=== PATIENT | female | born 1960 | race Caucasian/White ===

== ENCOUNTER 2022-05-28 22:12 | Emergency (ER) | payer MEDICARE, SELFPAY ==
--- NOTE | ~2022-05-28 | XR_ITS ---
EXAMINATION: XR CHEST CLINICAL INFORMATION: Shortness of breath COMPARISON: 01/15/2019 TECHNIQUE: Frontal view of the chest was obtained. FINDINGS: Normal symmetric lung volumes. No parenchymal consolidation. No pleural effusion. No pneumothorax. Cardiomediastinal silhouette and pulmonary vascularity are within normal limits. Aorta is atherosclerotic. No acute osseous abnormalities. XR/XR chest 1V IMPRESSION: No acute findings.
[2022-05-28 22:15] VITALS: BP 125/65; BP 145/71; PULSE 81; PULSE 85; RESP 20; TEMP 36.6; O2SAT 97; O2SAT 98; BMI 34.3
--- NOTE | 2022-05-28 22:16 | ECG_ITS ---
Test Reason : SOB Blood Pressure : / mmHG Vent. Rate : 073 BPM Atrial Rate : 073 BPM P-R Int : 152 ms QRS Dur : 082 ms QT Int : 436 ms P-R-T Axes : 032 029 076 degrees QTc Int : 480 ms Normal sinus rhythm Cannot rule out Inferior infarct , age undetermined Abnormal ECG When compared with ECG of 24-JAN-2019 18:10, Nonspecific T wave abnormality now evident in Lateral leads Referred By: Carissa Jiménez Electronically Signed By:ELLA CUEVAS MD
[2022-05-28 22:23] VITALS: BP 145/71; PULSE 79; RESP 12; O2SAT 95
[2022-05-28 22:29] LABS: Glucose, Whole Blood 297 mg/dL (60-115)
[2022-05-28] MEDS: 0.9 % Sodium Chloride 2,000 ML 999 ML IV (22:42)
[2022-05-28 22:50] LABS: Venous Blood Gas Refer to POC result
[2022-05-28 22:51] LABS: VBG Base Excess -1.1 mmol/L; VBG HCO3 23 mmol/L (22-26); VBG pCO2 38 mmHg; VBG pH 7.39 (7.32-7.43); VBG pO2 68 mmHg
[2022-05-28 22:55] LABS: Prothrombin Time 11.6 SEC (10.0-13.1)
--- NOTE | 2022-05-28 23:05 | ED.GENADULT ---
HPI - General Adult General Chief complaint: Weakness Stated complaint: hyperglycemia Time Seen by Provider: 05/28/22 22:15 Source: patient Mode of arrival: EMS History of Present Illness HPI narrative: 61-year-old female who presents via EMS for complaints of having generalized lethargy for 4 days, sore throat, cough for 2 weeks, states she was not feeling well and had a low-grade fever and then today was having chest pain associated with cough and worsened by deep inspiration. Related Data Allergies Allergy/AdvReac Type Severity Reaction Status Date / Time carisoprodol [From SOMA] Allergy Intermediate HIVES Unverified 07/09/20 15:17 sulfamethoxazole Allergy Intermediate HIVES Unverified 07/09/20 15:17 [From BACTRIM] trimethoprim [From BACTRIM] Allergy Intermediate HIVES Unverified 07/09/20 15:17 Penicillins Allergy Mild HIVES,RASH Unverified 07/09/20 15:17 (PENICILLINASE) atorvastatin [Lipitor] Allergy Unknown Verified 06/26/19 00:00 carbamazepine [Tegretol] Allergy Unknown Verified 04/03/19 00:00 gabapentin Allergy Unknown Unverified 06/26/19 00:00 penicillin V Allergy Unknown hives, rash Unverified 06/26/19 00:00 Sulfa (Sulfonamide Allergy Unknown Unverified 06/26/19 00:00 Antibiotics) topiramate [Topamax] Allergy Unknown Verified 06/26/19 00:00 Doxycycline Hyclate Allergy Unknown vomiting Uncoded 04/03/19 00:00 Review of Systems Review of Systems: Pertinent positives and negatives as stated in HPI 10 point review of systems is otherwise negative. [facility] Past Medical History Source: nursing notes reviewed Social History Social History Alcohol intake: never Patient Tobacco Use Status: Never used Tobacco Use of substances other than those prescribed or required for medical reasons: No Advance Directives: No Advance Directives Information Provided: No Patient : No Physical Exam ED Vital Signs: Vital Signs - 24 hr 05/28/22 22:15 05/28/22 22:23 Temperature 97.9 F Pulse Rate 81 79 Respiratory Rate 20 12 Blood Pressure 145/71 H 145/71 H Pulse Oximetry 97 95 Oxygen Delivery Method Room Air Room Air BMI result Body Mass Index 34.3 VITAL SIGNS: Reviewed. GENERAL: Well developed, well nourished, in no acute distress. HEAD: Normocephalic/atraumatic EYES: PERRLA, EOMI EARS: Ext canals without abnormality OROPHARYNX: no oral lesions noted, posterior pharynx clear LUNGS: Normal breath sounds. No adventitious sounds or accessory muscle use. SpO2<97> CARDIOVASCULAR: Regular rate and rhythm without noted murmurs, no JVD or lower extremity edema. ABDOMEN: Soft, non-tender, non-distended with bowel sounds. MUSCULOSKELETAL: No tenderness, deformities, or effusions noted on gross inspection. EXTREMITIES: No cyanosis, clubbing or edema. SKIN: Inspection of the skin reveals no rashes NEUROLOGIC: Alert and oriented x 4. Strength and sensation to light touch were grossly intact x 4. Course Course Course Narrative: 61-year-old female with history and clinical presentation suggestive of possible viral syndrome, patient is noted to have hyperglycemia. On review of all investigations patient is noted be COVID-19 positive but otherwise lab work is benign. Patient is noted be hyperglycemic and did receive 2 L of IV fluids. She is otherwise stable for discharge to home. Medical Decision Making Lab Data Result diagrams: 05/28/22 23:49 05/28/22 22:38 Labs: Lab Results 05/28/22 05/28/22 05/28/22 Range/Units 22:24 22:38 22:38 WBC (4.8-10.8) X10*3/uL RBC (4.20-5.50) X10*6/uL Hgb (12.0-16.0) g/dl Hct (37.0-47.0) % MCV (80.0-98.0) fL MCH (27.0-33.0) pg MCHC (31.0-35.0) g/dl RDW (11.0-16.0) % Plt Count (160-400) X10*3/uL MPV (9.4-12.3) fL Immature Gran % (Auto) (0.0-0.4) % Neut % (Auto) (45-73) % Lymph % (Auto) (20-40) % [place] % (Auto) (2-11) % Eos % (Auto) (0-4) % Baso % (Auto) (0-2) % Lymph # (Auto) (1.2-4.9) X10*3/uL [place] # (Auto) (0.1-1.2) X10*3/uL Eos # (Auto) (0.0-0.4) X10*3/uL Baso # (Auto) (0.0-0.2) X10*3/uL Abs Immat Gran (auto) (0.00-0.03) X10*3/uL Absolute Neuts (auto) (2.0-8.3) x10*3/uL Absolute Nucleated RBC (0.0-0.012) X10*3/uL Nucleated RBC % (auto) (0.0-0.2) /100WBC Smear Tech's Comments PT (10.0-13.1) SEC INR (0.9-1.1) VBG pH (7.32-7.43) VBG pCO2 mmHg VBG pO2 mmHg VBG HCO3 (22-26) mmol/L VBG O2 Saturation % VBG Base Excess mmol/L Sodium 138 (135-145) mmol/L Potassium 4.3 (3.3-5.1) mmol/L Chloride 102 (96-108) mmol/L Carbon Dioxide 24 (22-29) mmol/L Anion Gap 16 (12-20) BUN 20 H (9-16) mg/dL Creatinine 1.14 (0.5-1.4) mg/dL Estim Creat Clear Calc 56.5 Estimated GFR 48 POC Glucose 297 H (60-115) mg/dL Random Glucose 331 H (60-115) mg/dL Lactic Acid (0.5-2.0) mmol/L Calcium 8.7 (8.4-10.2) mg/dL Total Bilirubin 0.7 (0.0-1.0) mg/dL AST 47 H (5-31) U/L ALT 62 H (0-31) U/L Alkaline Phosphatase 133 H (39-117) U/L Troponin I High Sens (<3.5-17.0) ng/L B-Natriuretic Peptide 18 (<100) pg/mL Total Protein 7.6 (6.5-8.0) g/dL Albumin 4.0 (3.5-5.0) g/dL Acetone, Qual Negative (Negative) COVID-19 (MICHAELA) (Negative) COVID-19 Clin Com 05/28/22 05/28/22 05/28/22 Range/Units 22:38 22:39 22:39 WBC (4.8-10.8) X10*3/uL RBC (4.20-5.50) X10*6/uL Hgb (12.0-16.0) g/dl Hct (37.0-47.0) % MCV (80.0-98.0) fL MCH (27.0-33.0) pg MCHC (31.0-35.0) g/dl RDW (11.0-16.0) % Plt Count (160-400) X10*3/uL MPV (9.4-12.3) fL Immature Gran % (Auto) (0.0-0.4) % Neut % (Auto) (45-73) % Lymph % (Auto) (20-40) % [place] % (Auto) (2-11) % Eos % (Auto) (0-4) % Baso % (Auto) (0-2) % Lymph # (Auto) (1.2-4.9) X10*3/uL [place] # (Auto) (0.1-1.2) X10*3/uL Eos # (Auto) (0.0-0.4) X10*3/uL Baso # (Auto) (0.0-0.2) X10*3/uL Abs Immat Gran (auto) (0.00-0.03) X10*3/uL Absolute Neuts (auto) (2.0-8.3) x10*3/uL Absolute Nucleated RBC (0.0-0.012) X10*3/uL Nucleated RBC % (auto) (0.0-0.2) /100WBC Smear Tech's Comments PT 11.6 (10.0-13.1) SEC INR 1.0 (0.9-1.1) VBG pH (7.32-7.43) VBG pCO2 mmHg VBG pO2 mmHg VBG HCO3 (22-26) mmol/L VBG O2 Saturation % VBG Base Excess mmol/L Sodium (135-145) mmol/L Potassium (3.3-5.1) mmol/L Chloride (96-108) mmol/L Carbon Dioxide (22-29) mmol/L Anion Gap (12-20) BUN (9-16) mg/dL Creatinine (0.5-1.4) mg/dL Estim Creat Clear Calc Estimated GFR POC Glucose (60-115) mg/dL Random Glucose (60-115) mg/dL Lactic Acid 1.6 (0.5-2.0) mmol/L Calcium (8.4-10.2) mg/dL Total Bilirubin (0.0-1.0) mg/dL AST (5-31) U/L ALT (0-31) U/L Alkaline Phosphatase (39-117) U/L Troponin I High Sens < 3.5 (<3.5-17.0) ng/L B-Natriuretic Peptide (<100) pg/mL Total Protein (6.5-8.0) g/dL Albumin (3.5-5.0) g/dL Acetone, Qual (Negative) COVID-19 (MICHAELA) (Negative) COVID-19 Clin Com 05/28/22 05/28/22 05/28/22 Range/Units 22:39 22:45 23:49 WBC 6.4 (4.8-10.8) X10*3/uL RBC 4.45 (4.20-5.50) X10*6/uL Hgb 12.4 (12.0-16.0) g/dl Hct 38.0 (37.0-47.0) % MCV 85.4 (80.0-98.0) fL MCH 27.9 (27.0-33.0) pg MCHC 32.6 (31.0-35.0) g/dl RDW 13.4 (11.0-16.0) % Plt Count 127 L (160-400) X10*3/uL MPV 12.8 H (9.4-12.3) fL Immature Gran % (Auto) 0.6 H (0.0-0.4) % Neut % (Auto) 62.2 (45-73) % Lymph % (Auto) 26.1 (20-40) % [place] % (Auto) 8.4 (2-11) % Eos % (Auto) 2.2 (0-4) % Baso % (Auto) 0.5 (0-2) % Lymph # (Auto) 1.7 (1.2-4.9) X10*3/uL [place] # (Auto) 0.5 (0.1-1.2) X10*3/uL Eos # (Auto) 0.1 (0.0-0.4) X10*3/uL Baso # (Auto) 0.0 (0.0-0.2) X10*3/uL Abs Immat Gran (auto) 0.04 H (0.00-0.03) X10*3/uL Absolute Neuts (auto) 4.0 (2.0-8.3) x10*3/uL Absolute Nucleated RBC 0.000 (0.0-0.012) X10*3/uL Nucleated RBC % (auto) 0.0 (0.0-0.2) /100WBC Smear Tech's Comments VERIFIED PT (10.0-13.1) SEC INR (0.9-1.1) VBG pH 7.39 (7.32-7.43) VBG pCO2 38 mmHg VBG pO2 68 mmHg VBG HCO3 23 (22-26) mmol/L VBG O2 Saturation 90.0 % VBG Base Excess -1.1 mmol/L Sodium (135-145) mmol/L Potassium (3.3-5.1) mmol/L Chloride (96-108) mmol/L Carbon Dioxide (22-29) mmol/L Anion Gap (12-20) BUN (9-16) mg/dL Creatinine (0.5-1.4) mg/dL Estim Creat Clear Calc Estimated GFR POC Glucose (60-115) mg/dL Random Glucose (60-115) mg/dL Lactic Acid (0.5-2.0) mmol/L Calcium (8.4-10.2) mg/dL Total Bilirubin (0.0-1.0) mg/dL AST (5-31) U/L ALT (0-31) U/L Alkaline Phosphatase (39-117) U/L Troponin I High Sens (<3.5-17.0) ng/L B-Natriuretic Peptide (<100) pg/mL Total Protein (6.5-8.0) g/dL Albumin (3.5-5.0) g/dL Acetone, Qual (Negative) COVID-19 (MICHAELA) Positive A (Negative) COVID-19 Clin Com See Note ECG Data Attestation: I personally reviewed and interpreted this ECG as follows: Prior ECG tracings: available for review Interpretation: Normal sinus rhythm, HR-73, no STEMI, [place]/QRS/QTC are within normal limits. Discharge Plan Discharge Clinical Impression: Viral syndrome, Lab test positive for detection of COVID-19 virus, Hyperglycemia Patient Disposition: Home, Self-Care Instructions: Diabetic Hyperglycemia (ED), COVID-19 (Coronavirus Disease 2019) (ED), Viral Syndrome (ED) Additional Instructions: 1. You have been diagnosed with COVID 19 infection and must isolate for the next 5 days and then follow all [place] and Federal does guidelines regarding COVID-19 infection. 2. Recommend [id number] Tylenol/ibuprofen as needed for headaches, body aches, temperatures greater than 100.4. Increase water intake and rest. 3. Resume all home medications as prescribed. 4. Follow-up with your primary care doctor via telemedicine. Return to the ER for worsening symptoms.
[2022-05-28 23:06] LABS: COVID-19 Test Positive (Negative)
[2022-05-28 23:09] LABS: Lactic Acid 1.6 mmol/L (0.5-2.0)
[2022-05-28 23:15] LABS: Alanine Aminotransferase 62 U/L (0-31); Alkaline Phosphatase 133 U/L (39-117); Anion Gap 16 (12-20); Aspartate Amino Transferase 47 U/L (5-31); Bilirubin Total 0.7 mg/dL (0.0-1.0); Blood Urea Nitrogen 20 mg/dL (9-16); Calcium 8.7 mg/dL (8.4-10.2); Carbon Dioxide 24 mmol/L (22-29); Chloride 102 mmol/L (96-108); Creatinine Clr Calc Pharmacy 56.5; Estimated Glomerular Filt Rate 48; Glucose Random 331 mg/dL (60-115); Potassium 4.3 mmol/L (3.3-5.1); Sodium 138 mmol/L (135-145); Total Protein 7.6 g/dL (6.5-8.0)
[2022-05-28 23:18] LABS: B Type Natriuretic Peptide 18 pg/mL (<100)
[2022-05-28 23:19] LABS: Troponin-I High Sensitivity < 3.5 ng/L (<3.5-17.0)
[2022-05-28 23:33] LABS: Acetone, serum QL Negative (Negative)
[2022-05-28 23:54] LABS: PLT CLUMP 1; Red Cell Distribution Width 13.4 % (11.0-16.0); SCAN SMEAR FLAG 1
[2022-05-28 23:56] LABS: Basophils Percent Auto 0.5 % (0-2); Eosinophils Absolute Auto 0.1 X10*3/uL (0.0-0.4); Eosinophils Percent Auto 2.2 % (0-4); Hemoglobin 12.4 g/dl (12.0-16.0); Imm Gran Abs Auto 0.04 X10*3/uL (0.00-0.03); Imm Gran Pct Auto 0.6 % (0.0-0.4); Lymphocytes Absolute Auto 1.7 X10*3/uL (1.2-4.9); Lymphocytes Percent Auto 26.1 % (20-40); MANUAL DIFF FLAG SCAN; Mean Corpuscular HGB Conc 32.6 g/dl (31.0-35.0); Mean Corpuscular Hemoglobin 27.9 pg (27.0-33.0); Mean Corpuscular Volume 85.4 fL (80.0-98.0); Mean Platelet Volume 12.8 fL (9.4-12.3); Monocytes Absolute Auto 0.5 X10*3/uL (0.1-1.2); Monocytes Percent Auto 8.4 % (2-11); Neutrophils Percent Auto 62.2 % (45-73); Red Blood Count 4.45 X10*6/uL (4.20-5.50); White Blood Count 6.4 X10*3/uL (4.8-10.8)
[2022-05-29 00:18] LABS: Platelet Count 127 X10*3/uL (160-400)
[2022-05-29 00:19] LABS: SLIDE REVIEW VERIFIED
[2022-05-29 01:52] VITALS: BP 105/63; BP 136/49; PULSE 65; PULSE 66; RESP 12; RESP 18; O2SAT 92; O2SAT 98
[2022-05-29 01:59] LABS: Glucose, Whole Blood 237 mg/dL (60-115)
== END 2022-05-29 02:07 | disposition home or self-care (01) ==
PROVIDERS: Emergency Provider Student in an Organized Health Care Education/Training Program
DX: U07.1 COVID-19 (principal); R73.9 Hyperglycemia, unspecified
CPT/HCPCS: 36415; 71045; 80053; 82009; 82803; 82947; 83605; 83880; 84484; 85025; 85610; 87040; 87635; 93005; 96360; 96361; 99284; 99285

== ENCOUNTER 2022-09-20 19:04 | Observation (INO) | payer MEDICARE, SELFPAY ==
--- NOTE | ~2022-09-20 | CT_ITS ---
EXAMINATION: CT HEAD WITHOUT CONTRAST (STROKE PROTOCOL) CLINICAL INFORMATION: Stroke protocol. Fluid speech COMPARISON: Head CT 05/20/2013 TECHNIQUE: Contiguous axial imaging was performed from the skull base to vertex without intravenous administration of contrast. This CT examination was performed using dose optimization techniques as appropriate, variously including the following: *Automated exposure control *Adjustment of mA and/or kV according to patient size (this includes techniques or standardized protocols for targeted exams where dose is matched to indication/reason for exam; i.e. extremities or head) *Use of iterative reconstruction technique DLP: 652 mGy-cm FINDINGS: There is no evidence of acute intracranial hemorrhage or territorial infarction. No abnormal mass effect or midline shift is appreciated. Segura-white differentiation is well preserved. No extra-axial fluid collections. The ventricular system and cortical sulci are normal in size. The osseous structures and soft tissues are normal. . The visualized paranasal sinuses and mastoid air cells are well aerated. CT/CT head for stroke IMPRESSION: No CT evidence of acute intracranial abnormality. This critical result was discussed with Dr. Solorzano at 7:40 PM hours on 09/20/2022. It was ascertained that the content and urgency of the report was understood at the time of direct communication.
--- NOTE | ~2022-09-20 | CT_ITS ---
EXAMINATION: CT ANGIOGRAM NECK CLINICAL INFORMATION: Slurred speech. COMPARISON: None TECHNIQUE: Axial images were obtained through the neck following the intravenous administration of 70 mL Omnipaque 350 per CTA protocol. Coronal and sagittal reconstructed images were generated. Multiplanar MIP reformatted images also generated. This CT examination was performed using dose optimization techniques as appropriate, variously including the following: *Automated exposure control *Adjustment of mA and/or kV according to patient size (this includes techniques or standardized protocols for targeted exams where dose is matched to indication/reason for exam; i.e. extremities or head) *Use of iterative reconstruction technique DLP: 574 mGy-cm FINDINGS: There is a large volume contrast extravasation in the right neck extending from the posterior margin of the right parotid gland inferiorly into the right aspect of the paratracheal mediastinum. No intravascular contrast as a result making examination nondiagnostic from a vascular perspective. The trachea remains midline. No significant mass effect from the contrast extravasation on the airway identified. Major salivary glands and thyroid gland are unremarkable. No cervical lymphadenopathy or mass identified. No mucosal space mass. Laryngeal structures are unremarkable. Normal caliber aortic arch. Visualized upper lungs appear clear. Globes and retro-orbital structures are unremarkable. Normal appearance the talent consultant space and parapharyngeal fat. No retropharyngeal collection. Visualized intracranial contents grossly unremarkable limited assessment. Visualized paranasal sinuses and mastoid air cells normally aerated. No acute fracture. No suspicious osseous lesion. Status post prior ACDF at C4-C5 and C5-C6. CT/CT angio neck IMPRESSION: 1. Large volume iodinated contrast extravasation in the right neck extending inferiorly into the right paratracheal mediastinum. No significant mass effect on the airway identified. Recommend compresses and gentle massage of the extravasated area as tolerated. Would suggest close clinical follow-up for a few hours. 2. No intravascular contrast as a result of the extravasation making examination nondiagnostic for vascular imaging.
--- NOTE | ~2022-09-20 | MR_ITS ---
MRI OF THE BRAIN WITHOUT IV CONTRAST INDICATION: TIA. COMPARISON: Head CT and CTA head and neck 09/20/2022. TECHNIQUE: Multiplanar multisequence MR imaging of the brain was obtained without IV contrast. FINDINGS: There is no hydrocephalus, extra-axial surface collection, or herniation. There is mild chronic microangiopathy. The major flow voids at the skull base are preserved. There is no acute infarct on diffusion-weighted imaging. There is no intracranial hemorrhage on the gradient recalled echo acquisition. The midline structures are normal. The cerebellar tonsils are normally positioned. The cerebellum and brainstem are normal. The craniocervical junction is normal. Osseous marrow signal intensity is homogenous. The visualized soft tissues are unremarkable. MR/MR head/brain wo con IMPRESSION: - No acute intracranial findings. No acute infarcts. - There is mild chronic microangiopathy.
--- NOTE | 2022-09-20 19:13 | ECG_ITS ---
Test Reason : STROKE Blood Pressure : / mmHG Vent. Rate : 070 BPM Atrial Rate : 070 BPM P-R Int : 128 ms QRS Dur : 082 ms QT Int : 426 ms P-R-T Axes : 026 041 038 degrees QTc Int : 460 ms Normal sinus rhythm Normal ECG When compared with ECG of 28-MAY-2022 22:48, T wave amplitude has increased in Lateral leads Referred By: Portia Solorzano Electronically Signed By:SHELBY PRIEST MD
[2022-09-20 19:20] VITALS: BP 130/70; PULSE 80; O2SAT 100
--- NOTE | 2022-09-20 19:21 | PC.NURSE ---
Pt. in CT scan at this time
--- NOTE | 2022-09-20 19:36 | ED_ITS ---
HPI - Neuro Symptoms/Deficit General Chief Complaint: Stroke Stated Complaint: stroke alert Time Seen by Provider: 09/20/22 19:10 Source: patient and EMS Mode of arrival: EMS Limitations: no limitations History of Present Illness HPI Narrative: Patient comes to the emergency room complaining of mild right-sided facial numbness. Patient denies any motor dysfunction. EMS called in as a stroke alert. NIH 0. Patient's glucose 500+ patient denies any chest pain or shortness of breath. Patient states her symptoms started around 18:30 Related Data Allergies Allergy/AdvReac Type Severity Reaction Status Date / Time carisoprodol [From SOMA] Allergy Intermediate HIVES Verified 09/20/22 21:11 sulfamethoxazole Allergy Intermediate HIVES Verified 09/20/22 21:11 [From BACTRIM] trimethoprim [From BACTRIM] Allergy Intermediate HIVES Verified 09/20/22 21:11 Penicillins Allergy Mild HIVES,RASH Verified 09/20/22 21:11 (PENICILLINASE) atorvastatin [Lipitor] Allergy Unknown Swelling Verified 09/20/22 21:11 carbamazepine [Tegretol] Allergy Unknown Swelling Verified 09/20/22 21:11 gabapentin Allergy Unknown Swelling Verified 09/20/22 21:11 penicillin V Allergy Unknown hives, rash Verified 09/20/22 21:11 Sulfa (Sulfonamide Allergy Unknown Swelling Verified 09/20/22 21:11 Antibiotics) topiramate [Topamax] Allergy Unknown Swelling Verified 09/20/22 21:11 Doxycycline Hyclate Allergy Unknown vomiting Uncoded 09/20/22 21:10 Review of Systems Review of Systems: Constitutional : No Weight loss, No Fever, No Chills, No Night Sweats, No Fatigue, No Malaise ENT/Mouth : No Hearing loss, No Ear Pain, No Nasal Congestion, No Sinus Pain, No Hoarseness, No sore throat, No Rhinorrhea, No Swallowing Difficulty Eyes: No Eye Pain, No Swelling, No Redness, No Foreign Body, No Discharge, No Vision Changes Cardiovascular : No Chest Pain, No SOB, No Dyspnea on Exertion, No Orthopnea, No Edema, No Palpitations Respiratory : No Cough, No Sputum, No Wheezing, No Smoke Exposure, No Dyspnea Gastrointestinal : No Nausea, No Vomiting, No Diarrhea, No Constipation, No abdominal Pain, No Hematochezia, No Melena Genitourinary : no irregular bleeding, No Dysuria, No Urinary Frequency, No Hematuria, No Urinary Incontinence, No Urgency, No Flank Pain, No Urinary Flow Changes, No Hesitancy Musculoskeletal : No joint pain, No Myalgias, No Joint Swelling Skin : No Skin Lesions, No rash Neuro : Complaining of some possible weakness, numbness in the right side of the body, started approximately around 18:30 Psych : No Anxiety/Panic, No Depression, No SI/HI/AH/VH, No Social Issues, Heme/Lymph: No Bruising, No Bleeding,No Lymphadenopathy Endocrine : No Polyuria, No Polydipsia, No Temperature Intolerance [facility] Past Medical History Medical History (Updated 09/20/22 @ 22:14 by Portia Solorzano MD) Type 2 diabetes Social History Social History Alcohol intake: never Patient Tobacco Use Status: Never used Tobacco Advance Directives: No Physical Exam Const: Other: Appearance: Alert. Oriented X3. No acute distress. Eyes: Pupils equal, round and reactive to light. ENT: Pharynx normal. Neck: Normal inspection. Neck supple. No lymph nodes noted. No crepitus CVS: Normal heart rate and rhythm. Pulses normal. Normal S1 and S2 Respiratory: No respiratory distress. Breath sounds normal. No Wheezing. No rales Abdomen: Soft and nontender. No rigidity. No distention. Skin: Skin warm and dry. Normal skin color. Normal skin turgor. Extremities: No lower extremity edema. No Lacerations. No Rash Neuro: Oriented X 3. No motor deficit. No sensory deficit. Moving all extremities. No slurred speech. CN 2 through 12 grossly intact Psych: calm, cooperative, normal affect Course Course Course Narrative: Patient's NIH score is 0. CT scan without contrast is negative for any acute pathology. Patient receiving IV fluids and insulin. At this time, patient is not a candidate for tPA since her NIH score is 0 CT scan is negative. Patient is asymptomatic at this time. Patient received 10 units of insulin and fluids. Patient received additionally 5 units of subcu insulin since patient accidentally pulled out her IV line and she has a very hard stick I discussed the patient with Dr. Calix, patient being admitted for possible TIA Medications Administered Discontinued Medications Generic Name Dose Route Start Last Admin Trade Name Freq PRN Reason Stop Dose Admin Sodium Chloride 1,000 mls @ 999 mls/hr 09/20/22 19:13 09/20/22 21:11 Ns IVCONT 09/20/22 20:13 999 mls/hr .Q1H1M ONE Administration Insulin Human Regular 10 unit 09/20/22 19:13 09/20/22 21:16 Insulin Regular, Human 100 Unit/Ml 3 Ml Vial IVPUSH 09/20/22 19:14 10 unit ONCE ONE Administration Iohexol 100 ml 09/20/22 22:09 09/20/22 22:09 Iohexol 350 Mg/Ml 100 Ml Infus..Btl IV 09/20/22 22:10 70 ml ONCE ONE Administration MDM - Neuro Symptoms/Deficit Lab Data Result diagrams: 09/20/22 20:25 09/20/22 20:25 Labs: Lab Results 09/20/22 09/20/22 09/20/22 Range/Units 19:43 20:25 20:25 WBC 6.7 (4.8-10.8) X10*3/uL RBC 4.70 (4.20-5.50) X10*6/uL Hgb 13.1 (12.0-16.0) g/dl Hct 40.6 (37.0-47.0) % MCV 86.4 (80.0-98.0) fL MCH 27.9 (27.0-33.0) pg MCHC 32.3 (31.0-35.0) g/dl RDW 13.4 (11.0-16.0) % Plt Count 244 D (160-400) X10*3/uL MPV 12.8 H (9.4-12.3) fL Immature Gran % (Auto) 0.3 (0.0-0.4) % Neut % (Auto) 61.4 (45-73) % Lymph % (Auto) 28.8 (20-40) % [place] % (Auto) 5.8 (2-11) % Eos % (Auto) 2.8 (0-4) % Baso % (Auto) 0.9 (0-2) % Lymph # (Auto) 1.9 (1.2-4.9) X10*3/uL [place] # (Auto) 0.4 (0.1-1.2) X10*3/uL Eos # (Auto) 0.2 (0.0-0.4) X10*3/uL Baso # (Auto) 0.1 (0.0-0.2) X10*3/uL Abs Immat Gran (auto) 0.02 (0.00-0.03) X10*3/uL Absolute Neuts (auto) 4.1 (2.0-8.3) x10*3/uL Absolute Nucleated RBC 0.000 (0.0-0.012) X10*3/uL Nucleated RBC % (auto) 0.0 (0.0-0.2) /100WBC PT (10.0-13.1) SEC Whole Blood PT 12.8 (11.1-13.5) sec INR (0.9-1.1) Whole Blood INR 1.1 (0.9-1.1) Sodium 139 (135-145) mmol/L Potassium 4.2 (3.3-5.1) mmol/L Chloride 100 (96-108) mmol/L Carbon Dioxide 28 (22-29) mmol/L Anion Gap 15 (12-20) BUN 14 (9-16) mg/dL Creatinine 0.91 (0.5-1.4) mg/dL Estim Creat Clear Calc TNP Estimated GFR > 60 POC Glucose (60-115) mg/dL Random Glucose 485 H* (60-115) mg/dL Calcium 9.0 (8.4-10.2) mg/dL Total Bilirubin 0.3 (0.0-1.0) mg/dL Direct Bilirubin 0.2 (0.0-0.5) mg/dL AST 15 D (5-31) U/L ALT 28 (0-31) U/L Alkaline Phosphatase 132 H (39-117) U/L Troponin I High Sens (<3.5-17.0) ng/L Total Protein 6.9 (6.5-8.0) g/dL Albumin 3.7 (3.5-5.0) g/dL Ethyl Alcohol mg/dL COVID-19 (MICHAELA) (Negative) COVID-19 Clin Com 09/20/22 09/20/22 09/20/22 Range/Units 20:25 20:25 20:25 WBC (4.8-10.8) X10*3/uL RBC (4.20-5.50) X10*6/uL Hgb (12.0-16.0) g/dl Hct (37.0-47.0) % MCV (80.0-98.0) fL MCH (27.0-33.0) pg MCHC (31.0-35.0) g/dl RDW (11.0-16.0) % Plt Count (160-400) X10*3/uL MPV (9.4-12.3) fL Immature Gran % (Auto) (0.0-0.4) % Neut % (Auto) (45-73) % Lymph % (Auto) (20-40) % [place] % (Auto) (2-11) % Eos % (Auto) (0-4) % Baso % (Auto) (0-2) % Lymph # (Auto) (1.2-4.9) X10*3/uL [place] # (Auto) (0.1-1.2) X10*3/uL Eos # (Auto) (0.0-0.4) X10*3/uL Baso # (Auto) (0.0-0.2) X10*3/uL Abs Immat Gran (auto) (0.00-0.03) X10*3/uL Absolute Neuts (auto) (2.0-8.3) x10*3/uL Absolute Nucleated RBC (0.0-0.012) X10*3/uL Nucleated RBC % (auto) (0.0-0.2) /100WBC PT 12.0 (10.0-13.1) SEC Whole Blood PT (11.1-13.5) sec INR 1.0 (0.9-1.1) Whole Blood INR (0.9-1.1) Sodium (135-145) mmol/L Potassium (3.3-5.1) mmol/L Chloride (96-108) mmol/L Carbon Dioxide (22-29) mmol/L Anion Gap (12-20) BUN (9-16) mg/dL Creatinine (0.5-1.4) mg/dL Estim Creat Clear Calc Estimated GFR POC Glucose (60-115) mg/dL Random Glucose (60-115) mg/dL Calcium (8.4-10.2) mg/dL Total Bilirubin (0.0-1.0) mg/dL Direct Bilirubin (0.0-0.5) mg/dL AST (5-31) U/L ALT (0-31) U/L Alkaline Phosphatase (39-117) U/L Troponin I High Sens < 3.5 (<3.5-17.0) ng/L Total Protein (6.5-8.0) g/dL Albumin (3.5-5.0) g/dL Ethyl Alcohol mg/dL COVID-19 (MICHAELA) Negative (Negative) COVID-19 Clin Com See Note 09/20/22 09/20/22 Range/Units 20:25 21:58 WBC (4.8-10.8) X10*3/uL RBC (4.20-5.50) X10*6/uL Hgb (12.0-16.0) g/dl Hct (37.0-47.0) % MCV (80.0-98.0) fL MCH (27.0-33.0) pg MCHC (31.0-35.0) g/dl RDW (11.0-16.0) % Plt Count (160-400) X10*3/uL MPV (9.4-12.3) fL Immature Gran % (Auto) (0.0-0.4) % Neut % (Auto) (45-73) % Lymph % (Auto) (20-40) % [place] % (Auto) (2-11) % Eos % (Auto) (0-4) % Baso % (Auto) (0-2) % Lymph # (Auto) (1.2-4.9) X10*3/uL [place] # (Auto) (0.1-1.2) X10*3/uL Eos # (Auto) (0.0-0.4) X10*3/uL Baso # (Auto) (0.0-0.2) X10*3/uL Abs Immat Gran (auto) (0.00-0.03) X10*3/uL Absolute Neuts (auto) (2.0-8.3) x10*3/uL Absolute Nucleated RBC (0.0-0.012) X10*3/uL Nucleated RBC % (auto) (0.0-0.2) /100WBC PT (10.0-13.1) SEC Whole Blood PT (11.1-13.5) sec INR (0.9-1.1) Whole Blood INR (0.9-1.1) Sodium (135-145) mmol/L Potassium (3.3-5.1) mmol/L Chloride (96-108) mmol/L Carbon Dioxide (22-29) mmol/L Anion Gap (12-20) BUN (9-16) mg/dL Creatinine (0.5-1.4) mg/dL Estim Creat Clear Calc Estimated GFR POC Glucose 310 H (60-115) mg/dL Random Glucose (60-115) mg/dL Calcium (8.4-10.2) mg/dL Total Bilirubin (0.0-1.0) mg/dL Direct Bilirubin (0.0-0.5) mg/dL AST (5-31) U/L ALT (0-31) U/L Alkaline Phosphatase (39-117) U/L Troponin I High Sens (<3.5-17.0) ng/L Total Protein (6.5-8.0) g/dL Albumin (3.5-5.0) g/dL Ethyl Alcohol < 10 mg/dL COVID-19 (MICHAELA) (Negative) COVID-19 Clin Com NIH Stroke Scale Internal: Initial- Upon Arrival Level of Consciousness: Alert Level of Consciousness Questions: Answers both questions correctly Level of Consciousness Commands: Performs both tasks correctly Best Gaze: Normal Visual: No visual loss Facial Palsy: Normal Motor Arm (Right): No drift Motor Arm (Left): No drift Motor Leg (Right): No drift Motor Leg (Left): No drift Limb Ataxia: Absent Sensory: Normal Best Language: No aphasia Dysarthia: Normal Extinction and Inattention: No abnormality Score: 0 Discharge Plan Discharge Clinical Impression: Transient cerebral ischemia, Acute hyperglycemia Patient Disposition: Admitted As Inpatient
[2022-09-20 19:47] LABS: Prothrombin Time Whole Bld POC 12.8 sec (11.1-13.5); ~PT, ~INR - Anti Coag Clinic 1.1 (0.9-1.1)
--- NOTE | 2022-09-20 19:51 | PC.NURSE ---
Unable to obtain IV access. Notified Annie Solorzano MD. advised RN to have fire extinguisher charger try. Zulema Scott aware
--- NOTE | 2022-09-20 19:55 | PC.NURSE ---
Attempts by other RNs - still unable to obtain access. aware
--- NOTE | 2022-09-20 20:28 | PC.NURSE ---
MD Jeanine in to CT to attempt line on pt.
[2022-09-20 20:29] LABS: MANUAL DIFF FLAG NO
[2022-09-20 20:38] LABS: Basophils Absolute Auto 0.1 X10*3/uL (0.0-0.2); Basophils Percent Auto 0.9 % (0-2); Eosinophils Absolute Auto 0.2 X10*3/uL (0.0-0.4); Eosinophils Percent Auto 2.8 % (0-4); Hematocrit 40.6 % (37.0-47.0); Hemoglobin 13.1 g/dl (12.0-16.0); Imm Gran Abs Auto 0.02 X10*3/uL (0.00-0.03); Imm Gran Pct Auto 0.3 % (0.0-0.4); Lymphocytes Absolute Auto 1.9 X10*3/uL (1.2-4.9); Lymphocytes Percent Auto 28.8 % (20-40); Mean Corpuscular HGB Conc 32.3 g/dl (31.0-35.0); Mean Corpuscular Hemoglobin 27.9 pg (27.0-33.0); Mean Corpuscular Volume 86.4 fL (80.0-98.0); Mean Platelet Volume 12.8 fL (9.4-12.3); Monocytes Absolute Auto 0.4 X10*3/uL (0.1-1.2); Monocytes Percent Auto 5.8 % (2-11); Neutrophils Absolute Auto 4.1 x10*3/uL (2.0-8.3); Neutrophils Percent Auto 61.4 % (45-73); Platelet Count 244 X10*3/uL (160-400); Red Cell Distribution Width 13.4 % (11.0-16.0); White Blood Count 6.7 X10*3/uL (4.8-10.8)
[2022-09-20 20:43] LABS: COVID-19 Test Negative (Negative); IDNOW Serial# 16C4AD1C
[2022-09-20 20:46] LABS: Ethanol < 10 mg/dL
[2022-09-20 20:51] LABS: Troponin-I High Sensitivity < 3.5 ng/L (<3.5-17.0)
[2022-09-20 20:52] LABS: Alanine Aminotransferase 28 U/L (0-31); Albumin Level 3.7 g/dL (3.5-5.0); Alkaline Phosphatase 132 U/L (39-117); Anion Gap 15 (12-20); Aspartate Amino Transferase 15 U/L (5-31); Bilirubin Direct 0.2 mg/dL (0.0-0.5); Bilirubin Total 0.3 mg/dL (0.0-1.0); Blood Urea Nitrogen 14 mg/dL (9-16); Carbon Dioxide 28 mmol/L (22-29); Chloride 100 mmol/L (96-108); Estimated Glomerular Filt Rate > 60; Potassium 4.2 mmol/L (3.3-5.1); Sodium 139 mmol/L (135-145); Total Protein 6.9 g/dL (6.5-8.0)
[2022-09-20] MEDS: 0.9 % Sodium Chloride 1,000 ML 999 ML IVCONT (21:11)
[2022-09-20] MEDS: Insulin Regular, Human 100 UNIT/ML 3 ML VIAL 10 UNIT IVPUSH (21:16)
--- NOTE | 2022-09-20 21:20 | PC.NURSE ---
Med administration delayed due to difficulty obtaining IV access. Provider obtained access via EJ.
--- OUTSIDE RECORDS SUMMARY | 2022-09-20 21:26 | XMS_ITS | Continuity of Care Document ---
:1960 Author Organization [facility] Address [address] [facility], 3rd Floor, [address] [place] [phone]- Care Team Providers Name Role Phone Feliz Ellis DO Primary Care Physician En[place] [facility] [place] Date(s): 08/15/20 - 12/13/[address] [facility] [address] [place], [address] Floor, [address] [place] [id number] Attending Physician: Jillian Thornton MD Admitting Physician: Jillian Thornton MD Allergies, Adverse Reactions, Alerts Substance Reaction Severity Status gabapentin nausea Active topiramate dizziness Active Bactrim rash Active TEGretol n/v Active penicillins rash Active Soma rash Active Lipitor myalgia Active Immunizations Given and Recorded Vaccine Date Status Refusal Reason pneumococcal 23-valent vaccine 04/06/10 Given Medications acetaminophen 325 mg oral tablet 975 mg, By Mouth, Every 6 hours, Not to exceed 4 GM of Tylenol per 24 hour period, Refills 0, Maintenance, 09/11/20 14:16:00 EST, Partial fill upon patient request Start Date: 09/11/20 Status: Orderedamitriptyline 25 mg oral tablet 25 mg, 1, tablet, By Mouth, Daily at bedtime, Refills 0, Maintenance, 11/12/19 13:02:00 EST Start Date: 11/12/19 Status: OrderedColace Capsule 100 mg, 1, capsule, By Mouth, 2 times a day, Refills 0, Maintenance, 09/11/20 14:16:00 EST, Partial fill upon patient request Start Date: 09/11/20 Status: Ordereddivalproex sodium 125 mg oral delayed release capsule 1 capsule = 125 mg, By Mouth, 3 times a day, 0 Refills, Maintenance, 09/09/19 8:56:18 EST Start Date: 09/09/19 Status: Orderedezetimibe 10 mg oral tablet 1 tablet = 10 mg, By Mouth, Daily, 0 Refills, Maintenance, 09/09/19 8:56:38 EST Start Date: 09/09/19 Status: OrderedFreestyle Kwadwo Monitor See Instructions, # 1 each, Maintenance, Use kwadwo monitor to check blood glucose 4x a day, E11.9, 06/24/20 16:08:00 EDT, Supply, 160.02, cm, 06/10/20 12:37:00 EDT, Height, 82, kg, 12/11/18 13:27:00 EST, Dry Weight Start Date: 06/24/20 Stop Date: 07/24/20 Status: OrderedFreestyle Kwadwo Sensor See Instructions, # 2 each, Refills 11, Tot. Refills 11, Maintenance, use sensor to monitor blood glucose 4x a day, change sensor every 14 days, E11.9, 06/24/20 16:08:00 EDT, Supply, 160.02, cm, 06/10/20 12:37:00 EDT, Height, 82, kg, 12/11/18 13:27:00... Start Date: 06/24/20 Stop Date: 06/19/21 Status: Orderedglimepiride 4 mg oral tablet 1 tablet = 4 mg, By Mouth, 2 times a day before breakfast and dinne, # 180 tablet, 4 Refills, Maintenance, 05/15/20 11:20:00 EDT, Tablet, [facility], 160.02, cm, 05/15/20 10:59:00 EDT, Height, 82, kg, 12/11/18 13:27:00 EST, Dry Weight Start Date: 05/15/20 Stop Date: 08/08/21 Status: OrderedHumalog Kwik Pen 100 units/mL subcutaneous injection See Instructions, Give by Subcutaneous Injection once daily before dinner per sliding scale. Max daily dose 30 units., # 15 mL, 11 Refills, Maintenance, 06/25/20 14:14:00 EDT, Solution, [facility], 160.02, cm, 06/10/20 12:37:00 EDT, Height,... Start Date: 06/25/20 Status: OrderedJardiance 25 mg oral tablet 1 tablet = 25 mg, By Mouth, Daily in AM, # 90 tablet, 4 Refills, Maintenance, 05/15/20 11:33:00 EDT,Tablet, [facility], 160.02, cm, 05/15/20 10:59:00 EDT, Height, 82, kg, 12/11/18 13:27:00 EST, Dry Weight Start Date: 05/15/20 Stop Date: 08/08/21 Status: OrderedLantus Solostar Pen 100 units/mL subcutaneous solution 60 units, Subcutaneous Infusion, Daily at bedtime, 0 Refills, Maintenance, 01/28/14 10:23:56 Start Date: 01/28/14 Status: Orderedlisinopril 5 mg oral tablet 5 mg, 1, tablet, By Mouth, Daily, # 30 tablet, Refills 0, Maintenance, 12/11/18 13:16:24 EST Start Date: 12/11/18 Status: OrderedLyrica 25 mg oral capsule 2 capsule = 50 mg, By Mouth, 3 times a day, 0 Refills, Maintenance, 09/09/19 8:57:01 EST Start Date: 09/09/19 Status: OrderedmetFORMIN 500 mg oral tablet, extended release 2 tablet = 1,000 mg, By Mouth, Daily, # 180 tablet, 0 Refills, Maintenance, 04/15/20 11:58:00 EDT, ER Tablet, [facility], 160.02, cm, 03/18/20 9:39:00 EDT, Height, 82, kg, 12/11/18 13:27:00 EST, Dry Weight Start Date: 04/15/20 Stop Date: 07/14/20 Status: OrderedNuLYTELY with Flavor Packs oral powder for reconstitution See Instructions, please follow instruction sheet, # 4,000 mL, 0 Refills, Maintenance, 06/24/20 17:23:00 EDT, [facility]/pharmacy #[id number], please follow instruction sheet, 160.02, cm, 06/10/20 12:37:00 EDT, Height, 82, kg, 12/11/18 13:27:00 EST, Dry Weight Start Date: 06/24/20 Status: Orderedoxybutynin 5 mg/24 hours oral tablet, extended release 1 tablet, By Mouth, Daily, # 30 tablet, 1 Refills, Maintenance, 07/09/20 17:12:00 EDT, [id number], 162.6, cm, 07/02/20 8:57:00 EDT, Height, 83.9, kg, 07/02/20 8:57:00 EDT, Dry Weight Start Date: 07/09/20 Status: OrderedPriLOSEC OTC 20 mg oral delayed release tablet 1 tablet = 20 mg, By Mouth, Daily, 0 Refills, Maintenance, 01/28/14 10:24:26 Start Date: 01/28/14 Status: Orderedpropranolol 20 mg oral tablet 20 mg, 1, tablet, By Mouth, 2 times a day, Refills 0, Maintenance, 11/12/19 13:02:00 EST Start Date: 11/12/19 Status: OrderedQUEtiapine 50 mg oral tablet, extended release 1 tablet = 50 mg, By Mouth, Daily, # 30 tablet, 0 Refills, Maintenance, 09/04/20 15:59:00 EST, ER Tablet, Partial fill upon patient request Start Date: 09/04/20 Status: OrderedtiZANidine 4 mg oral tablet 4 mg, 1, tablet, By Mouth, Every 8 hours, For muscle spasms not to exceed 3 doses/day, # 63 tablet, Refills 0, Tot. Refills 0, Maintenance, 09/11/20 14:34:00 EST, Route to Pharmacy Electronically, [facility], Partial fill upon patient r... Start Date: 09/11/20 Stop Date: 10/02/20 Status: OrderedViibryd 40 mg oral tablet 1 tablet = 40 mg, By Mouth, Daily, 0 Refills, Maintenance, 09/04/20 15:59:00 EST, Partial fill upon patient request Start Date: 09/04/20 Status: OrderedVitamin D3 2000 intl units oral capsule By Mouth, Daily, 0 Refills, Maintenance, 11/12/19 13:02:00 EST Start Date: 11/12/19 Status: Ordered Problem List Condition Effective Dates Status Health Status Informant Anxiety(Confirmed) Active Asthma(Confirmed) Active Chronic pain(Confirmed) Active Diabetes mellitus with Active retinopathy(Confirmed) Diabetic neuropathy(Confirmed) Active Diabetic nephropathy(Confirmed) Active Dyslipidemia(Confirmed) Active Eczema(Confirmed) Active Fibromyalgia(Confirmed) Active Gastroesophageal reflux Active disease(Confirmed) Diabetic gastroparesis(Confirmed) Active History of transient ischemic Active attack(Confirmed) History of [place] (myocardial Active infarction)(Confirmed) Hypertension(Confirmed) Active Major depression(Confirmed) Active Nonalcoholic Active steatohepatitis(Confirmed) Obesity(Confirmed) Active RAYMOND (obstructive sleep Active apnea)(Confirmed) Seizure vs pseudoseizures(Confirmed) Active
--- OUTSIDE RECORDS SUMMARY | 2022-09-20 21:26 | XMS_ITS | Continuity of Care Document ---
:1960 Author Organization [facility] Address [address] [place] [address]- Care Team Providers Name Role Phone Feliz Ellis DO Primary Care Physician [place] [facility] [place] [id number] Date(s): 12/04/19 - 12/14/[address] [address]- [facility] Attending Physician: Suad Hernandez Admitting Physician: Suad Hernandez Referring Physician: AdmtrSuad Allergies, Adverse Reactions, Alerts Substance Reaction Severity Status gabapentin nausea Active topiramate dizziness Active penicillins Active Soma rash Active Lipitor myalgia Active Bactrim Active TEGretol n/v Active Immunizations Given and Recorded Vaccine Date Status Refusal Reason pneumococcal 23-valent vaccine 04/06/10 Given Medications Acarbose By Mouth, 3 times a day, 0 Refills, Maintenance, 09/09/19 8:55:17 EST Start Date: 09/09/19 Status: Orderedacarbose 25 mg oral tablet 1 tablet = 25 mg, By Mouth, 3 times a day, 0 Refills, Maintenance, 11/12/19 13:01:00 EST Start Date: 11/12/19 Status: Orderedamitriptyline 25 mg oral tablet 25 mg, 1, tablet, By Mouth, Daily at bedtime, Refills 0, Maintenance, 11/12/19 13:02:00 EST Start Date: 11/12/19 Status: Orderedaspirin 81 mg oral delayed release tablet 81 mg, 1, tablet, By Mouth, Daily, Refills 0, Maintenance, 09/09/19 8:55:43 EST Start Date: 09/09/19 Status: OrderedAtenolol By Mouth, Daily, 0 Refills, Maintenance, 01/28/14 10:23:44 Start Date: 01/28/14 Status: OrderedclonazePAM 1 mg oral tablet 1 tablet = 1 mg, By Mouth, Daily at bedtime, 0 Refills, Maintenance, 12/11/18 13:15:43 EST Start Date: 12/11/18 Status: Ordereddivalproex sodium 125 mg oral delayed release capsule 1 capsule = 125 mg, By Mouth, 3 times a day, 0 Refills, Maintenance, 09/09/19 8:56:18 EST Start Date: 09/09/19 Status: OrderedElavil Tablet 100 mg, By Mouth, Daily at bedtime, Maintenance, 01/28/14 10:24:48 Start Date: 01/28/14 Status: Orderedezetimibe 10 mg oral tablet 1 tablet = 10 mg, By Mouth, Daily, 0 Refills, Maintenance, 09/09/19 8:56:38 EST Start Date: 09/09/19 Status: OrderedHumalog 100 u/ml subcutaneous injection 18 units, Subcutaneous Infusion, 0 Refills, Maintenance, 01/28/14 10:24:11 Start Date: 01/28/14 Status: OrderedLantus Solostar Pen 100 units/mL subcutaneous [...] 09/09/19 8:57:01 EST Start Date: 09/09/19 Status: Orderedmelatonin 5 mg oral capsule 1 capsule = 5 mg, By Mouth, Daily at bedtime, 0 Refills, Maintenance, 09/09/19 8:57:27 EST Start Date: 09/09/19 Status: OrderedMiraLax oral powder for reconstitution = 17 Gm, By Mouth, Daily, dissolve in water before taking, # 255 Gm, 0 Refills, Maintenance, 12/11/18 13:18:41 EST, REC Powder Start Date: 12/11/18 Status: OrderedNuLYTELY with Flavor Packs oral powder for reconstitution See Instructions, please follow instruction sheet, # 4,000 mL, 0 Refills, Maintenance, 10/21/19 11:36:00 EST, [facility]/pharmacy #[id number], please follow instruction sheet, 160.02, cm, 10/09/19 9:09:00 EST, Height, 82, kg, 12/11/18 13:27:00 EST, Dry Weight Start Date: 10/21/19 Status: Orderedoxybutynin 5 mg/24 hours oral tablet, extended release 1 tablet = 5 mg, By Mouth, Daily, # 30 tablet, 1 Refills, Maintenance, 09/11/19 9:42:18 EST, ER Tablet Start Date: 09/11/19 Stop Date: 11/10/19 Status: OrderedPercocet-5 Tablet 1, tablet, By Mouth, Every 6 hours, PRN, Refills 0, Tot. Refills 0, Maintenance, as needed for pain,01/28/14 10:22:41 Start Date: 01/28/14 Status: Orderedphenytoin 100 mg oral capsule, extended release 3 capsule = 300 mg, By Mouth, Daily at bedtime, 0 Refills, Maintenance, 01/28/14 10:23:35 Start Date: 01/28/14 Status: OrderedPhenytoin Tablet See Instructions, 100 mg By Mouth, Refills 0, Maintenance, 12/11/18 13:19:17 EST, Instructions Replace Required Details Start Date: 12/11/18 Status: Orderedpravastatin 20 mg oral tablet 20 mg, 1, tablet, By Mouth, Daily, # 30 tablet, Refills 0, Maintenance, 12/11/18 13:17:55 EST Start Date: 12/11/18 Status: Orderedpregabalin 100 mg oral capsule 1 capsule = 100 mg, By Mouth, Daily, 0 Refills, Maintenance, 01/28/14 10:22:52 Start Date: 01/28/14 Status: OrderedPriLOSEC OTC 20 mg oral delayed release tablet 1 tablet = 20 mg, By Mouth, Daily, 0 Refills, Maintenance, 01/28/14 10:24:26 Start Date: 01/28/14 Status: OrderedPropranolol Refills 0, Maintenance, 09/09/19 8:58:01 EST Start Date: 09/09/19 Status: Orderedpropranolol 20 mg oral tablet 20 mg, 1, tablet, By Mouth, 2 times a day, Refills 0, Maintenance, 11/12/19 13:02:00 EST Start Date: 11/12/19 Status: OrderedSenna 8.6 mg oral tablet 17.2 mg, 2, tablet, By Mouth, Daily at bedtime, PRN, # 100 tablet, Refills 0, Maintenance, for constipation, 12/11/18 13:18:10 EST, Tablet Start Date: 12/11/18 Status: OrderedSimvastatin By Mouth, Daily at bedtime, 0 Refills, Maintenance, 01/28/14 10:24:37 Start Date: 01/28/14 Status: Orderedsucralfate 1 gm oral tablet 1 Gm, 1, tablet, By Mouth, 4 times a day, # 120 tablet, Refills 0, Maintenance, 12/11/18 13:16:16 EST Start Date: 12/11/18 Status: OrderedTresiba FlexTouch 200 units/mL subcutaneous solution = 10 units, Subcutaneous Injection, Daily, rotate injection sites, # 9 mL, 0 Refills, Maintenance, 12/11/18 13:14:20 EST, Solution Start Date: 12/11/18 Status: OrderedTrulicity Pen Subcutaneous Infusion, 0 Refills, Maintenance, 12/11/18 13:13:50 EST Start Date: 12/11/18 Status: OrderedVitamin D3 2000 intl units oral [...] of transient ischemic Active attack(Confirmed) History of [place] (myocardial Active infarction)(Confirmed) Hypertension(Confirmed) Active Major depression(Confirmed) Active Nonalcoholic Active steatohepatitis(Confirmed) Obesity(Confirmed) Active RAYMOND (obstructive sleep Active apnea)(Confirmed) Seizure vs pseudoseizures(Confirmed) Active
--- OUTSIDE RECORDS SUMMARY | 2022-09-20 21:26 | XMS_ITS | Continuity of Care Document ---
:1960 Author Organization [facility] Address [address] [place] [id number]- Care Team Providers Name Role Phone Feliz Ellis DO Primary Care Physician En[place] [facility] [place] [id number] Date(s): 10/09/19 - 01/09/20 [facility] [address] [place] [address]- [facility] Attending Physician: Antelmo Weir MD Admitting Physician: Destin HSIEH, Antelmo Referring Physician: Feliz Ellis DO Allergies, Adverse Reactions, Alerts Substance Reaction Severity [...] 09/09/19 8:56:38 EST Start Date: 09/09/19 Status: Orderedglimepiride 2 mg oral tablet 1 tablet = 2 mg, By Mouth, Daily, with dinner, # 90 tablet, 0 Refills, Maintenance, 12/16/19 12:08:00 EST, Tablet, [facility]/pharmacy #[id number], 160.02, cm, 12/13/19 10:48:00 EST, Height, 82, kg, 12/11/18 13:27:00 EST, Dry Weight Start Date: 12/16/19 Status: OrderedHumalog 100 u/ml subcutaneous injection 18 [...] mL, 0 Refills, Maintenance, 10/21/19 11:36:00 EST, [facility]/pharmacy #[id number], please follow instruction sheet, 160.02, [...]
--- OUTSIDE RECORDS SUMMARY | 2022-09-20 21:26 | XMS_ITS | Continuity of Care Document ---
:1960 Author Organization [facility] Address [address] [place] [id number]- Care Team Providers Name Role Phone Feliz Ellis DO Primary Care Physician Encounter [facility] [place] Date(s): 01/24/22 - 02/23/22 [facility] [address] [place] [id number]- Attending Physician: Suad Hernandez Admitting Physician: Suad Hernandez Referring Physician: Suad Hernandez Allergies, Adverse Reactions, Alerts Substance Reaction Severity Status gabapentin nausea Active topiramate dizziness Active penicillins rash Active Soma rash Active Lipitor myalgia Active Bactrim rash Active TEGretol n/v Active Immunizations Given and Recorded Vaccine Date Status Refusal Reason pneumococcal 23-valent vaccine 04/06/10 Given Medications acetaminophen 325 mg oral tablet 975 mg, By Mouth, Every 6 hours, Not to exceed 4 GM of Tylenol per 24 hour period, Refills 0, Maintenance, 09/11/20 14:16:00 EST, Partial fill upon patient request Start Date: 09/11/20 Status: Orderedaspirin 81 mg oral delayed release tablet 81 mg, 1, tablet, By Mouth, Daily, # 30 tablet, Refills 0, Maintenance, 02/05/22 13:08:00 EDT, Partial fill upon patient request if the prescription is for a schedule II opioid drug. Start Date: 02/05/22 Status: Orderedcitalopram 20 mg oral tablet 20 mg, 1, tablet, By Mouth, Daily, # 30 tablet, Refills 0, Maintenance, 02/05/22 13:07:00 EDT, Partial fill upon patient request if the prescription is for a schedule II opioid drug. Start Date: 02/05/22 Status: OrderedColace Capsule 100 mg, 1, capsule, By Mouth, 2 times a day, Refills 0, Maintenance, 09/11/20 14:16:00 EST, Partial fill upon patient request Start Date: 09/11/20 Status: Ordereddivalproex sodium 125 mg oral delayed release capsule 1 capsule = 125 mg, By Mouth, 2 times a day, 0 Refills, Maintenance, 09/09/19 [...] Start Date: 06/24/20 Stop Date: 06/19/21 Status: OrderedInsulin Glargine Inj 0.16 mL = 16 units, Subcutaneous Injection, Daily in AM, 0 Refills, Maintenance, 02/07/22 9:02:00 EDT, Injection, Partial fill upon patient request if the prescription is for a schedule II opioid drug. Start Date: 02/07/22 Status: Orderedinsulin lispro 100 units/mL injectable solution 3-13 units, Subcutaneous Injection, 3 times a day before meals, 0 Refills, Maintenance, 02/07/22 9:03:00 EDT, Injection, Partial fill upon patient request if the prescription is for a schedule II opioid drug. Start Date: 02/07/22 Status: OrderedJardiance 25 mg oral tablet 1 tablet = 25 mg, By Mouth, Daily in AM, # 90 tablet, 4 Refills, Maintenance, 05/15/20 11:33:00 EDT,Tablet, [facility], 160.02, cm, 05/15/20 10:59:00 EDT, Height, 82, kg, 12/11/18 13:27:00 EST, Dry Weight Start Date: 05/15/20 Stop Date: 08/08/21 Status: OrderedLantus Solostar Pen 100 units/mL subcutaneous solution See Instructions, Take 24 units in the morning, and 24 units Subcutaneous Injection Daily at bedtime. E11.9, # 30 mL, 5 Refills, Maintenance, 02/15/22 17:07:00 EDT, Solution, [facility]/pharmacy #[id number], Partial fill upon patient request if the prescription is... Start Date: 02/15/22 Status: Orderedlisinopril 5 mg oral tablet 5 mg, 1, tablet, By Mouth, Daily, # 30 tablet, Refills 0, Maintenance, 12/11/18 13:16:24 EST Start Date: 12/11/18 Status: OrderedLyrica 25 mg oral capsule 3 capsule = 75 mg, By Mouth, 2 times a day, 0 Refills, Maintenance, 09/09/19 8:57:01 EST Start Date: 09/09/19 Status: Orderedmagnesium oxide 400 mg oral tablet See Instructions, TAKE 1 TABLET BY MOUTH EVERY DAY WITH A MEAL, # 28 tablet, 11 Refills, [facility], 162.56, cm, 01/05/21 10:54:00 EDT, Height, 86, kg, 09/10/20 18:19:00 EST, Dry Weight Start Date: 09/20/21 Status: Orderedmelatonin 5 mg oral tablet 1 tablet = 5 mg, By Mouth, Daily at bedtime, PRN for insomnia, # 60 tablet, 0 Refills, Maintenance, 02/05/22 13:07:00 EDT, Tablet, Partial fill upon patient request if the prescription is for a schedule II opioid drug. Start Date: 02/05/22 Status: OrderedmetFORMIN 500 mg oral tablet, extended release 2 tablet = 1,000 mg, By Mouth, Daily, # 180 tablet, 0 Refills, Maintenance, 04/15/20 11:58:00 EDT, ER Tablet, [facility], 160.02, cm, 03/18/20 9:39:00 EDT, Height, 82, kg, 12/11/18 13:27:00 EST, Dry Weight Start Date: 04/15/20 Stop Date: 07/14/20 Status: Orderedomeprazole 20 mg oral delayed release tablet 2 tablet = 40 mg, By Mouth, Daily, # 180 tablet, 0 Refills, Maintenance, 01/07/22 11:21:00 EDT, EC Tablet, [facility]/pharmacy #[id number], Partial fill upon patient request if the prescription is for a schedule IIopioid drug., 162.56, cm, 10/18/21 9:54:00 EST, H... Start Date: 01/07/22 Status: OrderedPEG-3350 with Electrolytes (Eqv-NuLYTELY) oral powder for reconstitution See Instructions, as directed, # 1 each, 0 Refills, Maintenance, 10/18/21 10:26:00 EST, [facility]/pharmacy#[id number], ok to sub for any gallon prep, as directed, 162.56, cm, 10/18/21 9:54:00 EST, Height, 86, kg,09/10/20 18:19:00 EST, Dry Weight Start Date: 10/18/21 Status: Orderedpropranolol 20 mg oral tablet 20 mg, 1, tablet, By Mouth, 3 times a day, Refills 0, Maintenance, 11/12/19 13:02:00 EST Start Date: 11/12/19 Status: OrderedVitamin D3 2000 intl units oral [...] of transient ischemic Active attack(Confirmed) History of [place] (myocardial Active infarction)(Confirmed) Hypertension(Confirmed) Active Hypoglycemia(Confirmed) Active Major depression(Confirmed) Active Nonalcoholic Active steatohepatitis(Confirmed) Obese class I(Confirmed) Active Obesity(Confirmed) Active RAYMOND (obstructive sleep Active apnea)(Confirmed) Seizure vs pseudoseizures(Confirmed) Active Social History Social History Type Response Smoking Status Former smoker, quit more armen n 30 days ago entered on: 01/05/21 Sex
--- OUTSIDE RECORDS SUMMARY | 2022-09-20 21:26 | XMS_ITS | Continuity of Care Document ---
:1960 Author Organization [facility] Address [address] [place] [address], [address] [place] [address]- Care Team Providers Name Role Phone Feliz Ellis DO Primary Care Physician Encounter [facility] [place] Date(s): 05/19/20 - 08/07/[address], [address] [place] [address]- [facility] Attending Physician: Pedro Luis Rios MD Referring Physician: Feliz Ellis DO Allergies, Adverse Reactions, Alerts Substance Reaction Severity Status gabapentin nausea Active topiramate dizziness Active penicillins Active Soma rash Active Lipitor myalgia Active Bactrim Active TEGretol n/v Active Immunizations Given and Recorded Vaccine Date Status Refusal Reason pneumococcal 23-valent vaccine 04/06/10 Given Medications amitriptyline 25 mg oral tablet 25 mg, 1, tablet, By Mouth, Daily at bedtime, Refills 0, Maintenance, 11/12/19 13:02:00 EST Start Date: 11/12/19 Status: Orderedaspirin 81 mg oral delayed release tablet 81 mg, 1, tablet, By Mouth, Daily, Refills 0, Maintenance, 09/09/19 8:55:43 EST Start Date: 09/09/19 Status: Ordereddivalproex sodium 125 mg oral delayed [...] 4 Refills, Maintenance, 05/15/20 11:20:00 EDT, Tablet, [facility], 160.02, cm, 05/15/20 10:59:00 EDT, Height, 82, kg, 12/11/18 13:27:00 EST, Dry Weight Start Date: 05/15/20 Stop Date: 08/08/21 Status: OrderedHumalog Kwik Pen 100 units/mL subcutaneous injection See Instructions, Give by Subcutaneous Injection once daily before dinner per sliding scale. Max daily dose 30 units., # 15 mL, 11 Refills, Maintenance, 06/25/20 14:14:00 EDT, Solution, [facility], 160.02, cm, 06/10/20 12:37:00 EDT, Height,... Start Date: 06/25/20 Status: OrderedJardiance 25 mg oral tablet 1 tablet = 25 mg, By Mouth, Daily in AM, # 90 tablet, 4 Refills, Maintenance, 05/15/20 11:33:00 EDT,Tablet, [facility], 160.02, cm, 05/15/20 10:59:00 EDT, Height, [...] Status: Orderedmagnesium oxide 400 mg oral tablet 1 tablet = 400 mg, By Mouth, Daily, for 30 days, Take with meal., # 30 tablet, 5 Refills, Acute 11/08/20 11:05:00 EST, 05/12/20 11:05:00 EDT, [facility], 160.02, cm, 05/12/20 10:48:00 EDT, Height, 82, kg, 12/11/18 13:27:00 EST, Dry Weight Start Date: 05/12/20 Stop Date: 11/08/20 Status: OrderedmetFORMIN 500 mg oral tablet, extended release 2 tablet = 1,000 mg, By Mouth, Daily, # 180 tablet, 0 Refills, Maintenance, 04/15/20 11:58:00 EDT, ER Tablet, [facility], 160.02, cm, 03/18/20 9:39:00 EDT, Height, 82, kg, 12/11/18 13:27:00 EST, Dry Weight Start Date: 04/15/20 Stop Date: 07/14/20 Status: OrderedNuLYTELY with Flavor Packs oral powder for reconstitution See Instructions, please follow instruction sheet, # 4,000 mL, 0 Refills, Maintenance, 06/24/20 17:23:00 EDT, [facility]/pharmacy #[id number], please follow instruction sheet, 160.02, cm, 06/10/20 12:37:00 EDT, Height, 82, kg, 12/11/18 13:27:00 EST, Dry Weight Start Date: 06/24/20 Status: Orderedoxybutynin 5 mg/24 hours oral tablet, extended release 1 tablet, By Mouth, Daily, # 30 tablet, 1 Refills, Maintenance, 07/09/20 17:12:00 EDT, [id number], 162.6, cm, 07/02/20 8:57:00 EDT, Height, 83.9, kg, 07/02/20 8:57:00 EDT, Dry Weight Start Date: 07/09/20 Status: OrderedoxyCODONE 5 mg oral capsule 1 capsule = 5 mg, By Mouth, 2 times a day, 0 Refills, Maintenance, 02/14/20 14:49:00 EDT, Partial fill upon patient request Start Date: 02/14/20 Status: OrderedPriLOSEC OTC 20 mg oral delayed [...] of transient ischemic Active attack(Confirmed) History of [place] (myocardial Active infarction)(Confirmed) Hypertension(Confirmed) Active Major depression(Confirmed) Active Nonalcoholic Active steatohepatitis(Confirmed) Obesity(Confirmed) Active RAYMOND (obstructive sleep Active apnea)(Confirmed) Seizure vs pseudoseizures(Confirmed) Active
--- OUTSIDE RECORDS SUMMARY | 2022-09-20 21:26 | XMS_ITS | Continuity of Care Document ---
:1960 Author Organization [facility] Address [address] [place] [id number]- Care Team Providers Name Role Phone Feliz Ellis DO Primary Care Physician Encounter [facility] [place] Date(s): 12/13/19 - 02/09/[address] [address]- [facility] Attending Physician: Antelmo Weir MD Admitting Physician: Antelmo Weir MD Referring Physician: Feliz Ellis DO Allergies, [...] Maintenance, 01/28/14 10:23:44 Start Date: 01/28/14 Status: Ordereddivalproex sodium 125 mg oral delayed [...] 0 Refills, Maintenance, 12/16/19 12:08:00 EST, Tablet, [facility]/pharmacy #[id number], 160.02, cm, 12/13/19 10:48:00 EST, [...] 09/09/19 8:57:27 EST Start Date: 09/09/19 Status: OrderedNuLYTELY with Flavor Packs oral powder for reconstitution See Instructions, please follow instruction sheet, # 4,000 mL, 0 Refills, Maintenance, 01/14/20 11:33:00 EDT, [facility]/pharmacy #[id number], please follow instruction sheet, 160.02, cm, 12/13/19 10:48:00 EST, Height, 82, kg, 12/11/18 13:27:00 EST, Dry Weight Start Date: 01/14/20 Status: Orderedoxybutynin 5 mg/24 hours oral tablet, extended release 1 tablet, By Mouth, Daily, # 30 tablet, 1 Refills, Maintenance, 01/20/20 9:26:00 EDT, [facility] STORE [id number], 160.02, cm, 12/13/19 10:48:00 EST, Height, 82, kg, 12/11/18 13:27:00 EST, Dry Weight Start Date: 01/20/20 Status: OrderedPercocet-5 Tablet 1, tablet, By Mouth, [...] 13:14:20 EST, Solution Start Date: 12/11/18 Status: OrderedVitamin D3 2000 [...] of transient ischemic Active attack(Confirmed) History of [place] (myocardial Active infarction)(Confirmed) Hypertension(Confirmed) Active Major depression(Confirmed) Active Nonalcoholic Active steatohepatitis(Confirmed) Obesity(Confirmed) Active RAYMOND (obstructive sleep Active apnea)(Confirmed) Seizure vs pseudoseizures(Confirmed) Active
--- OUTSIDE RECORDS SUMMARY | 2022-09-20 21:26 | XMS_ITS | Continuity of Care Document ---
:1960 Author Organization [facility] Address [address] [place] [address]- Care Team Providers Name Role Phone Feliz Ellis DO Primary Care Physician Encounter [facility] [place] ACCT R [id number] Date(s): 05/18/20 - 07/05/[address] [address]- [facility] Attending Physician: Pedro Luis Rios MD Admitting Physician: Pedro Luis Rios MD Allergies, Adverse Reactions, Alerts Substance Reaction [...] 4 Refills, Maintenance, 05/15/20 11:20:00 EDT, Tablet, [facility], 160.02, cm, 05/15/20 10:59:00 EDT, Height, 82, kg, 12/11/18 13:27:00 EST, Dry Weight Start Date: 05/15/20 Stop Date: 08/08/21 Status: OrderedHumalog Kwik Pen 100 units/mL subcutaneous injection See Instructions, Give by Subcutaneous Injection once daily before dinner per sliding scale. Max daily dose 30 units., # 15 mL, 11 Refills, Maintenance, 06/25/20 14:14:00 EDT, Solution, [facility], 160.02, cm, 06/10/20 12:37:00 EDT, Height,... Start Date: 06/25/20 Status: OrderedJardiance 25 mg oral tablet 1 tablet = 25 mg, By Mouth, Daily in AM, # 90 tablet, 4 Refills, Maintenance, 05/15/20 11:33:00 EDT,Tablet, [facility], 160.02, cm, 05/15/20 10:59:00 EDT, Height, [...] Acute 11/08/20 11:05:00 EST, 05/12/20 11:05:00 EDT, [facility], 160.02, cm, 05/12/20 10:48:00 EDT, Height, 82, kg, 12/11/18 13:27:00 EST, Dry Weight Start Date: 05/12/20 Stop Date: 11/08/20 Status: OrderedmetFORMIN 500 mg oral tablet, extended release 2 tablet = 1,000 mg, By Mouth, Daily, # 180 tablet, 0 Refills, Maintenance, 04/15/20 11:58:00 EDT, ER Tablet, [facility], 160.02, cm, 03/18/20 9:39:00 EDT, Height, 82, kg, 12/11/18 13:27:00 EST, Dry Weight Start Date: 04/15/20 Stop Date: 07/14/20 Status: OrderedNuLYTELY with Flavor Packs oral powder for reconstitution See Instructions, please follow instruction sheet, # 4,000 mL, 0 Refills, Maintenance, 06/24/20 17:23:00 EDT, [facility]/pharmacy #[id number], please follow instruction sheet, 160.02, cm, 06/10/20 12:37:00 EDT, Height, 82, kg, 12/11/18 13:27:00 EST, Dry Weight Start Date: 06/24/20 Status: Orderedoxybutynin 5 mg/24 hours oral tablet, extended release 1 tablet, By Mouth, Daily, # 30 tablet, 1 Refills, Maintenance, 03/23/20 8:31:00 EDT, [id number], 160.02, cm, 03/18/20 9:39:00 EDT, Height, 82, kg, 12/11/18 13:27:00 EST, Dry Weight Start Date: 03/23/20 Status: OrderedoxyCODONE 5 mg oral capsule 1 [...] of transient ischemic Active attack(Confirmed) History of [place] (myocardial Active infarction)(Confirmed) Hypertension(Confirmed) Active Major depression(Confirmed) Active Nonalcoholic Active steatohepatitis(Confirmed) Obesity(Confirmed) Active RAYMOND (obstructive sleep Active apnea)(Confirmed) Seizure vs pseudoseizures(Confirmed) Active
--- OUTSIDE RECORDS SUMMARY | 2022-09-20 21:27 | XMS_ITS | Continuity of Care Document ---
:1960 Author Organization [facility] Address [address] [place] [address]- Care Team Providers Name Role Phone Feliz Ellis DO Primary Care Physician [place] [facility] [place] [id number] Date(s): 07/02/20 - 07/02/[address] [address]- [facility] Discharge Disposition: A-D/C Home Attending Physician: Carlos Garcia MD Admitting Physician: Carlos Garcia MD Referring Physician: Carlos Garcia MD Allergies, Adverse Reactions, Alerts Substance Reaction [...] 4 Refills, Maintenance, 05/15/20 11:20:00 EDT, Tablet, [facility], 160.02, cm, 05/15/20 10:59:00 EDT, Height, 82, kg, 12/11/18 13:27:00 EST, Dry Weight Start Date: 05/15/20 Stop Date: 08/08/21 Status: OrderedHumalog Kwik Pen 100 units/mL subcutaneous injection See Instructions, Give by Subcutaneous Injection once daily before dinner per sliding scale. Max daily dose 30 units., # 15 mL, 11 Refills, Maintenance, 06/25/20 14:14:00 EDT, Solution, [facility], 160.02, cm, 06/10/20 12:37:00 EDT, Height,... Start Date: 06/25/20 Status: OrderedJardiance 25 mg oral tablet 1 tablet = 25 mg, By Mouth, Daily in AM, # 90 tablet, 4 Refills, Maintenance, 05/15/20 11:33:00 EDT,Tablet, [facility], 160.02, cm, 05/15/20 10:59:00 EDT, Height, [...] Acute 11/08/20 11:05:00 EST, 05/12/20 11:05:00 EDT, [facility], 160.02, cm, 05/12/20 10:48:00 EDT, Height, 82, kg, 12/11/18 13:27:00 EST, Dry Weight Start Date: 05/12/20 Stop Date: 11/08/20 Status: OrderedmetFORMIN 500 mg oral tablet, extended release 2 tablet = 1,000 mg, By Mouth, Daily, # 180 tablet, 0 Refills, Maintenance, 04/15/20 11:58:00 EDT, ER Tablet, [facility], 160.02, cm, 03/18/20 9:39:00 EDT, Height, 82, kg, 12/11/18 13:27:00 EST, Dry Weight Start Date: 04/15/20 Stop Date: 07/14/20 Status: OrderedNuLYTELY with Flavor Packs oral powder for reconstitution See Instructions, please follow instruction sheet, # 4,000 mL, 0 Refills, Maintenance, 06/24/20 17:23:00 EDT, [facility]/pharmacy #[id number], please follow instruction sheet, 160.02, cm, 06/10/20 12:37:00 EDT, Height, 82, kg, 12/11/18 13:27:00 EST, Dry Weight Start Date: 06/24/20 Status: Orderedoxybutynin 5 mg/24 hours oral tablet, extended release 1 tablet, By Mouth, Daily, # 30 tablet, 1 Refills, Maintenance, 03/23/20 8:31:00 EDT, [id number], 160.02, cm, 03/18/20 9:39:00 EDT, Height, 82, [...] of transient ischemic Active attack(Confirmed) History of [place] (myocardial Active infarction)(Confirmed) Hypertension(Confirmed) Active Major depression(Confirmed) Active Nonalcoholic Active steatohepatitis(Confirmed) Obesity(Confirmed) Active RAYMOND (obstructive sleep Active apnea)(Confirmed) Seizure vs pseudoseizures(Confirmed) Active Procedures Procedure Date Related Diagnosis Body Site Status Colonoscopy 07/02/20 Completed Esophagogastroduodenoscopy 07/02/20 C ompleted Vital Signs Most recent to oldest 1 2 3 [Reference Range]: Height 162.6 cm (07/02/20 8:57 AM) Oxygen Saturation [94-100 92 % 100 % 100 % %] *L* (07/02/20 10:13 AM) (07/02/20 10:0 7 AM) (07/02/20 10:20 AM) Pulse Rate [55-90 bpm] 65 bpm (07/02/20 8:57 AM) Blood Pressure 150/68 mm Hg 156/74 mm Hg 168/85 mm Hg [90-138/55-84 mm Hg] *H* *H* *H* (07/02/20 10:20 AM) (07/02/20 10:13 AM) (07/02/20 1 0:07 AM) Respiratory Rate [16-30 15 br/min 16 br/min 22 br/mi n br/min] *L* (07/02/20 10:13 AM) (07/02/20 10:0 7 AM) (07/02/20 10:20 AM) Temperature [96.8-100.4 96.5 DegF DegF] *L* (07/02/20 8:57 AM) Liters per Minute 4 L/min (07/02/20 10:07 AM) Mode of Delivery (Oxygen) Room air Room air Simple face mask (07/02/20 10:20 AM) (07/02/20 10:13 AM) (07/02/20 1 0:07 AM) Blood pressure sites Arm, left Arm, left (07/02/20 10:07 AM) (07/02/20 8:57 AM) Temperature Route Temporal (07/02/20 8:57 AM) Dry Weight 83.9 kg (07/02/20 8:57 AM) Dry Weight Obtained Via Patient/family stated (07/02/20 8:57 AM)
--- OUTSIDE RECORDS SUMMARY | 2022-09-20 21:27 | XMS_ITS | Continuity of Care Document ---
:1960 Author Organization [facility] Address [address] [facility], 3rd Floor, [address] [place] [id number]- Care Team Providers Name Role Phone Feliz Ellis DO Primary Care Physician [place] [facility] [place]/07[place]21 - 02/06/21 [facility] [address] [facility], [address]rd Floor, [address] [place] [address] Attending Physician: Suad Hernandez Admitting Physician: Admtr, Suad Referring Physician: Admtr, Ar8 Allergies, Adverse Reactions, Alerts Substance Reaction Severity [...] 4 Refills, Maintenance, 05/15/20 11:20:00 EDT, Tablet, [facility], 160.02, cm, 05/15/20 10:59:00 EDT, Height, 82, kg, 12/11/18 13:27:00 EST, Dry Weight Start Date: 05/15/20 Stop Date: 08/08/21 Status: OrderedHumalog Kwik Pen 100 units/mL subcutaneous injection See Instructions, Give by Subcutaneous Injection once daily before dinner per sliding scale. Max daily dose 30 units., # 15 mL, 11 Refills, Maintenance, 06/25/20 14:14:00 EDT, Solution, [facility], 160.02, cm, 06/10/20 12:37:00 EDT, Height,... Start Date: 06/25/20 Status: OrderedJardiance 25 mg oral tablet 1 tablet = 25 mg, By Mouth, Daily in AM, # 90 tablet, 4 Refills, Maintenance, 05/15/20 11:33:00 EDT,Tablet, [facility], 160.02, cm, 05/15/20 10:59:00 EDT, Height, [...] DAY WITH A MEAL, # 28 tablet, 0 Refills, Acute, [facility], 162.56, cm, 01/05/21 10:54:00 EDT, Height, 86, kg, 09/10/20 18:19:00 EST, Dry Weight Start Date: 01/12/21 Status: OrderedmetFORMIN 500 mg oral tablet, extended release 2 tablet = 1,000 mg, By Mouth, Daily, # 180 tablet, 0 Refills, Maintenance, 04/15/20 11:58:00 EDT, ER Tablet, [facility], 160.02, cm, 03/18/20 9:39:00 EDT, Height, 82, kg, 12/11/18 13:27:00 EST, Dry Weight Start Date: 04/15/20 Stop Date: 07/14/20 Status: OrderedpredniSONE 5 mg oral tablet 3 tablet = 15 mg, By Mouth, Daily, # 90 tablet, 0 Refills, Maintenance, 01/13/21 7:58:00 EDT, [facility]/pharmacy #[id number], Partial fill upon patient request if the prescription is for a schedule II opioid drug., 162.56, cm, 01/05/21 10:54:00 EDT, Height, 86, k... Start Date: 01/13/21 Status: OrderedPriLOSEC OTC 20 mg oral delayed [...] of transient ischemic Active attack(Confirmed) History of [place] (myocardial Active infarction)(Confirmed) Hypertension(Confirmed) Active Major depression(Confirmed) Active Nonalcoholic Active steatohepatitis(Confirmed) Obesity(Confirmed) Active RAYMOND (obstructive sleep Active apnea)(Confirmed) Seizure vs pseudoseizures(Confirmed) Active Social History Social History Type Response Smoking Status Former smoker, quit more aremn n 30 days ago entered on: 01/05/21 Sex
--- OUTSIDE RECORDS SUMMARY | 2022-09-20 21:27 | XMS_ITS | Continuity of Care Document ---
:1960 Author Organization [facility] Address [address] [place] [address]- Care Team Providers Name Role Phone Feliz Ellis DO Primary Care Physician En[place] [facility] [place] Date(s): 12/07/21 - 04/06/22 [facility] [address] [place] [id number] Attending Physician: Sea Alonzo MD Admitting Physician: Sea Alonzo MD Referring Physician: Feliz Ellis DO Allergies, Adverse Reactions, Alerts Substance Reaction Severity Status gabapentin nausea Active topiramate dizziness Active Lipitor myalgia Active TEGretol n/v Active penicillins rash Active Soma rash Active Bactrim rash Active Immunizations Given and Recorded Vaccine Date [...] tablet, 4 Refills, Maintenance, 05/15/20 11:33:00 EDT,Tablet, [facility], 160.02, cm, 05/15/20 10:59:00 EDT, Height, 82, kg, 12/11/18 13:27:00 EST, Dry Weight Start Date: 05/15/20 Stop Date: 08/08/21 Status: OrderedLantus Solostar Pen 100 units/mL subcutaneous solution See Instructions, Take 24 units in the morning, and 24 units Subcutaneous Injection Daily at bedtime. E11.9, # 30 mL, 5 Refills, Maintenance, 02/15/22 17:07:00 EDT, Solution, [facility]/pharmacy #[id number], Partial fill upon patient request if [...] A MEAL, # 28 tablet, 11 Refills, [facility], 162.56, cm, 01/05/21 10:54:00 EDT, Height, [...] Refills, Maintenance, 04/15/20 11:58:00 EDT, ER Tablet, [facility], 160.02, cm, 03/18/20 9:39:00 EDT, Height, 82, kg, 12/11/18 13:27:00 EST, Dry Weight Start Date: 04/15/20 Stop Date: 07/14/20 Status: Orderedomeprazole 20 mg oral delayed release tablet 2 tablet = 40 mg, By Mouth, Daily, # 180 tablet, 0 Refills, Maintenance, 01/07/22 11:21:00 EDT, EC Tablet, [facility]/pharmacy #[id number], Partial fill upon patient request if the prescription is for a schedule IIopioid drug., 162.56, cm, 10/18/21 9:54:00 EST, H... Start Date: 01/07/22 Status: OrderedPEG-3350 with Electrolytes (Eqv-NuLYTELY) oral powder for reconstitution See Instructions, as directed, # 1 each, 0 Refills, Maintenance, 10/18/21 10:26:00 EST, [facility]/pharmacy#[id number], ok to sub for any gallon prep, [...] of transient ischemic Active attack(Confirmed) History of [place] (myocardial Active infarction)(Confirmed) Hypertension(Confirmed) Active Hypoglycemia(Confirmed) Active Major depression(Confirmed) Active Nonalcoholic Active steatohepatitis(Confirmed) Obese class I(Confirmed) Active Obesity(Confirmed) Active RAYMOND (obstructive sleep Active apnea)(Confirmed) Seizure vs pseudoseizures(Confirmed) Active Social History Social History Type Response Smoking Status Former smoker, quit more armen n 30 days ago entered on: 01/05/21 Sex
--- OUTSIDE RECORDS SUMMARY | 2022-09-20 21:27 | XMS_ITS | Continuity of Care Document ---
:1960 Author Organization [facility] Address [address] [facility], 3rd Floor, [address] [place] [address]- Care Team Providers Name Role Phone Feliz Ellis DO Primary Care Physician [place] [facility] [place](s): 04/16/20 - 04/23/20 [facility] [address], [address] Floor, [address] [place] [address] [facility] Attending Physician: Not on Staff, Attending MD Allergies, Adverse Reactions, Alerts Substance Reaction [...] tablet = 2 mg, By Mouth, Daily, Take 1 tablet daily with dinner, E11.9, 90 Day Supply, # 90 tablet, 3 Refills, Maintenance, 03/19/20 11:47:00 EDT, [id number], cm, 03/18/20 9:39:00 EDT, Height, 82, kg, 12/11/18 13:27:00 ESTBrittani Start Date: 03/19/20 Status: Orderedglimepiride 4 mg oral tablet 1 tablet = 4 mg, By Mouth, 2 times a day with meals, # 180 tablet, 0 Refills, Maintenance, 04/15/20 11:57:00 EDT, Tablet, [facility], 160.02, cm, 03/18/20 9:39:00 EDT, Height, 82, kg, 12/11/18 13:27:00 EST, Dry Weight Start Date: 04/15/20 Stop Date: 07/14/20 Status: OrderedLantus Solostar Pen 100 units/mL subcutaneous [...] Refills, Maintenance, 04/15/20 11:58:00 EDT, ER Tablet, [facility], 160.02, cm, 03/18/20 9:39:00 EDT, Height, 82, kg, 12/11/18 13:27:00 EST, Dry Weight Start Date: 04/15/20 Stop Date: 07/14/20 Status: OrderedNuLYTELY with Flavor Packs oral powder for reconstitution See Instructions, please follow instruction sheet, # 4,000 mL, 0 Refills, Maintenance, 01/14/20 11:33:00 EDT, [facility]/pharmacy #[id number], please follow instruction sheet, 160.02, cm, 12/13/19 10:48:00 EST, Height, 82, kg, 12/11/18 13:27:00 EST, Dry Weight Start Date: 01/14/20 Status: Orderedoxybutynin 5 mg/24 hours oral tablet, extended release 1 tablet, By Mouth, Daily, # 30 tablet, 1 Refills, Maintenance, 03/23/20 8:31:00 EDT, [facility] STORE 25983, 160.02, cm, 03/18/20 9:39:00 EDT, Height, 82, kg, 12/11/18 13:27:00 EST, Dry Weight Start Date: 03/23/20 Status: OrderedoxyCODONE 5 mg oral capsule 1 capsule = 5 mg, By Mouth, 2 times a day, 0 Refills, Maintenance, 02/14/20 14:49:00 EDT, Partial fill upon patient request Start Date: 02/14/20 Status: OrderedPhenytoin Tablet See Instructions, 100 mg By Mouth, Refills 0, Maintenance, 12/11/18 13:19:17 EST, Instructions Replace Required Details Start Date: 12/11/18 Status: OrderedPriLOSEC OTC 20 mg oral delayed [...] of transient ischemic Active attack(Confirmed) History of [place] (myocardial Active infarction)(Confirmed) Hypertension(Confirmed) Active Major depression(Confirmed) Active Nonalcoholic Active steatohepatitis(Confirmed) Obesity(Confirmed) Active RAYMOND (obstructive sleep Active apnea)(Confirmed) Seizure vs pseudoseizures(Confirmed) Active
--- OUTSIDE RECORDS SUMMARY | 2022-09-20 21:27 | XMS_ITS | Continuity of Care Document ---
:1960 Author Organization [facility] Address [address] [place] [address]- Care Team Providers Name Role Phone Feliz Ellis DO Primary Care Physician Encounter [facility] [place] Date(s): 01/03/20 - 02/07/[address] [address]- [facility] Attending Physician: Antelmo Weir MD Admitting [...] 0 Refills, Maintenance, 12/16/19 12:08:00 EST, Tablet, [facility]/pharmacy #[id number], 160.02, cm, 12/13/19 10:48:00 EST, [...] mL, 0 Refills, Maintenance, 01/14/20 11:33:00 EDT, [facility]/pharmacy #[id number], please follow instruction sheet, 160.02, cm, 12/13/19 10:48:00 EST, Height, 82, kg, 12/11/18 13:27:00 EST, Dry Weight Start Date: 01/14/20 Status: Orderedoxybutynin 5 mg/24 hours oral tablet, extended release 1 tablet, By Mouth, Daily, # 30 tablet, 1 Refills, Maintenance, 01/20/20 9:26:00 EDT, [facility] STORE 19194, 160.02, cm, 12/13/19 10:48:00 EST, Height, 82, [...] of transient ischemic Active attack(Confirmed) History of [place] (myocardial Active infarction)(Confirmed) Hypertension(Confirmed) Active Major depression(Confirmed) Active Nonalcoholic Active steatohepatitis(Confirmed) Obesity(Confirmed) Active RAYMOND (obstructive sleep Active apnea)(Confirmed) Seizure vs pseudoseizures(Confirmed) Active
--- OUTSIDE RECORDS SUMMARY | 2022-09-20 21:27 | XMS_ITS | Continuity of Care Document ---
:1960 Author Organization [facility] Address [address] [place] [id number]- Care Team Providers Name Role Phone Feliz Ellis DO Primary Care Physician En[place] [facility] [place] Date(s): 08/17/21 - 10/08/[address] [address] Attending Physician: Feliz Ellis DO Admitting Physician: Feliz Ellis DO Referring Physician: Feliz Ellis DO Allergies, Adverse [...] 4 Refills, Maintenance, 05/15/20 11:20:00 EDT, Tablet, [facility], 160.02, cm, 05/15/20 10:59:00 EDT, Height, 82, kg, 12/11/18 13:27:00 EST, Dry Weight Start Date: 05/15/20 Stop Date: 08/08/21 Status: OrderedHumalog Kwik Pen 100 units/mL subcutaneous injection See Instructions, Give by Subcutaneous Injection once daily before dinner per sliding scale. Max daily dose 30 units., # 15 mL, 11 Refills, Maintenance, 06/25/20 14:14:00 EDT, Solution, [facility], 160.02, cm, 06/10/20 12:37:00 EDT, Height,... Start Date: 06/25/20 Status: OrderedJardiance 25 mg oral tablet 1 tablet = 25 mg, By Mouth, Daily in AM, # 90 tablet, 4 Refills, Maintenance, 05/15/20 11:33:00 EDT,Tablet, [facility], 160.02, cm, 05/15/20 10:59:00 EDT, Height, [...] EST, Dry Weight Start Date: 09/20/21 Status: OrderedmetFORMIN 500 mg oral tablet, extended release 2 tablet = 1,000 mg, By Mouth, Daily, # 180 tablet, 0 Refills, Maintenance, 04/15/20 11:58:00 EDT, ER Tablet, [facility], 160.02, cm, 03/18/20 9:39:00 EDT, Height, 82, kg, 12/11/18 13:27:00 EST, Dry Weight Start Date: 04/15/20 Stop Date: 07/14/20 Status: OrderedpredniSONE 5 mg oral tablet 3 tablet = 15 mg, By Mouth, Daily, # 90 tablet, 0 Refills, Maintenance, 01/13/21 7:58:00 EDT, [facility]/pharmacy #[id number], Partial fill upon patient request if the [...] of [place] (myocardial Active infarction)(Confirmed) Hypertension(Confirmed) Active Major depression(Confirmed) Active Nonalcoholic Active steatohepatitis(Confirmed) Obesity(Confirmed) Active RAYMOND (obstructive sleep Active apnea)(Confirmed) Seizure vs pseudoseizures(Confirmed) Active Social History Social History Type Response Smoking Status Former smoker, quit more armen n 30 days ago entered on: 01/05/21 Sex
--- OUTSIDE RECORDS SUMMARY | 2022-09-20 21:27 | XMS_ITS | Continuity of Care Document ---
:1960 Author Organization [facility] Address [address] [place] [address]- Care Team Providers Name Role Phone Feliz Ellis DO Primary Care Physician Encounter [facility] [place] Date(s): 01/26/21 - 05/13/21 [facility] [address] [place] [id number] Attending Physician: Rae Ramos MD Admitting Physician: Rae Ramos MD Referring Physician: Feliz Ellis DO Allergies, [...] 4 Refills, Maintenance, 05/15/20 11:20:00 EDT, Tablet, [facility], 160.02, cm, 05/15/20 10:59:00 EDT, Height, 82, kg, 12/11/18 13:27:00 EST, Dry Weight Start Date: 05/15/20 Stop Date: 08/08/21 Status: OrderedHumalog Kwik Pen 100 units/mL subcutaneous injection See Instructions, Give by Subcutaneous Injection once daily before dinner per sliding scale. Max daily dose 30 units., # 15 mL, 11 Refills, Maintenance, 06/25/20 14:14:00 EDT, Solution, [facility], 160.02, cm, 06/10/20 12:37:00 EDT, Height,... Start Date: 06/25/20 Status: OrderedJardiance 25 mg oral tablet 1 tablet = 25 mg, By Mouth, Daily in AM, # 90 tablet, 4 Refills, Maintenance, 05/15/20 11:33:00 EDT,Tablet, [facility], 160.02, cm, 05/15/20 10:59:00 EDT, Height, [...] DAY WITH A MEAL, # 28 tablet, 5 Refills, Acute, [facility], 162.56, cm, 01/05/21 10:54:00 EDT, Height, 86, kg, 09/10/20 18:19:00 EST, Dry Weight Start Date: 02/23/21 Status: OrderedmetFORMIN 500 mg oral tablet, extended release 2 tablet = 1,000 mg, By Mouth, Daily, # 180 tablet, 0 Refills, Maintenance, 04/15/20 11:58:00 EDT, ER Tablet, [facility], 160.02, cm, 03/18/20 9:39:00 EDT, Height, 82, kg, 12/11/18 13:27:00 EST, Dry Weight Start Date: 04/15/20 Stop Date: 07/14/20 Status: OrderedpredniSONE 5 mg oral tablet 3 tablet = 15 mg, By Mouth, Daily, # 90 tablet, 0 Refills, Maintenance, 01/13/21 7:58:00 EDT, [facility]/pharmacy #[id number], Partial fill upon patient request [...] of transient ischemic Active attack(Confirmed) History of [place] (myocardial Active infarction)(Confirmed) Hypertension(Confirmed) Active Major depression(Confirmed) Active Nonalcoholic Active steatohepatitis(Confirmed) Obesity(Confirmed) Active RAYMOND (obstructive sleep Active apnea)(Confirmed) Seizure vs pseudoseizures(Confirmed) Active Social History Social History Type Response Smoking Status Former smoker, quit more armen n 30 days ago entered on: 01/05/21 Sex
--- OUTSIDE RECORDS SUMMARY | 2022-09-20 21:27 | XMS_ITS | Continuity of Care Document ---
:1960 Author Organization [facility] Address [address] [place] [address], [address] [place] [address]- Care Team Providers Name Role Phone Feliz Ellis DO Primary Care Physician Encounter [facility] [place] Date(s): 10/07/20 - 10/14/[address], [address] [place], [place] [address] Attending Physician: Pedro Luis Rios MD Referring [...] 4 Refills, Maintenance, 05/15/20 11:20:00 EDT, Tablet, [facility], 160.02, cm, 05/15/20 10:59:00 EDT, Height, 82, kg, 12/11/18 13:27:00 EST, Dry Weight Start Date: 05/15/20 Stop Date: 08/08/21 Status: OrderedHumalog Kwik Pen 100 units/mL subcutaneous injection See Instructions, Give by Subcutaneous Injection once daily before dinner per sliding scale. Max daily dose 30 units., # 15 mL, 11 Refills, Maintenance, 06/25/20 14:14:00 EDT, Solution, [facility], 160.02, cm, 06/10/20 12:37:00 EDT, Height,... Start Date: 06/25/20 Status: OrderedJardiance 25 mg oral tablet 1 tablet = 25 mg, By Mouth, Daily in AM, # 90 tablet, 4 Refills, Maintenance, 05/15/20 11:33:00 EDT,Tablet, [facility], 160.02, cm, 05/15/20 10:59:00 EDT, Height, [...] Acute 11/08/20 11:05:00 EST, 05/12/20 11:05:00 EDT, [facility], 160.02, cm, 05/12/20 10:48:00 EDT, Height, 82, kg, 12/11/18 13:27:00 EST, Dry Weight Start Date: 05/12/20 Stop Date: 11/08/20 Status: OrderedmetFORMIN 500 mg oral tablet, extended release 2 tablet = 1,000 mg, By Mouth, Daily, # 180 tablet, 0 Refills, Maintenance, 04/15/20 11:58:00 EDT, ER Tablet, [facility], 160.02, cm, 03/18/20 9:39:00 EDT, Height, 82, kg, 12/11/18 13:27:00 EST, Dry Weight Start Date: 04/15/20 Stop Date: 07/14/20 Status: OrderedNuLYTELY with Flavor Packs oral powder for reconstitution See Instructions, please follow instruction sheet, # 4,000 mL, 0 Refills, Maintenance, 06/24/20 17:23:00 EDT, [facility]/pharmacy #[id number], please follow instruction sheet, 160.02, cm, 06/10/20 12:37:00 EDT, Height, 82, kg, 12/11/18 13:27:00 EST, Dry Weight Start Date: 06/24/20 Status: Orderedoxybutynin 5 mg/24 hours oral tablet, extended release 1 tablet, By Mouth, Daily, # 30 tablet, 1 Refills, Maintenance, 07/09/20 17:12:00 EDT, [facility] STORE [id number], 162.6, cm, 07/02/20 8:57:00 EDT, Height, 83.9, [...] 09/11/20 14:34:00 EST, Route to Pharmacy Electronically, [facility], Partial fill upon patient r... Start [...] of transient ischemic Active attack(Confirmed) History of [place] (myocardial Active infarction)(Confirmed) Hypertension(Confirmed) Active Major depression(Confirmed) Active Nonalcoholic Active steatohepatitis(Confirmed) Obesity(Confirmed) Active RAYMOND (obstructive sleep Active apnea)(Confirmed) Seizure vs pseudoseizures(Confirmed) Active Vital Signs Most recent to oldest [Reference Range]: 1 Height 162.56 cm (10/06/20 4:29 PM) Weight 86.2 kg (10/06/20 4:29 PM) Body Mass Index [18.5-24.99] 32.62 *>HHI* (10/06/20 4:29 PM)
--- OUTSIDE RECORDS SUMMARY | 2022-09-20 21:27 | XMS_ITS | Continuity of Care Document ---
:1960 Author Organization [facility] Address [address] [place] [address]- Care Team Providers Name Role Phone Feliz Ellis DO Primary Care Physician [id number] Date(s): 02/05/22 - 02/07/[address] [address]- Encounter Diagnosis Abdominal pain (Final) - 02/05/22 Hypoglycemia (Final) - 02/05/22 Discharge Disposition: A-D/C Home Attending Physician: Teodoro Montano MD Admitting Physician: Dionne Miner MD Referring Physician: Not on Staff, Referring MD Allergies, Adverse Reactions, Alerts Substance Reaction [...] tablet, 4 Refills, Maintenance, 05/15/20 11:33:00 EDT,Tablet, [facility], 160.02, cm, 05/15/20 10:59:00 EDT, Height, 82, kg, 12/11/18 13:27:00 EST, Dry Weight Start Date: 05/15/20 Stop Date: 08/08/21 Status: Orderedlactulose 10 gm/15 ml oral syrup 15 mL = 10 Gm, By Mouth, Daily, PRN as needed for constipation, # 480 mL, 1 Refills, Acute 02/19/22 8:00:00 EDT, 01/24/22 13:56:00 EDT, Syrup, [facility]/pharmacy #[id number], Partial fill upon patient request if the prescription is for a schedule II opioid drug.,... Start Date: 01/24/22 Stop Date: 02/19/22 Status: Orderedlisinopril 5 mg oral tablet 5 mg, 1, tablet, By Mouth, Daily, # 30 tablet, Refills 0, Maintenance, 12/11/18 13:16:24 EST Start Date: 12/11/18 Status: Orderedlisinopril 5 mg oral tablet 5 mg, Tablet, By Mouth, 02/07/22 9:00:00 EDT Start Date: 02/07/22 Stop Date: 02/07/22 Status: CompletedLyrica 25 mg oral capsule 3 capsule = 75 mg, By Mouth, 2 times a day, 0 Refills, Maintenance, 09/09/19 8:57:01 EST Start Date: 09/09/19 Status: Orderedmagnesium oxide 400 mg oral tablet See Instructions, TAKE 1 TABLET BY MOUTH EVERY DAY WITH A MEAL, # 28 tablet, 11 Refills, [facility], 162.56, cm, 01/05/21 10:54:00 EDT, Height, [...] Refills, Maintenance, 04/15/20 11:58:00 EDT, ER Tablet, [facility], 160.02, cm, 03/18/20 9:39:00 EDT, Height, 82, kg, 12/11/18 13:27:00 EST, Dry Weight Start Date: 04/15/20 Stop Date: 07/14/20 Status: Orderedomeprazole 20 mg oral delayed release tablet 2 tablet = 40 mg, By Mouth, Daily, # 180 tablet, 0 Refills, Maintenance, 01/07/22 11:21:00 EDT, EC Tablet, [facility]/pharmacy #[id number], Partial fill upon patient request if the prescription is for a schedule IIopioid drug., 162.56, cm, 10/18/21 9:54:00 EST, H... Start Date: 01/07/22 Status: OrderedPEG-3350 with Electrolytes (Eqv-NuLYTELY) oral powder for reconstitution See Instructions, as directed, # 1 each, 0 Refills, Maintenance, 10/18/21 10:26:00 EST, [facility]/pharmacy#[id number], ok to sub for any gallon prep, as directed, 162.56, cm, 10/18/21 9:54:00 EST, Height, 86, kg,09/10/20 18:19:00 EST, Dry Weight Start Date: 10/18/21 Status: Orderedpropranolol 20 mg oral tablet 20 mg, 1, tablet, By Mouth, 3 times a day, Refills 0, Maintenance, 11/12/19 13:02:00 EST Start Date: 11/12/19 Status: Orderedpropranolol 20 mg oral tablet 20 mg, Tablet, By Mouth, 02/07/22 9:00:00 EDT Start Date: 02/07/22 Stop Date: 02/07/22 Status: CompletedVitamin D3 2000 intl units oral capsule By [...] of transient ischemic Active attack(Confirmed) History of [place] (myocardial Active infarction)(Confirmed) Hypertension(Confirmed) Active Hypoglycemia(Confirmed) Active Major depression(Confirmed) Active Nonalcoholic Active steatohepatitis(Confirmed) Obese class I(Confirmed) Active Obesity(Confirmed) Active RAYMOND (obstructive sleep Active apnea)(Confirmed) Seizure vs pseudoseizures(Confirmed) Active Results Radiology Reports Exam Date Time Procedure Performing Provider Status 02/05/22 3:14 AM Chest 2 Views Frontal and Lat Stephanie Clark; Au th (Verified) Notes:(Chest 2 Views Frontal and Lat) Reason For Exam: Shortness of Breath, Fever;Other:RESULT: Chest 2 Views Frontal and Lat PA and lateral chest dated February 05, 2022. Comparison films are from January 12, 2021. HISTORY: Shortness of breath and fever. FINDINGS: The cardiac silhouette is within normal in its for size. Mural calcifications are present in the aorta. No airspace infiltrate or pleural effusion is identified. There is a convex right thoracic scoliosis with associated degenerative changes. Postoperative changes are noted in the lower cervical spine. IMPRESSION: No evidence of acute pulmonary disease. No significant interval change. Examination [id number]. Thank you for allowing me to participate in the care of this patient. WSN: [id number] Ordering Physician: Francisca Copeland Dictated By: Karsten Hughes MD Dictated Date/Time: 02/05/22 8:32 am Reviewed By: Karsten Hughes MD Signed By: Karsten Hughes MD Signed Date/Time: 02/05/22 8:32 am Transcribed By: JIMMY Transcribed Date/Time: 02/05/22 8:32 am Vital Signs Most recent to oldest 1 2 3 [Reference Range]: Height 163 cm 163 cm 163 cm (02/07/22 7:36 AM) (02/06/22 10:38 PM) (02/06/22 6: 42 PM) Weight 87 kg (02/05/22 1:10 PM) Oxygen Saturation [94-100 %] 93 % 100 % 100 % *L* (02/06/22 10:38 PM) (02/06/22 6:42 PM) (02/07/22 7:36 AM) Pulse Rate [55-90 bpm] 54 bpm 54 bpm 57 bpm *L* *L* (02/06/22 10:38 P M) (02/07/22 8:07 AM) (02/07/22 7:36 AM) Body Mass Index [18.5-24.99] 32.74 *>HHI* (02/05/22 1:10 PM) Blood Pressure [90-138/55-84 140/60 mm Hg 140/60 mm Hg 140 /60 mm Hg mm Hg] *H* *H* *H* (02/07/22 8:07 AM) (02/07/22 8:06 AM) (02/07/22 7:3 6 AM) Respiratory Rate [16-30 17 br/min 18 br/min 18 br/mi n br/min] (02/07/22 7:36 AM) (02/07/22 7:14 AM) (02/06/22 10: 38 PM) Temperature [96.8-100.4 97.9 DegF 98.0 DegF 98.0 Deg F DegF] (02/07/22 7:36 AM) (02/06/22 10:38 PM) (02/06/22 6: 42 PM) Mode of Delivery (Oxygen) Room air Room air Room a ir (02/06/22 10:38 PM) (02/06/22 6:42 PM) (02/06/22 3: 59 PM) Blood pressure sites Arm, left Arm, left Arm, right (02/07/22 7:36 AM) (02/06/22 10:38 PM) (02/06/22 6: 42 PM) Temperature Route Oral Oral Oral (02/07/22 7:36 AM) (02/06/22 10:38 PM) (02/06/22 6: 42 PM) Dry Weight 87 kg (02/05/22 1:10 PM) Social History Social History Type Response Smoking Status Former smoker, quit more armen n 30 days ago entered on: 3/16/21 Sex
--- OUTSIDE RECORDS SUMMARY | 2022-09-20 21:27 | XMS_ITS | Continuity of Care Document ---
:1960 Author Organization [facility] Address [address] [place] [id number]- Care Team Providers Name Role Phone Feliz Ellis DO Primary Care Physician Encounter [facility] [place] Date(s): 07/09/20 - 08/28/[address] [address] Attending Physician: Antelmo Weir MD Admitting Physician: [...] 4 Refills, Maintenance, 05/15/20 11:20:00 EDT, Tablet, [facility], 160.02, cm, 05/15/20 10:59:00 EDT, Height, 82, kg, 12/11/18 13:27:00 EST, Dry Weight Start Date: 05/15/20 Stop Date: 08/08/21 Status: OrderedHumalog Kwik Pen 100 units/mL subcutaneous injection See Instructions, Give by Subcutaneous Injection once daily before dinner per sliding scale. Max daily dose 30 units., # 15 mL, 11 Refills, Maintenance, 06/25/20 14:14:00 EDT, Solution, [facility], 160.02, cm, 06/10/20 12:37:00 EDT, Height,... Start Date: 06/25/20 Status: OrderedJardiance 25 mg oral tablet 1 tablet = 25 mg, By Mouth, Daily in AM, # 90 tablet, 4 Refills, Maintenance, 05/15/20 11:33:00 EDT,Tablet, [facility], 160.02, cm, 05/15/20 10:59:00 EDT, Height, [...] Acute 11/08/20 11:05:00 EST, 05/12/20 11:05:00 EDT, [facility], 160.02, cm, 05/12/20 10:48:00 EDT, Height, 82, kg, 12/11/18 13:27:00 EST, Dry Weight Start Date: 05/12/20 Stop Date: 11/08/20 Status: OrderedmetFORMIN 500 mg oral tablet, extended release 2 tablet = 1,000 mg, By Mouth, Daily, # 180 tablet, 0 Refills, Maintenance, 04/15/20 11:58:00 EDT, ER Tablet, [facility], 160.02, cm, 03/18/20 9:39:00 EDT, Height, 82, kg, 12/11/18 13:27:00 EST, Dry Weight Start Date: 04/15/20 Stop Date: 07/14/20 Status: OrderedNuLYTELY with Flavor Packs oral powder for reconstitution See Instructions, please follow instruction sheet, # 4,000 mL, 0 Refills, Maintenance, 06/24/20 17:23:00 EDT, [facility]/pharmacy #[id number], please follow instruction sheet, 160.02, cm, 06/10/20 12:37:00 EDT, Height, 82, kg, 12/11/18 13:27:00 EST, Dry Weight Start Date: 06/24/20 Status: Orderedoxybutynin 5 mg/24 hours oral tablet, extended release 1 tablet, By Mouth, Daily, # 30 tablet, 1 Refills, Maintenance, 07/09/20 17:12:00 EDT, [id number], 162.6, cm, 07/02/20 8:57:00 EDT, Height, 83.9, [...] of transient ischemic Active attack(Confirmed) History of [place] (myocardial Active infarction)(Confirmed) Hypertension(Confirmed) Active Major depression(Confirmed) Active Nonalcoholic Active steatohepatitis(Confirmed) Obesity(Confirmed) Active RAYMOND (obstructive sleep Active apnea)(Confirmed) Seizure vs pseudoseizures(Confirmed) Active
--- OUTSIDE RECORDS SUMMARY | 2022-09-20 21:27 | XMS_ITS | Continuity of Care Document ---
:1960 Author Organization [facility] Address [address] [place] [address]- Care Team Providers Name Role Phone Feliz Ellis DO Primary Care Physician [place] [facility] [place] 02/13/[place] - 04/07/[address] [address]- [facility] Discharge Disposition: A-D/C Home Attending Physician: Feliz Ellis DO Admitting Physician: [...] 3 Refills, Maintenance, 03/19/20 11:47:00 EDT, Tablet, [facility]/pharmacy #[id number], 160.02, cm, 03/18/20 9:39:00 EDT, Height, 82, kg, 12/11/18 13:27:00 EST, D... Start Date: 03/19/20 Status: OrderedLantus Solostar Pen 100 units/mL subcutaneous [...] 09/09/19 8:57:01 EST Start Date: 09/09/19 Status: OrderedNuLYTELY with Flavor Packs oral powder for reconstitution See Instructions, please follow instruction sheet, # 4,000 mL, 0 Refills, Maintenance, 01/14/20 11:33:00 EDT, [facility]/pharmacy #[id number], please follow instruction sheet, 160.02, cm, 12/13/19 10:48:00 EST, Height, 82, kg, 12/11/18 13:27:00 EST, Dry Weight Start Date: 01/14/20 Status: Orderedoxybutynin 5 mg/24 hours oral tablet, extended release 1 tablet, By Mouth, Daily, # 30 tablet, 1 Refills, Maintenance, 03/23/20 8:31:00 EDT, [facility], 160.02, cm, 03/18/20 9:39:00 EDT, Height, 82, [...] of transient ischemic Active attack(Confirmed) History of [place] (myocardial Active infarction)(Confirmed) Hypertension(Confirmed) Active Major depression(Confirmed) Active Nonalcoholic Active steatohepatitis(Confirmed) Obesity(Confirmed) Active RAYMOND (obstructive sleep Active apnea)(Confirmed) Seizure vs pseudoseizures(Confirmed) Active
--- OUTSIDE RECORDS SUMMARY | 2022-09-20 21:27 | XMS_ITS | Continuity of Care Document ---
:1960 Author Organization [facility] Address [address] [place] [address], [address] [place] [address]- Care Team Providers Name Role Phone Feliz Ellis DO Primary Care Physician Encounter [facility] [place] Date(s): 07/08/20 - 08/07/[address], [address] [place] [address]- [facility] Attending Physician: Suad Hernandez Admitting Physician: AdmSuad lara Referring Physician: Admtr, Ar8 Allergies, Adverse Reactions, [...] check blood glucose 4x a day, E11.9, 09/02/20 16:08:00 EDT, Supply, 160.02, cm, 06/10/20 12:37:00 [...] 4 Refills, Maintenance, 05/15/20 11:20:00 EDT, Tablet, [facility], 160.02, cm, 05/15/20 10:59:00 EDT, Height, 82, kg, 12/11/18 13:27:00 EST, Dry Weight Start Date: 05/15/20 Stop Date: 08/08/21 Status: OrderedHumalog Kwik Pen 100 units/mL subcutaneous injection See Instructions, Give by Subcutaneous Injection once daily before dinner per sliding scale. Max daily dose 30 units., # 15 mL, 11 Refills, Maintenance, 06/25/20 14:14:00 EDT, Solution, [facility], 160.02, cm, 06/10/20 12:37:00 EDT, Height,... Start Date: 06/25/20 Status: OrderedJardiance 25 mg oral tablet 1 tablet = 25 mg, By Mouth, Daily in AM, # 90 tablet, 4 Refills, Maintenance, 05/15/20 11:33:00 EDT,Tablet, [facility], 160.02, cm, 05/15/20 10:59:00 EDT, Height, [...] Acute 11/08/20 11:05:00 EST, 05/12/20 11:05:00 EDT, [facility], 160.02, cm, 05/12/20 10:48:00 EDT, Height, 82, kg, 12/11/18 13:27:00 EST, Dry Weight Start Date: 05/12/20 Stop Date: 11/08/20 Status: OrderedmetFORMIN 500 mg oral tablet, extended release 2 tablet = 1,000 mg, By Mouth, Daily, # 180 tablet, 0 Refills, Maintenance, 04/15/20 11:58:00 EDT, ER Tablet, [facility], 160.02, cm, 03/18/20 9:39:00 EDT, Height, 82, kg, 12/11/18 13:27:00 EST, Dry Weight Start Date: 04/15/20 Stop Date: 07/14/20 Status: OrderedNuLYTELY with Flavor Packs oral powder for reconstitution See Instructions, please follow instruction sheet, # 4,000 mL, 0 Refills, Maintenance, 06/24/20 17:23:00 EDT, [facility]/pharmacy #[id number], please follow instruction sheet, 160.02, cm, 06/10/20 12:37:00 EDT, Height, 82, kg, 12/11/18 13:27:00 EST, Dry Weight Start Date: 06/24/20 Status: Orderedoxybutynin 5 mg/24 hours oral tablet, extended release 1 tablet, By Mouth, Daily, # 30 tablet, 1 Refills, Maintenance, 07/09/20 17:12:00 EDT, [facility], 162.6, cm, 07/02/20 8:57:00 EDT, Height, 83.9, [...] of transient ischemic Active attack(Confirmed) History of [place] (myocardial Active infarction)(Confirmed) Hypertension(Confirmed) Active Major depression(Confirmed) Active Nonalcoholic Active steatohepatitis(Confirmed) Obesity(Confirmed) Active RAYMOND (obstructive sleep Active apnea)(Confirmed) Seizure vs pseudoseizures(Confirmed) Active
--- OUTSIDE RECORDS SUMMARY | 2022-09-20 21:27 | XMS_ITS | Continuity of Care Document ---
:1960 Author Organization [facility] Address [address] [place] [address], [address] [place] [address]- Care Team Providers Name Role Phone Feliz Ellis DO Primary Care Physician [place] [facility] [place] - 06/24/[address], [address] [place] [address]- [facility] Allergies, Adverse Reactions, Alerts Substance Reaction Severity [...] 4 Refills, Maintenance, 05/15/20 11:20:00 EDT, Tablet, [facility], 160.02, cm, 05/15/20 10:59:00 EDT, Height, 82, kg, 12/11/18 13:27:00 EST, Dry Weight Start Date: 05/15/20 Stop Date: 08/08/21 Status: OrderedJardiance 25 mg oral tablet 1 tablet = 25 mg, By Mouth, Daily in AM, # 90 tablet, 4 Refills, Maintenance, 05/15/20 11:33:00 EDT,Tablet, [facility], 160.02, cm, 05/15/20 10:59:00 EDT, Height, [...] Acute 11/08/20 11:05:00 EST, 05/12/20 11:05:00 EDT, [facility], 160.02, cm, 05/12/20 10:48:00 EDT, Height, 82, kg, 12/11/18 13:27:00 EST, Dry Weight Start Date: 05/12/20 Stop Date: 11/08/20 Status: OrderedmetFORMIN 500 mg oral tablet, extended release 2 tablet = 1,000 mg, By Mouth, Daily, # 180 tablet, 0 Refills, Maintenance, 04/15/20 11:58:00 EDT, ER Tablet, [facility], 160.02, cm, 03/18/20 9:39:00 EDT, Height, 82, kg, 12/11/18 13:27:00 EST, Dry Weight Start Date: 04/15/20 Stop Date: 07/14/20 Status: OrderedNuLYTELY with Flavor Packs oral powder for reconstitution See Instructions, please follow instruction sheet, # 4,000 mL, 0 Refills, Maintenance, 06/24/20 17:23:00 EDT, [facility]/pharmacy #[id number], please follow instruction sheet, 160.02, cm, 06/10/20 12:37:00 EDT, Height, 82, kg, 12/11/18 13:27:00 EST, Dry Weight Start Date: 06/24/20 Status: Orderedoxybutynin 5 mg/24 hours oral tablet, extended release 1 tablet, By Mouth, Daily, # 30 tablet, 1 Refills, Maintenance, 03/23/20 8:31:00 EDT, [facility]323, 160.02, cm, 03/18/20 9:39:00 EDT, Height, 82, [...]
--- OUTSIDE RECORDS SUMMARY | 2022-09-20 21:27 | XMS_ITS | Continuity of Care Document ---
:1960 Author Organization [facility] Address [address] [place] [address]- Care Team Providers Name Role Phone Feliz Ellis DO Primary Care Physician Encounter [facility] [place] [facility] R [id number] Date(s): 11/20/19 - 01/03/[address] [address]- [facility] Attending Physician: Orquidea Farooq MD Admitting Physician: Orquidea Farooq MD Referring Physician: Vale Lee NP Allergies, Adverse Reactions, Alerts Substance Reaction Severity [...] 0 Refills, Maintenance, 12/16/19 12:08:00 EST, Tablet, [facility]/pharmacy #[id number], 160.02, cm, 12/13/19 10:48:00 EST, Height, [...] mL, 0 Refills, Maintenance, 10/21/19 11:36:00 EST, [facility]/pharmacy #[id number], please follow instruction sheet, 160.02, cm, [...] of transient ischemic Active attack(Confirmed) History of [place] (myocardial Active infarction)(Confirmed) Hypertension(Confirmed) Active Major depression(Confirmed) Active Nonalcoholic Active steatohepatitis(Confirmed) Obesity(Confirmed) Active RAYMOND (obstructive sleep Active apnea)(Confirmed) Seizure vs pseudoseizures(Confirmed) Active
--- OUTSIDE RECORDS SUMMARY | 2022-09-20 21:27 | XMS_ITS | Continuity of Care Document ---
:1960 Author Organization [facility] Address [address] [place], [address], [address] [place] [address]- Care Team Providers Name Role Phone Feliz Ellis DO Primary Care Physician [facility] [place] Date(s): 11/30/20 - 02/06/21 [facility] [address], [address], [address] [place] [id number] Attending Physician: Vale Lee NP Admitting Physician: Vale Lee NP Allergies, Adverse Reactions, [...] 4 Refills, Maintenance, 05/15/20 11:20:00 EDT, Tablet, [facility], 160.02, cm, 05/15/20 10:59:00 EDT, Height, 82, kg, 12/11/18 13:27:00 EST, Dry Weight Start Date: 05/15/20 Stop Date: 08/08/21 Status: OrderedHumalog Kwik Pen 100 units/mL subcutaneous injection See Instructions, Give by Subcutaneous Injection once daily before dinner per sliding scale. Max daily dose 30 units., # 15 mL, 11 Refills, Maintenance, 06/25/20 14:14:00 EDT, Solution, [facility], 160.02, cm, 06/10/20 12:37:00 EDT, Height,... Start Date: 06/25/20 Status: OrderedJardiance 25 mg oral tablet 1 tablet = 25 mg, By Mouth, Daily in AM, # 90 tablet, 4 Refills, Maintenance, 05/15/20 11:33:00 EDT,Tablet, [facility], 160.02, cm, 05/15/20 10:59:00 EDT, Height, [...] MEAL, # 28 tablet, 0 Refills, Acute, [facility], 162.56, cm, 01/05/21 10:54:00 EDT, Height, 86, kg, 09/10/20 18:19:00 EST, Dry Weight Start Date: 01/12/21 Status: OrderedmetFORMIN 500 mg oral tablet, extended release 2 tablet = 1,000 mg, By Mouth, Daily, # 180 tablet, 0 Refills, Maintenance, 04/15/20 11:58:00 EDT, ER Tablet, [facility], 160.02, cm, 03/18/20 9:39:00 EDT, Height, 82, kg, 12/11/18 13:27:00 EST, Dry Weight Start Date: 04/15/20 Stop Date: 07/14/20 Status: OrderedpredniSONE 5 mg oral tablet 3 tablet = 15 mg, By Mouth, Daily, # 90 tablet, 0 Refills, Maintenance, 01/13/21 7:58:00 EDT, [facility]/pharmacy #[id number], Partial fill upon patient request if [...] of transient ischemic Active attack(Confirmed) History of [place] (myocardial Active infarction)(Confirmed) Hypertension(Confirmed) Active Major depression(Confirmed) Active Nonalcoholic Active steatohepatitis(Confirmed) Obesity(Confirmed) Active RAYMOND (obstructive sleep Active apnea)(Confirmed) Seizure vs pseudoseizures(Confirmed) Active Social History Social History Type Response Smoking Status Former smoker, quit more armen n 30 days ago entered on: 01/05/21 Sex
--- OUTSIDE RECORDS SUMMARY | 2022-09-20 21:27 | XMS_ITS | Continuity of Care Document ---
:1960 Author Organization [facility] Address [address], [address] Floor, [address] [place] [address]- Care Team Providers Name Role Phone Feliz Ellis DO Primary Care Physician [place] [facility] [place]20 [facility] [address], [address], [address] [place] [id number] Attending Physician: Jillian Thornton MD Admitting Physician: [...] 4 Refills, Maintenance, 05/15/20 11:20:00 EDT, Tablet, [facility], 160.02, cm, 05/15/20 10:59:00 EDT, Height, 82, kg, 12/11/18 13:27:00 EST, Dry Weight Start Date: 05/15/20 Stop Date: 08/08/21 Status: OrderedHumalog Kwik Pen 100 units/mL subcutaneous injection See Instructions, Give by Subcutaneous Injection once daily before dinner per sliding scale. Max daily dose 30 units., # 15 mL, 11 Refills, Maintenance, 06/25/20 14:14:00 EDT, Solution, [facility], 160.02, cm, 06/10/20 12:37:00 EDT, Height,... Start Date: 06/25/20 Status: OrderedJardiance 25 mg oral tablet 1 tablet = 25 mg, By Mouth, Daily in AM, # 90 tablet, 4 Refills, Maintenance, 05/15/20 11:33:00 EDT,Tablet, [facility], 160.02, cm, 05/15/20 10:59:00 EDT, Height, [...] Refills, Maintenance, 04/15/20 11:58:00 EDT, ER Tablet, [facility], 160.02, cm, 03/18/20 9:39:00 EDT, Height, 82, kg, 12/11/18 13:27:00 EST, Dry Weight Start Date: 04/15/20 Stop Date: 07/14/20 Status: OrderedNuLYTELY with Flavor Packs oral powder for reconstitution See Instructions, please follow instruction sheet, # 4,000 mL, 0 Refills, Maintenance, 06/24/20 17:23:00 EDT, [facility]/pharmacy #[id number], please follow instruction sheet, 160.02, cm, 06/10/20 12:37:00 EDT, Height, 82, kg, 12/11/18 13:27:00 EST, Dry Weight Start Date: 06/24/20 Status: Orderedoxybutynin 5 mg/24 hours oral tablet, extended release 1 tablet, By Mouth, Daily, # 30 tablet, 1 Refills, Maintenance, 07/09/20 17:12:00 EDT, [id number], 162.6, cm, 07/02/20 8:57:00 EDT, Height, 83.9, [...] 09/11/20 14:34:00 EST, Route to Pharmacy Electronically, [facility], Partial fill upon patient r... Start [...] of transient ischemic Active attack(Confirmed) History of [place] (myocardial Active infarction)(Confirmed) Hypertension(Confirmed) Active Major depression(Confirmed) Active Nonalcoholic Active steatohepatitis(Confirmed) Obesity(Confirmed) Active RAYMOND (obstructive sleep Active apnea)(Confirmed) Seizure vs pseudoseizures(Confirmed) Active
--- OUTSIDE RECORDS SUMMARY | 2022-09-20 21:27 | XMS_ITS | Continuity of Care Document ---
:1960 Author Organization [facility] Address [address] [place] [address], [address] [place] [address]- Care Team Providers Name Role Phone Feliz Ellis DO Primary Care Physician [place] [facility] [place] - 07/08/[address], [address] [place] [address]- [facility] Allergies, Adverse Reactions, Alerts Substance [...] 4 Refills, Maintenance, 05/15/20 11:20:00 EDT, Tablet, [facility], 160.02, cm, 05/15/20 10:59:00 EDT, Height, 82, kg, 12/11/18 13:27:00 EST, Dry Weight Start Date: 05/15/20 Stop Date: 08/08/21 Status: OrderedDrew Campbellik Pen 100 units/mL subcutaneous injection See Instructions, Give by Subcutaneous Injection once daily before dinner per sliding scale. Max daily dose 30 units., # 15 mL, 11 Refills, Maintenance, 06/25/20 14:14:00 EDT, Solution, [facility], 160.02, cm, 06/10/20 12:37:00 EDT, Height,... Start Date: 06/25/20 Status: OrderedJardiance 25 mg oral tablet 1 tablet = 25 mg, By Mouth, Daily in AM, # 90 tablet, 4 Refills, Maintenance, 05/15/20 11:33:00 EDT,Tablet, [facility], 160.02, cm, 05/15/20 10:59:00 EDT, Height, 82, kg, 12/11/18 13:27:00 EST, Dry Weight Start Date: 05/15/20 Stop Date: 08/08/21 Status: OrderedLannicole Solostar Pen 100 units/mL subcutaneous solution 60 [...] Acute 11/08/20 11:05:00 EST, 05/12/20 11:05:00 EDT, [facility], 160.02, cm, 05/12/20 10:48:00 EDT, Height, 82, kg, 12/11/18 13:27:00 EST, Dry Weight Start Date: 05/12/20 Stop Date: 11/08/20 Status: OrderedmetFORMIN 500 mg oral tablet, extended release 2 tablet = 1,000 mg, By Mouth, Daily, # 180 tablet, 0 Refills, Maintenance, 04/15/20 11:58:00 EDT, ER Tablet, [facility], 160.02, cm, 03/18/20 9:39:00 EDT, Height, 82, kg, 12/11/18 13:27:00 EST, Dry Weight Start Date: 04/15/20 Stop Date: 07/14/20 Status: OrderedNuLYTELY with Flavor Packs oral powder for reconstitution See Instructions, please follow instruction sheet, # 4,000 mL, 0 Refills, Maintenance, 06/24/20 17:23:00 EDT, [facility]/pharmacy #[id number], please follow instruction sheet, 160.02, cm, 06/10/20 12:37:00 EDT, Height, 82, kg, 12/11/18 13:27:00 EST, Dry Weight Start Date: 06/24/20 Status: Orderedoxybutynin 5 mg/24 hours oral tablet, extended release 1 tablet, By Mouth, Daily, # 30 tablet, 1 Refills, Maintenance, 03/23/20 8:31:00 EDT, [facility], 160.02, cm, 03/18/20 9:39:00 EDT, Height, 82, [...] of transient ischemic Active attack(Confirmed) History of [place] (myocardial Active infarction)(Confirmed) Hypertension(Confirmed) Active Major depression(Confirmed) Active Nonalcoholic Active steatohepatitis(Confirmed) Obesity(Confirmed) Active RAYMOND (obstructive sleep Active apnea)(Confirmed) Seizure vs pseudoseizures(Confirmed) Active
--- OUTSIDE RECORDS SUMMARY | 2022-09-20 21:27 | XMS_ITS | Continuity of Care Document ---
:1960 Author Organization [facility] Address [address] [facility], 3rd Floor, [address] [place] [phone]- Care Team Providers Name Role Phone Feliz Ellis DO Primary Care Physician En[place] [facility] [place]s): 11/30/20 - 12/30/20 [facility] [address] [facility], 3rd Floor, [address] [place] [id number] Attending Physician: Suad Hernandez Admitting Physician: Admtr, [...] 4 Refills, Maintenance, 05/15/20 11:20:00 EDT, Tablet, [facility], 160.02, cm, 05/15/20 10:59:00 EDT, Height, 82, kg, 12/11/18 13:27:00 EST, Dry Weight Start Date: 05/15/20 Stop Date: 08/08/21 Status: OrderedHumalog Kwik Pen 100 units/mL subcutaneous injection See Instructions, Give by Subcutaneous Injection once daily before dinner per sliding scale. Max daily dose 30 units., # 15 mL, 11 Refills, Maintenance, 06/25/20 14:14:00 EDT, Solution, [facility], 160.02, cm, 06/10/20 12:37:00 EDT, Height,... Start Date: 06/25/20 Status: OrderedJardiance 25 mg oral tablet 1 tablet = 25 mg, By Mouth, Daily in AM, # 90 tablet, 4 Refills, Maintenance, 05/15/20 11:33:00 EDT,Tablet, [facility], 160.02, cm, 05/15/20 10:59:00 EDT, Height, [...] Refills, Maintenance, 04/15/20 11:58:00 EDT, ER Tablet, [facility], 160.02, cm, 03/18/20 9:39:00 EDT, Height, 82, kg, 12/11/18 13:27:00 EST, Dry Weight Start Date: 04/15/20 Stop Date: 07/14/20 Status: OrderedNuLYTELY with Flavor Packs oral powder for reconstitution See Instructions, please follow instruction sheet, # 4,000 mL, 0 Refills, Maintenance, 06/24/20 17:23:00 EDT, [facility]/pharmacy #[id number], please follow instruction sheet, 160.02, cm, 06/10/20 12:37:00 EDT, Height, 82, kg, 12/11/18 13:27:00 EST, Dry Weight Start Date: 06/24/20 Status: Orderedoxybutynin 5 mg/24 hours oral tablet, extended release 1 tablet, By Mouth, Daily, # 30 tablet, 1 Refills, Maintenance, 07/09/20 17:12:00 EDT, [id number], 162.6, cm, 07/02/20 8:57:00 EDT, Height, 83.9, [...] 09/11/20 14:34:00 EST, Route to Pharmacy Electronically, [facility], Partial fill upon patient r... Start [...]
--- OUTSIDE RECORDS SUMMARY | 2022-09-20 21:27 | XMS_ITS | Continuity of Care Document ---
:1960 Author Organization [facility] Address [address] [place] [id number]- Care Team Providers Name Role Phone Feliz Ellis DO Primary Care Physician En[place] [facility] [place] Date(s): 03/18/20 - 04/17/20 [facility] [address] [place], [place] [id number]- [facility] Attending Physician: Suad Hernandez Admitting Physician: Suad Hernandez Referring Physician: Suad Hernandez Referring Physician: Luci Alexis Allergies, Adverse Reactions, Alerts Substance Reaction Severity Status gabapentin nausea Active topiramate dizziness Active TEGretol n/v Active penicillins Active Soma rash Active Lipitor myalgia Active Bactrim Active Immunizations Given and Recorded Vaccine Date [...] 3 Refills, Maintenance, 03/19/20 11:47:00 EDT, [id number], cm, 03/18/20 9:39:00 EDT, Height, 82, kg, 12/11/18 13:27:00 EST, [facility].. Start Date: 03/19/20 Status: Orderedglimepiride 4 mg oral tablet 1 tablet = 4 mg, By Mouth, 2 times a day with meals, # 180 tablet, 0 Refills, Maintenance, 04/15/20 11:57:00 EDT, Tablet, [facility], 160.02, cm, 03/18/20 9:39:00 EDT, Height, 82, [...] Refills, Maintenance, 04/15/20 11:58:00 EDT, ER Tablet, [facility], 160.02, cm, 03/18/20 9:39:00 EDT, Height, 82, kg, 12/11/18 13:27:00 EST, Dry Weight Start Date: 04/15/20 Stop Date: 07/14/20 Status: OrderedNuLYTELY with Flavor Packs oral powder for reconstitution See Instructions, please follow instruction sheet, # 4,000 mL, 0 Refills, Maintenance, 01/14/20 11:33:00 EDT, [facility]/pharmacy #[id number], please follow instruction sheet, 160.02, cm, 12/13/19 10:48:00 EST, Height, 82, kg, 12/11/18 13:27:00 EST, Dry Weight Start Date: 01/14/20 Status: Orderedoxybutynin 5 mg/24 hours oral tablet, extended release 1 tablet, By Mouth, Daily, # 30 tablet, 1 Refills, Maintenance, 03/23/20 8:31:00 EDT, [id number], 160.02, cm, 03/18/20 9:39:00 EDT, Height, 82, [...]
--- OUTSIDE RECORDS SUMMARY | 2022-09-20 21:27 | XMS_ITS | Continuity of Care Document ---
:1960 Author Organization [facility] Address [address] [place] [address]- Care Team Providers Name Role Phone Feliz Ellis DO Primary Care Physician [place] [facility] [place]/17/20 - 03/18/[address] [address]- [facility] Attending Physician: Suad Hernandez Admitting Physician: Suad [...] 0 Refills, Maintenance, 12/16/19 12:08:00 EST, Tablet, [facility]/pharmacy #[id number], 160.02, cm, 12/13/19 10:48:00 EST, Height, 82, kg, 12/11/18 13:27:00 EST, Dry Weight Start Date: 12/16/19 Status: OrderedLantus Solostar Pen 100 units/mL subcutaneous [...] mL, 0 Refills, Maintenance, 01/14/20 11:33:00 EDT, [facility]/pharmacy #[id number], please follow instruction sheet, 160.02, cm, 12/13/19 10:48:00 EST, Height, 82, kg, 12/11/18 13:27:00 EST, Dry Weight Start Date: 01/14/20 Status: Orderedoxybutynin 5 mg/24 hours oral tablet, extended release 1 tablet, By Mouth, Daily, # 30 tablet, 1 Refills, Maintenance, 02/21/20 8:34:00 EDT, [facility], 160.02, cm, 02/14/20 14:29:00 EDT, Height, 82, kg, 12/11/18 13:27:00 EST, Dry Weight Start Date: 02/21/20 Status: OrderedoxyCODONE 5 mg oral capsule 1 [...]
--- OUTSIDE RECORDS SUMMARY | 2022-09-20 21:27 | XMS_ITS | Continuity of Care Document ---
:1960 Author Organization [facility] Address [address] [place] [address]- Care Team Providers Name Role Phone Feliz Ellis DO Primary Care Physician [place] [facility] [place] 05/15/20 - 06/14/20 [facility] [address] [place] [address]- [facility] Attending Physician: Suad Hernandez Admitting Physician: Suad Hernandez Referring Physician: Suad Hernandez Referring Physician: Eli Nice Allergies, Adverse Reactions, Alerts Substance Reaction Severity [...] 8:56:38 EST Start Date: 09/09/19 Status: Orderedglimepiride 4 mg oral tablet 1 tablet = 4 mg, By Mouth, 2 times a day before breakfast and dinne, # 180 tablet, 4 Refills, Maintenance, 05/15/20 11:20:00 EDT, Tablet, [facility], 160.02, cm, 05/15/20 10:59:00 EDT, Height, 82, kg, 12/11/18 13:27:00 EST, Dry Weight Start Date: 05/15/20 Stop Date: 08/08/21 Status: OrderedJardiance 25 mg oral tablet 1 tablet = 25 mg, By Mouth, Daily in AM, # 90 tablet, 4 Refills, Maintenance, 05/15/20 11:33:00 EDT,Tablet, [facility], 160.02, cm, 05/15/20 10:59:00 EDT, Height, [...] Acute 11/08/20 11:05:00 EST, 05/12/20 11:05:00 EDT, [facility], 160.02, cm, 05/12/20 10:48:00 EDT, Height, 82, kg, 12/11/18 13:27:00 EST, Dry Weight Start Date: 05/12/20 Stop Date: 11/08/20 Status: OrderedmetFORMIN 500 mg oral tablet, extended release 2 tablet = 1,000 mg, By Mouth, Daily, # 180 tablet, 0 Refills, Maintenance, 04/15/20 11:58:00 EDT, ER Tablet, [facility], 160.02, cm, 03/18/20 9:39:00 EDT, Height, [...] Refills, Maintenance, 03/23/20 8:31:00 EDT, [facility], 160.02, cm, 03/18/20 9:39:00 EDT, Height, 82, [...]
--- OUTSIDE RECORDS SUMMARY | 2022-09-20 21:28 | XMS_ITS | Continuity of Care Document ---
:1960 Author Organization [facility] Address [address] [place] [address]- Care Team Providers Name Role Phone Feliz Ellis DO Primary Care Physician En[place] [facility] [place] Date(s): 05/27/22 - 06/26/22 [facility] [address] [place] [id number] Attending Physician: Suad Hernandez Admitting Physician: Suad Hernandez Referring Physician: Suad Hernandez Referring Physician: Maida Russell NP Referring Physician: Luci Alexis Referring Physician: Luci Alexis Allergies, Adverse Reactions, [...] tablet, 4 Refills, Maintenance, 05/15/20 11:33:00 EDT,Tablet, [facility], 160.02, cm, 05/15/20 10:59:00 EDT, Height, 82, kg, 12/11/18 13:27:00 EST, Dry Weight Start Date: 05/15/20 Stop Date: 08/08/21 Status: OrderedLantus Solostar Pen 100 units/mL subcutaneous solution See Instructions, Take 24 units in the morning, and 24 units Subcutaneous Injection Daily at bedtime. E11.9, # 30 mL, 5 Refills, Maintenance, 02/15/22 17:07:00 EDT, Solution, [facility]/pharmacy #[id number], Partial fill upon patient request [...] A MEAL, # 28 tablet, 11 Refills, [facility], 162.56, cm, 01/05/21 10:54:00 EDT, Height, [...] Refills, Maintenance, 04/15/20 11:58:00 EDT, ER Tablet, [facility], 160.02, cm, 03/18/20 9:39:00 EDT, Height, 82, kg, 12/11/18 13:27:00 EST, Dry Weight Start Date: 04/15/20 Stop Date: 07/14/20 Status: Orderedomeprazole 20 mg oral delayed release tablet 2 tablet = 40 mg, By Mouth, Daily, # 180 tablet, 1 Refills, Maintenance, 04/11/22 8:04:00 EDT, EC Tablet, [facility]/pharmacy #[id number], Partial fill upon patient request if the prescription is for a schedule II opioid drug., 163, cm, 02/15/22 15:14:00 EDT, [facility]... Start Date: 04/11/22 Status: OrderedPEG-3350 with Electrolytes (Eqv-NuLYTELY) oral powder for reconstitution See Instructions, as directed, # 1 each, 0 Refills, Maintenance, 10/18/21 10:26:00 EST, [facility]/pharmacy#[id number], ok to sub for any gallon [...] of [place] (myocardial Active infarction)(Confirmed) Hypertension(Confirmed) Active Hypoglycemia(Confirmed) Active Major depression(Confirmed) Active Nonalcoholic Active steatohepatitis(Confirmed) Obese class I(Confirmed) Active Obesity(Confirmed) Active RAYMOND (obstructive sleep Active apnea)(Confirmed) Seizure vs pseudoseizures(Confirmed) Active Social History Social History Type Response Smoking Status Former smoker, quit more armen n 30 days ago entered on: 01/05/21 Sex Care Team PersonnelName: Feliz Ellis DO Address: [address] [place] [address]
--- OUTSIDE RECORDS SUMMARY | 2022-09-20 21:28 | XMS_ITS | Continuity of Care Document ---
:1960 Author Organization [facility] Address [address] [place] [address]- Care Team Providers Name Role Phone Feliz Ellis DO Primary Care Physician [place] [facility] [place]s): 07/16/20 - 08/15/20 [facility] [address] [place] [address]- [facility] Allergies, Adverse Reactions, Alerts Substance [...] 4 Refills, Maintenance, 05/15/20 11:20:00 EDT, Tablet, [facility], 160.02, cm, 05/15/20 10:59:00 EDT, Height, 82, kg, 12/11/18 13:27:00 EST, Dry Weight Start Date: 05/15/20 Stop Date: 08/08/21 Status: OrderedDrew Campbellik Pen 100 units/mL subcutaneous injection See Instructions, Give by Subcutaneous Injection once daily before dinner per sliding scale. Max daily dose 30 units., # 15 mL, 11 Refills, Maintenance, 06/25/20 14:14:00 EDT, Solution, [facility], 160.02, cm, 06/10/20 12:37:00 EDT, Height,... Start Date: 06/25/20 Status: OrderedJardiance 25 mg oral tablet 1 tablet = 25 mg, By Mouth, Daily in AM, # 90 tablet, 4 Refills, Maintenance, 05/15/20 11:33:00 EDT,Tablet, [facility], 160.02, cm, 05/15/20 10:59:00 EDT, Height, [...] Acute 11/08/20 11:05:00 EST, 05/12/20 11:05:00 EDT, [facility], 160.02, cm, 05/12/20 10:48:00 EDT, Height, 82, kg, 12/11/18 13:27:00 EST, Dry Weight Start Date: 05/12/20 Stop Date: 11/08/20 Status: OrderedmetFORMIN 500 mg oral tablet, extended release 2 tablet = 1,000 mg, By Mouth, Daily, # 180 tablet, 0 Refills, Maintenance, 04/15/20 11:58:00 EDT, ER Tablet, [facility], 160.02, cm, 03/18/20 9:39:00 EDT, Height, 82, kg, 12/11/18 13:27:00 EST, Dry Weight Start Date: 04/15/20 Stop Date: 07/14/20 Status: OrderedNuLYTELY with Flavor Packs oral powder for reconstitution See Instructions, please follow instruction sheet, # 4,000 mL, 0 Refills, Maintenance, 06/24/20 17:23:00 EDT, [facility]/pharmacy #[id number], please follow instruction sheet, 160.02, cm, 06/10/20 12:37:00 EDT, Height, 82, kg, 12/11/18 13:27:00 EST, Dry Weight Start Date: 06/24/20 Status: Orderedoxybutynin 5 mg/24 hours oral tablet, extended release 1 tablet, By Mouth, Daily, # 30 tablet, 1 Refills, Maintenance, 07/09/20 17:12:00 EDT, [facility], 162.6, cm, 07/02/20 8:57:00 EDT, Height, 83.9, [...]
--- OUTSIDE RECORDS SUMMARY | 2022-09-20 21:28 | XMS_ITS | Continuity of Care Document ---
:1960 Author Organization [facility] Address [address] [place] [address]- Care Team Providers Name Role Phone Feliz Ellis DO Primary Care Physician [place] [facility] [place] [facility] [address] [place] [address]- [facility] Allergies, Adverse Reactions, Alerts Substance Reaction Severity [...] 4 Refills, Maintenance, 05/15/20 11:20:00 EDT, Tablet, [facility], 160.02, cm, 05/15/20 10:59:00 EDT, Height, 82, kg, 12/11/18 13:27:00 EST, Dry Weight Start Date: 05/15/20 Stop Date: 08/08/21 Status: OrderedHujudie Kwik Pen 100 units/mL subcutaneous injection See Instructions, Give by Subcutaneous Injection once daily before dinner per sliding scale. Max daily dose 30 units., # 15 mL, 11 Refills, Maintenance, 06/25/20 14:14:00 EDT, Solution, [facility], 160.02, cm, 06/10/20 12:37:00 EDT, Height,... Start Date: 06/25/20 Status: OrderedJardiance 25 mg oral tablet 1 tablet = 25 mg, By Mouth, Daily in AM, # 90 tablet, 4 Refills, Maintenance, 05/15/20 11:33:00 EDT,Tablet, [facility], 160.02, cm, 05/15/20 10:59:00 EDT, Height, [...] Acute 11/08/20 11:05:00 EST, 05/12/20 11:05:00 EDT, [facility], 160.02, cm, 05/12/20 10:48:00 EDT, Height, 82, kg, 12/11/18 13:27:00 EST, Dry Weight Start Date: 05/12/20 Stop Date: 11/08/20 Status: OrderedmetFORMIN 500 mg oral tablet, extended release 2 tablet = 1,000 mg, By Mouth, Daily, # 180 tablet, 0 Refills, Maintenance, 04/15/20 11:58:00 EDT, ER Tablet, [facility], 160.02, cm, 03/18/20 9:39:00 EDT, Height, 82, kg, 12/11/18 13:27:00 EST, Dry Weight Start Date: 04/15/20 Stop Date: 07/14/20 Status: OrderedNuLYTELY with Flavor Packs oral powder for reconstitution See Instructions, please follow instruction sheet, # 4,000 mL, 0 Refills, Maintenance, 06/24/20 17:23:00 EDT, [facility]/pharmacy #[id number], please follow instruction sheet, 160.02, cm, 06/10/20 12:37:00 EDT, Height, 82, kg, 12/11/18 13:27:00 EST, Dry Weight Start Date: 06/24/20 Status: Orderedoxybutynin 5 mg/24 hours oral tablet, extended release 1 tablet, By Mouth, Daily, # 30 tablet, 1 Refills, Maintenance, 07/09/20 17:12:00 EDT, [facility], 162.6, cm, 07/02/20 8:57:00 EDT, Height, 83.9, [...] of transient ischemic Active attack(Confirmed) History of [place] (myocardial Active infarction)(Confirmed) Hypertension(Confirmed) Active Major depression(Confirmed) Active Nonalcoholic Active steatohepatitis(Confirmed) Obesity(Confirmed) Active RAYMOND (obstructive sleep Active apnea)(Confirmed) Seizure vs pseudoseizures(Confirmed) Active
--- OUTSIDE RECORDS SUMMARY | 2022-09-20 21:28 | XMS_ITS | Continuity of Care Document ---
:1960 Author Organization [facility] Address [address] [place] [address]- Care Team Providers Name Role Phone Feliz Ellis DO Primary Care Physician En[facility] [place] [id number] Date(s): 06/26/20 - 08/09/[address] [address]- [facility] Attending Physician: Feliz Ellis DO Admitting Physician: Feliz Ellis DO Referring Physician: Vanessa PATEL, Jonathon Cr Allergies, Adverse Reactions, Alerts Substance Reaction Severity [...] 4 Refills, Maintenance, 05/15/20 11:20:00 EDT, Tablet, [facility], 160.02, cm, 05/15/20 10:59:00 EDT, Height, 82, kg, 12/11/18 13:27:00 EST, Dry Weight Start Date: 05/15/20 Stop Date: 08/08/21 Status: OrderedHumalog Kwik Pen 100 units/mL subcutaneous injection See Instructions, Give by Subcutaneous Injection once daily before dinner per sliding scale. Max daily dose 30 units., # 15 mL, 11 Refills, Maintenance, 06/25/20 14:14:00 EDT, Solution, [facility], 160.02, cm, 06/10/20 12:37:00 EDT, Height,... Start Date: 06/25/20 Status: OrderedJardiance 25 mg oral tablet 1 tablet = 25 mg, By Mouth, Daily in AM, # 90 tablet, 4 Refills, Maintenance, 05/15/20 11:33:00 EDT,Tablet, [facility], 160.02, cm, 05/15/20 10:59:00 EDT, Height, [...] Acute 11/08/20 11:05:00 EST, 05/12/20 11:05:00 EDT, [facility], 160.02, cm, 05/12/20 10:48:00 EDT, Height, 82, kg, 12/11/18 13:27:00 EST, Dry Weight Start Date: 05/12/20 Stop Date: 11/08/20 Status: OrderedmetFORMIN 500 mg oral tablet, extended release 2 tablet = 1,000 mg, By Mouth, Daily, # 180 tablet, 0 Refills, Maintenance, 04/15/20 11:58:00 EDT, ER Tablet, [facility], 160.02, cm, 03/18/20 9:39:00 EDT, Height, 82, kg, 12/11/18 13:27:00 EST, Dry Weight Start Date: 04/15/20 Stop Date: 07/14/20 Status: OrderedNuLYTELY with Flavor Packs oral powder for reconstitution See Instructions, please follow instruction sheet, # 4,000 mL, 0 Refills, Maintenance, 06/24/20 17:23:00 EDT, [facility]/pharmacy #[id number], please follow instruction sheet, 160.02, cm, 06/10/20 12:37:00 EDT, Height, 82, kg, 12/11/18 13:27:00 EST, Dry Weight Start Date: 06/24/20 Status: Orderedoxybutynin 5 mg/24 hours oral tablet, extended release 1 tablet, By Mouth, Daily, # 30 tablet, 1 Refills, Maintenance, 07/09/20 17:12:00 EDT, [id number], 162.6, cm, 07/02/20 8:57:00 EDT, Height, 83.9, [...]
--- OUTSIDE RECORDS SUMMARY | 2022-09-20 21:28 | XMS_ITS | Continuity of Care Document ---
:1960 Author Organization [facility] Address [address] [place] [address]- Care Team Providers Name Role Phone Feliz Ellis DO Primary Care Physician [place] [facility] [place]): [place] 06/26/22 [facility] [address] [place] [id number] Attending Physician: Porter PATEL, Elba Garzon Admitting Physician: Porter PATEL, Elba Garzon Referring Physician: Feliz Ellis DO Allergies, Adverse [...] tablet, 4 Refills, Maintenance, 05/15/20 11:33:00 EDT,Tablet, [facility], 160.02, cm, 05/15/20 10:59:00 EDT, Height, 82, kg, 12/11/18 13:27:00 EST, Dry Weight Start Date: 05/15/20 Stop Date: 08/08/21 Status: OrderedLantus Solostar Pen 100 units/mL subcutaneous solution See Instructions, Take 24 units in the morning, and 24 units Subcutaneous Injection Daily at bedtime. E11.9, # 30 mL, 5 Refills, Maintenance, 02/15/22 17:07:00 EDT, Solution, [facility]/pharmacy #[id number], Partial fill upon patient request [...] Refills, Maintenance, 04/15/20 11:58:00 EDT, ER Tablet, [facility], 160.02, cm, 03/18/20 9:39:00 EDT, Height, 82, kg, 12/11/18 13:27:00 EST, Dry Weight Start Date: 04/15/20 Stop Date: 07/14/20 Status: Orderedomeprazole 20 mg oral delayed release tablet 2 tablet = 40 mg, By Mouth, Daily, # 180 tablet, 1 Refills, Maintenance, 04/11/22 8:04:00 EDT, EC Tablet, [facility]/pharmacy #[id number], Partial fill upon patient request if the prescription is for a schedule II opioid drug., 163, cm, 02/15/22 15:14:00 EDT, [facility]... Start Date: 04/11/22 Status: OrderedPEG-3350 with Electrolytes (Eqv-NuLYTELY) oral powder for reconstitution See Instructions, as directed, # 1 each, 0 Refills, Maintenance, 10/18/21 10:26:00 EST, [facility]/pharmacy#[id number], ok to sub for any gallon prep, [...] of [place] (myocardial Active infarction)(Confirmed) Hypertension(Confirmed) Active Hypoglycemia(Confirmed) Active Major depression(Confirmed) Active Nonalcoholic Active steatohepatitis(Confirmed) Obese class I(Confirmed) Active Obesity(Confirmed) Active RAYMOND (obstructive sleep Active apnea)(Confirmed) Seizure vs pseudoseizures(Confirmed) Active Social History Social History Type Response Smoking Status Former smoker, quit more armen n 30 days ago entered on: 01/05/21 Sex Care Team PersonnelName: Feliz Ellis DO Address: [address] [place] [address]
--- OUTSIDE RECORDS SUMMARY | 2022-09-20 21:28 | XMS_ITS | Continuity of Care Document ---
:1960 Author Organization [facility] Address [address] [place] [address], [address] [place] [address]- Care Team Providers Name Role Phone Feliz Ellis DO Primary Care Physician [place] [facility] [place] - 05/18/[address], [address] [place] [address]- [facility] Attending Physician: Pedro Luis Rios MD [...] 4 Refills, Maintenance, 05/15/20 11:20:00 EDT, Tablet, [facility], 160.02, cm, 05/15/20 10:59:00 EDT, Height, 82, kg, 12/11/18 13:27:00 EST, Dry Weight Start Date: 05/15/20 Stop Date: 08/08/21 Status: OrderedJardiance 25 mg oral tablet 1 tablet = 25 mg, By Mouth, Daily in AM, # 90 tablet, 4 Refills, Maintenance, 05/15/20 11:33:00 EDT,Tablet, [facility], 160.02, cm, 05/15/20 10:59:00 EDT, Height, [...] Acute 11/08/20 11:05:00 EST, 05/12/20 11:05:00 EDT, [facility], 160.02, cm, 05/12/20 10:48:00 EDT, Height, 82, kg, 12/11/18 13:27:00 EST, Dry Weight Start Date: 05/12/20 Stop Date: 11/08/20 Status: OrderedmetFORMIN 500 mg oral tablet, extended release 2 tablet = 1,000 mg, By Mouth, Daily, # 180 tablet, 0 Refills, Maintenance, 04/15/20 11:58:00 EDT, ER Tablet, [facility], 160.02, cm, 03/18/20 9:39:00 EDT, Height, 82, kg, 12/11/18 13:27:00 EST, Dry Weight Start Date: 04/15/20 Stop Date: 07/14/20 Status: OrderedNuLYTELY with Flavor Packs oral powder for reconstitution See Instructions, please follow instruction sheet, # 4,000 mL, 0 Refills, Maintenance, 01/14/20 11:33:00 EDT, [facility]/pharmacy #[id number], please follow instruction sheet, 160.02, cm, 12/13/19 10:48:00 EST, Height, 82, kg, 12/11/18 13:27:00 EST, Dry Weight Start Date: 01/14/20 Status: Orderedoxybutynin 5 mg/24 hours oral tablet, extended release 1 tablet, By Mouth, Daily, # 30 tablet, 1 Refills, Maintenance, 03/23/20 8:31:00 EDT, [id number], 160.02, cm, 03/18/20 9:39:00 EDT, Height, 82, [...] of transient ischemic Active attack(Confirmed) History of [place] (myocardial Active infarction)(Confirmed) Hypertension(Confirmed) Active Major depression(Confirmed) Active Nonalcoholic Active steatohepatitis(Confirmed) Obesity(Confirmed) Active RAYMOND (obstructive sleep Active apnea)(Confirmed) Seizure vs pseudoseizures(Confirmed) Active Vital Signs Most recent to oldest [Reference Range]: 1 Height 160.02 cm (05/11/20 2:00 PM) Weight 89.3 kg (05/11/20 2:00 PM) Body Mass Index [18.5-24.99] 34.87 *>HHI* (05/11/20 2:00 PM)
--- OUTSIDE RECORDS SUMMARY | 2022-09-20 21:28 | XMS_ITS | Continuity of Care Document ---
:1960 Author Organization [facility] Address [address] [place] [address]- Care Team Providers Name Role Phone Feliz Ellis DO Primary Care Physician Encounter [facility] Date(s): 12/29/20 - 01/28/21 [facility] [address] [place] [address]- Allergies, Adverse Reactions, Alerts Substance Reaction Severity [...] 4 Refills, Maintenance, 05/15/20 11:20:00 EDT, Tablet, [facility], 160.02, cm, 05/15/20 10:59:00 EDT, Height, 82, kg, 12/11/18 13:27:00 EST, Dry Weight Start Date: 05/15/20 Stop Date: 08/08/21 Status: OrderedHumalog Kwik Pen 100 units/mL subcutaneous injection See Instructions, Give by Subcutaneous Injection once daily before dinner per sliding scale. Max daily dose 30 units., # 15 mL, 11 Refills, Maintenance, 06/25/20 14:14:00 EDT, Solution, [facility], 160.02, cm, 06/10/20 12:37:00 EDT, Height,... Start Date: 06/25/20 Status: OrderedJardiance 25 mg oral tablet 1 tablet = 25 mg, By Mouth, Daily in AM, # 90 tablet, 4 Refills, Maintenance, 05/15/20 11:33:00 EDT,Tablet, [facility], 160.02, cm, 05/15/20 10:59:00 EDT, Height, [...] MEAL, # 28 tablet, 0 Refills, Acute, [facility], 162.56, cm, 01/05/21 10:54:00 EDT, Height, 86, kg, 09/10/20 18:19:00 EST, Dry Weight Start Date: 01/12/21 Status: OrderedmetFORMIN 500 mg oral tablet, extended release 2 tablet = 1,000 mg, By Mouth, Daily, # 180 tablet, 0 Refills, Maintenance, 04/15/20 11:58:00 EDT, ER Tablet, [facility], 160.02, cm, 03/18/20 9:39:00 EDT, Height, 82, kg, 12/11/18 13:27:00 EST, Dry Weight Start Date: 04/15/20 Stop Date: 07/14/20 Status: OrderedpredniSONE 5 mg oral tablet 3 tablet = 15 mg, By Mouth, Daily, # 90 tablet, 0 Refills, Maintenance, 01/13/21 7:58:00 EDT, [facility]/pharmacy #[id number], Partial fill upon patient request if the [...] of transient ischemic Active attack(Confirmed) History of [place] (myocardial Active infarction)(Confirmed) Hypertension(Confirmed) Active Major depression(Confirmed) Active Nonalcoholic Active steatohepatitis(Confirmed) Obesity(Confirmed) Active RAYMOND (obstructive sleep Active apnea)(Confirmed) Seizure vs pseudoseizures(Confirmed) Active Social History Social History Type Response Smoking Status Former smoker, quit more armen n 30 days ago entered on: 01/05/21 Sex
--- OUTSIDE RECORDS SUMMARY | 2022-09-20 21:28 | XMS_ITS | Continuity of Care Document ---
:1960 Author Organization [facility] Address [address] [place] [address]- Care Team Providers Name Role Phone Feliz Ellis DO Primary Care Physician Encounter [facility] [place] Date(s): 11/15/19 - 02/27/20 [facility] [address] [place] [address]- [facility] Attending Physician: Corby Massey MD Admitting Physician: Corby Massey MD Referring Physician: Feliz Ellis DO Allergies, [...] 0 Refills, Maintenance, 12/16/19 12:08:00 EST, Tablet, [facility]/pharmacy #[id number], 160.02, cm, 12/13/19 10:48:00 EST, [...] mL, 0 Refills, Maintenance, 01/14/20 11:33:00 EDT, [facility]/pharmacy #[id number], please follow instruction sheet, 160.02, cm, 12/13/19 10:48:00 EST, Height, 82, kg, 12/11/18 13:27:00 EST, Dry Weight Start Date: 01/14/20 Status: Orderedoxybutynin 5 mg/24 hours oral tablet, extended release 1 tablet, By Mouth, Daily, # 30 tablet, 1 Refills, Maintenance, 02/21/20 8:34:00 EDT, [id number], 160.02, cm, 02/14/20 14:29:00 EDT, Height, 82, [...]
--- OUTSIDE RECORDS SUMMARY | 2022-09-20 21:28 | XMS_ITS | Continuity of Care Document ---
:1960 Author Organization [facility] Address [address] [place] [address]- Care Team Providers Name Role Phone eFliz Ellis DO Primary Care Physician [id number] Date(s): 11/11/21 - 02/23/[address] [address] Attending Physician: Carlos Garcia MD Admitting Physician: Carlos Garcia MD Allergies, Adverse Reactions, [...] tablet, 4 Refills, Maintenance, 05/15/20 11:33:00 EDT,Tablet, [facility], 160.02, cm, 05/15/20 10:59:00 EDT, Height, 82, kg, 12/11/18 13:27:00 EST, Dry Weight Start Date: 05/15/20 Stop Date: 08/08/21 Status: OrderedLantus Solostar Pen 100 units/mL subcutaneous solution See Instructions, Take 24 units in the morning, and 24 units Subcutaneous Injection Daily at bedtime. E11.9, # 30 mL, 5 Refills, Maintenance, 02/15/22 17:07:00 EDT, Solution, [facility]/pharmacy #[id number], Partial fill upon patient [...] A MEAL, # 28 tablet, 11 Refills, [facility], 162.56, cm, 01/05/21 10:54:00 EDT, Height, [...] Refills, Maintenance, 04/15/20 11:58:00 EDT, ER Tablet, [facility], 160.02, cm, 03/18/20 9:39:00 EDT, Height, 82, kg, 12/11/18 13:27:00 EST, Dry Weight Start Date: 04/15/20 Stop Date: 07/14/20 Status: Orderedomeprazole 20 mg oral delayed release tablet 2 tablet = 40 mg, By Mouth, Daily, # 180 tablet, 0 Refills, Maintenance, 01/07/22 11:21:00 EDT, EC Tablet, [facility]/pharmacy #[id number], Partial fill upon patient request if the prescription is for a schedule IIopioid drug., 162.56, cm, 10/18/21 9:54:00 EST, H... Start Date: 01/07/22 Status: OrderedPEG-3350 with Electrolytes (Eqv-NuLYTELY) oral powder for reconstitution See Instructions, as directed, # 1 each, 0 Refills, Maintenance, 10/18/21 10:26:00 EST, [facility]/pharmacy#[id number], ok to sub for any [...] of [place] (myocardial Active infarction)(Confirmed) Hypertension(Confirmed) Active Hypoglycemia(Confirmed) Active Major depression(Confirmed) Active Nonalcoholic Active steatohepatitis(Confirmed) Obese class I(Confirmed) Active Obesity(Confirmed) Active RAYMOND (obstructive sleep Active apnea)(Confirmed) Seizure vs pseudoseizures(Confirmed) Active Social History Social History Type Response Smoking Status Former smoker, quit more armen n 30 days ago entered on: 01/05/21 Sex
--- OUTSIDE RECORDS SUMMARY | 2022-09-20 21:28 | XMS_ITS | Continuity of Care Document ---
:1960 Author Organization [facility] Address [address] [place] [address]- Care Team Providers Name Role Phone Feliz Ellis DO Primary Care Physician [place] [facility] [place]/08/20 - 01/18/[address] [address]- [facility] Attending Physician: Suad Hernandez Admitting Physician: AdmSuad lara Referring Physician: AdmtrSuad Allergies, Adverse Reactions, Alerts [...] 0 Refills, Maintenance, 12/16/19 12:08:00 EST, Tablet, [facility]/pharmacy #[id number], 160.02, cm, 12/13/19 10:48:00 EST, Height, [...] mL, 0 Refills, Maintenance, 01/14/20 11:33:00 EDT, [facility]/pharmacy #[id number], please follow instruction sheet, 160.02, cm, [...] of transient ischemic Active attack(Confirmed) History of [place] (myocardial Active infarction)(Confirmed) Hypertension(Confirmed) Active Major depression(Confirmed) Active Nonalcoholic Active steatohepatitis(Confirmed) Obesity(Confirmed) Active RAYMOND (obstructive sleep Active apnea)(Confirmed) Seizure vs pseudoseizures(Confirmed) Active
--- OUTSIDE RECORDS SUMMARY | 2022-09-20 21:28 | XMS_ITS | Continuity of Care Document ---
:1960 Author Organization [facility] Address [address] [place] [address]- Care Team Providers Name Role Phone Feliz Ellis DO Primary Care Physician En[place] [facility] [place] Date(s): 07/29/20 - 08/28/[address] [address] Attending Physician: AdmSuad lara Admitting Physician: Admtr, Suad Referring Physician: Admtr, [...] 4 Refills, Maintenance, 05/15/20 11:20:00 EDT, Tablet, [facility], 160.02, cm, 05/15/20 10:59:00 EDT, Height, 82, kg, 12/11/18 13:27:00 EST, Dry Weight Start Date: 05/15/20 Stop Date: 08/08/21 Status: OrderedHumalog Kwik Pen 100 units/mL subcutaneous injection See Instructions, Give by Subcutaneous Injection once daily before dinner per sliding scale. Max daily dose 30 units., # 15 mL, 11 Refills, Maintenance, 06/25/20 14:14:00 EDT, Solution, [facility], 160.02, cm, 06/10/20 12:37:00 EDT, Height,... Start Date: 06/25/20 Status: OrderedJardiance 25 mg oral tablet 1 tablet = 25 mg, By Mouth, Daily in AM, # 90 tablet, 4 Refills, Maintenance, 05/15/20 11:33:00 EDT,Tablet, [facility], 160.02, cm, 05/15/20 10:59:00 EDT, Height, [...] Acute 11/08/20 11:05:00 EST, 05/12/20 11:05:00 EDT, [facility], 160.02, cm, 05/12/20 10:48:00 EDT, Height, 82, kg, 12/11/18 13:27:00 EST, Dry Weight Start Date: 05/12/20 Stop Date: 11/08/20 Status: OrderedmetFORMIN 500 mg oral tablet, extended release 2 tablet = 1,000 mg, By Mouth, Daily, # 180 tablet, 0 Refills, Maintenance, 04/15/20 11:58:00 EDT, ER Tablet, [facility], 160.02, cm, 03/18/20 9:39:00 EDT, Height, 82, kg, 12/11/18 13:27:00 EST, Dry Weight Start Date: 04/15/20 Stop Date: 07/14/20 Status: OrderedNuLYTELY with Flavor Packs oral powder for reconstitution See Instructions, please follow instruction sheet, # 4,000 mL, 0 Refills, Maintenance, 06/24/20 17:23:00 EDT, [facility]/pharmacy #[id number], please follow instruction sheet, 160.02, cm, 06/10/20 12:37:00 EDT, Height, 82, kg, 12/11/18 13:27:00 EST, Dry Weight Start Date: 06/24/20 Status: Orderedoxybutynin 5 mg/24 hours oral tablet, extended release 1 tablet, By Mouth, Daily, # 30 tablet, 1 Refills, Maintenance, 07/09/20 17:12:00 EDT, [facility], 162.6, cm, 07/02/20 8:57:00 EDT, Height, 83.9, [...]
--- OUTSIDE RECORDS SUMMARY | 2022-09-20 21:28 | XMS_ITS | Continuity of Care Document ---
:1960 Author Organization [facility] Address [address] [place] [address]- Care Team Providers Name Role Phone Feliz Ellis DO Primary Care Physician [place] [facility] [place] 03[place]22 [facility] [address] [place] [address]- Allergies, Adverse Reactions, Alerts Substance Reaction Severity [...] tablet, 4 Refills, Maintenance, 05/15/20 11:33:00 EDT,Tablet, [facility], 160.02, cm, 05/15/20 10:59:00 EDT, Height, 82, kg, 12/11/18 13:27:00 EST, Dry Weight Start Date: 05/15/20 Stop Date: 08/08/21 Status: OrderedLantus Solostar Pen 100 units/mL subcutaneous solution See Instructions, Take 24 units in the morning, and 24 units Subcutaneous Injection Daily at bedtime. E11.9, # 30 mL, 5 Refills, Maintenance, 02/15/22 17:07:00 EDT, Solution, [facility]/pharmacy #[id number], Partial fill upon patient [...] A MEAL, # 28 tablet, 11 Refills, [facility], 162.56, cm, 01/05/21 10:54:00 EDT, Height, [...] Refills, Maintenance, 04/15/20 11:58:00 EDT, ER Tablet, [facility], 160.02, cm, 03/18/20 9:39:00 EDT, Height, 82, kg, 02/19/19 13:27:00 EST, Dry Weight Start Date: 04/15/20 [...]
--- OUTSIDE RECORDS SUMMARY | 2022-09-20 21:28 | XMS_ITS | Continuity of Care Document ---
:1960 Author Organization [facility] Address [address] [place] [address]- Care Team Providers Name Role Phone Feliz Ellis DO Primary Care Physician [place] [facility] [place] 04/02/[address] [address]- [facility] Attending Physician: Suad Hernandez Admitting Physician: Suad [...] 3 Refills, Maintenance, 03/19/20 11:47:00 EDT, Tablet, [facility]/pharmacy #[id number], 160.02, cm, 03/18/20 9:39:00 EDT, Height, [...] Refills, Maintenance, 03/23/20 8:31:00 EDT, [id number], 160.02, cm, 03/18/20 9:39:00 EDT, Height, 82, [...]
--- OUTSIDE RECORDS SUMMARY | 2022-09-20 21:28 | XMS_ITS | Continuity of Care Document ---
:1960 Author Organization [facility] Address [address], [address], [address] [place] [address]- Care Team Providers Name Role Phone Feliz Ellis DO Primary Care Physician [place] [facility] [place] - 02[place]10/21 [facility] [address], [address], [address] [place] [address] Allergies, Adverse Reactions, Alerts Substance Reaction Severity [...] mg, By Mouth, Daily, 0 Refills, Maintenance, 11/18/19 8:56:38 EST Start Date: 09/09/19 Status: OrderedFreestyle [...] Refills, Maintenance, 05/15/20 11:20:00 EDT, Tablet, [facility], 160.02, cm, 05/15/20 10:59:00 EDT, Height, 82, kg, 12/11/18 13:27:00 EST, Dry Weight Start Date: 05/15/20 Stop Date: 08/08/21 Status: OrderedHumalog Kwik Pen 100 units/mL subcutaneous injection See Instructions, Give by Subcutaneous Injection once daily before dinner per sliding scale. Max daily dose 30 units., # 15 mL, 11 Refills, Maintenance, 06/25/20 14:14:00 EDT, Solution, [facility], 160.02, cm, 06/10/20 12:37:00 EDT, Height,... Start Date: 06/25/20 Status: OrderedJardiance 25 mg oral tablet 1 tablet = 25 mg, By Mouth, Daily in AM, # 90 tablet, 4 Refills, Maintenance, 05/15/20 11:33:00 EDT,Tablet, [facility], 160.02, cm, 05/15/20 10:59:00 EDT, Height, [...] MEAL, # 28 tablet, 0 Refills, Acute, [facility], 162.56, cm, 01/05/21 10:54:00 EDT, Height, 86, kg, 09/10/20 18:19:00 EST, Dry Weight Start Date: 01/12/21 Status: OrderedmetFORMIN 500 mg oral tablet, extended release 2 tablet = 1,000 mg, By Mouth, Daily, # 180 tablet, 0 Refills, Maintenance, 04/15/20 11:58:00 EDT, ER Tablet, [facility], 160.02, cm, 03/18/20 9:39:00 EDT, Height, 82, kg, 12/11/18 13:27:00 EST, Dry Weight Start Date: 04/15/20 Stop Date: 07/14/20 Status: OrderedpredniSONE 5 mg oral tablet 3 tablet = 15 mg, By Mouth, Daily, # 90 tablet, 0 Refills, Maintenance, 01/13/21 7:58:00 EDT, [facility]/pharmacy #[id number], Partial fill upon patient request if the [...]
--- OUTSIDE RECORDS SUMMARY | 2022-09-20 21:28 | XMS_ITS | Continuity of Care Document ---
:1960 Author Organization [facility] Address [address] [place] [address]- Care Team Providers Name Role Phone Feliz Ellis DO Primary Care Physician [place] [facility] [place] - 06/24/[address] [address]- [facility] Attending Physician: Feliz Ellis DO Admitting Physician: [...] 4 Refills, Maintenance, 05/15/20 11:20:00 EDT, Tablet, [facility], 160.02, cm, 05/15/20 10:59:00 EDT, Height, 82, kg, 12/11/18 13:27:00 EST, Dry Weight Start Date: 05/15/20 Stop Date: 08/08/21 Status: OrderedJardiance 25 mg oral tablet 1 tablet = 25 mg, By Mouth, Daily in AM, # 90 tablet, 4 Refills, Maintenance, 05/15/20 11:33:00 EDT,Tablet, [facility], 160.02, cm, 05/15/20 10:59:00 EDT, Height, [...] Acute 11/08/20 11:05:00 EST, 05/12/20 11:05:00 EDT, [facility], 160.02, cm, 05/12/20 10:48:00 EDT, Height, 82, kg, 12/11/18 13:27:00 EST, Dry Weight Start Date: 05/12/20 Stop Date: 11/08/20 Status: OrderedmetFORMIN 500 mg oral tablet, extended release 2 tablet = 1,000 mg, By Mouth, Daily, # 180 tablet, 0 Refills, Maintenance, 04/15/20 11:58:00 EDT, ER Tablet, [facility], 160.02, cm, 03/18/20 9:39:00 EDT, Height, 82, kg, 12/11/18 13:27:00 EST, Dry Weight Start Date: 04/15/20 Stop Date: 07/14/20 Status: OrderedNuLYTELY with Flavor Packs oral powder for reconstitution See Instructions, please follow instruction sheet, # 4,000 mL, 0 Refills, Maintenance, 06/24/20 17:23:00 EDT, [facility]/pharmacy #[id number], please follow instruction sheet, 160.02, cm, 06/10/20 12:37:00 EDT, Height, 82, kg, 12/11/18 13:27:00 EST, Dry Weight Start Date: 06/24/20 Status: Orderedoxybutynin 5 mg/24 hours oral tablet, extended release 1 tablet, By Mouth, Daily, # 30 tablet, 1 Refills, Maintenance, 03/23/20 8:31:00 EDT, [id number], 160.02, cm, 03/18/20 9:39:00 EDT, Height, 82, [...] of [place] (myocardial Active infarction)(Confirmed) Hypertension(Confirmed) Active Major depression(Confirmed) Active Nonalcoholic Active steatohepatitis(Confirmed) Obesity(Confirmed) Active RAYMOND (obstructive sleep Active apnea)(Confirmed) Seizure vs pseudoseizures(Confirmed) Active
--- OUTSIDE RECORDS SUMMARY | 2022-09-20 21:28 | XMS_ITS | Continuity of Care Document ---
:1960 Author Organization [facility] Address [address] [place] [address]- Care Team Providers Name Role Phone Feliz Ellis DO Primary Care Physician Encounter [facility] [place] Date(s): 10/12/21 - 11/11/[address] [address] [place] Attending Physician: Suad Hernandez Admitting Physician: Suad Hernandez Referring Physician: AdmtrSuad Allergies, Adverse Reactions, Alerts Substance Reaction Severity Status gabapentin nausea Active topiramate dizziness Active Lipitor myalgia Active Bactrim rash Active TEGretol n/v Active penicillins rash Active Soma rash Active Immunizations Given and Recorded Vaccine [...] 4 Refills, Maintenance, 05/15/20 11:20:00 EDT, Tablet, [facility], 160.02, cm, 05/15/20 10:59:00 EDT, Height, 82, kg, 12/11/18 13:27:00 EST, Dry Weight Start Date: 05/15/20 Stop Date: 08/08/21 Status: OrderedHumalog Kwik Pen 100 units/mL subcutaneous injection See Instructions, Give by Subcutaneous Injection once daily before dinner per sliding scale. Max daily dose 30 units., # 15 mL, 11 Refills, Maintenance, 06/25/20 14:14:00 EDT, Solution, [facility], 160.02, cm, 06/10/20 12:37:00 EDT, Height,... Start Date: 06/25/20 Status: OrderedJardiance 25 mg oral tablet 1 tablet = 25 mg, By Mouth, Daily in AM, # 90 tablet, 4 Refills, Maintenance, 05/15/20 11:33:00 EDT,Tablet, [facility], 160.02, cm, 05/15/20 10:59:00 EDT, Height, [...] Refills, Maintenance, 04/15/20 11:58:00 EDT, ER Tablet, [facility], 160.02, cm, 03/18/20 9:39:00 EDT, Height, 82, kg, 12/11/18 13:27:00 EST, Dry Weight Start Date: 04/15/20 Stop Date: 07/14/20 Status: Orderedomeprazole 20 mg oral delayed release tablet 1 tablet = 20 mg, By Mouth, 2 times a day, # 180 tablet, 0 Refills, Maintenance, 10/18/21 10:26:00 EST, EC Tablet, [facility]/pharmacy #[id number], Partial fill upon patient request if the prescription is for a schedule II opioid drug., 162.56, cm, 10/18/21 9:54:0... Start Date: 10/18/21 Status: OrderedPEG-3350 with Electrolytes (Eqv-NuLYTELY) oral powder for reconstitution See Instructions, as directed, # 1 each, 0 Refills, Maintenance, 10/18/21 10:26:00 EST, [id number], ok to sub for any gallon prep, as directed, 162.56, cm, 10/18/21 9:54:00 EST, Height, 86, kg,09/10/20 18:19:00 EST, Dry Weight Start Date: 10/18/21 Status: OrderedpredniSONE 5 mg oral tablet 3 tablet = 15 mg, By Mouth, Daily, # 90 tablet, 0 Refills, Maintenance, 01/13/21 7:58:00 EDT, [id number], Partial fill upon patient request if [...]
--- OUTSIDE RECORDS SUMMARY | 2022-09-20 21:28 | XMS_ITS | Continuity of Care Document ---
:1960 Author Organization [facility] Address [address] [place] [address]- Care Team Providers Name Role Phone Feliz Ellis DO Primary Care Physician Encounter [facility] [id number] Date(s): 01/05/21 - 03/11/21 [facility] [address] [place] [address]- Attending Physician: Pa Mai MD Allergies, Adverse Reactions, Alerts Substance Reaction [...] 4 Refills, Maintenance, 05/15/20 11:20:00 EDT, Tablet, [facility], 160.02, cm, 05/15/20 10:59:00 EDT, Height, 82, kg, 12/11/18 13:27:00 EST, Dry Weight Start Date: 05/15/20 Stop Date: 08/08/21 Status: OrderedHumalog Kwik Pen 100 units/mL subcutaneous injection See Instructions, Give by Subcutaneous Injection once daily before dinner per sliding scale. Max daily dose 30 units., # 15 mL, 11 Refills, Maintenance, 06/25/20 14:14:00 EDT, Solution, [facility], 160.02, cm, 06/10/20 12:37:00 EDT, Height,... Start Date: 06/25/20 Status: OrderedJardiance 25 mg oral tablet 1 tablet = 25 mg, By Mouth, Daily in AM, # 90 tablet, 4 Refills, Maintenance, 05/15/20 11:33:00 EDT,Tablet, [facility], 160.02, cm, 05/15/20 10:59:00 EDT, Height, [...] MEAL, # 28 tablet, 5 Refills, Acute, [facility], 162.56, cm, 01/05/21 10:54:00 EDT, Height, 86, kg, 09/10/20 18:19:00 EST, Dry Weight Start Date: 02/23/21 Status: OrderedmetFORMIN 500 mg oral tablet, extended release 2 tablet = 1,000 mg, By Mouth, Daily, # 180 tablet, 0 Refills, Maintenance, 04/15/20 11:58:00 EDT, ER Tablet, [facility], 160.02, cm, 03/18/20 9:39:00 EDT, Height, 82, kg, 12/11/18 13:27:00 EST, Dry Weight Start Date: 04/15/20 Stop Date: 07/14/20 Status: OrderedpredniSONE 5 mg oral tablet 3 tablet = 15 mg, By Mouth, Daily, # 90 tablet, 0 Refills, Maintenance, 01/13/21 7:58:00 EDT, [facility]/pharmacy #[id number], Partial fill upon patient request if the [...] of transient ischemic Active attack(Confirmed) History of [place] (myocardial Active infarction)(Confirmed) Hypertension(Confirmed) Active Major depression(Confirmed) Active Nonalcoholic Active steatohepatitis(Confirmed) Obesity(Confirmed) Active RAYMOND (obstructive sleep Active apnea)(Confirmed) Seizure vs pseudoseizures(Confirmed) Active Social History Social History Type Response Smoking Status Former smoker, quit more armen n 30 days ago entered on: 01/05/21 Sex
--- OUTSIDE RECORDS SUMMARY | 2022-09-20 21:28 | XMS_ITS | Continuity of Care Document ---
:1960 Author Organization [facility] Address [address] [facility], 3rd Floor, [address] [place] [address]- Care Team Providers Name Role Phone Feliz Ellis DO Primary Care Phys[id number] - [facility]19/20 [facility] [address], [address] Floor, [address] [place] [address]- [facility] Attending Physician: Mike Martinez MD Admitting Physician: Mike Martinez MD Referring Physician: Feliz Ellis DO Allergies, [...] Maintenance, 12/16/19 12:08:00 EST, Tablet, [facility]/pharmacy #[id number], 160.02, cm, 12/13/19 10:48:00 EST, Height, [...] 0 Refills, Maintenance, 01/14/20 11:33:00 EDT, [facility]/pharmacy #[id number], please follow instruction sheet, 160.02, cm, [...]
--- OUTSIDE RECORDS SUMMARY | 2022-09-20 21:28 | XMS_ITS | Continuity of Care Document ---
:1960 Author Organization [facility] Address [address] [place] [address]- Care Team Providers Name Role Phone Feliz Ellis DO Primary Care Physician Encounter [facility] Date(s): 02/06/20 - 05/27/20 [facility] [address] [place] [address]- [facility] Attending Physician: Sergei HSIEH, Pa Referring Physician: Feliz Ellis DO Allergies, Adverse [...] 4 Refills, Maintenance, 05/15/20 11:20:00 EDT, Tablet, [facility], 160.02, cm, 05/15/20 10:59:00 EDT, Height, 82, kg, 12/11/18 13:27:00 EST, Dry Weight Start Date: 05/15/20 Stop Date: 08/08/21 Status: OrderedJardiance 25 mg oral tablet 1 tablet = 25 mg, By Mouth, Daily in AM, # 90 tablet, 4 Refills, Maintenance, 05/15/20 11:33:00 EDT,Tablet, [facility], 160.02, cm, 05/15/20 10:59:00 EDT, Height, 82, [...] Acute 11/08/20 11:05:00 EST, 05/12/20 11:05:00 EDT, [facility], 160.02, cm, 05/12/20 10:48:00 EDT, Height, 82, kg, 12/11/18 13:27:00 EST, Dry Weight Start Date: 05/12/20 Stop Date: 11/08/20 Status: OrderedmetFORMIN 500 mg oral tablet, extended release 2 tablet = 1,000 mg, By Mouth, Daily, # 180 tablet, 0 Refills, Maintenance, 04/15/20 11:58:00 EDT, ER Tablet, [facility], 160.02, cm, 03/18/20 9:39:00 EDT, Height, 82, kg, 12/11/18 13:27:00 EST, Dry Weight Start Date: 04/15/20 Stop Date: 07/14/20 Status: OrderedNuLYTELY with Flavor Packs oral powder for reconstitution See Instructions, please follow instruction sheet, # 4,000 mL, 0 Refills, Maintenance, 01/14/20 11:33:00 EDT, [id number], please follow instruction sheet, 160.02, cm, 12/13/19 10:48:00 EST, Height, 82, kg, 12/11/18 13:27:00 EST, Dry Weight Start Date: 01/14/20 Status: Orderedoxybutynin 5 mg/24 hours oral tablet, extended release 1 tablet, By Mouth, Daily, # 30 tablet, 1 Refills, Maintenance, 03/23/20 8:31:00 EDT, [id number], 160.02, cm, 03/18/20 9:39:00 EDT, Height, 82, [...]
--- OUTSIDE RECORDS SUMMARY | 2022-09-20 21:28 | XMS_ITS | Continuity of Care Document ---
:1960 Author Organization [facility] Address [address] [place] [address]- Care Team Providers Name Role Phone Feliz Ellis DO Primary Care Physician En[place] [facility] Date(s): 05/25/22 - 06/24/22 [facility] [address] [place] [id number] Allergies, Adverse Reactions, Alerts Substance Reaction Severity [...] tablet, 4 Refills, Maintenance, 05/15/20 11:33:00 EDT,Tablet, [facility], 160.02, cm, 05/15/20 10:59:00 EDT, Height, 82, kg, 12/11/18 13:27:00 EST, Dry Weight Start Date: 05/15/20 Stop Date: 08/08/21 Status: OrderedLantus Solostar Pen 100 units/mL subcutaneous solution See Instructions, Take 24 units in the morning, and 24 units Subcutaneous Injection Daily at bedtime. E11.9, # 30 mL, 5 Refills, Maintenance, 02/15/22 17:07:00 EDT, Solution, [facility]/pharmacy #[id number], Partial fill upon [...] A MEAL, # 28 tablet, 11 Refills, [facility], 162.56, cm, 01/05/21 10:54:00 EDT, Height, 86, [...] Refills, Maintenance, 04/15/20 11:58:00 EDT, ER Tablet, [facility], 160.02, cm, 03/18/20 9:39:00 EDT, Height, 82, kg, 02/19/19 13:27:00 EST, Dry Weight Start Date: 04/15/20 Stop Date: 07/14/20 Status: Orderedomeprazole 20 mg oral delayed release tablet 2 tablet = 40 mg, By Mouth, Daily, # 180 tablet, 1 Refills, Maintenance, 04/11/22 8:04:00 EDT, EC Tablet, [facility]/pharmacy #[id number], Partial fill upon patient request if the prescription is for a schedule II opioid drug., 163, cm, 02/15/22 15:14:00 EDT, [facility]... Start Date: 04/11/22 Status: OrderedPEG-3350 with Electrolytes (Eqv-NuLYTELY) oral powder for reconstitution See Instructions, as directed, # 1 each, 0 Refills, Maintenance, 10/18/21 10:26:00 EST, [facility]/pharmacy#[id number], ok to sub for any gallon [...] of transient ischemic Active attack(Confirmed) History of [place] (myocardial Active infarction)(Confirmed) Hypertension(Confirmed) Active Hypoglycemia(Confirmed) Active Major depression(Confirmed) Active Nonalcoholic Active steatohepatitis(Confirmed) Obese class I(Confirmed) Active Obesity(Confirmed) Active RAYMOND (obstructive sleep Active apnea)(Confirmed) Seizure vs pseudoseizures(Confirmed) Active Social History Social History Type Response Smoking Status Former smoker, quit more armen n 30 days ago entered on: 01/05/21 Sex Care Team PersonnelName: Feliz Ellis DO Address: [address] [place] [address]-
--- OUTSIDE RECORDS SUMMARY | 2022-09-20 21:28 | XMS_ITS | Continuity of Care Document ---
:[address] [facility] Address [address] [place] [address]- Care Team Providers Name Role Phone Feliz Ellis DO Primary Care Physician [place] [facility] [place]11[place]20 - 03/18/[address] [address]- [facility] Attending Physician: Feliz Ellis DO [...] 0 Refills, Maintenance, 12/16/19 12:08:00 EST, Tablet, [facility]/pharmacy #[id number], 160.02, cm, 12/13/19 10:48:00 EST, Height, [...] 0 Refills, Maintenance, 01/14/20 11:33:00 EDT, [facility]/pharmacy #[id number], please follow instruction sheet, 160.02, cm, 12/13/19 10:48:00 EST, Height, 82, kg, 12/11/18 13:27:00 EST, Dry Weight Start Date: 01/14/20 Status: Orderedoxybutynin 5 mg/24 hours oral tablet, extended release 1 tablet, By Mouth, Daily, # 30 tablet, 1 Refills, Maintenance, 02/21/20 8:34:00 EDT, [id number], 160.02, cm, 02/14/20 14:29:00 EDT, Height, 82, [...]
--- OUTSIDE RECORDS SUMMARY | 2022-09-20 21:28 | XMS_ITS | Continuity of Care Document ---
:1960 Author Organization [facility] Address [address] [place] [address]- Care Team Providers Name Role Phone Feliz Ellis DO Primary Care Physician Encounter [facility] Date(s): 02/15/22 - 03/17/22 [facility] [address] [place] [email or web address] Attending Physician: Suad Hernandez Admitting Physician: Suad Hernandez Referring Physician: Suad Hernandez Referring Physician: Luci Alexis Referring Physician: Luci Alexis Allergies, Adverse Reactions, Alerts Substance Reaction Severity Status gabapentin nausea Active topiramate dizziness Active TEGretol n/v Active penicillins rash Active Soma rash Active Lipitor myalgia Active Bactrim rash Active Immunizations Given and [...] tablet, 4 Refills, Maintenance, 05/15/20 11:33:00 EDT,Tablet, [facility], 160.02, cm, 05/15/20 10:59:00 EDT, Height, 82, kg, 12/11/18 13:27:00 EST, Dry Weight Start Date: 05/15/20 Stop Date: 08/08/21 Status: OrderedLantus Solostar Pen 100 units/mL subcutaneous solution See Instructions, Take 24 units in the morning, and 24 units Subcutaneous Injection Daily at bedtime. E11.9, # 30 mL, 5 Refills, Maintenance, 02/15/22 17:07:00 EDT, Solution, [facility]/pharmacy #[id number], Partial fill upon patient request [...] Refills, Maintenance, 04/15/20 11:58:00 EDT, ER Tablet, [facility], 160.02, cm, 03/18/20 9:39:00 EDT, Height, 82, kg, 12/11/18 13:27:00 EST, Dry Weight Start Date: 04/15/20 Stop Date: 07/14/20 Status: Orderedomeprazole 20 mg oral delayed release tablet 2 tablet = 40 mg, By Mouth, Daily, # 180 tablet, 0 Refills, Maintenance, 01/07/22 11:21:00 EDT, EC Tablet, [facility]/pharmacy #[id number], Partial fill upon patient request if the prescription is for a schedule IIopioid drug., 162.56, cm, 10/18/21 9:54:00 EST, H... Start Date: 01/07/22 Status: OrderedPEG-3350 with Electrolytes (Eqv-NuLYTELY) oral powder for reconstitution See Instructions, as directed, # 1 each, 0 Refills, Maintenance, 10/18/21 10:26:00 EST, [facility]/pharmacy#[id number], ok to sub for any gallon [...] of [place] (myocardial Active infarction)(Confirmed) Hypertension(Confirmed) Active Hypoglycemia(Confirmed) Active Major depression(Confirmed) Active Nonalcoholic Active steatohepatitis(Confirmed) Obese class I(Confirmed) Active Obesity(Confirmed) Active RAYMOND (obstructive sleep Active apnea)(Confirmed) Seizure vs pseudoseizures(Confirmed) Active Social History Social History Type Response Smoking Status Former smoker, quit more armen n 30 days ago entered on: 01/05/21 Sex
--- OUTSIDE RECORDS SUMMARY | 2022-09-20 21:29 | XMS_ITS | Continuity of Care Document ---
:1960 Author Organization [facility] Address [address] [place] [address], [address] [place] [address]- Care Team Providers Name Role Phone Feliz Ellis DO Primary Care Physician [place] [facility] [place]/14/20 - 06/13/[address], [address] [place] [address]- [facility] Allergies, Adverse Reactions, Alerts Substance Reaction Severity [...] 4 Refills, Maintenance, 05/15/20 11:20:00 EDT, Tablet, [facility], 160.02, cm, 05/15/20 10:59:00 EDT, Height, 82, kg, 12/11/18 13:27:00 EST, Dry Weight Start Date: 05/15/20 Stop Date: 08/08/21 Status: OrderedJardiance 25 mg oral tablet 1 tablet = 25 mg, By Mouth, Daily in AM, # 90 tablet, 4 Refills, Maintenance, 05/15/20 11:33:00 EDT,Tablet, [facility], 160.02, cm, 05/15/20 10:59:00 EDT, Height, [...] Acute 11/08/20 11:05:00 EST, 05/12/20 11:05:00 EDT, [facility], 160.02, cm, 05/12/20 10:48:00 EDT, Height, 82, kg, 12/11/18 13:27:00 EST, Dry Weight Start Date: 05/12/20 Stop Date: 11/08/20 Status: OrderedmetFORMIN 500 mg oral tablet, extended release 2 tablet = 1,000 mg, By Mouth, Daily, # 180 tablet, 0 Refills, Maintenance, 04/15/20 11:58:00 EDT, ER Tablet, [facility], 160.02, cm, 03/18/20 9:39:00 EDT, Height, 82, kg, 12/11/18 13:27:00 EST, Dry Weight Start Date: 04/15/20 Stop Date: 07/14/20 Status: OrderedNuLYTELY with Flavor Packs oral powder for reconstitution See Instructions, please follow instruction sheet, # 4,000 mL, 0 Refills, Maintenance, 01/14/20 11:33:00 EDT, [id number], please follow instruction sheet, 160.02, cm, 12/13/19 10:48:00 EST, Height, 82, kg, 12/11/18 13:27:00 EST, Dry Weight Start Date: 01/14/20 Status: Orderedoxybutynin 5 mg/24 hours oral tablet, extended release 1 tablet, By Mouth, Daily, # 30 tablet, 1 Refills, Maintenance, 03/23/20 8:31:00 EDT, [id number], 160.02, cm, 03/18/20 9:39:00 EDT, Height, 82, [...] of transient ischemic Active attack(Confirmed) History of [place] (myocardial Active infarction)(Confirmed) Hypertension(Confirmed) Active Major depression(Confirmed) Active Nonalcoholic Active steatohepatitis(Confirmed) Obesity(Confirmed) Active RAYMOND (obstructive sleep Active apnea)(Confirmed) Seizure vs pseudoseizures(Confirmed) Active
--- OUTSIDE RECORDS SUMMARY | 2022-09-20 21:29 | XMS_ITS | Continuity of Care Document ---
:1960 Author Organization [facility] Address [address] [place] [address], [address] [place] [address]- Care Team Providers Name Role Phone Feliz Ellis DO Primary Care Physician [place] [facility]20 - 05/31/[address], [address] [place] [address]- [facility] Allergies, Adverse Reactions, Alerts Substance [...] 4 Refills, Maintenance, 05/15/20 11:20:00 EDT, Tablet, [facility], 160.02, cm, 05/15/20 10:59:00 EDT, Height, 82, kg, 12/11/18 13:27:00 EST, Dry Weight Start Date: 05/15/20 Stop Date: 08/08/21 Status: OrderedJardiance 25 mg oral tablet 1 tablet = 25 mg, By Mouth, Daily in AM, # 90 tablet, 4 Refills, Maintenance, 05/15/20 11:33:00 EDT,Tablet, [facility], 160.02, cm, 05/15/20 10:59:00 EDT, Height, [...] Acute 11/08/20 11:05:00 EST, 05/12/20 11:05:00 EDT, [facility], 160.02, cm, 05/12/20 10:48:00 EDT, Height, 82, kg, 12/11/18 13:27:00 EST, Dry Weight Start Date: 05/12/20 Stop Date: 11/08/20 Status: OrderedmetFORMIN 500 mg oral tablet, extended release 2 tablet = 1,000 mg, By Mouth, Daily, # 180 tablet, 0 Refills, Maintenance, 04/15/20 11:58:00 EDT, ER Tablet, [facility], 160.02, cm, 03/18/20 9:39:00 EDT, Height, [...] Refills, Maintenance, 03/23/20 8:31:00 EDT, [id number], 160.02, cm, 03/18/20 9:39:00 EDT, Height, 82, [...] of transient ischemic Active attack(Confirmed) History of [place] (myocardial Active infarction)(Confirmed) Hypertension(Confirmed) Active Major depression(Confirmed) Active Nonalcoholic Active steatohepatitis(Confirmed) Obesity(Confirmed) Active RAYMOND (obstructive sleep Active apnea)(Confirmed) Seizure vs pseudoseizures(Confirmed) Active
--- OUTSIDE RECORDS SUMMARY | 2022-09-20 21:29 | XMS_ITS | Continuity of Care Document ---
:1960 Author Organization [facility] Address [address] [place] [address]- Care Team Providers Name Role Phone Feliz Ellis DO Primary Care Physician En[place] [facility] [place] Date(s): 05/05/20 - 06/04/20 [facility] [address] [address]- [facility] Attending Physician: Suad Hernandez Admitting Physician: Suad [...] 4 Refills, Maintenance, 05/15/20 11:20:00 EDT, Tablet, [facility], 160.02, cm, 05/15/20 10:59:00 EDT, Height, 82, kg, 12/11/18 13:27:00 EST, Dry Weight Start Date: 05/15/20 Stop Date: 08/08/21 Status: OrderedJardiance 25 mg oral tablet 1 tablet = 25 mg, By Mouth, Daily in AM, # 90 tablet, 4 Refills, Maintenance, 05/15/20 11:33:00 EDT,Tablet, [facility], 160.02, cm, 05/15/20 10:59:00 EDT, Height, [...] Acute 11/08/20 11:05:00 EST, 05/12/20 11:05:00 EDT, [facility], 160.02, cm, 05/12/20 10:48:00 EDT, Height, 82, kg, 12/11/18 13:27:00 EST, Dry Weight Start Date: 05/12/20 Stop Date: 11/08/20 Status: OrderedmetFORMIN 500 mg oral tablet, extended release 2 tablet = 1,000 mg, By Mouth, Daily, # 180 tablet, 0 Refills, Maintenance, 04/15/20 11:58:00 EDT, ER Tablet, [facility], 160.02, cm, 03/18/20 9:39:00 EDT, Height, 82, kg, 12/11/18 13:27:00 EST, Dry Weight Start Date: 04/15/20 Stop Date: 07/14/20 Status: OrderedNuLYTELY with Flavor Packs oral powder for reconstitution See Instructions, please follow instruction sheet, # 4,000 mL, 0 Refills, Maintenance, 01/14/20 11:33:00 EDT, [facility]/pharmacy #[id number], please follow instruction sheet, 160.02, cm, 12/13/19 10:48:00 EST, Height, 82, kg, 12/11/18 13:27:00 EST, Dry Weight Start Date: 01/14/20 Status: Orderedoxybutynin 5 mg/24 hours oral tablet, extended release 1 tablet, By Mouth, Daily, # 30 tablet, 1 Refills, Maintenance, 03/23/20 8:31:00 EDT, [facility], 160.02, cm, 03/18/20 9:39:00 EDT, Height, 82, [...] of transient ischemic Active attack(Confirmed) History of [place] (myocardial Active infarction)(Confirmed) Hypertension(Confirmed) Active Major depression(Confirmed) Active Nonalcoholic Active steatohepatitis(Confirmed) Obesity(Confirmed) Active RAYMOND (obstructive sleep Active apnea)(Confirmed) Seizure vs pseudoseizures(Confirmed) Active
--- OUTSIDE RECORDS SUMMARY | 2022-09-20 21:29 | XMS_ITS | Continuity of Care Document ---
:1960 Author Organization [facility] Address [address] [place] [address]- Care Team Providers Name Role Phone Feliz Ellis DO Primary Care Physician En[place] [facility] Date(s): 06/26/20 - 08/02/20 [facility] [address] [address]- [facility] Attending Physician: Sudheer Banks MD Admitting Physician: Sudheer Banks MD Referring Physician: Feliz Ellis DO Allergies, [...] 4 Refills, Maintenance, 05/15/20 11:20:00 EDT, Tablet, [facility], 160.02, cm, 05/15/20 10:59:00 EDT, Height, 82, kg, 12/11/18 13:27:00 EST, Dry Weight Start Date: 05/15/20 Stop Date: 08/08/21 Status: OrderedHumalog Kwik Pen 100 units/mL subcutaneous injection See Instructions, Give by Subcutaneous Injection once daily before dinner per sliding scale. Max daily dose 30 units., # 15 mL, 11 Refills, Maintenance, 06/25/20 14:14:00 EDT, Solution, [facility], 160.02, cm, 06/10/20 12:37:00 EDT, Height,... Start Date: 06/25/20 Status: OrderedJardiance 25 mg oral tablet 1 tablet = 25 mg, By Mouth, Daily in AM, # 90 tablet, 4 Refills, Maintenance, 05/15/20 11:33:00 EDT,Tablet, [facility], 160.02, cm, 05/15/20 10:59:00 EDT, Height, [...] Acute 11/08/20 11:05:00 EST, 05/12/20 11:05:00 EDT, [facility], 160.02, cm, 05/12/20 10:48:00 EDT, Height, 82, kg, 12/11/18 13:27:00 EST, Dry Weight Start Date: 05/12/20 Stop Date: 11/08/20 Status: OrderedmetFORMIN 500 mg oral tablet, extended release 2 tablet = 1,000 mg, By Mouth, Daily, # 180 tablet, 0 Refills, Maintenance, 04/15/20 11:58:00 EDT, ER Tablet, [facility], 160.02, cm, 03/18/20 9:39:00 EDT, Height, 82, kg, 12/11/18 13:27:00 EST, Dry Weight Start Date: 04/15/20 Stop Date: 07/14/20 Status: OrderedNuLYTELY with Flavor Packs oral powder for reconstitution See Instructions, please follow instruction sheet, # 4,000 mL, 0 Refills, Maintenance, 06/24/20 17:23:00 EDT, [facility]/pharmacy #[id number], please follow instruction sheet, 160.02, cm, 06/10/20 12:37:00 EDT, Height, 82, kg, 12/11/18 13:27:00 EST, Dry Weight Start Date: 06/24/20 Status: Orderedoxybutynin 5 mg/24 hours oral tablet, extended release 1 tablet, By Mouth, Daily, # 30 tablet, 1 Refills, Maintenance, 07/09/20 17:12:00 EDT, [id number], 162.6, cm, 07/02/20 8:57:00 EDT, Height, 83.9, [...]
--- OUTSIDE RECORDS SUMMARY | 2022-09-20 21:29 | XMS_ITS | Continuity of Care Document ---
:1960 Author Organization [facility] Address [address] [place] [address]- Care Team Providers Name Role Phone Feliz Ellis DO Primary Care Physician En[place] [facility] [place] Date(s): 06/15/20 - 07/15/20 [facility] [address] [place] [address]- [facility] Allergies, Adverse Reactions, Alerts Substance Reaction Severity [...] 4 Refills, Maintenance, 05/15/20 11:20:00 EDT, Tablet, [facility], 160.02, cm, 05/15/20 10:59:00 EDT, Height, 82, kg, 12/11/18 13:27:00 EST, Dry Weight Start Date: 05/15/20 Stop Date: 08/08/21 Status: OrderedHujudie Kwik Pen 100 units/mL subcutaneous injection See Instructions, Give by Subcutaneous Injection once daily before dinner per sliding scale. Max daily dose 30 units., # 15 mL, 11 Refills, Maintenance, 06/25/20 14:14:00 EDT, Solution, [facility], 160.02, cm, 06/10/20 12:37:00 EDT, Height,... Start Date: 06/25/20 Status: OrderedJardiance 25 mg oral tablet 1 tablet = 25 mg, By Mouth, Daily in AM, # 90 tablet, 4 Refills, Maintenance, 05/15/20 11:33:00 EDT,Tablet, [facility], 160.02, cm, 05/15/20 10:59:00 EDT, Height, 82, kg, 12/11/18 13:27:00 EST, Dry Weight Start Date: 05/15/20 Stop Date: 08/08/21 Status: OrderedLantobinus Solostar Pen 100 units/mL subcutaneous solution 60 [...] Acute 11/08/20 11:05:00 EST, 05/12/20 11:05:00 EDT, [facility], 160.02, cm, 05/12/20 10:48:00 EDT, Height, 82, kg, 12/11/18 13:27:00 EST, Dry Weight Start Date: 05/12/20 Stop Date: 11/08/20 Status: OrderedmetFORMIN 500 mg oral tablet, extended release 2 tablet = 1,000 mg, By Mouth, Daily, # 180 tablet, 0 Refills, Maintenance, 04/15/20 11:58:00 EDT, ER Tablet, [facility], 160.02, cm, 03/18/20 9:39:00 EDT, Height, 82, kg, 12/11/18 13:27:00 EST, Dry Weight Start Date: 04/15/20 Stop Date: 07/14/20 Status: OrderedNuLYTELY with Flavor Packs oral powder for reconstitution See Instructions, please follow instruction sheet, # 4,000 mL, 0 Refills, Maintenance, 06/24/20 17:23:00 EDT, [facility]/pharmacy #[id number], please follow instruction sheet, 160.02, cm, 06/10/20 12:37:00 EDT, Height, 82, kg, 12/11/18 13:27:00 EST, Dry Weight Start Date: 06/24/20 Status: Orderedoxybutynin 5 mg/24 hours oral tablet, extended release 1 tablet, By Mouth, Daily, # 30 tablet, 1 Refills, Maintenance, 07/09/20 17:12:00 EDT, [facility], 162.6, cm, 07/02/20 8:57:00 EDT, Height, 83.9, [...]
--- OUTSIDE RECORDS SUMMARY | 2022-09-20 21:29 | XMS_ITS | Continuity of Care Document ---
:1960 Author Organization [facility] Address [address] [place] [address], [address] [place] [address]- Care Team Providers Name Role Phone Feliz Ellis DO Primary Care Physician Encounter [facility] Date(s): 07/10/20 - 10/11/20 [facility] [address] [place] [address], [address] [place] [id number] Attending Physician: Manda Adler MD Allergies, Adverse Reactions, Alerts Substance Reaction [...] 4 Refills, Maintenance, 05/15/20 11:20:00 EDT, Tablet, [facility], 160.02, cm, 05/15/20 10:59:00 EDT, Height, 82, kg, 12/11/18 13:27:00 EST, Dry Weight Start Date: 05/15/20 Stop Date: 08/08/21 Status: OrderedHumalog Kwik Pen 100 units/mL subcutaneous injection See Instructions, Give by Subcutaneous Injection once daily before dinner per sliding scale. Max daily dose 30 units., # 15 mL, 11 Refills, Maintenance, 06/25/20 14:14:00 EDT, Solution, [facility], 160.02, cm, 06/10/20 12:37:00 EDT, Height,... Start Date: 06/25/20 Status: OrderedJardiance 25 mg oral tablet 1 tablet = 25 mg, By Mouth, Daily in AM, # 90 tablet, 4 Refills, Maintenance, 05/15/20 11:33:00 EDT,Tablet, [facility], 160.02, cm, 05/15/20 10:59:00 EDT, Height, [...] Acute 11/08/20 11:05:00 EST, 05/12/20 11:05:00 EDT, [facility], 160.02, cm, 05/12/20 10:48:00 EDT, Height, 82, kg, 12/11/18 13:27:00 EST, Dry Weight Start Date: 05/12/20 Stop Date: 11/08/20 Status: OrderedmetFORMIN 500 mg oral tablet, extended release 2 tablet = 1,000 mg, By Mouth, Daily, # 180 tablet, 0 Refills, Maintenance, 04/15/20 11:58:00 EDT, ER Tablet, [facility], 160.02, cm, 03/18/20 9:39:00 EDT, Height, 82, kg, 12/11/18 13:27:00 EST, Dry Weight Start Date: 04/15/20 Stop Date: 07/14/20 Status: OrderedNuLYTELY with Flavor Packs oral powder for reconstitution See Instructions, please follow instruction sheet, # 4,000 mL, 0 Refills, Maintenance, 06/24/20 17:23:00 EDT, [facility]/pharmacy #[id number], please follow instruction sheet, 160.02, cm, 06/10/20 12:37:00 EDT, Height, 82, kg, 12/11/18 13:27:00 EST, Dry Weight Start Date: 06/24/20 Status: Orderedoxybutynin 5 mg/24 hours oral tablet, extended release 1 tablet, By Mouth, Daily, # 30 tablet, 1 Refills, Maintenance, 07/09/20 17:12:00 EDT, [facility]ORE [id number], 162.6, cm, 07/02/20 8:57:00 EDT, Height, 83.9, [...] 09/11/20 14:34:00 EST, Route to Pharmacy Electronically, [facility], Partial fill upon patient r... [...]
--- OUTSIDE RECORDS SUMMARY | 2022-09-20 21:29 | XMS_ITS | Continuity of Care Document ---
:1960 Author Organization [facility] Address [address] [place] [address]- Care Team Providers Name Role Phone Feliz Ellis DO Primary Care Physician Encounter [facility] Date(s): 04/13/21 - 05/13/21 [facility] [address] [place] [id number] Attending Physician: Suad Hernandez Admitting Physician: Suad Hernandez Referring Physician: Suad Hernandez Referring Physician: Luci Alexis Allergies, Adverse Reactions, Alerts Substance Reaction Severity Status gabapentin nausea Active topiramate dizziness Active penicillins rash Active Soma rash Active Bactrim rash Active TEGretol n/v Active Lipitor myalgia Active Immunizations Given and [...] 4 Refills, Maintenance, 05/15/20 11:20:00 EDT, Tablet, [facility], 160.02, cm, 05/15/20 10:59:00 EDT, Height, 82, kg, 12/11/18 13:27:00 EST, Dry Weight Start Date: 05/15/20 Stop Date: 08/08/21 Status: OrderedHumalog Kwik Pen 100 units/mL subcutaneous injection See Instructions, Give by Subcutaneous Injection once daily before dinner per sliding scale. Max daily dose 30 units., # 15 mL, 11 Refills, Maintenance, 06/25/20 14:14:00 EDT, Solution, [facility], 160.02, cm, 06/10/20 12:37:00 EDT, Height,... Start Date: 06/25/20 Status: OrderedJardiance 25 mg oral tablet 1 tablet = 25 mg, By Mouth, Daily in AM, # 90 tablet, 4 Refills, Maintenance, 05/15/20 11:33:00 EDT,Tablet, [facility], 160.02, cm, 05/15/20 10:59:00 EDT, Height, [...] MEAL, # 28 tablet, 5 Refills, Acute, [facility], 162.56, cm, 01/05/21 10:54:00 EDT, Height, 86, kg, 09/10/20 18:19:00 EST, Dry Weight Start Date: 02/23/21 Status: OrderedmetFORMIN 500 mg oral tablet, extended release 2 tablet = 1,000 mg, By Mouth, Daily, # 180 tablet, 0 Refills, Maintenance, 04/15/20 11:58:00 EDT, ER Tablet, [facility], 160.02, cm, 03/18/20 9:39:00 EDT, Height, 82, kg, 12/11/18 13:27:00 EST, Dry Weight Start Date: 04/15/20 Stop Date: 07/14/20 Status: OrderedpredniSONE 5 mg oral tablet 3 tablet = 15 mg, By Mouth, Daily, # 90 tablet, 0 Refills, Maintenance, 01/13/21 7:58:00 EDT, [facility]/pharmacy #[id number], Partial fill upon patient request if the [...]
--- OUTSIDE RECORDS SUMMARY | 2022-09-20 21:29 | XMS_ITS | Continuity of Care Document ---
:1960 Author Organization [address] [place] [address]- Care Team Providers Name Role Phone Feliz Ellis DO Primary Care Physician Encounter [facility] Date(s): 10/07/20 - 11/06/[address], [address] [place], [place] [address] Attending Physician: Suad Hernandez Admitting Physician: AdmSuad lara Referring Physician: Admtr, Ar8 Allergies, Adverse Reactions, Alerts Substance Reaction Severity Status gabapentin nausea Active topiramate dizziness Active penicillins rash Active TEGretol n/v Active Bactrim rash Active Soma rash Active Lipitor myalgia [...] 4 Refills, Maintenance, 05/15/20 11:20:00 EDT, Tablet, [facility], 160.02, cm, 05/15/20 10:59:00 EDT, Height, 82, kg, 12/11/18 13:27:00 EST, Dry Weight Start Date: 05/15/20 Stop Date: 08/08/21 Status: OrderedHumalog Kwik Pen 100 units/mL subcutaneous injection See Instructions, Give by Subcutaneous Injection once daily before dinner per sliding scale. Max daily dose 30 units., # 15 mL, 11 Refills, Maintenance, 06/25/20 14:14:00 EDT, Solution, [facility], 160.02, cm, 06/10/20 12:37:00 EDT, Height,... Start Date: 06/25/20 Status: OrderedJardiance 25 mg oral tablet 1 tablet = 25 mg, By Mouth, Daily in AM, # 90 tablet, 4 Refills, Maintenance, 05/15/20 11:33:00 EDT,Tablet, [facility], 160.02, cm, 05/15/20 10:59:00 EDT, Height, [...] Acute 11/08/20 11:05:00 EST, 05/12/20 11:05:00 EDT, [facility], 160.02, cm, 05/12/20 10:48:00 EDT, Height, 82, kg, 12/11/18 13:27:00 EST, Dry Weight Start Date: 05/12/20 Stop Date: 11/08/20 Status: OrderedmetFORMIN 500 mg oral tablet, extended release 2 tablet = 1,000 mg, By Mouth, Daily, # 180 tablet, 0 Refills, Maintenance, 04/15/20 11:58:00 EDT, ER Tablet, [facility], 160.02, cm, 03/18/20 9:39:00 EDT, Height, 82, kg, 12/11/18 13:27:00 EST, Dry Weight Start Date: 04/15/20 Stop Date: 07/14/20 Status: OrderedNuLYTELY with Flavor Packs oral powder for reconstitution See Instructions, please follow instruction sheet, # 4,000 mL, 0 Refills, Maintenance, 06/24/20 17:23:00 EDT, [facility]/pharmacy #[id number], please follow instruction sheet, 160.02, cm, 06/10/20 12:37:00 EDT, Height, 82, kg, 12/11/18 13:27:00 EST, Dry Weight Start Date: 06/24/20 Status: Orderedoxybutynin 5 mg/24 hours oral tablet, extended release 1 tablet, By Mouth, Daily, # 30 tablet, 1 Refills, Maintenance, 07/09/20 17:12:00 EDT, [id number], 162.6, cm, 07/02/20 8:57:00 EDT, Height, 83.9, [...] 09/11/20 14:34:00 EST, Route to Pharmacy Electronically, [facility], Partial fill upon patient [...]
--- OUTSIDE RECORDS SUMMARY | 2022-09-20 21:29 | XMS_ITS | Continuity of Care Document ---
:1960 Author Organization [facility] Address [address] [place] [address]- Care Team Providers Name Role Phone Feliz Ellis DO Primary Care Physician Encounter [facility] Date(s): 07/03/20 - 08/02/[address] [address]- [facility] Attending Physician: Suad Hernandez Admitting Physician: Suad [...] 4 Refills, Maintenance, 05/15/20 11:20:00 EDT, Tablet, [facility], 160.02, cm, 05/15/20 10:59:00 EDT, Height, 82, kg, 12/11/18 13:27:00 EST, Dry Weight Start Date: 05/15/20 Stop Date: 08/08/21 Status: OrderedHumalog Kwik Pen 100 units/mL subcutaneous injection See Instructions, Give by Subcutaneous Injection once daily before dinner per sliding scale. Max daily dose 30 units., # 15 mL, 11 Refills, Maintenance, 06/25/20 14:14:00 EDT, Solution, [facility], 160.02, cm, 06/10/20 12:37:00 EDT, Height,... Start Date: 06/25/20 Status: OrderedJardiance 25 mg oral tablet 1 tablet = 25 mg, By Mouth, Daily in AM, # 90 tablet, 4 Refills, Maintenance, 05/15/20 11:33:00 EDT,Tablet, [facility], 160.02, cm, 05/15/20 10:59:00 EDT, Height, [...] Acute 11/08/20 11:05:00 EST, 05/12/20 11:05:00 EDT, [facility], 160.02, cm, 05/12/20 10:48:00 EDT, Height, 82, kg, 12/11/18 13:27:00 EST, Dry Weight Start Date: 05/12/20 Stop Date: 11/08/20 Status: OrderedmetFORMIN 500 mg oral tablet, extended release 2 tablet = 1,000 mg, By Mouth, Daily, # 180 tablet, 0 Refills, Maintenance, 04/15/20 11:58:00 EDT, ER Tablet, [facility], 160.02, cm, 03/18/20 9:39:00 EDT, Height, 82, kg, 12/11/18 13:27:00 EST, Dry Weight Start Date: 04/15/20 Stop Date: 07/14/20 Status: OrderedNuLYTELY with Flavor Packs oral powder for reconstitution See Instructions, please follow instruction sheet, # 4,000 mL, 0 Refills, Maintenance, 06/24/20 17:23:00 EDT, [facility]/pharmacy #[id number], please follow instruction sheet, 160.02, cm, 06/10/20 12:37:00 EDT, Height, 82, kg, 12/11/18 13:27:00 EST, Dry Weight Start Date: 06/24/20 Status: Orderedoxybutynin 5 mg/24 hours oral tablet, extended release 1 tablet, By Mouth, Daily, # 30 tablet, 1 Refills, Maintenance, 07/09/20 17:12:00 EDT, [id number], 162.6, cm, 07/02/20 8:57:00 EDT, Height, 83.9, [...]
--- OUTSIDE RECORDS SUMMARY | 2022-09-20 21:29 | XMS_ITS | Continuity of Care Document ---
:1960 Author Organization [facility] Address [address] [place] [address]- Care Team Providers Name Role Phone Feliz Ellis DO Primary Care Physician En[facility] Date(s): 11/30/20 - 12/30/20 [facility] [address] [place] [id number] Attending Physician: Suad Hernandez Admitting Physician: uSad Hernandez Referring Physician: Suad Hernandez Referring Physician: [...] 4 Refills, Maintenance, 05/15/20 11:20:00 EDT, Tablet, [facility], 160.02, cm, 05/15/20 10:59:00 EDT, Height, 82, kg, 12/11/18 13:27:00 EST, Dry Weight Start Date: 05/15/20 Stop Date: 08/08/21 Status: OrderedHumalog Kwik Pen 100 units/mL subcutaneous injection See Instructions, Give by Subcutaneous Injection once daily before dinner per sliding scale. Max daily dose 30 units., # 15 mL, 11 Refills, Maintenance, 06/25/20 14:14:00 EDT, Solution, [facility], 160.02, cm, 06/10/20 12:37:00 EDT, Height,... Start Date: 06/25/20 Status: OrderedJardiance 25 mg oral tablet 1 tablet = 25 mg, By Mouth, Daily in AM, # 90 tablet, 4 Refills, Maintenance, 05/15/20 11:33:00 EDT,Tablet, [facility], 160.02, cm, 05/15/20 10:59:00 EDT, Height, [...] Refills, Maintenance, 04/15/20 11:58:00 EDT, ER Tablet, [facility], 160.02, cm, 03/18/20 9:39:00 EDT, Height, 82, kg, 12/11/18 13:27:00 EST, Dry Weight Start Date: 04/15/20 Stop Date: 07/14/20 Status: OrderedNuLYTELY with Flavor Packs oral powder for reconstitution See Instructions, please follow instruction sheet, # 4,000 mL, 0 Refills, Maintenance, 06/24/20 17:23:00 EDT, [facility]/pharmacy #[id number], please follow instruction sheet, 160.02, cm, 06/10/20 12:37:00 EDT, Height, 82, kg, 12/11/18 13:27:00 EST, Dry Weight Start Date: 06/24/20 Status: Orderedoxybutynin 5 mg/24 hours oral tablet, extended release 1 tablet, By Mouth, Daily, # 30 tablet, 1 Refills, Maintenance, 07/09/20 17:12:00 EDT, [id number], 162.6, cm, 07/02/20 8:57:00 EDT, Height, 83.9, [...] 09/11/20 14:34:00 EST, Route to Pharmacy Electronically, [facility], Partial fill upon patient r... Start [...]
--- OUTSIDE RECORDS SUMMARY | 2022-09-20 21:29 | XMS_ITS | Continuity of Care Document ---
:1960 Author Organization [facility] Address [address] [place] [address]- Care Team Providers Name Role Phone Feliz Ellis DO Primary Care Physician [id number] Date(s[facility] 11/14/19 - 12/18/[address] [address]- [facility] Attending Physician: Charissa PATEL, Hoda Madrigal Admitting Physician: Charissa PATEL, Hoda Madrigal Referring Physician: Vale Lee NP Allergies, Adverse [...] 0 Refills, Maintenance, 12/16/19 12:08:00 EST, Tablet, [facility]/pharmacy #[id number], 160.02, cm, 12/13/19 10:48:00 [...] mL, 0 Refills, Maintenance, 10/21/19 11:36:00 EST, [facility]/pharmacy #[id number], please follow instruction sheet, [...]
--- OUTSIDE RECORDS SUMMARY | 2022-09-20 21:29 | XMS_ITS | Continuity of Care Document ---
:1960 Author Organization [facility] Address [address] [place] [address], [address] [place] [address]- Care Team Providers Name Role Phone Feliz Ellis DO Primary Care Physician Encounter [facility] Date(s): 09/11/20 - 10/11/20 [facility] [address] [place] [address], [address] [place] [id number] Attending Physician: Suad Hernandez Admitting Physician: [...] 4 Refills, Maintenance, 05/15/20 11:20:00 EDT, Tablet, [facility], 160.02, cm, 05/15/20 10:59:00 EDT, Height, 82, kg, 12/11/18 13:27:00 EST, Dry Weight Start Date: 05/15/20 Stop Date: 08/08/21 Status: OrderedHumalog Kwik Pen 100 units/mL subcutaneous injection See Instructions, Give by Subcutaneous Injection once daily before dinner per sliding scale. Max daily dose 30 units., # 15 mL, 11 Refills, Maintenance, 06/25/20 14:14:00 EDT, Solution, [facility], 160.02, cm, 06/10/20 12:37:00 EDT, Height,... Start Date: 06/25/20 Status: OrderedJardiance 25 mg oral tablet 1 tablet = 25 mg, By Mouth, Daily in AM, # 90 tablet, 4 Refills, Maintenance, 05/15/20 11:33:00 EDT,Tablet, [facility], 160.02, cm, 05/15/20 10:59:00 EDT, Height, [...] Acute 11/08/20 11:05:00 EST, 05/12/20 11:05:00 EDT, [facility], 160.02, cm, 05/12/20 10:48:00 EDT, Height, 82, kg, 12/11/18 13:27:00 EST, Dry Weight Start Date: 05/12/20 Stop Date: 11/08/20 Status: OrderedmetFORMIN 500 mg oral tablet, extended release 2 tablet = 1,000 mg, By Mouth, Daily, # 180 tablet, 0 Refills, Maintenance, 04/15/20 11:58:00 EDT, ER Tablet, [facility], 160.02, cm, 03/18/20 9:39:00 EDT, Height, 82, kg, 12/11/18 13:27:00 EST, Dry Weight Start Date: 04/15/20 Stop Date: 07/14/20 Status: OrderedNuLYTELY with Flavor Packs oral powder for reconstitution See Instructions, please follow instruction sheet, # 4,000 mL, 0 Refills, Maintenance, 06/24/20 17:23:00 EDT, [facility]/pharmacy #[id number], please follow instruction sheet, 160.02, cm, 06/10/20 12:37:00 EDT, Height, 82, kg, 12/11/18 13:27:00 EST, Dry Weight Start Date: 06/24/20 Status: Orderedoxybutynin 5 mg/24 hours oral tablet, extended release 1 tablet, By Mouth, Daily, # 30 tablet, 1 Refills, Maintenance, 07/09/20 17:12:00 EDT, [id number], 162.6, cm, 07/02/20 8:57:00 EDT, Height, 83.9, [...] 09/11/20 14:34:00 EST, Route to Pharmacy Electronically, [facility], Partial fill upon patient [...]
--- OUTSIDE RECORDS SUMMARY | 2022-09-20 21:29 | XMS_ITS | Continuity of Care Document ---
:1960 Author Organization [facility] Address [address] [place] [address]- Care Team Providers Name Role Phone Feliz Ellis DO Primary Care Physician Encounter [facility] Date(s): 01/28/20 - 03/06/20 [facility] [address] [place] [address]- [facility] Attending Physician: Corby Massey MD Admitting Physician: Corby Massey MD Allergies, Adverse Reactions, Alerts Substance Reaction [...] 0 Refills, Maintenance, 12/16/19 12:08:00 EST, Tablet, [facility]/pharmacy #[id number], 160.02, cm, 12/13/19 10:48:00 EST, [...] mL, 0 Refills, Maintenance, 01/14/20 11:33:00 EDT, [facility]/pharmacy #[id number], please follow instruction sheet, 160.02, cm, 12/13/19 10:48:00 EST, Height, 82, kg, 12/11/18 13:27:00 EST, Dry Weight Start Date: 01/14/20 Status: Orderedoxybutynin 5 mg/24 hours oral tablet, extended release 1 tablet, By Mouth, Daily, # 30 tablet, 1 Refills, Maintenance, 02/21/20 8:34:00 EDT, [facility] 05989, 160.02, cm, 02/14/20 14:29:00 EDT, Height, 82, [...] of transient ischemic Active attack(Confirmed) History of [place] (myocardial Active infarction)(Confirmed) Hypertension(Confirmed) Active Major depression(Confirmed) Active Nonalcoholic Active steatohepatitis(Confirmed) Obesity(Confirmed) Active RAYMOND (obstructive sleep Active apnea)(Confirmed) Seizure vs pseudoseizures(Confirmed) Active
--- OUTSIDE RECORDS SUMMARY | 2022-09-20 21:29 | XMS_ITS | Continuity of Care Document ---
:1960 Author Organization [facility] Address [address] [place] [address]- Care Team Providers Name Role Phone Feliz Ellis DO Primary Care Physician Encounter [facility] [id number] Date(s): 02/09/21 - 03/11/21 [facility] [address] [place], [place] [address] Attending Physician: Suad Hernandez Admitting [...] 4 Refills, Maintenance, 05/15/20 11:20:00 EDT, Tablet, [facility], 160.02, cm, 05/15/20 10:59:00 EDT, Height, 82, kg, 12/11/18 13:27:00 EST, Dry Weight Start Date: 05/15/20 Stop Date: 08/08/21 Status: OrderedHumalog Kwik Pen 100 units/mL subcutaneous injection See Instructions, Give by Subcutaneous Injection once daily before dinner per sliding scale. Max daily dose 30 units., # 15 mL, 11 Refills, Maintenance, 06/25/20 14:14:00 EDT, Solution, [facility], 160.02, cm, 06/10/20 12:37:00 EDT, Height,... Start Date: 06/25/20 Status: OrderedJardiance 25 mg oral tablet 1 tablet = 25 mg, By Mouth, Daily in AM, # 90 tablet, 4 Refills, Maintenance, 05/15/20 11:33:00 EDT,Tablet, [facility], 160.02, cm, 05/15/20 10:59:00 EDT, [...] MEAL, # 28 tablet, 5 Refills, Acute, [facility], 162.56, cm, 01/05/21 10:54:00 EDT, Height, 86, kg, 09/10/20 18:19:00 EST, Dry Weight Start Date: 02/23/21 Status: OrderedmetFORMIN 500 mg oral tablet, extended release 2 tablet = 1,000 mg, By Mouth, Daily, # 180 tablet, 0 Refills, Maintenance, 04/15/20 11:58:00 EDT, ER Tablet, [facility], 160.02, cm, 03/18/20 9:39:00 EDT, Height, 82, kg, 12/11/18 13:27:00 EST, Dry Weight Start Date: 04/15/20 Stop Date: 07/14/20 Status: OrderedpredniSONE 5 mg oral tablet 3 tablet = 15 mg, By Mouth, Daily, # 90 tablet, 0 Refills, Maintenance, 01/13/21 7:58:00 EDT, [facility]/pharmacy #[id number], Partial fill upon patient request if [...] of transient ischemic Active attack(Confirmed) History of [place] (myocardial Active infarction)(Confirmed) Hypertension(Confirmed) Active Major depression(Confirmed) Active Nonalcoholic Active steatohepatitis(Confirmed) Obesity(Confirmed) Active RAYMOND (obstructive sleep Active apnea)(Confirmed) Seizure vs pseudoseizures(Confirmed) Active Social History Social History Type Response Smoking Status Former smoker, quit more armen n 30 days ago entered on: 01/05/21 Sex
--- OUTSIDE RECORDS SUMMARY | 2022-09-20 21:29 | XMS_ITS | Continuity of Care Document ---
:1960 Author Organization [facility] Address [address] [place] [address]- Care Team Providers Name Role Phone Feliz Ellis DO Primary Care Physician Encounter [facility] [id number] Date(s): 10/18/21 - 11/17/21 [facility] [address] [place] [id number]- Attending Physician: Suad Hernandez Admitting Physician: Suad [...] 4 Refills, Maintenance, 05/15/20 11:20:00 EDT, Tablet, [facility], 160.02, cm, 05/15/20 10:59:00 EDT, Height, 82, kg, 12/11/18 13:27:00 EST, Dry Weight Start Date: 05/15/20 Stop Date: 08/08/21 Status: OrderedHumalog Kwik Pen 100 units/mL subcutaneous injection See Instructions, Give by Subcutaneous Injection once daily before dinner per sliding scale. Max daily dose 30 units., # 15 mL, 11 Refills, Maintenance, 06/25/20 14:14:00 EDT, Solution, [facility], 160.02, cm, 06/10/20 12:37:00 EDT, Height,... Start Date: 06/25/20 Status: OrderedJardiance 25 mg oral tablet 1 tablet = 25 mg, By Mouth, Daily in AM, # 90 tablet, 4 Refills, Maintenance, 05/15/20 11:33:00 EDT,Tablet, [facility], 160.02, cm, 05/15/20 10:59:00 EDT, Height, 82, kg, 12/11/18 13:27:00 EST, Dry Weight Start Date: 05/15/20 Stop Date: 08/08/21 Status: OrderedAntoine Solostar Pen 100 units/mL subcutaneous solution 60 [...] Refills, Maintenance, 04/15/20 11:58:00 EDT, ER Tablet, [facility], 160.02, cm, 03/18/20 9:39:00 EDT, Height, 82, kg, 12/11/18 13:27:00 EST, Dry Weight Start Date: 04/15/20 Stop Date: 07/14/20 Status: Orderedomeprazole 20 mg oral delayed release tablet 1 tablet = 20 mg, By Mouth, 2 times a day, # 180 tablet, 0 Refills, Maintenance, 10/18/21 10:26:00 EST, EC Tablet, [facility]/pharmacy #[id number], Partial fill upon patient request if the [...] Refills, Maintenance, 01/13/21 7:58:00 EDT, [facility]/pharmacy #[id number], Partial fill upon patient request if [...] of transient ischemic Active attack(Confirmed) History of [place] (myocardial Active infarction)(Confirmed) Hypertension(Confirmed) Active Major depression(Confirmed) Active Nonalcoholic Active steatohepatitis(Confirmed) Obese class I(Confirmed) Active Obesity(Confirmed) Active RAYMOND (obstructive sleep Active apnea)(Confirmed) Seizure vs pseudoseizures(Confirmed) Active Social History Social History Type Response Smoking Status Former smoker, quit more armen n 30 days ago entered on: 01/05/21 Sex
--- NOTE | 2022-09-20 21:31 | PC.NURSE ---
Patient is alert and oriented, neuro is intact, speaking in full sentences, able to swallow. S/S of stroke resolved. Patient is resting quietly watching tv.
[2022-09-20] MEDS: iohexoL 350 MG/ML 100 ML INFUS..BTL IV (22:09)
[2022-09-20 22:11] LABS: Glucose, Whole Blood 310 mg/dL (60-115)
[2022-09-20 22:20] VITALS: BP 163/62; PULSE 61; RESP 20; TEMP 36.7; O2SAT 96
[2022-09-20] MEDS: Insulin Lispro 100 UNIT/ML 3 ML VIAL SUBCUT (22:26)
--- NOTE | 2022-09-20 23:45 | P.HPHOSP_ITS ---
History of Present Illness Date of Service: 09/20/22 Chief Complaint: facial droop 62-year-old female with past medical history of diabetes, hypertension, history of CVA in the past, seizure disorder off of her medications per her neurologist, hyperlipidemia, presents the hospital with complaints of facial droop as well as slurred speech. This was noticed by her granddaughter, as well as the patient. Patient reports that this lasted about 5 minutes and resolved spontaneously. She has had a stroke about 10 years ago And has similar symptoms. Patient reports bilateral temporal headache, reports history of irregular rhythm whole she does not know what it is, denies any chest pain at this time, no palp itations, no abdominal pain nausea or vomiting, no diarrhea or constipation, no urinary symptoms and no lower extremity edema. Patient reports generalized weakness with no specific weakness in any extremity. On arrival to the ED patient found to have BP of 163/62, otherwise normal vital labs are significant for WBC count of 6.7, hemoglobin of 13.1, labs otherwise unremarkable, glucose on arrival of 485, improved after insulin, patient did have an IV infiltration of the contrast in her EJ while undergoing CTA head and neck CT angiogram shows large volume of extravasation in the right neck extending inferiorly into the right paratracheal mediastinum with no significant mass effect. Recommend compress and massage. no intravascular contrast as a result of the extravasation making examination nondiagnostic for vascular imaging. Head CT negative. Review of Systems Review of Systems: Yes all other systems are reviewed and are negative [facility] Medical History (Updated 09/21/22 @ 06:48 by Roc Mota MD) History of CVA (cerebrovascular accident) Hyperlipidemia Hypertension Type 2 diabetes Pertinent family history: no family hx Surgical History (Updated 09/21/22 @ 06:48 by Roc Mota MD) History of appendectomy History of hand surgery History of neck surgery Social History Alcohol intake: never Patient Tobacco Use Status: Never used Tobacco Advance Directives: Yes Advance Directives on File: Yes Advance Directives Date on File: 09/21/22 service: No Meds Allergies Allergy/AdvReac Type Severity Reaction Status Date / Time carisoprodol [From SOMA] Allergy Intermediate HIVES Verified 09/20/22 21:11 sulfamethoxazole Allergy Intermediate HIVES Verified 09/20/22 21:11 [From BACTRIM] trimethoprim [From BACTRIM] Allergy Intermediate HIVES Verified 09/20/22 21:11 Penicillins Allergy Mild HIVES,RASH Verified 09/20/22 21:11 (PENICILLINASE) atorvastatin [Lipitor] Allergy Unknown Swelling Verified 09/20/22 21:11 carbamazepine [Tegretol] Allergy Unknown Swelling Verified 09/20/22 21:11 gabapentin Allergy Unknown Swelling Verified 09/20/22 21:11 penicillin V Allergy Unknown hives, rash Verified 09/20/22 21:11 Sulfa (Sulfonamide Allergy Unknown Swelling Verified 09/20/22 21:11 Antibiotics) topiramate [Topamax] Allergy Unknown Swelling Verified 09/20/22 21:11 Doxycycline Hyclate Allergy Unknown vomiting Uncoded 09/20/22 21:10 Home Medications Medication Instructions Recorded Confirmed Last Taken Type albuterol sulfate 90 mcg/actuation 1 puff inhalation Q4H 09/21/22 09/21/22 Unknown History aerosol inhaler aspirin 81 mg tablet,delayed 1 tab PO DAILY 09/21/22 09/21/22 Unknown History release buspirone 7.5 mg tablet 2 tab PO BID 09/21/22 09/21/22 Unknown History calcipotriene 0.005 % topical 1 appl topical DAILY 09/21/22 09/21/22 Unknown History ointment cholecalciferol (vitamin D3) 25 1 tab PO DAILY 09/21/22 09/21/22 Unknown History mcg (1,000 unit) tablet (Vitamin D3) citalopram 20 mg tablet 1 tab PO DAILY 09/21/22 09/21/22 Unknown History divalproex 125 mg tablet,delayed 1 tab PO BID 09/21/22 09/21/22 Unknown History release empagliflozin 25 mg tablet 1 tab PO DAILY 09/21/22 09/21/22 Unknown History (Jardiance) fluticasone 500 mcg-salmeterol 50 1 puff inhalation BID 09/21/22 09/21/22 Unknown History mcg/dose blistr powdr for inhalation (Advair Diskus) insulin glargine 100 unit/mL (3 60 unit subcut BEDTIME 09/21/22 09/21/22 Unknown History mL) subcutaneous pen (Lantus Solostar U-100 Insulin) insulin lispro 100 unit/mL 0 sliding scale dose subcut QPM 09/21/22 09/21/22 Unknown History subcutaneous pen (Humalog KwikPen (U-100) Insulin) lisinopril 5 mg tablet 1 tab PO DAILY 09/21/22 09/21/22 Unknown History magnesium oxide 400 mg (241.3 mg 1 tab PO DAILY 09/21/22 09/21/22 Unknown History magnesium) tablet melatonin 5 mg tablet 2 tab PO BEDTIME 09/21/22 09/21/22 Unknown History metformin 500 mg tablet,extended 2 tab PO DAILY 09/21/22 09/21/22 Unknown History release 24 hr nystatin 100,000 unit/gram topical 1 appl topical BID 09/21/22 09/21/22 Unknown History powder omeprazole 40 mg capsule,delayed 1 cap PO DAILY 09/21/22 09/21/22 Unknown History release oxycodone 10 mg tablet 1 tab PO TID PRN Pain 09/21/22 09/21/22 Unknown History polyethylene glycol 3350 17 gram 34 g PO DAILY 09/21/22 09/21/22 Unknown History oral powder packet pregabalin 75 mg capsule 1 cap PO BID 09/21/22 09/21/22 Unknown History riboflavin (vitamin B2) 100 mg 4 tab PO DAILY 09/21/22 09/21/22 Unknown History tablet (Vitamin B-2) rosuvastatin 10 mg tablet 1 tab PO BEDTIME 09/21/22 09/21/22 Unknown History white petrolatum-mineral oil 1 appl topical DAILY 09/21/22 09/21/22 Unknown History topical cream Physical Exam Vital Signs and Narrative: Vital Signs: Last Vital Signs Temp 98.1 F 09/20/22 22:20 Pulse 61 09/20/22 22:20 Resp 20 09/20/22 22:20 BP 163/62 H 09/20/22 22:20 Pulse Ox 96 09/20/22 22:20 O2 Del Method 09/20/22 22:20 Const: General: cooperative and no acute distress Orientation/co nsciousness: patient oriented x3 Eyes: General: appearance normal, both eyes and all related structures Resp: Effort & Inspection: normal respiratory effort Auscultation: clear to auscultation bilaterally Cardio: Rate: regular rate Rhythm: regular rhythm GI: Palpation (GI): Soft to palpation Auscultation: normal bowel sounds Skin: General skin exam: no rashes or lesions noted Neuro: Other: no neurological deficits General: patient oriented x3 Cognition (Neuro): normal cognition Extrem: General: Yes normal to inspection and Yes no pedal edema Results Labs CBC and Chem 7: 09/21/22 06:10 09/21/22 06:10 Labs: Laboratory Results - last 24 hr 09/20/22 09/20/22 09/20/22 19:43 20:25 20:25 MCV 86.4 MCH 27.9 MCHC 32.3 RDW 13.4 Plt Count 244 D MPV 12.8 H Immature Gran % (Auto) 0.3 Neut % (Auto) 61.4 Lymph % (Auto) 28.8 [place] % (Auto) 5.8 Eos % (Auto) 2.8 Baso % (Auto) 0.9 Lymph # (Auto) 1.9 [place] # (Auto) 0.4 Eos # (Auto) 0.2 Baso # (Auto) 0.1 Abs Immat Gran (auto) 0.02 Absolute Neuts (auto) 4.1 Absolute Nucleated RBC 0.000 Nucleated RBC % (auto) 0.0 PT Whole Blood PT 12.8 INR Whole Blood INR 1.1 Anion Gap 15 Estim Creat Clear Calc TNP Estimated GFR > 60 POC Glucose Random Glucose 485 H* Calcium 9.0 Total Bilirubin 0.3 Direct Bilirubin 0.2 AST 15 D ALT 28 Alkaline Phosphatase 132 H Troponin I High Sens Total Protein 6.9 Albumin 3.7 Ethyl Alcohol COVID-19 (MICHAELA) COVID-19 Clin Com 09/20/22 09/20/22 09/20/22 20:25 20:25 20:25 MCV MCH MCHC RDW Plt Count MPV Immature Gran % (Auto) Neut % (Auto) Lymph % (Auto) [place] % (Auto) Eos % (Auto) Baso % (Auto) Lymph # (Auto) [place] # (Auto) Eos # (Auto) Baso # (Auto) Abs Immat Gran (auto) Absolute Neuts (auto) Absolute Nucleated RBC Nucleated RBC % (auto) PT 12.0 Whole Blood PT INR 1.0 Whole Blood INR Anion Gap Estim Creat Clear Calc Estimated GFR POC Glucose Random Glucose Calcium Total Bilirubin Direct Bilirubin AST ALT Alkaline Phosphatase Troponin I High Sens < 3.5 Total Protein Albumin Ethyl Alcohol COVID-19 (MICHAELA) Negative COVID-19 Clin Com See Note 11/29/22 11/29/22 20:25 21:58 MCV MCH MCHC RDW Plt Count MPV Immature Gran % (Auto) Neut % (Auto) Lymph % (Auto) [place] % (Auto) Eos % (Auto) Baso % (Auto) Lymph # (Auto) [place] # (Auto) Eos # (Auto) Baso # (Auto) Abs Immat Gran (auto) Absolute Neuts (auto) Absolute Nucleated RBC Nucleated RBC % (auto) PT Whole Blood PT INR Whole Blood INR Anion Gap Estim Creat Clear Calc Estimated GFR POC Glucose 310 H Random Glucose Calcium Total Bilirubin Direct Bilirubin AST ALT Alkaline Phosphatase Troponin I High Sens Total Protein Albumin Ethyl Alcohol < 10 COVID-19 (MICHAELA) COVID-19 Clin Com Imaging Radiologist's Impressions: Impressions Head CT 09/20/22 19:18 IMPRESSION: No CT evidence of acute intracranial abnormality. This critical result was discussed with Dr. Solorzano at 7:40 PM hours on 09/20/2022. It was ascertained that the content and urgency of the report was understood at the time of direct communication. Neck CTA 09/20/22 22:05 IMPRESSION: 1. Large volume iodinated contrast extravasation in the right neck extending inferiorly into the right paratracheal mediastinum. No significant mass effect on the airway identified. Recommend compresses and gentle massage of the extravasated area as tolerated. Would suggest close clinical follow-up for a few hours. 2. No intravascular contrast as a result of the extravasation making examination nondiagnostic for vascular imaging. Assessment and Plan (1) Transient cerebral ischemia: Status: Acute (2) Acute hyperglycemia: Status: Acute Plan 62 Yo F with hx of CVA , DM and HTN presents to the hospital with complaints of facial droop and slurred speech # TIA- possible TIA - on ASA at home although pt doesnt remember all her meds - at this time will obtain MRI, consult neurology - high dose statin - neurology consulted # Acute hyperglyceimia - improved after insulin infusion - likely due to poor diabetic control - will place on sliding scale, pending home med list - POC QIDAC - Diabetic diet # HTN - stable - pt does not remember her meds - will continue her meds once she brings them in DVT ppt: lovenox Quality Stroke Does the patient have a stroke diagnosis?: No VTE Prior VTE?: No VTE Risk Level:: Medical - low VTE Device Contraindication: Treatment Not Indicated VTE Drug Contraindication: Treatment Not Indicated
[2022-09-21] VITALS (13 sets, daily range): BP systolic 113–168; BP diastolic 42–66; PULSE 58–78; RESP 16–23; TEMP 35.9–36.9; O2SAT 92–97; BMI 35.1
[2022-09-21 00:26] LABS: Appearance Urine Clear; Color Urine Yellow; Glucose Urine UA 500 mg/dL (Negative); Leukocyte Esterase Urine Negative (Negative); Nitrite Urine Negative (Negative); PH 7.5 (5.0-9.0); Specific Gravity - Urine >= 1.030 (1.005-1.025); Urine Blood Negative (Negative); Urine Ketones Negative (Negative); Urine Protein Negative (Neg-Trace)
[2022-09-21 03:31] LABS: Glucose, Whole Blood 206 mg/dL (60-115)
[2022-09-21 05:59] LABS: Cholesterol 157 mg/dL; HDL Cholesterol 33 mg/dL; LDL Cholesterol Calculated 91 mg/dl; Triglycerides 167 mg/dL
[2022-09-21 05:59] LABS: Amphetamine Screen Urine Not Detected (Not Detect); Barbiturates, Urine Not Detected (Not Detect); Benzodiazepines Screen Urine Not Detected (Not Detect); Cannabinoid Screen Urine Not Detected (Not Detect); Cocaine Screen Urine Not Detected (Not Detect); Fentanyl, urine Not Detected (Not Detect); Opiate Screen Urine Not Detected (Not Detect); Phencyclidine Screen Urine Not Detected (Not Detect)
[2022-09-21 07:15] LABS: MANUAL DIFF FLAG NO
[2022-09-21 07:18] LABS: Basophils Absolute Auto 0.1 X10*3/uL (0.0-0.2); Basophils Percent Auto 0.9 % (0-2); Eosinophils Absolute Auto 0.2 X10*3/uL (0.0-0.4); Eosinophils Percent Auto 2.1 % (0-4); Hematocrit 39.7 % (37.0-47.0); Hemoglobin 12.7 g/dl (12.0-16.0); Imm Gran Abs Auto 0.02 X10*3/uL (0.00-0.03); Imm Gran Pct Auto 0.3 % (0.0-0.4); Lymphocytes Absolute Auto 1.8 X10*3/uL (1.2-4.9); Lymphocytes Percent Auto 26.1 % (20-40); Mean Corpuscular Hemoglobin 27.3 pg (27.0-33.0); Mean Corpuscular Volume 85.2 fL (80.0-98.0); Mean Platelet Volume 12.5 fL (9.4-12.3); Monocytes Absolute Auto 0.5 X10*3/uL (0.1-1.2); Monocytes Percent Auto 6.6 % (2-11); Neutrophils Absolute Auto 4.5 x10*3/uL (2.0-8.3); Platelet Count 229 X10*3/uL (160-400); Red Blood Count 4.66 X10*6/uL (4.20-5.50); Red Cell Distribution Width 13.5 % (11.0-16.0)
[2022-09-21 07:20] LABS: Glucose, Whole Blood 230 mg/dL (60-115)
[2022-09-21] MEDS: 0.9 % Sodium Chloride Flush 3 ML SYRINGE IVFLUSH (07:20)
[2022-09-21] MEDS: Insulin Lispro 100 UNIT/ML 3 ML VIAL SUBCUT ×4 (07:20→21:59)
[2022-09-21 07:31] LABS: Anion Gap 14 (12-20); Blood Urea Nitrogen 10 mg/dL (9-16); Calcium 8.8 mg/dL (8.4-10.2); Carbon Dioxide 26 mmol/L (22-29); Chloride 103 mmol/L (96-108); Estimated Glomerular Filt Rate > 60; Glucose Random 243 mg/dL (60-115); Potassium 4.2 mmol/L (3.3-5.1); Sodium 139 mmol/L (135-145)
--- NOTE | 2022-09-21 08:53 | PHA.MEDREC ---
Pharmacy Consult ? Medication Reconciliation Pharmacy has completed the medication reconciliation. list was used from facility
--- NOTE | 2022-09-21 10:53 | HO.PM.IMPN ---
Subjective Subjective Date of Service: 09/21/22 Review of Systems Follow-up TIA symptoms Right headache pain with right facial pain noted Physical Exam Vital Signs: Vital Signs: Last Vital Signs Temp 98.3 F 09/21/22 07:15 Pulse 68 09/21/22 10:15 Resp 17 09/21/22 10:15 BP 153/54 H 09/21/22 10:15 Pulse Ox 95 09/21/22 10:15 O2 Del Method 09/21/22 10:15 BMI result Body Mass Index 35.1 Appearing in no acute distress lung sounds are clear to auscultation heart regular rate rhythm, clear S1, S2 positive bowel sounds, abdomen is soft, nontender neuro patient is alert x3, no focal deficits 5/5 strength to upper lower extremities, n Objective Data Active Medications Acetaminophen (Acetaminophen 325 Mg Tablet) 650 mg PO Q6H PRN PRN Reason: Pain, Mild (Pain Scale 1-3) Dextrose (Dextrose 50 % 25 Gm/50 Ml Syringe) 25 gm IVPUSH Q15M PRN; Protocol PRN Reason: per Hypoglycemia Standing Ord. Docusate Sodium (Docusate Sodium 100 Mg Capsule) 100 mg PO DAILY PRN PRN Reason: Constipation Glucose (Glucose Gel 15 Gm Gel..Gram.) 15 gm PO Q15M PRN; Protocol PRN Reason: per Hypoglycemia Standing Ord. Insulin Human Lispro (Insulin Lispro 100 Unit/Ml 3 Ml Vial) 0 unit SUBCUT QIDACHS [facility]; Protocol Last Admin: 09/21/22 07:20 Dose: 4 unit Documented By: LUDIVINA Comments: poc 230 Ondansetron HCl (Ondansetron Hcl 4 Mg/2 Ml Vial) 4 mg IVPUSH Q8H PRN PRN Reason: Nausea and Vomiting Pharmacy Consult (Consult Rx Perform Med Rec) 1 each MISCELLANE ONCE PRN PRN Reason: Consult order Sodium Chloride (0.9 % Sodium Chloride Flush 3 Ml Syringe) 3 ml IVFLUSH [facility] Last Admin: 09/21/22 07:20 Dose: 3 ml Documented By: LUDIVINA Labs CBC & Chem 7: 09/21/22 06:10 09/21/22 06:10 Labs: Laboratory Results - last 24 hr 09/20/22 09/20/22 09/20/22 19:43 20:25 20:25 MCV 86.4 MCH 27.9 MCHC 32.3 RDW 13.4 Plt Count 244 D MPV 12.8 H Immature Gran % (Auto) 0.3 Neut % (Auto) 61.4 Lymph % (Auto) 28.8 [place] % (Auto) 5.8 Eos % (Auto) 2.8 Baso % (Auto) 0.9 Lymph # (Auto) 1.9 [place] # (Auto) 0.4 Eos # (Auto) 0.2 Baso # (Auto) 0.1 Abs Immat Gran (auto) 0.02 Absolute Neuts (auto) 4.1 Absolute Nucleated RBC 0.000 Nucleated RBC % (auto) 0.0 PT Whole Blood PT 12.8 INR Whole Blood INR 1.1 Anion Gap 15 Estim Creat Clear Calc TNP Estimated GFR > 60 POC Glucose Random Glucose 485 H* Calcium 9.0 Total Bilirubin 0.3 Direct Bilirubin 0.2 AST 15 D ALT 28 Alkaline Phosphatase 132 H Troponin I High Sens Total Protein 6.9 Albumin 3.7 Triglycerides Cholesterol LDL Cholesterol, Calc HDL Cholesterol Urine Color Urine Appearance Urine pH Ur Specific [place] Urine Protein Urine Glucose (UA) Urine Ketones Urine Blood Urine Nitrite Ur Leukocyte Esterase Urine Opiates Screen Urine Fentanyl Screen Ur Barbiturates Screen Ur Phencyclidine Scrn Ur Amphetamines Screen U Benzodiazepines Scrn Urine Cocaine Screen U Marijuana (THC) Screen Ethyl Alcohol COVID-19 (MICHAELA) COVID-19 Clin Com 09/20/22 09/20/22 09/20/22 20:25 20:25 20:25 MCV MCH MCHC RDW Plt Count MPV Immature Gran % (Auto) Neut % (Auto) Lymph % (Auto) [place] % (Auto) Eos % (Auto) Baso % (Auto) Lymph # (Auto) [place] # (Auto) Eos # (Auto) Baso # (Auto) Abs Immat Gran (auto) Absolute Neuts (auto) Absolute Nucleated RBC Nucleated RBC % (auto) PT 12.0 Whole Blood PT INR 1.0 Whole Blood INR Anion Gap Estim Creat Clear Calc Estimated GFR POC Glucose Random Glucose Calcium Total Bilirubin Direct Bilirubin AST ALT Alkaline Phosphatase Troponin I High Sens < 3.5 Total Protein Albumin Triglycerides Cholesterol LDL Cholesterol, Calc HDL Cholesterol Urine Color Urine Appearance Urine pH Ur Specific [place] Urine Protein Urine Glucose (UA) Urine Ketones Urine Blood Urine Nitrite Ur Leukocyte Esterase Urine Opiates Screen Urine Fentanyl Screen Ur Barbiturates Screen Ur Phencyclidine Scrn Ur Amphetamines Screen U Benzodiazepines Scrn Urine Cocaine Screen U Marijuana (THC) Screen Ethyl Alcohol COVID-19 (MICHAELA) Negative COVID-19 [employer] Com See Note 09/20/22 09/20/22 09/21/22 20:25 21:58 00:20 MCV MCH MCHC RDW Plt Count MPV Immature Gran % (Auto) Neut % (Auto) Lymph % (Auto) [place] % (Auto) Eos % (Auto) Baso % (Auto) Lymph # (Auto) [place] # (Auto) Eos # (Auto) Baso # (Auto) Abs Immat Gran (auto) Absolute Neuts (auto) Absolute Nucleated RBC Nucleated RBC % (auto) PT Whole Blood PT INR Whole Blood INR Anion Gap Estim Creat Clear Calc Estimated GFR POC Glucose 310 H Random Glucose Calcium Total Bilirubin Direct Bilirubin AST ALT Alkaline Phosphatase Troponin I High Sens Total Protein Albumin Triglycerides Cholesterol LDL Cholesterol, Calc HDL Cholesterol Urine Color Yellow Urine Appearance Clear Urine pH 7.5 Ur Specific [place] >= 1.030 H Urine Protein Negative Urine Glucose (UA) 500 H Urine Ketones Negative Urine Blood Negative Urine Nitrite Negative Ur Leukocyte Esterase Negative Urine Opiates Screen Urine Fentanyl Screen Ur Barbiturates Screen Ur Phencyclidine Scrn Ur Amphetamines Screen U Benzodiazepines Scrn Urine Cocaine Screen U Marijuana (THC) Screen Ethyl Alcohol < 10 COVID-19 (MICHAELA) COVID-19 [employer] Com 09/21/22 09/21/22 09/21/22 00:20 00:44 01:11 MCV MCH MCHC RDW Plt Count MPV Immature Gran % (Auto) Neut % (Auto) Lymph % (Auto) [place] % (Auto) Eos % (Auto) Baso % (Auto) Lymph # (Auto) [place] # (Auto) Eos # (Auto) Baso # (Auto) Abs Immat Gran (auto) Absolute Neuts (auto) Absolute Nucleated RBC Nucleated RBC % (auto) PT Whole Blood PT INR Whole Blood INR Anion Gap Estim Creat Clear Calc Estimated GFR POC Glucose 206 H Random Glucose Calcium Total Bilirubin Direct Bilirubin AST ALT Alkaline Phosphatase Troponin I High Sens Total Protein Albumin Triglycerides 167 Cholesterol 157 LDL Cholesterol, Calc 91 HDL Cholesterol 33 Urine Color Urine Appearance Urine pH Ur Specific [place] Urine Protein Urine Glucose (UA) Urine Ketones Urine Blood Urine Nitrite Ur Leukocyte Esterase Urine Opiates Screen Not Detected Urine Fentanyl Screen Not Detected Ur Barbiturates Screen Not Detected Ur Phencyclidine Scrn Not Detected Ur Amphetamines Screen Not Detected U Benzodiazepines Scrn Not Detected Urine Cocaine Screen Not Detected U Marijuana (THC) Screen Not Detected Ethyl Alcohol COVID-19 (MICHAELA) COVID-19 Clin Com 09/21/22 09/21/22 09/21/22 06:10 06:10 07:16 MCV 85.2 MCH 27.3 MCHC 32.0 RDW 13.5 Plt Count 229 MPV 12.5 H Immature Gran % (Auto) 0.3 Neut % (Auto) 64.0 Lymph % (Auto) 26.1 [place] % (Auto) 6.6 Eos % (Auto) 2.1 Baso % (Auto) 0.9 Lymph # (Auto) 1.8 [place] # (Auto) 0.5 Eos # (Auto) 0.2 Baso # (Auto) 0.1 Abs Immat Gran (auto) 0.02 Absolute Neuts (auto) 4.5 Absolute Nucleated RBC 0.000 Nucleated RBC % (auto) 0.0 PT Whole Blood PT INR Whole Blood INR Anion Gap 14 Estim Creat Clear Calc TNP Estimated GFR > 60 POC Glucose 230 H Random Glucose 243 H Calcium 8.8 Total Bilirubin Direct Bilirubin AST ALT Alkaline Phosphatase Troponin I High Sens Total Protein Albumin Triglycerides Cholesterol LDL Cholesterol, Calc HDL Cholesterol Urine Color Urine Appearance Urine pH Ur Specific [place] Urine Protein Urine Glucose (UA) Urine Ketones Urine Blood Urine Nitrite Ur Leukocyte Esterase Urine Opiates Screen Urine Fentanyl Screen Ur Barbiturates Screen Ur Phencyclidine Scrn Ur Amphetamines Screen U Benzodiazepines Scrn Urine Cocaine Screen U Marijuana (THC) Screen Ethyl Alcohol COVID-19 (MICHAELA) COVID-19 Clin Com Assessment and Plan (1) Transient cerebral ischemia: Status: Acute Plan 62-year-old woman admitted to observation for facial droop and slurred speech, possible TIA Possible TIA Head CT negative Head CTA nondiagnostic due to contrast Neurology consultation for further workup Continue aspirin and statin Diabetes mellitus Sliding scale, ADA diet GERD Continue PPI Hypertension Continue lisinopril Mental health Continue home medications Asthma No exacerbation DVT prophylaxis with heparin Attending Dr. Chamberlain Full code Quality Stroke Does the patient have a stroke diagnosis?: No VTE Prior VTE?: No VTE Risk Level:: Medical - low VTE Device Contraindication: Treatment Not Indicated VTE Drug Contraindication: Treatment Not Indicated
--- NOTE | 2022-09-21 11:04 | P.CNNE_ITS ---
History of Present Illness Data of Consult Service Date: 09/21/22 Primary Care Provider: DO MOOKIE Duarte Reason for consult: Question stroke 62 years old woman who came to hospital complaining of right-sided head and face pain. She said that the 1st thing she noted was that her I went into spasm and then face was twisted or flat. She was having pain in that area and head. It lasted for few minutes but headache continued. She also reported she was having a headache almost daily. When I saw her she was keeping her right eye almost closed stating that light was bothering her. She had a CT and CTA done which revealed an atypical abnormality prompting this consultation. Review of Systems Review of Systems: No recent neck trauma though intravenous injection for CTA was given on right side of neck. [facility] Past Medical History Medical History (Updated 09/21/22 @ 06:48 by Roc Mota MD) History of CVA (cerebrovascular accident) Hyperlipidemia Hypertension Type 2 diabetes Surgical History Surgical History (Updated 09/21/22 @ 06:48 by Roc Mota MD) History of appendectomy History of hand surgery History of neck surgery Social History Social History Alcohol intake: never Patient Tobacco Use Status: Never used Tobacco Advance Directives: Yes Advance Directives on File: Yes Advance Directives Date on File: 09/21/22 Meds Allergies Allergy/AdvReac Type Severity Reaction Status Date / Time carisoprodol [From SOMA] Allergy Intermediate HIVES Verified 09/20/22 21:11 sulfamethoxazole Allergy Intermediate HIVES Verified 09/20/22 21:11 [From BACTRIM] trimethoprim [From BACTRIM] Allergy Intermediate HIVES Verified 09/20/22 21:11 Penicillins Allergy Mild HIVES,RASH Verified 09/20/22 21:11 (PENICILLINASE) atorvastatin [Lipitor] Allergy Unknown Swelling Verified 09/20/22 21:11 carbamazepine [Tegretol] Allergy Unknown Swelling Verified 09/20/22 21:11 gabapentin Allergy Unknown Swelling Verified 09/20/22 21:11 penicillin V Allergy Unknown hives, rash Verified 09/20/22 21:11 Sulfa (Sulfonamide Allergy Unknown Swelling Verified 09/20/22 21:11 Antibiotics) topiramate [Topamax] Allergy Unknown Swelling Verified 09/20/22 21:11 Doxycycline Hyclate Allergy Unknown vomiting Uncoded 09/20/22 21:10 Active Medications: Current Medications Acetaminophen (Acetaminophen 325 Mg Tablet) 650 mg PO Q6H PRN PRN Reason: Pain, Mild (Pain Scale 1-3) Albuterol Sulfate (Albuterol Sulfate 90 Mcg 8 Gm Inhaler) 1 puff INHALE Q4H [facility] Aspirin (Aspirin Enteric Coated 81 Mg Tablet.) 81 mg PO DAILY [facility] Buspirone HCl (Buspirone Hcl 5 Mg Tablet) 15 mg PO BID [facility] Dextrose (Dextrose 50 % 25 Gm/50 Ml Syringe) 25 gm IVPUSH Q15M PRN; Protocol PRN Reason: per Hypoglycemia Standing Ord. Docusate Sodium (Docusate Sodium 100 Mg Capsule) 100 mg PO DAILY PRN PRN Reason: Constipation Empagliflozin (Empagliflozin 25 Mg Tablet) 25 mg PO DAILY [facility] Glucose (Glucose Gel 15 Gm Gel..Gram.) 15 gm PO Q15M PRN; Protocol PRN Reason: per Hypoglycemia Standing Ord. Heparin Sodium (Porcine) (Heparin Sodium,Porcine 5,000 Unit/Ml Vial) 5,000 unit SUBCUT Q12H [facility] Insulin Glargine (Insulin Glargine,Hum.Rec.Anlog 100 Unit/Ml 10 Ml Vial) 60 unit SUBCUT BEDTIME [facility] Insulin Human Lispro (Insulin Lispro 100 Unit/Ml 3 Ml Vial) 0 unit SUBCUT QIDACHS [facility]; Protocol Last Admin: 09/21/22 07:20 Dose: 4 unit Lisinopril (Lisinopril 5 Mg Tablet) 5 mg PO DAILY [facility]; Protocol Magnesium Oxide (Magnesium Oxide 400 Mg Tablet) 400 mg PO DAILY [facility] Non-Formulary Medication (Citalopram) 1 tab PO DAILY [facility] Non-Formulary Medication (Divalproex) 1 tab PO BID [facility] Non-Formulary Medication (Fluticasone Propion-Salmeterol [Advair Diskus]) 1 puff INHALE BID [facility] Non-Formulary Medication (Melatonin) 2 tab PO BEDTIME [facility] Non-Formulary Medication (Rosuvastatin) 1 tab PO BEDTIME [facility] Omeprazole (Omeprazole 40 Mg Capsule.) 40 mg PO DAILY [facility] Ondansetron HCl (Ondansetron Hcl 4 Mg/2 Ml Vial) 4 mg IVPUSH Q8H PRN PRN Reason: Nausea and Vomiting Pharmacy Consult (Consult Rx Perform Med Rec) 1 each MISCELLANE ONCE PRN PRN Reason: Consult order Polyethylene Glycol (Polyethylene Glycol 3350 17 Gm Powd.Pack) 34 gm PO DAILY [facility] Pregabalin (Pregabalin 75 Mg Capsule) 75 mg PO BID [facility] Sodium Chloride (0.9 % Sodium Chloride Flush 3 Ml Syringe) 3 ml IVFLUSH QSHIFT [facility] Last Admin: 09/21/22 07:20 Dose: 3 ml Vitamin D (Cholecalciferol (Vitamin D3) 25 Mcg Tablet) 25 mcg PO DAILY [facility] Home Medications Medication Instructions Recorded Confirmed Last Taken Type albuterol sulfate 90 mcg/actuation 1 puff inhalation Q4H 09/21/22 09/21/22 Unknown History aerosol inhaler aspirin 81 mg tablet,delayed 1 tab PO DAILY 09/21/22 09/21/22 Unknown History release buspirone 7.5 mg tablet 2 tab PO BID 09/21/22 09/21/22 Unknown History calcipotriene 0.005 % topical 1 appl topical DAILY 09/21/22 09/21/22 Unknown History ointment cholecalciferol (vitamin D3) 25 1 tab PO DAILY 09/21/22 09/21/22 Unknown History mcg (1,000 unit) tablet (Vitamin D3) citalopram 20 mg tablet 1 tab PO DAILY 09/21/22 09/21/22 Unknown History divalproex 125 mg tablet,delayed 1 tab PO BID 09/21/22 09/21/22 Unknown History release empagliflozin 25 mg tablet 1 tab PO DAILY 09/21/22 09/21/22 Unknown History (Jardiance) fluticasone 500 mcg-salmeterol 50 1 puff inhalation BID 09/21/22 09/21/22 Unknown History mcg/dose blistr powdr for inhalation (Advair Diskus) insulin glargine 100 unit/mL (3 60 unit subcut BEDTIME 09/21/22 09/21/22 Unknown History mL) subcutaneous pen (Lantus Solostar U-100 Insulin) insulin lispro 100 unit/mL 0 sliding scale dose subcut QPM 09/21/22 09/21/22 Unknown History subcutaneous pen (Humalog KwikPen (U-100) Insulin) lisinopril 5 mg tablet 1 tab PO DAILY 09/21/22 09/21/22 Unknown History magnesium oxide 400 mg (241.3 mg 1 tab PO DAILY 09/21/22 09/21/22 Unknown History magnesium) tablet melatonin 5 mg tablet 2 tab PO BEDTIME 09/21/22 09/21/22 Unknown History metformin 500 mg tablet,extended 2 tab PO DAILY 09/21/22 09/21/22 Unknown History release 24 hr nystatin 100,000 unit/gram topical 1 appl topical BID 09/21/22 09/21/22 Unknown History powder omeprazole 40 mg capsule,delayed 1 cap PO DAILY 09/21/22 09/21/22 Unknown History release oxycodone 10 mg tablet 1 tab PO TID PRN Pain 09/21/22 09/21/22 Unknown History polyethylene glycol 3350 17 gram 34 g PO DAILY 09/21/22 09/21/22 Unknown History oral powder packet pregabalin 75 mg capsule 1 cap PO BID 09/21/22 09/21/22 Unknown History riboflavin (vitamin B2) 100 mg 4 tab PO DAILY 09/21/22 09/21/22 Unknown History tablet (Vitamin B-2) rosuvastatin 10 mg tablet 1 tab PO BEDTIME 09/21/22 09/21/22 Unknown History white petrolatum-mineral oil 1 appl topical DAILY 09/21/22 09/21/22 Unknown History topical cream Physical Exam Vital Signs: Vital Signs: Last Vital Signs Temp 98.3 F 09/21/22 07:15 Pulse 68 09/21/22 10:15 Resp 17 09/21/22 10:15 BP 153/54 H 09/21/22 10:15 Pulse Ox 95 09/21/22 10:15 O2 Del Method 09/21/22 10:15 BMI result Body Mass Index 35.1 Neuro: Other: She was alert and awake with normal spontaneity of speech fluency comprehension and anxious affect. Pupils were 3 mm round reactive to light. Extraocular muscles were intact. Visual nava are full. There was no obvious facial asymmetry. Tongue was midline. There was no pronator drift. Deep tendon reflexes were trace to 1+ with left extensor and right flexor plantar. Results Labs CBC & Chem 7: 09/21/22 06:10 09/21/22 06:10 Labs: Short CBC 09/20/22 09/21/22 Range/Units 20:25 06:10 WBC 6.7 7.0 (4.8-10.8) X10*3/uL Hgb 13.1 12.7 (12.0-16.0) g/dl Hct 40.6 39.7 (37.0-47.0) % Plt Count 244 D 229 (160-400) X10*3/uL BMP 09/20/22 09/21/22 20:25 06:10 Sodium 139 139 Potassium 4.2 4.2 Chloride 100 103 Carbon Dioxide 28 26 BUN 14 10 Creatinine 0.91 0.71 Calcium 9.0 8.8 Liver Function 09/20/22 Range/Units 20:25 Total Bilirubin 0.3 (0.0-1.0) mg/dL Direct Bilirubin 0.2 (0.0-0.5) mg/dL AST 15 D (5-31) U/L ALT 28 (0-31) U/L Alkaline Phosphatase 132 H (39-117) U/L Albumin 3.7 (3.5-5.0) g/dL Urine 09/21/22 Range/Units 00:20 Urine Color Yellow Urine Appearance Clear Urine pH 7.5 (5.0-9.0) Ur Specific Davis >= 1.030 H (1.005-1.025) Urine Protein Negative (Neg-Trace) mg/dL Urine Glucose (UA) 500 H (Negative) mg/dL Noncontrast head CT did not reveal any obvious acute abnormality. CTA of brain and neck did not revealed vascular signature as contrast did not go into vessel and was extra visited in soft tissues on the neck on right side. Assessment and Plan (1) Transient cerebral ischemia: Status: Acute 62 years old woman with somewhat atypical presentation. Her main symptoms were spasm and flattening of right side of the face with headache and face pain. Headache was happening daily. Her examination did not reveal any obvious cranial nerve finding. Only abnormality was left extensor plantar. CTA of bra in was okay while extravasation of contrast noted on CTA on the right side was likely due to the contrast injection went in to connective tissue instead of a vein. I did not notice any obvious swelling or tenderness on right side of her neck. At this time my recommendation is to obtain a noncontrast MRI of brain. Further recommendations depend upon the finding on MRI Procedures Date of Service Date of Service: 09/21/22
[2022-09-21] MEDS: Albuterol Sulfate 90 MCG 8 GM INHALER 1 PUFF INHALE ×2 (11:31→15:30)
[2022-09-21] MEDS: Heparin Sodium,Porcine 5,000 UNIT/ML VIAL 5000 UNIT SUBCUT ×2 (12:16→22:00)
[2022-09-21 12:17] LABS: Glucose, Whole Blood 336 mg/dL (60-115)
--- NOTE | 2022-09-21 13:16 | MHC.CM.PN ---
pt lives with spouse had no servceis prior to admission,pt willl not need services when dcd..has own ride home
[2022-09-21 16:55] LABS: Glucose Random 485 mg/dL (60-115)
[2022-09-21 17:57] LABS: Glucose, Whole Blood 359 mg/dL (60-115)
--- NOTE | 2022-09-21 18:16 | PC.NURSE ---
insulin patients poc is 359, Dr. Rodriguez has been notified pt to get 10 units based upon the sliding scale, no additional units needed at this time. pt will not be given the insulin until dinner arrives and will recheck poc [address] hernandez request
--- NOTE | 2022-09-21 19:03 | PC.NURSE ---
Addendum entered by Estelle Nicole RN 09/21/22 19:42: report given to ALIVIA Zapata Original Note: report received from ALIVIA Guzmán
[2022-09-21] MEDS: Pregabalin 75 MG CAPSULE PO (21:57)
[2022-09-21] MEDS: Atorvastatin Calcium 40 MG TABLET PO (21:58)
[2022-09-21] MEDS: Melatonin 3 MG TABLET 9 MG PO (21:58)
[2022-09-21] MEDS: Divalproex Sodium Sprinkles 125 MG CAP.DR.SPR PO (21:58)
[2022-09-21] MEDS: busPIRone HCl 5 MG TABLET 15 MG PO (21:58)
[2022-09-21] MEDS: Insulin Glargine,Hum.rec.anlog 100 UNIT/ML 10 ML VIAL 60 UNIT SUBCUT (21:59)
[2022-09-21 23:48] LABS: Glucose, Whole Blood 311 mg/dL (60-115)
[2022-09-22] MEDS: 0.9 % Sodium Chloride Flush 3 ML SYRINGE IVFLUSH (00:50)
[2022-09-22 03:27] VITALS: BP 131/59; PULSE 63; RESP 16; TEMP 36.5; O2SAT 94
[2022-09-22] MEDS: Omeprazole 40 MG CAPSULE.DR PO (05:58)
[2022-09-22 06:01] LABS: MANUAL DIFF FLAG NO
[2022-09-22 06:19] LABS: Basophils Absolute Auto 0.1 X10*3/uL (0.0-0.2); Basophils Percent Auto 0.9 % (0-2); Eosinophils Absolute Auto 0.1 X10*3/uL (0.0-0.4); Hematocrit 39.6 % (37.0-47.0); Hemoglobin 12.7 g/dl (12.0-16.0); Imm Gran Abs Auto 0.02 X10*3/uL (0.00-0.03); Imm Gran Pct Auto 0.3 % (0.0-0.4); Lymphocytes Absolute Auto 2.3 X10*3/uL (1.2-4.9); Lymphocytes Percent Auto 32.9 % (20-40); Mean Corpuscular HGB Conc 32.1 g/dl (31.0-35.0); Mean Corpuscular Hemoglobin 27.4 pg (27.0-33.0); Mean Corpuscular Volume 85.3 fL (80.0-98.0); Mean Platelet Volume 12.2 fL (9.4-12.3); Monocytes Absolute Auto 0.5 X10*3/uL (0.1-1.2); Monocytes Percent Auto 7.1 % (2-11); Neutrophils Absolute Auto 3.9 x10*3/uL (2.0-8.3); Neutrophils Percent Auto 56.8 % (45-73); Platelet Count 220 X10*3/uL (160-400); Red Blood Count 4.64 X10*6/uL (4.20-5.50); Red Cell Distribution Width 13.6 % (11.0-16.0); White Blood Count 6.9 X10*3/uL (4.8-10.8)
[2022-09-22 06:38] LABS: Anion Gap 13 (12-20); Blood Urea Nitrogen 14 mg/dL (9-16); Calcium 8.7 mg/dL (8.4-10.2); Carbon Dioxide 22 mmol/L (22-29); Chloride 102 mmol/L (96-108); Creatinine Clr Calc Pharmacy 73.9; Estimated Glomerular Filt Rate > 60; Glucose Random 336 mg/dL (60-115); Potassium 4.3 mmol/L (3.3-5.1); Sodium 133 mmol/L (135-145)
[2022-09-22 07:48] LABS: Glucose, Whole Blood 293 mg/dL (60-115)
[2022-09-22 07:50] VITALS: BP 137/61; PULSE 61; RESP 18; TEMP 36.8; O2SAT 95
[2022-09-22] MEDS: Magnesium Oxide 400 MG TABLET PO (08:18)
[2022-09-22] MEDS: Acetaminophen 325 MG TABLET 650 MG PO (08:18)
[2022-09-22] MEDS: Pregabalin 75 MG CAPSULE PO (08:18)
[2022-09-22] MEDS: busPIRone HCl 5 MG TABLET 15 MG PO (08:18)
[2022-09-22] MEDS: Empagliflozin 25 MG TABLET PO (08:18)
[2022-09-22] MEDS: lisinopriL 5 MG TABLET PO (08:18)
[2022-09-22] MEDS: Aspirin Enteric Coated 81 MG TABLET.DR PO (08:18)
[2022-09-22] MEDS: Divalproex Sodium Sprinkles 125 MG CAP.DR.SPR PO (08:18)
[2022-09-22] MEDS: polyethylene glycoL 3350 17 GM POWD.PACK 34 GM PO (08:18)
[2022-09-22] MEDS: oxyCODONE HCl Immed Release 5 MG TABLET 10 MG PO (08:19)
[2022-09-22] MEDS: Cholecalciferol (Vitamin D3) 25 MCG TABLET PO (08:19)
[2022-09-22] MEDS: Escitalopram Oxalate 10 MG TABLET PO (08:19)
[2022-09-22] MEDS: Insulin Lispro 100 UNIT/ML 3 ML VIAL SUBCUT ×2 (08:23→11:42)
[2022-09-22] MEDS: Albuterol Sulfate 90 MCG 8 GM INHALER 1 PUFF INHALE ×2 (08:51→12:00)
[2022-09-22 08:52] VITALS: PULSE 80; O2SAT 96
[2022-09-22 11:00] LABS: Glucose, Whole Blood 244 mg/dL (60-115)
[2022-09-22 11:36] VITALS: BP 114/67; PULSE 68; RESP 18; TEMP 36.6; O2SAT 95
[2022-09-22] MEDS: Heparin Sodium,Porcine 5,000 UNIT/ML VIAL 5000 UNIT SUBCUT (11:41)
[2022-09-22] MEDS: Fluticasone/Vilanterol 200/25 BLST.W.DEV 1 PUFF INHALE (11:59)
[2022-09-22 12:06] VITALS: PULSE 71; RESP 18; O2SAT 91
--- NOTE | 2022-09-22 13:55 | PM.DS ---
DS: Providers Provider Date of Service: 09/22/22 Date of admission: 09/20/22 23:41 Date of discharge: 09/22/22 Primary care physician: Feliz Ellis DO Consults: 09/20/22 23:44 Consult to Neurology Routine Consulting Provider: [facility] Reason for consultation: TIA Has provider been notified: No Attending physician on discharge: Siva Chamberlain Discharging clinician: Rufina Joseph DS: Diagnosis Discharge Diagnosis (1) Acute hyperglycemia: Status: Acute DS: Summary Hospital Course Hospital Course: From H&P on day of admission 62-year-old female with past medical history of diabetes, hypertension, history of CVA in the past, seizure disorder off of her medications per her neurologist, hyperlipidemia, presents the hospital with complaints of facial droop as well as slurred speech.? This was noticed by her granddaughter, as well as the patient.? Patient reports that this lasted about 5 minutes and resolved spontaneously.? She has had a stroke about 10 years ago ? And has similar symptoms.? Patient? reports bilateral temporal headache, reports history of irregular rhythm whole she does not know what it is, denies any chest pain at this time, no palpitations, no abdominal pain nausea or vomiting, no diarrhea or constipation, no urinary symptoms and no lower extremity edema.? Patient reports generalized weakness with no? specific weakness in any extremity.? On arrival to the ED patient found to have? BP of 163/62, otherwise normal vital labs are significant for ? WBC count of 6.7, hemoglobin of 13.1, labs otherwise unremarkable, glucose on arrival of 485, improved after insulin, ?patient did have an IV? infiltration of the contrast in her EJ while undergoing CTA ?head and neck CT angiogram shows large? volume of extravasation in the right neck extending inferiorly into the right paratracheal mediastinum with no significant mass effect.? Recommend compress and massage. ? no intravascular contrast as a result of the extravasation making examination nondiagnostic for vascular imaging.? Head CT negative Patient was admitted for possible TIA. She had brain MRI which was negative for acute stroke. She currently has no focal neurological symptoms. She was seen in consultation by Neurology who felt that her symptoms were more consistent with migraine. Neurology recommended topiramate nightly for headache control however patient is allergic to the same. They suggested sumatriptan as needed for migraine headache. She should call to schedule follow-up appointment with her primary neurologist. She will be continued on her baseline anti-platelet agent and statin. Time Spent with Patient Time attestation: Total time spent providing and/or coordinating discharge services: Discharge coordination time: Greater than 30 minutes Quality: Safe Use of Opioids Does Pt have an Active Cancer Diagnosis on the Problem List?: No Quality: Stroke Does the patient have a stroke diagnosis?: No Physical Exam Vital Signs: Vital Signs: Last Vital Signs Temp 98 F 09/22/22 11:36 Pulse 71 09/22/22 12:06 Resp 18 09/22/22 12:06 BP 114/67 09/22/22 11:36 Pulse Ox 95 09/22/22 11:36 O2 Del Method 09/22/22 11:36 BMI result Body Mass Index 35.1 Const: General: cooperative, comfortable, alert and awake Nutritional Appearance: overweight Orientation/consciousness: patient oriented x3 Resp: Effort & Inspection: normal respiratory effort and able to speak in complete sentences Cardio: Rate: regular rate GI: Inspection: No distended Neuro: Other: grossly nonfocal General: patient oriented x3 Extrem: General: Yes no pedal edema DS: Data Data Completed and Pending Labs on day of discharge: Laboratory Results - last 24 hr 09/20/22 09/21/22 09/21/22 20:25 17:50 20:59 WBC RBC Hgb Hct MCV MCH MCHC RDW Plt Count MPV Immature Gran % (Auto) Neut % (Auto) Lymph % (Auto) [place] % (Auto) Eos % (Auto) Baso % (Auto) Lymph # (Auto) [place] # (Auto) Eos # (Auto) Baso # (Auto) Abs Immat Gran (auto) Absolute Neuts (auto) Absolute Nucleated RBC Nucleated RBC % (auto) Sodium Potassium Chloride Carbon Dioxide Anion Gap BUN Creatinine Estim Creat Clear Calc Estimated GFR POC Glucose 359 H* 311 H Random Glucose 485 H* Calcium 09/22/22 09/22/22 09/22/22 05:45 05:45 07:44 WBC 6.9 RBC 4.64 Hgb 12.7 Hct 39.6 MCV 85.3 MCH 27.4 MCHC 32.1 RDW 13.6 Plt Count 220 MPV 12.2 Immature Gran % (Auto) 0.3 Neut % (Auto) 56.8 Lymph % (Auto) 32.9 [place] % (Auto) 7.1 Eos % (Auto) 2.0 Baso % (Auto) 0.9 Lymph # (Auto) 2.3 [place] # (Auto) 0.5 Eos # (Auto) 0.1 Baso # (Auto) 0.1 Abs Immat Gran (auto) 0.02 Absolute Neuts (auto) 3.9 Absolute Nucleated RBC 0.000 Nucleated RBC % (auto) 0.0 Sodium 133 L Potassium 4.3 Chloride 102 Carbon Dioxide 22 Anion Gap 13 BUN 14 Creatinine 0.84 Estim Creat Clear Calc 73.9 Estimated GFR > 60 POC Glucose 293 H Random Glucose 336 H Calcium 8.7 09/22/22 10:53 WBC RBC Hgb Hct MCV MCH MCHC RDW Plt Count MPV Immature Gran % (Auto) Neut % (Auto) Lymph % (Auto) [place] % (Auto) Eos % (Auto) Baso % (Auto) Lymph # (Auto) [place] # (Auto) Eos # (Auto) Baso # (Auto) Abs Immat Gran (auto) Absolute Neuts (auto) Absolute Nucleated RBC Nucleated RBC % (auto) Sodium Potassium Chloride Carbon Dioxide Anion Gap BUN Creatinine Estim Creat Clear Calc Estimated GFR POC Glucose 244 H Random Glucose Calcium Discharge Plan Discharge Patient Disposition: Home, Self-Care Discharge Diagnosis: Migraine Referrals: Feliz Ellis DO [Primary Care Provider] - 1 Week Teodoro Maria MD [Physician] - 1 Week Discharge Medications: New sumatriptan succinate 25 mg tablet 25 mg PO DAILY MRX1 Qty: 4 0RF Rx Instructions: may repeat dose after 2 hours if no resolution of migraine Continued polyethylene glycol 3350 17 gram powder in packet 34 g PO DAILY riboflavin (vitamin B2) [Vitamin B-2] 100 mg tablet 4 tab PO DAILY omeprazole 40 mg capsule,delayed release(DR/EC) 1 cap PO DAILY aspirin 81 mg tablet,delayed release (DR/EC) 1 tab PO DAILY citalopram 20 mg tablet 1 tab PO DAILY magnesium oxide 400 mg (241.3 mg magnesium) tablet 1 tab PO DAILY fluticasone propion-salmeterol [Advair Diskus] 500-50 mcg/dose blister with device 1 puff inhalation BID divalproex 125 mg tablet,delayed release (DR/EC) 1 tab PO BID buspirone 7.5 mg tablet 2 tab PO BID lisinopril 5 mg tablet 1 tab PO DAILY albuterol sulfate 90 mcg/actuation HFA aerosol inhaler 1 puff inhalation Q4H metformin 500 mg tablet extended release 24 hr 2 tab PO DAILY insulin lispro [Humalog KwikPen Insulin] 100 unit/mL insulin pen 0 sliding scale dose subcut QPM rosuvastatin 10 mg tablet 1 tab PO BEDTIME pregabalin 75 mg capsule 1 cap PO BID cholecalciferol (vitamin D3) [Vitamin D3] 25 mcg (1,000 unit) tablet 1 tab PO DAILY insulin glargine [Lantus Solostar U-100 Insulin] 100 unit/mL (3 mL) insulin pen 60 unit subcut BEDTIME oxycodone 10 mg tablet 1 tab PO TID PRN (Reason: Pain) melatonin 5 mg tablet 2 tab PO BEDTIME Jardiance 25 mg tablet 1 tab PO DAILY calcipotriene 0.005 % Ointment 1 appl TOPICAL DAILY Rx Instructions: rub in gently and completely white petrolatum-mineral oil Cream 1 appl TOPICAL DAILY Rx Instructions: APPLY TO LEGS nystatin 100,000 unit/gram Powder 1 appl TOPICAL BID Discharge Orders: Discharge Order (Routine); Ordered 09/22/22 Ordered By: Rufina Joseph Activity on Discharge: As tolerated Stand Alone Forms: Patient Portal Discharge page Care Plan Goals: see below Health Concerns: Migraine stroke ruled out Plan of Treatment: Call to schedule Follow up with PCP Neurology recommended to try sumatriptan as needed for migraine headache call to schedule follow up appointment with your primary neurologist or neurology at [facility] [place] if you do not still follow with neurologist continue taking aspirin and statin Assessment: see discharge summary Discharge Date/Time: 09/22/22 16:41
--- NOTE | 2022-09-22 14:18 | MHC.CM.PN ---
Kathy 09/20/22 Patient is discharged to home selfcare. She has arranged for transportation home.
[2022-09-22 15:13] VITALS: BP 108/51; PULSE 62; RESP 16; TEMP 36.3; O2SAT 96
== END 2022-09-22 16:41 | disposition home or self-care (01) ==
LOC: HO.ED 22:14 → HO.EDOVER 09-21 00:14 → HO.IMC 09-21 19:25
PROVIDERS: Nurse Practitioner Acute Care; Admitting Provider Internal Medicine; Emergency Provider Emergency Medicine; PCP Internal Medicine Hospice and Palliative Medicine; Visit Provider Physician Assistant Medical
DX: G43.909 Migraine, unspecified, not intractable, without status migrainosus (principal); E11.65 Type 2 diabetes mellitus with hyperglycemia; Z20.822 Contact with and (suspected) exposure to COVID-19; I10 Essential (primary) hypertension; E78.5 Hyperlipidemia, unspecified; Z86.73 Personal history of transient ischemic attack (TIA), and cerebral infarction without residual deficits; Z79.4 Long term (current) use of insulin; Z79.02 Long term (current) use of antithrombotics/antiplatelets; Z79.82 Long term (current) use of aspirin; Z79.899 Other long term (current) drug therapy
CPT/HCPCS: 36410; 36415; 70450; 70498; 70551; 80048; 80061; 80076; 80307; 81003; 82077; 82947; 84484; 85025; 85610; 87635; 93005; 96361; 96372; 96374; 99219; 99285; Q9967

== ENCOUNTER 2024-07-28 17:07 | Emergency (ER) | payer MEDICARE, SELFPAY ==
--- NOTE | 2024-07-28 17:10 | ECG_ITS ---
Test Reason : CHEST PAIN Blood Pressure : / mmHG Vent. Rate : 070 BPM Atrial Rate : 070 BPM P-R Int : 152 ms QRS Dur : 082 ms QT Int : 432 ms P-R-T Axes : 024 017 044 degrees QTc Int : 466 ms Normal sinus rhythm Normal ECG When compared with ECG of 20-SEP-2022 19:54, No significant change was found Referred By: Generic ED Physician Electronically Signed By:HINA LIRA
[2024-07-28 17:13] VITALS: BP 124/75; BP 141/76; PULSE 70; PULSE 72; RESP 16; TEMP 36.4; O2SAT 94; O2SAT 96; BMI 34.4
--- NOTE | 2024-07-28 17:42 | ED_ITS ---
HPI - Chest Pain General Chief Complaint: Chest Pain Stated Complaint: chest burning feeling 20 min Time Seen by Provider: 07/28/24 17:42 Source: patient Mode of arrival: ambulatory History of Present Illness ED Provider: napoleon DAMICO narrative: Patient diabetic complaining of burning pain in mid chest since earlier today also complaining of headache nausea diarrhea for last 4 days no known history of coronary artery disease no shortness a breath patient does have gastric reflux disease patient does have history of fibromyalgia take oxycodone 10 mg twice daily complaining of pain in joints in the upper back also Related Data Home Medications ?Medication ?Instructions ?Recorded ?Confirmed albuterol sulfate 90 mcg/actuation 1 puff inhalation Q4H 09/21/22 09/21/22 aerosol inhaler aspirin 81 mg tablet,delayed 1 tab PO DAILY 09/21/22 09/21/22 release buspirone 7.5 mg tablet 2 tab PO BID 09/21/22 09/21/22 calcipotriene 0.005 % topical 1 appl topical DAILY 09/21/22 09/21/22 ointment cholecalciferol (vitamin D3) 25 1 tab PO DAILY 09/21/22 09/21/22 mcg (1,000 unit) tablet (Vitamin D3) citalopram 20 mg tablet 1 tab PO DAILY 09/21/22 09/21/22 divalproex 125 mg tablet,delayed 1 tab PO BID 09/21/22 09/21/22 release empagliflozin 25 mg tablet 1 tab PO DAILY 09/21/22 09/21/22 (Jardiance) fluticasone 500 mcg-salmeterol 50 1 puff inhalation BID 09/21/22 09/21/22 mcg/dose blistr powdr for inhalation (Advair Diskus) insulin glargine 100 unit/mL (3 60 unit subcut BEDTIME 09/21/22 09/21/22 mL) subcutaneous pen (Lantus Solostar U-100 Insulin) insulin lispro 100 unit/mL 0 sliding scale dose subcut QPM 09/21/22 09/21/22 subcutaneous pen (Humalog KwikPen (U-100) Insulin) lisinopril 5 mg tablet 1 tab PO DAILY 09/21/22 09/21/22 magnesium oxide 400 mg (241.3 mg 1 tab PO DAILY 09/21/22 09/21/22 magnesium) tablet melatonin 5 mg tablet 2 tab PO BEDTIME 09/21/22 09/21/22 metformin 500 mg tablet,extended 2 tab PO DAILY 09/21/22 09/21/22 release 24 hr nystatin 100,000 unit/gram topical 1 appl topical BID 09/21/22 09/21/22 powder omeprazole 40 mg capsule,delayed 1 cap PO DAILY 09/21/22 09/21/22 release oxycodone 10 mg tablet 1 tab PO TID PRN Pain 09/21/22 09/21/22 polyethylene glycol 3350 17 gram 34 g PO DAILY 09/21/22 09/21/22 oral powder packet pregabalin 75 mg capsule 1 cap PO BID 09/21/22 09/21/22 riboflavin (vitamin B2) 100 mg 4 tab PO DAILY 09/21/22 09/21/22 tablet (Vitamin B-2) rosuvastatin 10 mg tablet 1 tab PO BEDTIME 09/21/22 09/21/22 white petrolatum-mineral oil 1 appl topical DAILY 09/21/22 09/21/22 topical cream Previous Rx's ?Medication ?Instructions ?Recorded sumatriptan succinate 25 mg tablet 25 mg PO DAILY MRX1 #4 tabs 09/22/22 cyclobenzaprine 10 mg tablet 10 mg PO Q8H #20 tabs 07/28/24 sucralfate 1 gram tablet 1 g PO TID #90 tabs 07/28/24 Allergies Allergy/AdvReac Type Severity Reaction Status Date / Time carisoprodol [From SOMA] Allergy Intermediate HIVES Verified 07/28/24 17:14 sulfamethoxazole Allergy Intermediate HIVES Verified 07/28/24 17:14 [From BACTRIM] trimethoprim [From BACTRIM] Allergy Intermediate HIVES Verified 07/28/24 17:14 Penicillins Allergy Mild HIVES,RASH Verified 07/28/24 17:14 (PENICILLINASE) atorvastatin [Lipitor] Allergy Unknown Swelling Verified 07/28/24 17:14 carbamazepine [Tegretol] Allergy Unknown Swelling Verified 07/28/24 17:14 gabapentin Allergy Unknown Swelling Verified 07/28/24 17:14 penicillin V Allergy Unknown hives, rash Verified 07/28/24 17:14 Sulfa (Sulfonamide Allergy Unknown Swelling Verified 07/28/24 17:14 Antibiotics) topiramate [Topamax] Allergy Unknown Swelling Verified 07/28/24 17:14 Doxycycline Hyclate Allergy Unknown vomiting Uncoded 09/20/22 21:10 Review of Systems 2 Review of Systems: Yes all other systems are reviewed and are negative FOR[facility]LY [facility], [facility] Past Medical History Medical History History of CVA (cerebrovascular accident) Hyperlipidemia Hypertension Type 2 diabetes Surgical History History of hand surgery History of neck surgery History of appendectomy Social History Social History Alcohol intake: never Patient Tobacco Use Status: Never used Tobacco Smoked in Last 30 Days: No Use of substances other than those prescribed or required for medical reasons: No Advance Directives: Yes Advance Directives on File: Yes Advance Directives Date on File: 09/26/22 Do you have a plan to hurt others: No Plan Patient : No service: No Physical Exam 2 Vital Signs: Vital Signs: Last Vital Signs Temp 97.9 F 07/28/24 19:51 Pulse 67 07/28/24 19:51 Resp 17 07/28/24 19:51 BP 130/70 07/28/24 19:51 Pulse Ox 95 07/28/24 19:51 O2 Del Method Room Air 07/28/24 19:51 BMI result Body Mass Index 34.4 Appearance: Alert. Oriented X3. No acute distress. Eyes: PERRLA, No Nystagmus ENT: Pharynx normal. Oral Mucosa moist Neck: Normal inspection. Neck supple. CVS: Normal heart rate and rhythm. Pulses normal. Respiratory: No respiratory distress. Equal air entry bilateral, no wheezing/rales/rhonchi Abdomen: Soft and epigastric tenderness+ Bowel sounds are present, no mass palpable, no CVA tenderness Skin: Skin warm and dry. Normal skin color. Normal skin turgor. Extremities: No lower extremity edema. No calf tenderness Neuro: Oriented X 3. No motor deficit. No sensory deficit.No cerebellar signs , cranial nerves II-XII intact Medications Administered Discontinued Medications Generic Name Dose Route Start Last Admin Trade Name Freq PRN Reason Stop Dose Admin Al Hydroxide/Mg Hydroxide 30 ml 07/28/24 19:22 07/28/24 19:45 Magnesium Hydrox/Alum Hydrox 30 Ml Oral.Susp PO 07/28/24 19:23 30 ml ONCE ONE Administration Cyclobenzaprine HCl 10 mg 07/28/24 19:27 07/28/24 19:45 Cyclobenzaprine Hcl 10 Mg Tablet PO 07/28/24 19:28 10 mg ONCE ONE Administration Medical Decision Making Medical Decision Making [facility] Narrative: Patient's fibromyalgia on pain management comes here for pain in the chest and the upper back for last few days cardiac workup essentially negative will discharge patient home advised to continue take her oxycodone maybe a Tylenol/Motrin for pain Differential Diagnosis Differential Diagnoses: The differential diagnosis associated with the presentation includes Admission/Observation Consideration of admission/observation: Escalation of care including admission/observation considered Lab Data [facility] Lab Attestation statement: I reviewed the patient's lab results. 07/28/24 18:19 07/28/24 18:19 Labs: Lab Results 07/28/24 Range/Units 18:19 WBC 9.0 (4.8-10.8) X10*3/uL RBC 4.53 (4.20-5.50) X10*6/uL Hgb 12.6 (12.0-16.0) g/dl Hct 38.6 (37.0-47.0) % MCV 85.2 (80.0-98.0) fL MCH 27.8 (27.0-33.0) pg MCHC 32.6 (31.0-35.0) g/dl RDW 13.7 (11.0-16.0) % Plt Count 239 (160-400) X10*3/uL MPV 11.5 (9.4-12.3) fL Immature Gran % (Auto) 0.3 (0.0-0.4) % Neut % (Auto) 74.3 H (45-73) % Lymph % (Auto) 15.9 L (20-40) % [place] % (Auto) 6.2 (2-11) % Eos % (Auto) 2.1 (0-4) % Baso % (Auto) 1.2 (0-2) % Lymph # (Auto) 1.4 (1.2-4.9) X10*3/uL [place] # (Auto) 0.6 (0.1-1.2) X10*3/uL Eos # (Auto) 0.2 (0.0-0.4) X10*3/uL Baso # (Auto) 0.1 (0.0-0.2) X10*3/uL Abs Immat Gran (auto) 0.03 (0.00-0.03) X10*3/uL Absolute Neuts (auto) 6.7 (2.0-8.3) x10*3/uL Absolute Nucleated RBC 0.000 (0.0-0.012) X10*3/uL Nucleated RBC % (auto) 0.0 (0.0-0.2) /100WBC Sodium 138 (135-145) mmol/L Potassium 4.1 (3.3-5.1) mmol/L Chloride 107 (96-108) mmol/L Carbon Dioxide 23 (22-29) mmol/L Anion Gap 12 (12-20) BUN 12 (9-16) mg/dL Creatinine 0.83 (0.5-1.4) mg/dL Estim Creat Clear Calc 75.7 Estimated GFR > 60 Random Glucose 186 H (60-115) mg/dL Calcium 8.5 (8.4-10.2) mg/dL Total Bilirubin 0.7 (0.0-1.0) mg/dL AST 29 (5-31) U/L ALT 28 (0-31) U/L Alkaline Phosphatase 105 (39-117) U/L Troponin I High Sens < 2.7 (<3.5-17.0) ng/L Total Protein 7.3 (6.5-8.0) g/dL Albumin 3.8 (3.5-5.0) g/dL Independent Interpretation I performed an independent interpretation of an: EKG Interpretation: Normal sinus rhythm heart rate 70 beats per minute normal intervals normal axis no acute STT wave changes no acute ischemia Discharge Plan Discharge Clinical Impression: Atypical chest pain, Fibromyalgia Patient Disposition: Home, Self-Care Instructions: Chest Pain (ED), Fibromyalgia (ED) Additional Instructions: Continue take your pain medication and Protonix for acid reflux Muscle relaxant as prescribed Take sucralfate 1 tablet 3 times a day as needed for acid reflux Prescriptions: New sucralfate 1 gram tablet 1 g PO TID Qty: 90 0RF cyclobenzaprine 10 mg tablet 10 mg PO Q8H Qty: 20 0RF No Action polyethylene glycol 3350 17 gram powder in packet 34 g PO DAILY riboflavin (vitamin B2) [Vitamin B-2] 100 mg tablet 4 tab PO DAILY omeprazole 40 mg capsule,delayed release(DR/EC) 1 cap PO DAILY aspirin 81 mg tablet,delayed release (DR/EC) 1 tab PO DAILY citalopram 20 mg tablet 1 tab PO DAILY magnesium oxide 400 mg (241.3 mg magnesium) tablet 1 tab PO DAILY fluticasone propion-salmeterol [Advair Diskus] 500-50 mcg/dose blister with device 1 puff inhalation BID divalproex 125 mg tablet,delayed release (DR/EC) 1 tab PO BID buspirone 7.5 mg tablet 2 tab PO BID lisinopril 5 mg tablet 1 tab PO DAILY albuterol sulfate 90 mcg/actuation HFA aerosol inhaler 1 puff inhalation Q4H metformin 500 mg tablet extended release 24 hr 2 tab PO DAILY insulin lispro [Humalog KwikPen Insulin] 100 unit/mL insulin pen 0 sliding scale dose subcut QPM rosuvastatin 10 mg tablet 1 tab PO BEDTIME pregabalin 75 mg capsule 1 cap PO BID cholecalciferol (vitamin D3) [Vitamin D3] 25 mcg (1,000 unit) tablet 1 tab PO DAILY insulin glargine [Lantus Solostar U-100 Insulin] 100 unit/mL (3 mL) insulin pen 60 unit subcut BEDTIME oxycodone 10 mg tablet 1 tab PO TID PRN (Reason: Pain) melatonin 5 mg tablet 2 tab PO BEDTIME Jardiance 25 mg tablet 1 tab PO DAILY calcipotriene 0.005 % Ointment 1 appl TOPICAL DAILY Rx Instructions: rub in gently and completely white petrolatum-mineral oil Cream 1 appl TOPICAL DAILY Rx Instructions: APPLY TO LEGS nystatin 100,000 unit/gram Powder 1 appl TOPICAL BID sumatriptan succinate 25 mg tablet 25 mg PO DAILY MRX1 Qty: 4 0RF Rx Instructions: may repeat dose after 2 hours if no resolution of migraine Interventions: ED Discharge Assessment Last Done: 07/28/24 19:51 Discharge Date/Time: 07/28/24 19:52 Print Language: Japanese
[2024-07-28 18:24] LABS: MANUAL DIFF FLAG NO
[2024-07-28 18:31] LABS: Basophils Absolute Auto 0.1 X10*3/uL (0.0-0.2); Basophils Percent Auto 1.2 % (0-2); Eosinophils Absolute Auto 0.2 X10*3/uL (0.0-0.4); Eosinophils Percent Auto 2.1 % (0-4); Hematocrit 38.6 % (37.0-47.0); Hemoglobin 12.6 g/dl (12.0-16.0); Imm Gran Abs Auto 0.03 X10*3/uL (0.00-0.03); Imm Gran Pct Auto 0.3 % (0.0-0.4); Lymphocytes Absolute Auto 1.4 X10*3/uL (1.2-4.9); Lymphocytes Percent Auto 15.9 % (20-40); Mean Corpuscular HGB Conc 32.6 g/dl (31.0-35.0); Mean Corpuscular Hemoglobin 27.8 pg (27.0-33.0); Mean Corpuscular Volume 85.2 fL (80.0-98.0); Mean Platelet Volume 11.5 fL (9.4-12.3); Monocytes Absolute Auto 0.6 X10*3/uL (0.1-1.2); Monocytes Percent Auto 6.2 % (2-11); Neutrophils Absolute Auto 6.7 x10*3/uL (2.0-8.3); Neutrophils Percent Auto 74.3 % (45-73); Platelet Count 239 X10*3/uL (160-400); Red Blood Count 4.53 X10*6/uL (4.20-5.50); Red Cell Distribution Width 13.7 % (11.0-16.0)
[2024-07-28 18:48] LABS: Alanine Aminotransferase 28 U/L (0-31); Albumin Level 3.8 g/dL (3.5-5.0); Alkaline Phosphatase 105 U/L (39-117); Anion Gap 12 (12-20); Aspartate Amino Transferase 29 U/L (5-31); Bilirubin Total 0.7 mg/dL (0.0-1.0); Blood Urea Nitrogen 12 mg/dL (9-16); Calcium 8.5 mg/dL (8.4-10.2); Carbon Dioxide 23 mmol/L (22-29); Chloride 107 mmol/L (96-108); Creatinine Clr Calc Pharmacy 75.7; Estimated Glomerular Filt Rate > 60; Glucose Random 186 mg/dL (60-115); Potassium 4.1 mmol/L (3.3-5.1); Sodium 138 mmol/L (135-145); Total Protein 7.3 g/dL (6.5-8.0)
[2024-07-28 18:51] LABS: Troponin-I High Sensitivity < 2.7 ng/L (<3.5-17.0)
[2024-07-28] MEDS: Cyclobenzaprine HCl 10 MG TABLET PO (19:45)
[2024-07-28] MEDS: Magnesium Hydrox/Alum Hydrox 30 ML ORAL.SUSP PO (19:45)
[2024-07-28 19:51] VITALS: BP 130/70; PULSE 67; RESP 17; TEMP 36.6; O2SAT 95
== END 2024-07-28 19:52 | disposition home or self-care (01) ==
PROVIDERS: Emergency Provider Internal Medicine
DX: R07.89 Other chest pain (principal); M79.7 Fibromyalgia; R51.9 Headache, unspecified; R11.2 Nausea with vomiting, unspecified; M54.6 Pain in thoracic spine; Z79.899 Other long term (current) drug therapy
CPT/HCPCS: 36415; 80053; 84484; 85025; 93005; 99284; 99285

== ENCOUNTER 2025-07-14 19:32 | Emergency (ER) | payer MEDICAID, SELFPAY ==
--- NOTE | ~2025-07-14 | CT_ITS ---
CLINICAL HISTORY: atraumatic neck pain --- Additional Notes or Special Instructions: limited ROM of c spine, hx cervical surgery x2 CT cervical spine without contrast Comparison: None provided Findings: Spinal fusion hardware spanning from C3 through C6. Anterior plate and screw device is seen at C4-5 with anterior interbody fusion device. Anterior interbody fusion device is seen at C4-5 and C5-6. There solid bony ankylosis at C4-5 and C5-6 with partial bony ankylosis at C3-4. There is generalized straightening of the normal cervical lordosis. No fracture or prevertebral soft tissue swelling. Upper airway is patent. No apical pneumothorax or apical infiltrate. IMPRESSION: Spinal fusion hardware as above. No acute fracture. This document has been electronically signed by: Steven Mike MD on 07/15/2025 01:27:40
--- NOTE | ~2025-07-14 | CT_ITS ---
CLINICAL HISTORY: head pressure CT head without contrast Comparison: None provided Findings: The size and shape of the ventricular system is within normal limits for this patient's age. Minimal to mild areas of low attenuation seen within the deep white matter. Segura-white differentiation is well preserved. No midline shift or mass effect. No intracranial hemorrhage. No calvarial fracture. IMPRESSION: 1. No acute intracranial findings. This document has been electronically signed by: Steven Mike MD on 07/15/2025 01:25:08
--- OUTSIDE RECORDS SUMMARY | 2025-07-14 05:19 | XMS_ITS | Continuity of Care Document ---
Author Organization [facility] Address [address] [address] Phone Care Team Providers Care Tooth Clerk Name Role Phone Douglas Gustafson NP Unavailable Unavailable Allergies, Adverse Reactions, Alerts Substance Reaction Status Criticality lactose Active No Information DULOXETINE HCL Nausea(mild) Active No Informatio n AMITRIPTYLINE HCL Nausea(mild) Active No Informa tion doxycycline vomiting Active No Information ATORVASTATIN CALCIUM Active No Info rmation topiramate Active No Information carbamazepine Active No Information gabapentin Active No Information trimethoprim Active No Information sulfamethoxazole Active No Informat ion carisoprodol Active No Information PENICILLIN Rash Active No Information Medications Medication Instructions Dosage Effective Dates (start - stop) Status Comments betamethasone dipropionate 0.05 % topical ointment apply by topical route every day a thin layer to scalp for 14 days - Active clobetasol 0.05 % shampoo apply by topical route every day a thin layer to dry scalp Leave in place 15 min. then lather and rinse. 0.00 - Active oxycodone 10 mg tablet take 1 tablet by oral route every 8 hours - Active Last fill per [facility] was 06/20/2025 Gas Relief (simethicone) 125 mg capsule Take 2 tab oral route twice daily as needed for bloating - Active Jardiance 25 mg tablet TAKE 1 TABLET BY ORAL ROUTE EVERY DAY IN THE MORNING - Active Lactaid Fast Act 9,000 unit tablet Take by oral route twice daily - Active diclofenac 1 % topical gel APPLY 2 GRAMS TO AFFECTED AREA TWICE A DAY - Active lidocaine 4 % topical patch Apply one patch to neck daily at bed time, remove in morning - Active Dex4 Glucose 4 gram chewable tablet Take 3 tabs orally PRN for hypoglycemia symptoms - Active pregabalin 75 mg capsule TAKE 1 CAPSULE BY MOUTH TWICE A DAY - Active rosuvastatin 20 mg tablet take 1 tablet by oral route every day 20 MG - Active Lantus Solostar U-100 Insulin 100 unit/mL (3 mL) subcutaneous pen Take 40 units SQ in the AM and 4 unit in the PM - Active 04/22/2025 increased lisinopril 5 mg tablet take 1 tablet by oral route every day 5 MG - Active aspirin 81 mg tablet,delayed release TAKE 1 TABLET BY ORAL ROUTE EVERY DAY - Active pen needle, diabetic 31 gauge x 5/16 Use 4 times daily with insulin pen - Active Senna Lax 8.6 mg tablet take 2 tablet by oral route 2 times every day 17.2 MG - Active Dose increase Symbicort 160 mcg-4.5 mcg/actuation HFA aerosol inhaler inhale 2 puff by inhalation route 2 times every day in the morning and evening 2.00 puff - Active pantoprazole 20 mg tablet,delayed release TAKE 1 TABLET BY MOUTH EVERY DAY - Active citalopram 20 mg tablet take 1 tablet every morning - Active Reglan 10 mg tablet take 1 tablet by oral route BID PRN for nausea - Active albuterol sulfate HFA 90 mcg/actuation aerosol inhaler inhale 2 puff by inhalation route every 4 - 6 hours as needed 180 MCG - Active coconut diethanolamide (bulk) 100 % liquid Apply and message to your scalp nightly and wash the scalp in the morning - Active riboflavin (vitamin B2) 100 mg tablet TAKE 4 TABLETS BY MOUTH EVERY DAY - Active baclofen 5 mg tablet take 1 tablet by oral route every bedtime 5 MG - Active Trulicity 4.5 mg/0.5 mL subcutaneous pen injector inject (4.5MG) by subcutaneous route every week 4.5 MG - Active VITAMIN D3 1,000 UNIT SOFTGEL TAKE 1 CAPSULE BY MOUTH EVERY DAY - Active FreeStyle David 3 [place] For use with Freestyle David 3 Sensor - Active melatonin 5 mg tablet Take 1 tablet by mouth once daily at bedtime. - Active DIVALPROEX SOD DR 125 MG TAB TAKE 1 TABLET BY MOUTH TWICE A DAY - Active Advance Directives Directive Yes / No Effective Date File Name No Information Encounters Encounter Description Practice Location Reason(s) For Visit Diagnoses Date Provider [facility], [address] [facility], [place], [place], [id number], tel:[phone] [place] No Information Sep- 5 Sj Cole. [address] [place], [place], [id number], [place]. tel:[phone] [facility], [address] [facility], [place], [place], [id number], [place] tel:[phone] [place] No Information Sep- 5 Tamiko Franco. [address] [place], [place], [id number], [place]. tel:[phone] [facility], [address], [place], [place], [id number], [place] tel:[phone] [place] Acute Visit (chief complaint) Chronic neck painOther chronic painType 2 diabetes mellitus with hyperglycemia, with long-term current use of insulinLong term (current) use of insulinHypertensive renal disease, stage 1 through stage 4 or unspecified chronic kidney diseaseDiarrhea, unspecified type Sep- 5 Sj Cole. [address] [place], [place], [id number], [place]. tel:[phone] [facility], [address], [place], [place], [id number], [place] tel:[phone] [place] [address] No Information 5 Clayton Aqib. [address] [facility] [place], [id number], [place]. tel:[phone] [facility], [address], [place], [place], [id number], [place] tel:[phone] [place] No Information 5 Sj Cole. [address] [facility] [place], [id number], [place]. tel:[phone] [facility], [address], [place], [place], [id number], [place] tel:[phone] [place] No Information 5 Sjdoc Cole. [address] [facility] [place], [id number], [place]. tel:[phone] [facility], 1 [facility] [address], [place], [place], [id number], [place] tel:[phone] [place] Other chronic pain 5 Kayode Joaquin. [address] [facility] [place], [id number], [place]. tel:[phone] [facility], [address] [facility] [address], [place], [place], [id number], [place] tel:[phone] [place] Other chronic pain 5 Juan Clotilde. [address] [place], [id number], [place]. tel:[phone] [facility], [address], [place], [place], [id number], [place] tel:[phone] [place] Muscle weakness (generalized) 5 Juan Clotilde. [address] [place], [place], [id number], [place]. tel:[phone] [facility], [address], [place], [place], [id number], [place] tel:[phone] [place] Other chronic pain Sterling-1 0-202 5 Kayode Joaquin. [address] [place], [place], [id number], [place]. tel:[phone] [facility], [address], [place], [place], [id number], [place] tel:[phone] [place] Other chronic pain Sterling-0 8-202 5 Juan Clotilde. [address] [place], [place], [id number], [place]. tel:[phone] [facility], [address], [place], [place], [id number], [place] tel:[phone] [place] [address] No Information Sterling-0 7-202 5 Sj Cole. [address] [place], [place], [id number], [place]. tel:[phone] [facility], [address] [facility] [address] [facility], [place], [place], [id number], [place] tel:[phone] [place] [address] Other chronic pain Sterling-0 3-202 5 Juan Clotilde. [address] [place], [place], [id number], [place]. tel:[phone] [facility], [address] [facility] [facility], [place], [place], [id number], [place] tel:[phone] [place] No Information Sterling-0 3-202 5 Sj Cole. [address] [place], [place], [id number], [place]. tel:[phone] [facility], [address], [place], [place], [id number], [place] tel:[phone] [place] Other chronic pain Sterling-0 1-202 5 Juan Clotilde. [address] [place], [place], [id number], [place]. tel:[phone] [facility], [address], [place], [place], [id number], [place] tel:[phone] [place] No Information Javon-2 7-202 5 Sj Douglas. [address] [place], [place], [id number], [place]. tel:[phone] [facility], [address], [place], [place], [id number], [place] tel:[phone] [place] Encounter for nutritional assessmentInadequate oral intakeType 2 diabetes mellitus without complication, with long-term current use of insulinLong term (current) use of insulinClass 1 obesity with serious comorbidity and body mass index (BMI) of 32.0 to 32.9 in adult, unspecified obesity typeBody mass index [BMI] 32.0-32.9, adult 5 Kristyn Abrams. [address] [place], [place], [id number], [place]. tel:[phone] [facility], [address], [place], [place], [id number], [place] tel:[phone] [place] Other chronic pain 5 Kayode Joaquin. [address], [place], [place], [id number], [place]. tel:[phone] [facility], [address], [place], [place], [id number], [place] tel:[phone] [place] Semi-Annual (chief complaint) Type 2 diabetes mellitus with hyperglycemia, with long-term current use of insulinLong term (current) use of insulinGeneralized anxiety disorderHypomanic bipolar II disorderEssential hypertensionUncomplicat ed opioid dependenceAbdominal aortic atherosclerosisMixed hyperlipidemiaType 2 diabetes mellitus with both eyes affected by mild nonproliferative retinopathy without macular edema, with long-term current use of insulinType 2 diabetes mellitus with stage 2 chronic kidney disease, with long-term current use of insulinChronic kidney disease, stage 2 (mild)Type 2 diabetes mellitus with diabetic polyneuropathy, with long-term current use of insulinLong term (current) use of oral hypoglycemic drugsDiabetes mellitus with gastroparesisBody mass index (BMI) of 34.0-34.9 in adultVitamin D deficiencySensorineural hearing loss (SNHL) of both earsMixed conductive and sensorineural hearing loss of left ear, unspecified hearing status on contralateral sideDental cariesNuclear sclerotic cataract, bilateralGastroesophage al reflux disease without esophagitisHistory of Helicobacter pylori infectionEsophageal dysphagiaHepatic steatosisPositive hepatitis C antibody testPancreatic atrophySlow transit constipationDiarrhea, unspecified typeHypertensive renal disease, stage 1 through stage 4 or unspecified chronic kidney diseasePain of both shoulder jointsPain in left shoulderGeneralized osteoarthrosis of multiple sitesNeck painChronic low back pain, unspecified back pain laterality, unspecified whether sciatica presentOther chronic painFibromyalgiaCogniti ve deficitsMild cognitive impairmentHistory of pseudoseizureMild intermittent asthma without status asthmaticus without complicationObstructive sleep apnea hypopnea, severe 5 Sj Cole. [address] [place], [place], [id number], [place]. tel:[phone] [facility], [address], [id number], [place] tel:[phone] [place] No Information 5 Pearl Angelo. 101 [facility] [place], [place], [id number]. tel:[phone] [facility], [address] [facility], [place], [place], [id number], [place] tel:[phone] [place] Other chronic pain 5 Juan Mabry. [address] [place], [place], [id number], [place]. tel:[phone] [facility], 1 [facility] [address] [facility], [place], [place], [id number], [place] tel:[phone] [place] Encounter for rehabilitation evaluation 5 Kayode Joaquin. [address] [place], [place], [id number], [place]. tel:[phone] [facility], [address] [facility], [place], [place], [id number], [place] tel:[phone] [place] Encounter for rehabilitation evaluation Javon- 5 Juan Mabry. [address] [facility] [place], [id number], [place]. tel:[phone] [facility], [address], [place], [place], [id number], [place] tel:[phone] [place] Acute Visit (chief complaint) Gastroesophageal reflux disease without esophagitisDiabetes mellitus with gastroparesisPsoriasis Javon- 5 Sj Cole. [address] [place], [place], [id number], [place]. tel:[phone] [facility], [address] [facility] [facility], [place], [place], [id number], [place] tel:[phone] [place] No Information 5 Sj Cole. [address] [place], [place], [id number], [place]. tel:[phone] [facility], [address] [facility] [facility], [place], [place], [id number], [place] tel:[phone] [place] No Information Javon-0 5 Sj Cole. [address] [place], [place], [id number], [place]. tel:[phone] [facility], [address] [facility], [place], [place], [id number], [place] tel:[phone] [place] Other chronic pain Javon-0 5 Kayode Joaquin. [address] [place], [id number], [place]. tel:[phone] [facility], [address] [facility], [place], [place], [id number], [place] tel:[phone] [place] No Information Javon-0 5 Sj Cole. [address] [place], [place], [id number], [place]. tel:[phone] [facility], [address], [place], [place], [id number], [place] tel:[phone] [place] Hemiplegia and hemiparesis following unspecified cerebrovascular disease affecting right non-dominant sideOther chronic pain 5 Kayode Joaquin. [address], [place], [place], [id number], [place]. tel:[phone] [facility], [address] [facility] [address], [place], [place], [id number], [place] tel:[phone] [place] Type 2 diabetes mellitus with unspecified diabetic retinopathy with macular edema 5 Tamiko Franco. [address] [place], [place], [id number], [place]. tel:[phone] [facility], 1 [facility] [address] [facility], [place], [place], [id number], [place] tel:[phone] [place] Encounter for rehabilitation evaluation 5 Kayode Joaquin. [address] [facility] [place], [id number], [place]. tel:[phone] [facility], 1 [facility] [address] [facility], [place], [place], [id number], [place] tel:[phone] [place] Psoriasis, unspecified Apr-1 0- 5 Tamiko Franco. [address] [place], [place], [id number], [place]. tel:[phone] [facility], 1 [facility] [address] [facility], [place], [place], [address], [place] tel:[phone] [place] No Information Apr-0 3-202 5 Tamiko Franco. [address] [facility] [place], [address], [place]. tel:[phone] [facility], 1 [facility] [address] [facility], [place], [place], [id number], [place] tel:[phone] [place] Acute Visit (chief complaint) Psoriasis Dec-0 6 5 Tamiko Franco. [address] [facility] [place], [id number], [place]. tel:[phone] [facility], [address], [place], [place], [id number], [place] tel:[phone] [place] Other chronic pain Nov- 5 Katelynn Saleh. [address] [place], [place], [id number], [place]. tel:[phone] [facility], [address], [place], [place], [id number], [place] tel:[phone] [place] Other chronic pain Nov- 0 5 Katelynnkimberly Saleh. [address] [place], [place], [id number], [place]. tel:[phone] [facility], [address], [place], [place], [id number], [place] tel:[phone] [place] Other chronic pain 5 Katelynn Saleh. [address], [place], [place], [id number], [place]. tel:[phone] [facility], [address] [facility] [facility], [place], [place], [id number], [place] tel:[phone] [place] Encounter for rehabilitation evaluation Oct-3 0- 5 Katelynn Saleh. [address] [place], [place], [id number], [place]. tel:[phone] [facility], [address] [facility] [facility], [place], [place], [id number], [place] tel:[phone] [place] Encounter for rehabilitation evaluationPain in other joint 6 5 Katelynn Saleh. [address] [place], [place], [id number], [place]. tel:[phone] [facility], [address] [facility] [address], [place], [place], [address], [place] tel:[phone] [place] Persons encountering health services in other specified circumstances Oct-0 2-202 5 Tamiko Franco. [address] [place], [place], [id number], [place]. tel:[phone] [facility], [address] [facility], [place], [place], [id number], [place] tel:[phone] [place] Semi-Annual (chief complaint) Hypomanic bipolar II disorderUncomplicated opioid dependenceMild cognitive impairmentEssential hypertensionAbdominal aortic atherosclerosisMixed hyperlipidemiaType 2 diabetes mellitus with both eyes affected by mild nonproliferative retinopathy without macular edema, with long-term current use of insulinLong term (current) use of insulinType 2 diabetes mellitus with hyperglycemia, with long-term current use of insulinType 2 diabetes mellitus with diabetic polyneuropathy, with long-term current use of insulinClass 2 severe obesity due to excess calories with serious comorbidity and body mass index (BMI) of 35.0 to 35.9 in adultBMI 33.0-33.9,adultVitamin D deficiencyGastroesophag eal reflux disease without esophagitisHepatic steatosisPositive hepatitis C antibody testPancreatic atrophyHistory of colonic polypsConstipation, unspecified constipation typeGeneralized osteoarthrosis of multiple sitesNeck painFibromyalgiaHistory of pseudoseizureH/O excision of lamina of cervical vertebra for decompression of spinal cordCervical spinal stenosisMild intermittent asthma without status asthmaticus without complicationObstructive sleep apnea hypopnea, severePsoriasis 4 Tamiko Franco. [address] [facility] [place], [id number], [place]. tel:[phone] [facility], [address] [address], [place], [place], [id number], [place] tel:[phone] [place] Encounter for nutritional assessmentDiabetic nutritional counseling completedAt risk for inadequate oral intake 4 Normile Lelo. 101 [facility] [place], [id number], [place]. tel:[phone] [facility], 1 [facility] [employer] [facility], [place], [place], [address], [place] tel:[phone] [place] Acute Visit (chief complaint) Dysuria 4 Tamiko Franco. 101 [facility] [place], [address], [place]. tel:[phone] [facility], [address], [place], [place], [id number], [place] tel:[phone] [place] Acute Visit (chief complaint) Type 2 diabetes mellitus with hyperglycemia, with long-term current use of insulinLong term (current) use of insulin Oct-2 4 Jodyking Stephanie. [address] [facility] [place], [id number], [place]. tel:[phone] [facility], [address] [facility], [place], [place], [id number], [place] tel:[phone] [place] No Information Sep-2 0- 4 Tamiko Franco. [address] [facility] [place], [address], [place]. tel:[phone] [facility], [address] [facility] [facility], [place], [place], [address], [place] tel:[phone] [place] No Information Sep-1 7- 4 Yvonne Bey. [address] [place], [place], [id number], [place]. tel:[phone] [facility], [address] [facility] [facility], [place], [place], [address], [place] tel:[phone] [place] No Information Sep-1 2- 4 Tamiko Franco. [address] [facility] [place], [id number], [place]. tel:[phone] [facility], [address], [place], [place], [address], [place] tel:[phone] [place] Acute Visit (chief complaint) Diabetic diarrheaDiarrhea, unspecifiedUTI (urinary tract infection), uncomplicated Aug-3 0- 4 Tamiko Franco. [address] [place], [place], [id number], [place]. tel:[phone] [facility], [address] [facility] [facility], [place], [place], [id number], [place] tel:[phone] [place] Acute Visit (chief complaint) Diabetic diarrheaPsoriasis 4 Tamiko Franco. [address] [place], [place], [id number], [place]. tel:[phone] [facility], [address] [address], [place], [place], [address], [place] tel:[phone] [place] Semi-Annual (chief complaint) Hypomanic bipolar II disorderUncomplicated opioid dependenceAbdominal aortic atherosclerosisMixed hyperlipidemiaEssential hypertensionType 2 diabetes mellitus with both eyes affected by mild nonproliferative retinopathy without macular edema, with long-term current use of insulinLong term (current) use of insulinType 2 diabetes mellitus with hyperglycemia, with long-term current use of insulinType 2 diabetes mellitus with diabetic polyneuropathy, with long-term current use of insulinBody mass index (BMI) of 34.0-34.9 in adultClass 1 obesity with serious comorbidity and body mass index (BMI) of 33.0 to 33.9 in adult, unspecified obesity typeBody mass index [BMI] 33.0-33.9, adultVitamin D deficiencyGastroesophag eal reflux disease with esophagitis without hemorrhageHepatic steatosisPositive hepatitis C antibody testPancreatic atrophyFemale cystoceleConstipation, unspecified constipation typeGeneralized osteoarthrosis of multiple sitesNeck painFibromyalgiaFrequen t headachesMild cognitive impairmentHistory of pseudoseizureH/O excision of lamina of cervical vertebra for decompression of spinal cordCervical spinal stenosisMild intermittent asthma without status asthmaticus without complicationObstructive sleep apnea hypopnea, severePsoriasis 4 Tamiko Franco. [address], [place], [place], [id number], [place]. tel:[phone] [facility], [address] [address], [place], [place], [address], [place] tel:[phone] [place] Encounter for nutritional assessmentDiabetes education, encounter forAt risk for inadequate oral intakeOther nutritional deficiency 4 Tim Arshad. [address] [facility] [place], [address]. tel:[phone] [facility], [address], [place], [place], [address], [place] tel:[phone] [place] Acute Visit (chief complaint) Diabetic hypoglycemiaLong term (current) use of insulin 4 Tamiko Franco. [address] [place], [place], [address], [place]. tel:[phone] [facility], [address] [facility], [place], [place], [address], [place] tel:[phone] [place] Encounter for rehabilitation evaluation 4 Katelynn Saleh. [address] [facility] [place], [address], [place]. tel:[phone] [facility], [address] [facility] [address], [place], [place], [address], [place] tel:[phone] [place] Encounter for rehabilitation evaluation 4 Perico Tripathi. [address], [place], [address]. tel:[phone] [facility], [address], [place], [place], [id number], [place] tel:[phone] [place] OV Sick Visit (chief complaint)A cute Visit (chief complaint) Paronychia of finger of right hand 4 Tamiko Franco. [address], [place], [id number], [place]. tel:[phone] [facility], [address], [place], [place], [id number], [place] tel:[phone] [place] Dental caries, unspecified 4 Tamiko Franco. [address], [place], [id number], [place]. tel:[phone] [facility], [address], [place], [place], [id number], [place] tel:[phone] [place] Encounter for rehabilitation evaluation 4 Katelynn Saleh. [address], [place], [place], [id number], [place]. tel:[phone] [facility], [address], [place], [place], [id number], [place] tel:[phone] [place] Encounter for rehabilitation evaluation 4 Khan Irma. [address] [place], [place], [id number], [place]. tel:[phone] [facility], [address], [place], [place], [id number], [place] tel:[phone] [place] Other chronic painWeakness 4 Khan Irma. [address] [place], [place], [id number], [place]. tel:[phone] [facility], [address], [place], [place], [id number], [place] tel:[phone] [place] Pain of both shoulde r jointsPain in left shoulderWeakness Dec- 4 Khan Irma. [address] [place], [place], [id number], [place]. tel:[phone] [facility], [address] [facility] [address] [facility], [place], [place], [id number], [place] tel:[phone] [place] Other chronic pain 4 Khan Irma. [address] [place], [place], [id number], [place]. tel:[phone] [facility], [address], [place], [place], [id number], [place] tel:[phone] [place] Encounter for rehabilitation evaluation 4 Khan Irma. [address] [place], [place], [id number], [place]. tel:[phone] [facility], [address], [place], [place], [id number], [place] tel:[phone] Monica Pain of both shoulde r jointsPain in left shoulder 4 Bill Solis. [address] [place], [place], [id number], [place]. tel:[phone] [facility], [address] [facility] [address] [facility], [place], [place], [id number], [place] tel:[phone] [facility] Evaluation (chief complaint) Type 2 diabetes mellitus with hyperglycemia, with long-term current use of insulinLong term (current) use of insulinModerate episode of recurrent major depressive disorderFungal dermatitisGastroesophag eal reflux disease with esophagitis, unspecified whether hemorrhage 4 Tamiko Franco. [address] [place], [place], [id number], [place]. tel:[phone] [facility], 1 [facility] [address] [facility], [place], [place], [id number], [place] tel:[phone] [place] Muscle weakness (generalized)Other chronic pain 4 Bill Solis. [address] [place], [place], [id number], [place]. tel:[phone] [facility], 1 [facility] [address] [facility], [place], [place], [id number], [place] tel:[phone] [place] Other abnormalities of gait and mobilityMidline low back pain, unspecified chronicity, unspecified whether sciatica presentWeakness 0 4 Bill Solis. [address] [place], [place], [id number], [place]. tel:[phone] [facility], 1 [facility] [address] [facility], [place], [place], [id number], [place] tel:[phone] [place] Encounter for rehabilitation evaluation 4 Bill Solis. [address] [place], [place], [id number], [place]. tel:[phone] [facility], 1 [facility] [address] [facility], [place], [place], [id number], [place] tel:[phone] [place] Encounter for nutritional assessmentDiabetes education, encounter for 4 Tim Arshad. [address], [place], [address]. tel:[phone] [facility], [address] [facility], [place], [place], [id number], [place] tel:[phone] [place] Encounter for rehabilitation evaluation 3 Keren Newsome. [address], [place], [id number], [place]. tel:[phone] [facility], [address] [address], [place], [place], [id number], [place] tel:[phone] [place] Semi-Annual (chief complaint) Generalized anxiety disorderRecurrent major depressive disorder, remission status unspecifiedAbdominal aortic atherosclerosisMixed hyperlipidemiaType 2 diabetes mellitus with mild nonproliferative retinopathy of both eyes without macular edema, unspecified whether group home insulin useStage 2 chronic kidney diseaseType 2 diabetes mellitus with stage 2 chronic kidney disease, with long-term current use of insulinLong term (current) use of insulinLong term (current) use of oral hypoglycemic drugsDiabetes mellitus with gastroparesisNuclear sclerotic cataract, bilateralGastroesophage al reflux disease, unspecified whether esophagitis presentHypertensive renal disease, stage 1 through stage 4 or unspecified chronic kidney diseaseMild intermittent asthma without status asthmaticus without complicationPsoriasisNe ck painFibromyalgiaEncount er for health maintenance examinationUncomplicate d opioid dependenceType 2 diabetes mellitus with diabetic polyneuropathy, with long-term current use of insulinEsophageal dysphagia 3 Alex Easton. [address], [place], [place], [id number], [place]. tel:[phone] [facility], [address] [address], [place], [place], [id number], [place] tel:[phone] [place] Chronic bilateral lo w back pain without sciaticaOther chronic pain Nov 3 Bill Solis. [address], [place], [place], [id number], [place]. tel:[phone] [facility], [address], [place], [place], [id number], [place] tel:[phone] [place] Cervical spinal stenosisMedian nerve neuropathy, unspecified laterality 3 Caleb Wilsonn. [address] [place], [place], [id number], [place]. tel:[phone] [facility], 1 [facility] [address], [place], [place], [id number], [place] tel:[phone] [place] Chronic bilateral lo w back pain with right-sided sciaticaOther chronic pain 3 Bill Solis. [address] [place], [place], [id number], [place]. tel:[phone] [facility], 1 [facility] [address] [facility], [place], [place], [id number], [place] tel:[phone] [place] Acute Visit (chief complaint) Constipation, unspecified constipation typeAcute right-sided low back pain without sciaticaCervical spinal stenosis 3 Caleb Wilsonn. [address] [place], [place], [id number], [place]. tel:[phone] [facility], [address] [facility], [place], [place], [address], [place] tel:[phone] [place] No Information 3 Caleb Wilsonn. [address] [place], [place], [id number], [place]. tel:[phone] [facility], 1 [facility] [address] [facility], [place], [place], [id number], [place] tel:[phone] [place] OV (chief complaint) Gastroenteritis 3 Caleb Wilsonn. [address] [place], [place], [id number], [place]. tel:[phone] [facility], 1 [facility] [address], [place], [place], [id number], [place] tel:[phone] [place] Viral syndrome Jun- 3 Caleb Piper. [address] [place], [place], [id number], [place]. tel:[phone] [facility], [address], [place], [place], [id number], [place] tel:[phone] [place] OV (chief complaint) Hx of hematuriaPain, dentalCervical spinal stenosis 3 Caleb Wilsonn. [address] [place], [place], [id number], [place]. tel:[phone] [facility], [address] [facility], [place], [place], [id number], [place] tel:[phone] [place] Type 2 diabetes mellitus with diabetic polyneuropathy, with long-term current use of insulinLong term (current) use of insulinEncounter for general adult medical examination without abnormal findings 3 Caleb Piper. [address] [place], [place], [id number], [place]. tel:[phone] [facility], [address] [facility] [facility], [place], [place], [id number], [place] tel:[phone] [place] Dental cariesFrequen t headaches 3 Caleb Wilsonn. [address] [place], [place], [id number], [place]. tel:[phone] [facility], [address] [facility] [address] [place] [address], [id number], [place] tel:[phone] [place] Neck pain 3 Gagnon Zoe. [address] [place], [place], [id number], [place]. tel:[phone] [facility], 1 [facility] [address] [facility], [place], [place], [id number], [place] tel:[phone] [place] Encounter for rehabilitation evaluation 3 Theroux Olga Lidia. [address] [place], [address]. tel:[phone] [facility], [address], [place], [place], [id number], [place] tel:[phone] [place] Encounter for rehabilitation evaluation 3 Bill Solis. [address] [place] [address], [id number], [place]. tel:[phone] [facility], [address] [facility], [place], [place], [id number], [place] tel:[phone] [place] Semi-Annual (chief complaint) Generalized anxiety disorderModerate episode of recurrent major depressive disorderOpioid dependence, uncomplicatedMixed hyperlipidemiaType 2 diabetes mellitus with both eyes affected by mild nonproliferative retinopathy without macular edema, with long-term current use of insulinLong term (current) use of insulinType 2 diabetes mellitus with stage 2 chronic kidney disease, with long-term current use of insulinChronic kidney disease, stage 2 (mild)Type 2 diabetes mellitus with diabetic polyneuropathy, with long-term current use of insulinType 2 diabetes mellitus with hyperglycemia, with long-term current use of insulinDental cariesDiabetes mellitus with gastroparesisBody mass index (BMI) of 34.0-34.9 in adultClass 1 obesity with serious comorbidity and body mass index (BMI) of 34.0 to 34.9 in adult, unspecified obesity typeVitamin D deficiencyGastroesophag eal reflux disease, unspecified whether esophagitis presentHepatic steatosisHypertensive renal disease, stage 1 through stage 4 or unspecified chronic kidney diseaseFibromyalgiaOthe r chronic painNocturnal muscle crampsFrequent headachesCognitive deficitsWeakness of both handsMild intermittent asthma without status asthmaticus without complicationObstructive sleep apnea hypopnea, severePsoriasisEpisode of transient neurologic symptomsEncounter for health maintenance examinationLong term (current) use of oral hypoglycemic drugs 3 Caleb Piper. [address] [place] [address], [id number], [place]. tel:[phone] [facility], [address] [facility], [place], [place], [id number], [place] tel:[phone] [place] Type 2 diabetes mellitus with hyperglycemia, with long-term current use of insulinLong term (current) use of insulin 3 Caleb Feliz. [address] [place], [place], [id number], [place]. tel:[phone] [facility], [address], [place], [place], [id number], [place] tel:[phone] [place] Dysphagia, unspecifi ed type 3 Lanre Edmondson. [address] [place], [place], [id number], [place]. tel:[phone] [facility], [address], [place], [place], [id number], [place] tel:[phone] [place] Office Visit (chief complaint) Type 2 diabetes mellitus with hyperglycemia, with long-term current use of insulinLong term (current) use of insulin 3 Caleb Wilsonn. [address] [place], [place], [id number], [place]. tel:[phone] [facility], [address], [place], [place], [id number], [place] tel:[phone] [place] Other chronic pain 3 Keren Newsome. [address] [place], [place], [id number], [place]. tel:[phone] [facility], [address] [facility] [address], [place], [place], [id number], [place] tel:[phone] [place] Other chronic pain Apr-2 3 Keren Newsome. [address] [place], [place], [id number], [place]. tel:[phone] [facility], [address], [place], [place], [id number], [place] tel:[phone] [place] Other chronic pain Apr-2 0- 3 Keren Newsome. [address] [place], [place], [id number], [place]. tel:[phone] [facility], [address], [place], [place], [id number], [place] tel:[phone] [place] Other chronic pain Apr-1 3-202 3 Keren Rosadone. [address] [place], [place], [id number], [place]. tel:[phone] [facility], [address], [place], [place], [id number], [place] tel:[phone] [place] Type 2 diabetes mellitus with hyperglycemia, with long-term current use of insulinLong term (current) use of insulin Apr-0 5-202 3 Caleb Feliz. [address] [place], [place], [address], [place]. tel:[phone] [facility], [address] [facility] [address], [place], [place], [id number], [place] tel:[phone] [place] Other chronic pain Mar-3 0-202 3 Keren Newsome. [address] [place], [place], [id number], [place]. tel:[phone] [facility], [address], [place], [place], [id number], [place] tel:[phone] [place] Follow-up (chief complaint) exterminator helper (current) use of insulinDiabetes mellitus with gastroparesis Mar-2 2-202 3 Caleb Feliz. [address] [place], [place], [address], [place]. tel:[phone] [facility], [address], [place], [place], [address], [place] tel:[phone] [place] Other chronic pain Mar-1 6-202 3 Keren Mercedez. [address] [place], [place], [id number], [place]. tel:[phone] [facility], [address], [place], [place], [address], [place] tel:[phone] [place] Need for dental care Mar-1 0-202 3 Caleb Wilsonn. [address] [place], [place], [id number], [place]. tel:[phone] [facility], [address], [place], [place], [id number], [place] tel:[phone] [place] Other chronic pain Mar-0 3 Keren Newsome. [address] [place], [place], [id number], [place]. tel:[phone] [facility], [address] [facility], [place], [place], [id number], [place] tel:[phone] [place] Other chronic pain Mar-0 2- 3 Keren Rosadone. [address] [place], [place], [id number], [place]. tel:[phone] [facility], [address] [facility] [address], [place], [place], [address], [place] tel:[phone] [place] Encounter for rehabilitation evaluation Dec-0 3 Keren Newsome. [address] [place], [place], [id number], [place]. tel:[phone] [facility], [address], [place], [place], [address], [place] tel:[phone] [place] Muscle weakness (generalized)Other chronic pain 3 Keren Newsome. [address] [place], [place], [id number], [place]. tel:[phone] [facility], 1 [facility] [address], [place], [place], [id number], [place] tel:[phone] [place] OV (chief complaint) Frequent headachesAtypical chest painType 2 diabetes mellitus with hyperglycemia, with long-term current use of insulinLong term (current) use of insulin 3 Caleb Piper. [address] [place], [place], [id number], [place]. tel:[phone] [facility], [address] [facility] [address], [place], [place], [id number], [place] tel:[phone] [place] Gross hematuria Nov- 3 Caleb Piper. [address] [place], [place], [id number], [place]. tel:[phone] [facility], [address], [place], [place], [id number], [place] tel:[phone] [place] Muscle weakness (generalized) Nov-0 3 Keren Newsome. [address] [place], [place], [id number], [place]. tel:[phone] [facility], [address], [place], [place], [address], [place] tel:[phone] [place] Muscle weakness (generalized)Other chronic pain 0 3 Keren Newsome. [address] [place], [place], [id number], [place]. tel:[phone] [facility], [address], [place], [place], [id number], [place] tel:[phone] [place] OV (chief complaint) Acute otitis media with perforation, leftUnspecified perforation of tympanic membrane, left ear 0 3 Caleb Wilsonn. [address] [place], [place], [id number], [place]. tel:[phone] [facility], [address], [place], [place], [id number], [place] tel:[phone] [place] Encounter for rehabilitation evaluation 0 3 Keren Newsome. [address] [place], [place], [id number], [place]. tel:[phone] [facility], [address], [place], [place], [id number], [place] tel:[phone] [place] Other chronic pain 3 Keren Newsome. [address] [place], [place], [address], [place]. tel:[phone] [facility], [address], [place], [place], [address], [place] tel:[phone] [place] OV (chief complaint) Perforated tympanic membrane on examination, leftSore throat 3 Caleb Feliz. [address] [place], [place], [id number], [place]. tel:[phone] [facility], [address], [place], [place], [id number], [place] tel:[phone] [place] URI, acute 3 Caleb Feliz. [address] [place], [place], [id number], [place]. tel:[phone] [facility], [facility], [place], [place], [id number], [place] tel:[phone] [place] Other chronic pain 3 Keren Newsome. [address] [place], [place], [id number], [place]. tel:[phone] [facility], 1 [facility] [address], [place], [place], [id number], [place] tel:[phone] [place] FUV (chief complaint) Uncontrolled type 2 diabetes mellitus with hyperglycemiaLong term (current) use of insulinEsophageal dysphagia 3 Kalin Enriquez. [address] [place], [place], [id number], [place]. tel:[phone] [facility], 1 [facility] [address] [facility], [place], [place], [address], [place] tel:[phone] [place] Dysphagia, unspecifi ed type 3 Lanre Edmondson. [address] [place], [place], [id number], [place]. tel:[phone] [facility], 1 [facility] [address], [place], [place], [address], [place] tel:[phone] [place] Dysphagia, unspecifi ed type 3 Caleb Feliz. [address] [place], [place], [id number], [place]. tel:[phone] [facility], 1 [facility] [address] [facility], [place], [place], [address], [place] tel:[phone] [place] TIA (transient ische sofia attack) 3 Caleb Piper. [address] [place], [place], [id number], [place]. tel:[phone] [facility], [address] [facility], [place], [place], [address], [place] tel:[phone] [place] Other chronic pain 3 Keren Newsome. [address] [place], [place], [id number], [place]. tel:[phone] [facility], [facility], [place], [place], [address], [place] tel:[phone] [place] Encounter for rehabilitation evaluation 2 Keren Newsome. [address] [place], [place], [id number], [place]. tel:[phone] [facility], 1 [facility] [address] [facility], [place], [place], [address], [place] tel:[phone] [place] LAURA (chief complaint) Esophageal dysphagiaGastroesophage al reflux disease without esophagitisHepatic steatosisHistory of colonic polypsPositive hepatitis C antibody testSlow transit constipationStage 2 chronic kidney diseaseHypertensive chronic kidney disease with stage 1 through stage 4 chronic kidney disease, or unspecified chronic kidney diseaseType 2 diabetes mellitus with both eyes affected by proliferative retinopathy without macular edema, with long-term current use of insulinCataract due to DMBMI 32.0-32.9,adultClass 1 obesity due to excess calories with serious comorbidity and body mass index (BMI) of 32.0 to 32.9 in adultVitamin D deficiencyDiabetes mellitus with gastroparesisLong term (current) use of insulinType 2 diabetes mellitus with diabetic polyneuropathy, unspecified whether group home insulin useType 2 diabetes mellitus with diabetic chronic kidney disease, unspecified CKD stage, unspecified whether manager intermediate insulin useType 2 diabetes mellitus with hyperglycemia, unspecified whether manager intermediate insulin useGeneralized anxiety disorderRecurrent major depressive disorder, remission status unspecifiedOpioid use, unspecified, uncomplicatedMixed hyperlipidemiaGeneraliz ed osteoarthrosis of multiple sitesPain of both shoulder jointsPain in left shoulderNeck painBilateral arm painPain in left armFibromyalgiaFrequent headachesCognitive deficitsHistory of pseudoseizureH/O excision of lamina of cervical vertebra for decompression of spinal cordChronic pain syndromeMild intermittent asthma without status asthmaticus without complicationObstructive sleep apnea hypopnea, severePsoriasis, unspecifiedRecurrent fallsEncounter for health maintenance examinationIntermittent vertigoLong term (current) use of oral hypoglycemic drugs 2 Kalin Enriquez. [address] [place], [place], [id number], [place]. tel:[phone] [facility], [address] [facility] [facility], [place], [place], [id number], [place] tel:[phone] [place] PHV (chief complaint) VertigoNeurological deficit, transient 2 Caleb Feliz. [address] [place], [place], [address], [place]. tel:[phone] [facility], [address], [place], [place], [address], [place] tel:[phone] [place] OV (chief complaint) Acute coughSciatica of right side 2 Caleb Feliz. [address] [place], [place], [id number], [place]. tel:[phone] [facility], [address] [employer] [address], [place], [place], [id number], [place] tel:[phone] [place] OV (chief complaint) Stage 2 chronic kidney diseaseLong term (current) use of insulinType 2 diabetes mellitus with stage 2 chronic kidney disease, with long-term current use of insulin 2 Caleb Feliz. [address] [place], [place], [id number], [place]. tel:[phone] [facility], [address], [place], [place], [address], [place] tel:[phone] [place] No Information 2 Caleb Feliz. [address] [place], [place], [id number], [place]. tel:[phone] [facility], [address], [place], [place], [address], [place] tel:[phone] [place] OV (chief complaint) alf (current) use of insulinType 2 diabetes mellitus with hyperglycemia, with long-term current use of insulinFibromyalgia Jun- 2 Caleb Feliz. [address] [place], [place], [id number], [place]. tel:[phone] [facility], [address] [facility] [address], [place], [place], [id number], [place] tel:[phone] [place] OV (chief complaint) Pain of left upper extremityGross hematuriaAllodynia Jun- 2 Caleb Feliz. [address] [place], [place], [address], [place]. tel:[phone] [facility], 1 [facility] [address] [facility], [place], [place], [id number], [place] tel:[phone] [place] Telephone Visit (chief complaint) COVIDType 2 diabetes mellitus with hyperglycemia, with long-term current use of insulinLong term (current) use of insulin 2 Danny Howell. [address] [place], [place], [id number], [place]. tel:[phone] [facility], 1 [address] [facility] [address], [place], [place], [id number], [place] tel:[phone] [place] Encounter for rehabilitation evaluation 2 Bill Solis. [address] [place], [place], [id number], [place]. tel:[phone] [facility], [address], [place], [place], [id number], [place] tel:[phone] [place] Encounter for rehabilitation evaluation 2 Katelynn Saleh. [address] [place], [place], [id number], [place]. tel:[phone] [facility], 1 [facility] [address], [place], [place], [id number], [place] tel:[phone] [place] Encounter for nutritional assessmentExcessive carbohydrate intakeInappropriate diet and eating habitsOther obesity 2 Normile Lelo. [address] [place], [place], [id number], [place]. tel:[phone] [facility], 1 [facility] [address], [place], [place], [id number], [place] tel:[phone] [place] LAURA (chief complaint) Lump of axillary tail of left breastMixed hyperlipidemiaStage 2 chronic kidney diseaseType 2 diabetes mellitus with stage 2 chronic kidney disease, with long-term current use of insulinLong term (current) use of insulinType 2 diabetes mellitus with hyperglycemia, with long-term current use of insulinType 2 diabetes mellitus with diabetic polyneuropathy, with long-term current use of insulinDiabetes mellitus with gastroparesisBody mass index (BMI) of 35.0 to 35.9Class 2 severe obesity with serious comorbidity and body mass index (BMI) of 35.0 to 35.9 in adult, unspecified obesity typeVitamin D deficiencyProliferative diabetic retinopathy of both eyes without macular edema associated with type 2 diabetes mellitusCataract due to DMGastroesophageal reflux disease, unspecified whether esophagitis presentConstipation, unspecified constipation typeHypertensive chronic kidney disease with stage 1 through stage 4 chronic kidney disease, or unspecified chronic kidney diseaseGeneralized anxiety disorderModerate episode of recurrent major depressive disorderOpioid use, unspecified, uncomplicatedPain of both shoulder jointsPain in left shoulderGeneralized osteoarthrosis of multiple sitesBilateral arm painPain in left armFibromyalgiaCognitiv e deficitsMild intermittent asthma without status asthmaticus without complicationObstructive sleep apnea hypopnea, severeOther chronic painEncounter for health maintenance examinationHearing loss, unspecified hearing loss type, unspecified laterality 2 Caleb Piper. [address] [place], [place], [id number], [place]. tel:[phone] [facility], 1 [facility] [address] [place] [address], [id number], [place] tel:[phone] [place] PHV (chief complaint) Diabetes mellitus with gastroparesisConstipati on, unspecified constipation typeLong term (current) use of insulin 2 Caleb Wilsonn. [address] [place], [place], [id number], [place]. tel:[phone] [facility], [facility] [address] [place] [address], [id number], [place] tel:[phone] [place] Encounter for nutritional assessmentDiabetes education, encounter for 2 Tim Arshad. [address] [place], [address]. tel:[phone] [facility], 1 [facility], [place], [place], [id number], [place] tel:[phone] [place] FUV (chief complaint) DysuriaType 2 diabetes mellitus with hyperglycemia, with long-term current use of insulinLong term (current) use of insulinSkin lesion of lower extremityFungal dermatitisDiabetes mellitus with gastroparesis 2 Caleb Wilsonn. [address] [place], [place], [id number], [place]. tel:[phone] [facility], 1 [facility] [address] [place] [address], [id number], [place] tel:[phone] [place] LAURA (chief complaint)A ttending addendum (chief complaint) Type 2 diabetes mellitus with diabetic polyneuropathy, with long-term current use of insulinDiabetes mellitus with gastroparesisGeneralize d anxiety disorderModerate episode of recurrent major depressive disorderConstipation, unspecified constipation typeChronic pain syndromePsoriasis, unspecifiedMixed hyperlipidemiaStage 2 chronic kidney diseaseType 2 diabetes mellitus with stage 2 chronic kidney disease, with long-term current use of insulinLong term (current) use of insulinType 2 diabetes mellitus with hyperglycemia, with long-term current use of insulinBody mass index [BMI] 34.0-34.9, adultClass 1 obesity with serious comorbidity and body mass index (BMI) of 34.0 to 34.9 in adult, unspecified obesity typeProliferative diabetic retinopathy of both eyes without macular edema associated with type 2 diabetes mellitusCataract due to DMGastroesophageal reflux disease, unspecified whether esophagitis presentHypertensive chronic kidney disease with stage 1 through stage 4 chronic kidney disease, or unspecified chronic kidney diseaseOpioid use, unspecified, uncomplicatedNeck painBilateral arm painPain in left armCognitive deficitsMild intermittent asthma without status asthmaticus without complicationObstructive sleep apnea hypopnea, severeSkin lesion of lower extremityEncounter for health maintenance examination 2 Caleb Piper. [address] [place] [address], [id number], [place]. tel:[phone] [facility], 1 [facility] [employer], [id number], [place] tel:[phone] [place] Encounter for rehabilitation evaluation 2 Keren Mercedez. [address] [place] [address], [id number], [place]. tel:[phone] [facility], [address] [facility], [place], [place], [id number], [place] tel:[phone] [place] OV (chief complaint) Moderate episode of recurrent major depressive disorderDiabetes mellitus with gastroparesisPsoriasis, unspecified 1 Caleb Piper. [address] [place] [address], [id number], [place]. tel:[phone] [facility], [address] [place] [address], [id number], [place] tel:[phone] [place] OV (chief complaint) Type 2 diabetes mellitus with diabetic polyneuropathy, with long-term current use of insulinLong term (current) use of insulinDiabetes mellitus with gastroparesisModerate episode of recurrent major depressive disorderSkin lesion of foot 1 Caleb Piper. [address] [place], [place], [id number], [place]. tel:[phone] [facility], [address] [address], [place], [place], [id number], [place] tel:[phone] [place] OV (chief complaint) Chronic bilateral low back pain without sciaticaOther chronic painDermatitisDiabetes mellitus with gastroparesisNeck painLong term (current) use of insulin 1 Caleb Wilsonn. [address] [place], [place], [id number], [place]. tel:[phone] [facility], [address] [address], [place], [place], [id number], [place] tel:[phone] [place] med rec (chief complaint) No Information 1 Caleb Wilsonn. [address] [place], [place], [id number], [place]. tel:[phone] [facility], [address] [address], [place], [place], [id number], [place] tel:[phone] [place] Encounter for nutritional assessmentDysphagia, unspecified typeMorbid (severe) obesity due to excess caloriesDiabetes education, encounter for 1 Tim Arshad. [address] [place], [address]. tel:[phone] [facility], [address] [address], [place], [place], [id number], [place] tel:[phone] [place] Encounter for rehabilitation evaluation 1 Bill Solis. [address] [place], [place], [id number], [place]. tel:[phone] [facility], [address] [address], [place], [place], [id number], [place] tel:[phone] [place] Encounter for rehabilitation evaluation 1 Theroux Olga Lidia. [address] [place], [address]. tel:[phone] [facility], [address], [place], [place], [id number], [place] tel:[phone] [place] LAURA (chief complaint)D steve (chief complaint) Mixed hyperlipidemiaType 2 diabetes mellitus with stage 1 chronic kidney disease, with long-term current use of insulinLong term (current) use of insulinType 2 diabetes mellitus with hyperglycemia, with long-term current use of insulinType 2 diabetes mellitus with diabetic polyneuropathy, with long-term current use of insulinDiabetes mellitus with gastroparesisClass 2 severe obesity with serious comorbidity and body mass index (BMI) of 35.0 to 35.9 in adult, unspecified obesity typeBody mass index [BMI] 35.0-35.9, adultVitamin D deficiencyProliferative diabetic retinopathy of both eyes without macular edema associated with type 2 diabetes mellitusCataract due to DMGastroesophageal reflux disease, unspecified whether esophagitis presentHepatic steatosisConstipation, unspecified constipation typeStage 1 chronic kidney diseaseGeneralized anxiety disorderModerate episode of recurrent major depressive disorderOpioid use, unspecified, uncomplicatedGeneralize d osteoarthrosis of multiple sitesPain of both shoulder jointsPain in left shoulderBilateral arm painPain in left armOther chronic painCognitive deficitsHistory of pseudoseizureMild intermittent asthma without status asthmaticus without complicationObstructive sleep apnea hypopnea, severePsoriasis, unspecifiedEncounter for health maintenance examinationHypertensive chronic kidney disease with stage 1 through stage 4 chronic kidney disease, or unspecified chronic kidney disease 1 Caleb Piper. [address] [place] [address], [id number], [place]. tel:[phone] [facility], [address], [place], [place], [id number], [place] tel:[phone] [place] No Information 1 Caleb Paz [address] [place], [place], [id number], [place]. tel:[phone] [facility], [address], [place], [place], [id number], [place] tel:[phone] [place] No Information 1 Caleb Wilsonn. [address] [place], [place], [id number], [place]. tel:[phone] [facility], [address], [place], [place], [id number], [place] tel:[phone] [place] Pleuritic CP (chief complaint) Pleuritic chest pain 1 Caleb Feliz. [address] [place], [place], [id number], [place]. tel:[phone] [facility], [address] [facility] [address], [place], [place], [id number], [place] tel:[phone] [place] Pain (chief complaint) Bilateral arm painPain in left armPain of both shoulder jointsPain in left shoulderCurrent moderate episode of major depressive disorder without prior episode 1 Caleb Feliz. [address] [place], [place], [id number], [place]. tel:[phone] [facility], 1 [facility] [address] [facility], [place], [place], [id number], [place] tel:[phone] [place] Stage 2 chronic kidn ey disease 1 Caleb Feliz. [address] [place], [place], [id number], [place]. tel:[phone] [facility], 1 [facility] [address] [facility], [place], [place], [id number], [place] tel:[phone] [place] Exposure to COVID-19 virusDysuria 1 Caleb Feliz. [address] [place], [place], [id number], [place]. tel:[phone] [facility], [address] [facility], [place], [place], [id number], [place] tel:[phone] [place] Other chronic pain 1 Theroux Olga Lidia. [address] [place], [address]. tel:[phone] [facility], [address], [place], [place], [id number], [place] tel:[phone] [place] Other chronic pain 1 Theroux Olga Lidia. [address], [place], [address]. tel:[phone] [facility], [address], [place], [place], [id number], [place] tel:[phone] [place] Other chronic pain 1 Theroux Olga Lidia. [address] [place], [address]. tel:[phone] [facility], [address], [place], [place], [id number], [place] tel:[phone] [place] Other chronic pain 1 Theroux Olga Lidia. [address] [place], [address]. tel:[phone] [facility], [address], [place], [place], [id number], [place] tel:[phone] [place] Encounter for rehabilitation evaluation 1 Theroux Olga Lidia. [address], [place], [address]. tel:[phone] [facility], [address], [place], [place], [id number], [place] tel:[phone] [place] Biannual (chief complaint)E xam (chief complaint)B Data (chief complaint) Mixed hyperlipidemiaType 2 diabetes mellitus with stage 2 chronic kidney disease, with long-term current use of insulinChronic kidney disease, stage 2 (mild)alf (current) use of insulinType 2 diabetes mellitus with hyperglycemia, with long-term current use of insulinType 2 diabetes mellitus with diabetic polyneuropathy, with long-term current use of insulinType 2 diabetes mellitus with diabetic dermatitis, with long-term current use of insulinHypotension due to drugsDiabetes mellitus with gastroparesisClass 1 obesity with serious comorbidity and body mass index (BMI) of 33.0 to 33.9 in adult, unspecified obesity typeBody mass index [BMI] 33.0-33.9, adultVitamin D deficiencyProliferative diabetic retinopathy of both eyes without macular edema associated with type 2 diabetes mellitusCataract due to DMGastroesophageal reflux disease without esophagitisGastroparesi sHepatic steatosisHistory of colonic polypsConstipation, unspecified constipation typeHypertensive chronic kidney disease with stage 1 through stage 4 chronic kidney disease, or unspecified chronic kidney diseaseGeneralized anxiety disorderModerate episode of recurrent major depressive disorderLong term (current) use of opiate analgesicGeneralized osteoarthrosis of multiple sitesPain of both shoulder jointsPain in left shoulderFibromyalgiaFre quent headachesCognitive deficitsOther chronic painMild intermittent asthma without status asthmaticus without complicationObstructive sleep apnea hypopnea, severePsoriasis, unspecifiedAllodyniaEnc ounter for health maintenance examinationOther otitis externa, left ear 1 Caleb Feliz. [address] [place] [address], [id number], [place]. tel:[phone] [facility], [address] [place], [id number], [place] tel:[phone] [place] ov (chief complaint) Pain of both shoulder jointsPain in left shoulderAllodyniaDyspha korin, unspecified type Sep- 0 Caleb Feliz. [address] [place], [place], [id number], [place]. tel:[phone] [facility], [address], [place], [place], [id number], [place] tel:[phone] [place] Post Op (chief complaint) Other chronic painOdynophagiaDiabetic hypoglycemiaH/O excision of lamina of cervical vertebra for decompression of spinal cordLong term (current) use of insulin 0 Caleb Feliz. [address] [place], [place], [id number], [place]. tel:[phone] [facility], [address], [place], [place], [id number], [place] tel:[phone] [place] Type 2 diabetes mellitus with hyperglycemia, with long-term current use of insulin Aug- 0 Caleb Feliz. [address] [place], [place], [id number], [place]. tel:[phone] [facility], [address], [place], [place], [id number], [place] tel:[phone] [place] Other chronic painOt her abnormalities of gait and mobility Aug- 0 Khan Irma. [address] [place], [place], [id number], [place]. tel:[phone] [facility], [address] [facility] [address] [facility], [place], [place], [id number], [place] tel:[phone] [place] Cervical stenosis of spine Aug- 0 Caleb Feliz. [address] [place], [place], [id number], [place]. tel:[phone] [facility], [address] [facility] [address], [place], [place], [id number], [place] tel:[phone] [place] Other abnormalities of gait and mobility 0 0 Khan Irma. [address] [place], [place], [id number], [place]. tel:[phone] [facility], [address], [place], [place], [id number], [place] tel:[phone] [place] OV (chief complaint) Cervical stenosis of spineType 2 diabetes mellitus with hyperglycemia, with long-term current use of insulinLong term (current) use of insulin Jul-2 0 Caleb Feliz. [address] [place], [place], [id number], [place]. tel:[phone] [facility], [facility], [place], [place], [id number], [place] tel:[phone] [place] No Information Sep- 0 Caleb Feliz. [address] [place], [place], [id number], [place]. tel:[phone] [facility], [address], [place], [place], [id number], [place] tel:[phone] [place] History of colonic polypsPain of both shoulder jointsPain in left shoulder Sep-0 202 0 Caleb Feliz. [address] [place], [place], [id number], [place]. tel:[phone] [facility], 1 [facility] [address] [facility], [place], [place], [id number], [place] tel:[phone] [place] Rectal Bleed (chief complaint) Rectal bleeding Apr- 0 Cysz Evelina. [address] [place], [place], [id number], [place]. tel:[phone] [facility], 1 [facility] [address], [place], [place], [id number], [place] tel:[phone] [place] Other chronic pain Apr- 0 Theroux Olga Lidia. [address] [place], [address]. tel:[phone] [facility], [address] [facility] [address] [facility], [place], [place], [id number], [place] tel:[phone] Other chronic pain Apr- 0 Theroux Olga Lidia. [address] [place], [address]. tel:[phone] [facility], 1 [facility] [address] [facility], [place], [place], [id number], [place] tel:[phone] [place] No Information Apr- 3 0 Caleb Feliz. [address] [place], [place], [id number], [place]. tel:[phone] [facility], [address], [place], [place], [id number], [place] tel:[phone] [place] Other chronic pain Sterling- 0-202 0 Theroux Olga Lidia. [address] [place], [address]. tel:[phone] [facility], [address], [place], [place], [id number], [place] tel:[phone] [place] Spinal stenosis, cervical region 9 0 Caleb Feliz. [address] [place], [place], [id number], [place]. tel:[phone] [facility], [address], [place], [place], [id number], [place] tel:[phone] [place] Muscle weakness (generalized) 0 8 0 Theroux Olga Lidia. [address] [place], [address]. tel:[phone] [facility], [address], [place], [place], [id number], [place] tel:[phone] [place] Muscle weakness (generalized) 2 0 Theroux Olga Lidia. [address] [place], [address]. tel:[phone] [facility], [address], [place], [place], [id number], [place] tel:[phone] [place] No Information 3 0202 0 Caleb Feliz. [address] [place], [place], [id number], [place]. tel:[phone] [facility], [address] [facility] [address] [place] [address], [id number], [place] tel:[phone] [place] Encounter for rehabilitation evaluation 0 Theroux Olga Lidia. [address] [place], [address]. tel:[phone] [facility], [address], [place], [place], [id number], [place] tel:[phone] [place] Encounter for rehabilitation evaluation 0 Khan Irma. [address] [place], [place], [id number], [place]. tel:[phone] [facility], [address], [place], [place], [id number], [place] tel:[phone] [place] Biannual (chief complaint)a dditional data (chief complaint) Diabetic gastroparesisGastropare sisPain of both shoulder jointsClosed fracture of tooth, initial encounterMixed hyperlipidemiaType 2 diabetes mellitus with stage 1 chronic kidney disease, with long-term current use of insulinChronic kidney disease, stage 1Long term (current) use of insulinType 2 diabetes mellitus with diabetic dermatitis, with long-term current use of insulinClass 1 obesity with serious comorbidity and body mass index (BMI) of 33.0 to 33.9 in adult, unspecified obesity typeBody mass index (bmi) 33.0-33.9, adultVitamin D deficiencyProliferative diabetic retinopathy of both eyes without macular edema associated with type 2 diabetes mellitusGastroesophagea l reflux disease, esophagitis presence not specifiedHepatic steatosisPositive hepatitis C antibody testHistory of colonic polypsConstipation, unspecified constipation typeGeneralized anxiety disorderModerate episode of recurrent major depressive disorderLong term (current) use of opiate analgesicGeneralized osteoarthrosis of multiple sitesFibromyalgiaFreque nt headachesCognitive deficitsHiatal herniaSeizureHistory of carpal tunnel releaseType 2 diabetes mellitus with diabetic polyneuropathy, with long-term current use of insulinType 2 diabetes mellitus with hyperglycemia, with long-term current use of insulinOther chronic painMild intermittent asthma without status asthmaticus without complicationObstructive sleep apnea hypopnea, severePsoriasis, unspecifiedRecurrent fallsEncounter for health maintenance examination 0 Caleb Piper. [address] [place] [address], [id number], [place]. tel:[phone] [facility], [address] [employer] [address] [place] [address], [id number], [place] tel:[phone] [place] Type 2 diabetes mellitus with other diabetic arthropathy 0 Caleb Piper. [address] [place], [place], [id number], [place]. tel:[phone] [facility], [address], [place], [place], [id number], [place] tel:[phone] [place] Chronic bilateral lo w back pain without sciaticaOther chronic pain Apr-2 0-202 0 Caleb Feliz. [address] [place], [place], [id number], [place]. tel:[phone] [facility], 1 [facility] [address] [facility], [place], [place], [id number], [place] tel:[phone] [place] Rectal bleeding- (chief complaint) Other chronic painGastroenteritisH/O: GI bleedXerosis cutisPsoriasis, unspecifiedPain in right shoulderGastro-esophage al reflux disease without esophagitis Dec- 0 Caleb Feliz. [address] [place], [place], [id number], [place]. tel:[phone] [facility], [facility], [place], [place], [id number], [place] tel:[phone] [place] Type 2 diab with pro lif diab rtnop with macular edema, unsp Dec-0 0 Caleb Feliz. [address] [place], [place], [id number], [place]. tel:[phone] [facility], 1 [facility] [employer] [facility], [place], [place], [id number], [place] tel:[phone] [place] FUV (chief complaint) AnxietyFrequent headachesSeizureObstruc tive sleep apnea hypopnea, severeConstipation, unspecified constipation typeType 2 diab with prolif diab rtnop with macular edema, unsp 0 Caleb Feliz. [address] [place], [place], [id number], [place]. tel:[phone] [facility], [address] [facility] [address] [place] [address], [id number], [place] tel:[phone] [place] Type 2 diabetes mellitus with proliferative retinopathy and macular edema, with long-term current use of insulin, unspecified lateralityType 2 diabetes mellitus with diabetic nephropathy 0 0 Caleb Feliz. [address] [place], [place], [id number], [place]. tel:[phone] [facility], [address], [place], [place], [id number], [place] tel:[phone] [place] SeizureObstructive sleep apnea hypopnea, severe 0 Caleb Feliz. [address] [place] [address], [id number], [place]. tel:[phone] [facility] [facility], [address], [place], [place], [id number], [place] tel:[phone] [facility] FUV (chief complaint) Gastroesophageal reflux disease without esophagitisFrequent headachesModerate episode of recurrent major depressive disorderFibromyalgiaArt hritisPsoriasis, unspecifiedRight flank painObstructive sleep apnea hypopnea, severeRash 0 Caleb Feliz. [address] [place] [address], [id number], [place]. tel:[phone] [facility], [address] [facility], [place], [place], [id number], [place] tel:[phone] [facility] Left leg pain- (chief complaint) Skin lesion of left legUrinary retention 0 Caleb Feliz. [address] [place] [address], [id number], [place]. tel:[phone] [facility], [address] [place] [address], [id number], [place] tel:[phone] [facility] Semi Annual (chief complaint)A dditional Data (chief complaint) Type 2 diabetes mellitus with diabetic neuropathy, with long-term current use of insulinLong term (current) use of insulinHypertensive chronic kidney disease with stage 1 through stage 4 chronic kidney disease, or unspecified chronic kidney diseaseMixed hyperlipidemiaType 2 diabetes mellitus with proliferative retinopathy and macular edema, with long-term current use of insulin, unspecified lateralityType 2 diabetes mellitus with diabetic autonomic neuropathy, with long-term current use of insulinType 2 diabetes mellitus with diabetic dermatitis, with long-term current use of insulinVitamin D deficiencyGastroesophag eal reflux disease without esophagitisHepatic steatosisAnxietyModerat e episode of recurrent major depressive disorderArthritisFibrom yalgiaFrequent headachesCognitive disorderSeizureMild intermittent asthma without status asthmaticus without complicationModerate obstructive sleep apneaPsoriasis, unspecifiedPositive hepatitis C antibody testEncounter for general adult medical examination with abnormal findingsChronic pain syndromeChronic kidney disease due to diabetes mellitusChronic kidney disease, stage 1Class 1 obesity due to excess calories with serious comorbidity and body mass index (BMI) of 33.0 to 33.9 in adultBody mass index (bmi) 33.0-33.9, adultChronic otitis externa of left ear, unspecified typeEdema of both legsGastroparesis 9 Caleb Piper. [address] [place] [address], [id number], [place]. tel:[phone] [facility], [address] [place] [address], [id number], [place] tel:[phone] [facility] Essential hypertensionOld MN (myocardial infarction)Hyperlipidem ia, unspecified hyperlipidemia typeDiabetic gastroparesisGastropare sisType 2 diabetes mellitus with nephropathyType 2 diabetes mellitus with retinopathy and macular edema, without long-term current use of insulin, unspecified laterality, unspecified retinopathy severityType 2 diabetes mellitus with diabetic neuropathy, without long-term current use of insulinGastroesophageal reflux disease without esophagitisChronic hepatitis C without hepatic comaMajor depressive disorder with current active episode, unspecified depression episode severity, unspecified whether recurrentSeizureAsthma without status asthmaticus without complication, unspecified asthma severity, unspecified whether persistentType 2 diabetes mellitus with diabetic dermatitis, without long-term current use of insulinHemiplegia and hemiparesis following cerebral infarction affecting left non-dominant side 9 Lilia Cloud. [address] [place], [address], [place]. tel:[phone] [facility], [address] [place] [address], [id number], [place] tel:[phone] [facility] Non-recurrent acute serous otitis media of right earArthralgia of left temporomandibular jointWeight gain 9 Caleb Feliz. [address] [place], [place], [id number], [place]. tel:[phone] [facility], [address], [place], [place], [id number], [place] tel:[phone] [facility] Menopausal and femal e climacteric states 9 Caleb Feliz. [address] [place], [place], [id number], [place]. tel:[phone] [facility], [address], [place], [place], [id number], [place] tel:[phone] [facility] Type 2 diabetes mellitus with diabetic nephropathyLong term current use of insulin 9 Caleb Feliz. [address] [place], [place], [id number], [place]. tel:[phone] [facility], [address], [place], [place], [id number], [place] tel:[phone] [facility] Gastro-esophageal reflux disease without esophagitis 9 Caleb Feliz. [address] [place], [place], [id number], [place]. tel:[phone] [facility], [address], [place], [place], [id number], [place] tel:[phone] [facility] Other pruritus 9 Tim Cotea. [address] [place], [address]. tel:[phone] [facility], [address], [place], [place], [id number], [place] tel:[phone] [facility] Type 2 diabetes mellitus with diabetic nephropathy 9 Caleb Feliz. [address] [place], [place], [id number], [place]. tel:[phone] [facility], [address], [place], [place], [id number], [place] tel:[phone] [facility] Encounter for genera l adult medical exam w abnormal findings 9 Caleb Feliz. [address] [place], [place], [id number], [place]. tel:[phone] [facility], [address] [facility] [address] [facility], [place], [place], [id number], [place] tel:[phone] [facility] Follow up Medical Condition (chief complaint) Cellulitis of right toeOther pruritusPsoriasisType 2 diabetes mellitus with diabetic nephropathyGastro-esoph ageal reflux disease without esophagitisAnxiety disorder, unspecifiedChronic viral hepatitis CMenopausal and female climacteric states 9 Caleb Feliz. [address] [place], [place], [id number], [place]. tel:[phone] [facility], [address] [facility] [address] [facility], [place], [place], [id number], [place] tel:[phone] [facility] Abd Rash (chief complaint) Dermatitis, unspecifiedGastro-esoph ageal reflux disease without esophagitisType 2 diabetes mellitus with diabetic nephropathyChronic viral hepatitis CPsoriasisOther pruritusChronic pain syndromeErythema intertrigoCellulitis of right toeUnspecified mental disorder due to known physiological condition 9 Caleb Feliz. [address] [place], [place], [id number], [place]. tel:[phone] [facility], [address] [facility] [address] [facility], [place], [place], [id number], [place] tel:[phone] [facility] Dermatitis, unspecified 9 Caleb Feliz. [address] [place], [place], [id number], [place]. tel:[phone] [facility], [address] [facility], [place], [place], [id number], [place] tel:[phone] [facility] No Information 9 Caleb Feliz. [address] [place], [place], [id number], [place]. tel:[phone] [facility], [address], [place], [place], [id number], [place] tel:[phone] [facility] Major depressive disorder, single episode, unspecifiedAnxiety disorder, unspecified 9 Caleb Feliz. [address] [place], [place], [id number], [place]. tel:[phone] [facility], [address] [facility] [address], [place], [place], [id number], [place] tel:[phone] [facility] No Information 9 Caleb Feliz. [address] [place], [place], [id number], [place]. tel:[phone] [facility], [address], [place], [place], [id number], [place] tel:[phone] [facility] Gastro-esophageal reflux disease without esophagitisHeadacheCoug h 9 Caleb Feliz. [address] [place], [place], [id number], [place]. tel:[phone] [facility], [address] [facility], [place], [id number], [place] tel:[phone] [facility] Type 2 diabetes mellitus with diabetic nephropathy 9 Caleb Feliz. [address] [place] [address], [id number], [place]. tel:[phone] [facility], [address], [place], [place], [id number], [place] tel:[phone] [facility] 2 week follow up for pain (chief complaint) Chronic pain syndromeType 2 diabetes mellitus with diabetic nephropathy 9 [facility] [address] [place] [address], [id number], [place]. tel:[phone] [facility], [address], [place], [place], [id number], [place] tel:[phone] [facility] Preventive care 2 Weeks (chief complaint) Type 2 diabetes mellitus with diabetic nephropathyOther seizuresChronic pain syndromeOld myocardial infarction 9 Caleb Feliz. [address] [place], [place], [id number], [place]. tel:[phone] [facility], [address], [place], [place], [id number], [place] tel:[phone] [facility] No Information 9 Caleb Feliz. [address] [place], [place], [id number], [place]. tel:[phone] [facility], [address], [place], [place], [id number], [place] tel:[phone] [facility] Gastro-esophageal reflux disease without esophagitis 9 Caleb Fleiz. [address] [place], [place], [id number], [place]. tel:[phone] [facility], [address], [place], [place], [id number], [place] tel:[phone] [facility] Major depressive disorder, single episode, unspecifiedAnxiety disorder, unspecified 9 Caleb Feliz. [address] [place], [place], [id number], [place]. tel:[phone] [facility], [address] [place] [address], [id number], [place] tel:[phone] [facility] No Information 9 Caleb Feliz. [address] [place], [place], [id number], [place]. tel:[phone] [facility], [address], [place], [id number], [place] tel:[phone] [facility] Type 2 diabetes mellitus with diabetic nephropathy 9 Tim Arshad. [address] [place], [address]. tel:[phone] [facility], [address], [place], [id number], [place] tel:[phone] [facility] Cough 9 Perico Tripathi. [address] [place], [address]. tel:[phone] [facility], [address] [address], [place], [place], [id number], [place] tel:[phone] [facility] Cough 9 Pualma Angelo. [address] [place], [place], [id number]. tel:[phone] [facility], [address] [address], [place], [place], [id number], [place] tel:[phone] [facility] PEE (chief complaint) Type 2 diabetes mellitus with diabetic nephropathyHyperlipidem ia, unspecifiedOther specified diabetes mellitus with unspecified diabetic retinopathy with macular edemaPersonal history of colonic polypsAnxiety disorder, unspecifiedGastro-esoph ageal reflux disease without esophagitisFatty (change of) liver, not elsewhere classifiedOld myocardial infarctionMajor depressive disorder, single episode, unspecifiedObstructive sleep apnea (adult) (pediatric)Fibromyalgia Unspecified asthma, uncomplicatedHeadacheDe rmatitis, unspecifiedOther abnormalities of gait and mobilityVitamin D deficiency, unspecifiedObesity, unspecifiedChronic pain syndromeType 2 diabetes mellitus with diabetic neuropathy, unspecifiedEssential (primary) hypertensionOther seizuresHemiplegia and hemiparesis following cerebral infarction affecting left non-dominant sideBody mass index (BMI) 32.0-32.9, adultEncounter for general adult medical exam w abnormal findingsLocalized swelling, mass and lump, right lower limbMastodynia 9 Caleb Feliz. [address] [place], [place], [id number], [place]. tel:[phone] [facility], [address] [address], [place], [place], [id number], [place] tel:[phone] [facility] Cough 9 Tim Arshad. [address] [place], [address]. tel:[phone] [facility], [address] [address], [place], [place], [id number], [place] tel:[phone] [facility] Intake (chief complaint) Encntr for general adult medical exam w/o abnormal findingsEncounter for screening for respiratory tuberculosis 9 Caleb Piper. [address] [place] [address], [place], [place], [id number], [place]. tel:[phone] Family History Family Member Type Diagnosis Age At Onset No Information Immunizations Vaccine Date Status Comments Fluzone Triv administered Source: New Immunization Record AFLURIA QUAD administered Sourc e: New Immunization Record Fluzone Quad administered Sourc e: New Immunization Record Zoster recombinant subunit administered S ource: New Immunization Record Fluzone High-Dose administered Source: New Immunization Record Zoster recombinant subunit administered S ource: New Immunization Record pneumococcal conjugate vacci ne, 13 valent administered Source: New Immuniza tion Record COVID-19 Moderna administered Source: Oth er Registry COVID-19 Moderna administered Source: Oth er Registry Flublok administered Source: Ne w Immunization Record Hep A (adult) administered Source: New Im munization Record Hep B (adult) administered Source: New Im munization Record Hep A and Hep B, adult administered Sourc e: New Immunization Record Hep A and Hep B, adult administered Sourc e: New Immunization Record Influenza, recombinant, injectable, quadrivalent, preservative free Flublok Quad administered Source: New Immuniza tion Record Pneumococcal polysaccharide PPV23 administered Note: VIAL ACCIDENTA LLY DISCARDED BEFORE INFO OBTAINED ; Source: New Immunization Record Tdap administered Source: New Imm unization Record Flu-IIV4, p-free administered Source: Oth er Registry PPSV23 administered Source: Other R egistry Payers Payer name Insurance type Covered democrat ID Angeles tellez(s) [facility] 16 [id number] [facility] 16 [id number] [facility] 16 [id number] [facility] 16 [id number] [facility] 16 [id number] [facility] 16 [id number] [facility] 16 [id number] [facility] 16 [id number] [facility] 16 [id number] [facility] 16 [id number] [facility] 16 [id number] [facility] 16 [id number] [facility] 16 [id number] [facility] 16 [id number] [facility] 16 [id number] [facility] 16 [id number] [facility] 16 [id number] [facility] 16 [id number] [facility] 16 [id number] [facility] 16 [id number] [facility] 16 [id number] [facility] 16 [id number] [facility] 16 [id number] Social History Type Description Quantity Date Captured Comments Sex Female Smoking Status No Information Chief Complaint And Reason For Visit No Information Plan Of Treatment Date Type Action Status Referral Ordered: Patient Registration Specialist (related to Type 2 diabetes mellitus with retinopathy and macular edema, without long-term current use of insulin, unspecified laterality, unspecified retinopathy severity) ordered Referral Ordered: Dermatology (related to Psoriasis) ordered Referral Referred To: [facility] pre op Ordered: Referrals: Internal Medicine. [facility] pre op. Consult ordered Referral Ordered: Referrals: Neurosurgery. Consult. Surgery Appointment date/timeframe: 09/05/2023 ordered Referral Referred To: [facility] Plastics/Hand surgery Ordered: Referrals: Hand surgery. [facility] Plastics/Hand surgery. Consult ordered Referral Ordered: Referrals: [facility]- Podiatry Location: [facility]. Follow-up and treat Appointment date/timeframe: 10/02/2023 ordered Referral Ordered: Referrals: Oral Maxillofacial Surgery. Consult Appointment date/timeframe: 11/14/2023 ordered Referral Ordered: Referrals: [facility]- Dental Location: [facility]. Follow-up and treat ordered Referral Ordered: Referrals: Otolaryngology. Consult ordered Referral Ordered: Referrals: Speech Therapy. Location: . Evaluate and treat ordered Referral Referred To: [facility] Ordered: Referrals: Neurology. [facility]. Consult Appointment date/timeframe: 04/19/2023 ordered Referral Referred To: [facility] Ordered: Referrals: Patient Registration Specialist. [facility]. Consult Appointment date/timeframe: 12/06/2022 ordered Referral Ordered: Referrals: Urology. Consult. Diagnostic testing Appointment date/timeframe: 11/22/2022 ordered Referral Ordered: Referrals: Audiology Hearing and Speech. Consult ordered Referral Referred To: Breast surgery At [facility] [place] Ordered: Referrals: General Surgery. Breast surgery At [facility]. Evaluate and treat Appointment date/timeframe: 02/07/2023 ordered Referral Referred To: [facility] Ordered: Referrals: Podiatry. [facility]. Evaluate and treat ordered Referral Referred To: [facility] Ordered: Referrals: Patient Registration Specialist. [facility]. Evaluate and treat Appointment date/timeframe: 12/06/2022 ordered Referral Referred To: Dr Jose Angel Peralta Ordered: Referrals: Ophthalmology. Dr Jose Angel Peralta. Evaluate and treat Appointment date/timeframe: 01/03/2023 ordered Referral Ordered: Referrals: Dentistry Appointment date/timeframe: 12/28/2022 ordered Referral Ordered: Referrals: Retina Specialist. Follow-up and treat Appointment date/timeframe: 12/06/2021 ordered Referral Ordered: Referrals: Neurology. Consult Appointment date/timeframe: 04/19/2023 ordered Referral Ordered: US EXAM ABDOM COMPLETE Appointment date/timeframe: 08/20/2021 ordered Referral Referred To: Physical Therapy Ordered: Referrals: Physical Therapy. Follow-up and treat ordered Referral Referred To: Dr Min Thacker Ordered: Referrals: Slotter Operator. Dr Min Thacker. Consult ordered Referral Ordered: MRI LUMBAR SPINE W/O DYE Appointment date/timeframe: 08/23/2021 ordered Referral Ordered: Referrals: Gastroenterology. Evaluate and treat Appointment date/timeframe: 10/18/2021 ordered Referral Ordered: X-RAY EXAM CHEST 2 VIEWS ordered Referral Ordered: CT ANGIOGRAPHY CHEST ordered Referral Ordered: EMG Appointment date/timeframe: 10/12/2021 ordered Referral Ordered: US Abdomen, Limitted Appointment date/timeframe: 01/08/2021 ordered Referral Referred To: Dr Rios Ordered: Referrals: Neurosurgery. Dr Rios. Surgery ordered Referral Ordered: ELECTROCARDIOGRAM COMPLETE Appointment date/timeframe: 02/10/2021 ordered Referral Ordered: MRI LOWER EXTREMITY W/O DYE Appointment date/timeframe: 07/17/2020 ordered Referral Ordered: Referrals: Neurosurgery. Consult Appointment date/timeframe: 05/11/2020 ordered Referral Ordered: MAMMOGRAM SCREENING Appointment date/timeframe: 07/14/2020 ordered Referral Ordered: MRI CERVICAL SPINE W/O DYE Appointment date/timeframe: 04/24/2020 ordered Referral Ordered: Referrals: Dentistry. Evaluate and treat Appointment date/timeframe: 05/22/2020 ordered Referral Ordered: US EXAM CHEST ordered Referral Ordered: Referrals: Orthopedic Surgery. Evaluate and treat Appointment date/timeframe: 05/13/2020 ordered Referral Referred To: Physical Therapy Ordered: Referrals: Physical Therapy. Evaluate and treat Appointment date/timeframe: 02/17/2020 ordered Referral Ordered: Referrals: Gastroenterology. Follow-up and Treat Appointment date/timeframe: 07/02/2020 ordered Referral Referred To: Occupational Therapy Ordered: Referrals: Occupational Therapy. Evaluate and treat ordered Referral Ordered: Referrals: Endocrinology, Diabetes and Metabolism. Follow-up and Treat Appointment date/timeframe: 12/13/2019 ordered Referral Ordered: Referrals: Sleep Medicine. Evaluate and treat Appointment date/timeframe: 05/05/2020 ordered Referral Ordered: EEG MONITOR TECHNOL ATTENDED Appointment date/timeframe: 11/21/2019 ordered Referral Ordered: US EXAM ABDO BACK WALL COMP Appointment date/timeframe: 11/19/2019 ordered Referral Ordered: X-RAY EXAM L-S SPINE 2/3 VWS Appointment date/timeframe: 11/19/2019 ordered Referral Referred To: [facility] Headache clinic Ordered: Referrals: Neurology. [facility] Headache clinic. Consult Appointment date/timeframe: 11/12/2019 ordered Referral Ordered: Referrals: Rheumatology. Consult Appointment date/timeframe: 04/27/2020 ordered Referral Referred To: ANTHONY jean(Dr Vega) Ordered: Referrals: Ophthalmology. ANTHONY jean(Dr Vega). Follow-up and Treat Appointment date/timeframe: 04/21/2020 ordered Referral Referred To: [facility] epilepsy clinic Ordered: Referrals: Neurology. [facility] epilepsy clinic. Evaluate and treat Appointment date/timeframe: 11/12/2019 ordered Referral Ordered: Referrals: Gynecology. Follow-up and Treat ordered Referral Referred To: [facility] Ordered: Referrals: Endocrinology, Diabetes and Metabolism. [facility]. Consult Appointment date/timeframe: 10/10/2019 ordered Referral Referred To: [facility] Ordered: Referrals: Gynecology. [facility]. Consult Appointment date/timeframe: 09/11/2019 ordered Referral Ordered: US Abdominal, single quadrant Appointment date/timeframe: 08/14/2019 ordered Referral Ordered: Referrals: Dermatology. Consult Appointment date/timeframe: 10/24/2019 ordered Referral Ordered: MRI BRAIN W/O DYE Appointment date/timeframe: 08/20/2019 ordered Referral Ordered: Referrals: Clinical Psychology. Evaluate and treat ordered Referral Ordered: Referrals: Psychiatry. Evaluate and treat ordered Referral Ordered: Modified Barium Swallow ordered Referral Ordered: Referrals: Psychiatry. Follow-up and Treat ordered Referral Ordered: Referrals: Clinical Psychology. Follow-up and Treat ordered Referral Ordered: MAMMOGRAM, ONE BREAST R Appointment date/timeframe: 05/22/2019 ordered Referral Ordered: US EXAM, CHEST Appointment date/timeframe: 05/22/2020 ordered Referral Ordered: Referrals: Podiatry. Evaluate and treat ordered [facility] Ordered: Referrals: [facility]enterology. [facility]. Consult Appointment date/timeframe: 09/09/2019 ordered Referral Referred To: Speech Therapy Ordered: Referrals: Speech Therapy. Evaluate and treat ordered Appointment Colon, Appointment Colon, Appointment Colon, Appointment Colon, Karime Appointment Colon, Karime Appointment Colon, Karime Appointment Colon, Appointment Colon, Appointment Colon, Appointment Colon, Appointment Colon, Appointment Colon, Appointment Colon, Appointment Colon, Appointment Colon, Karime Patient Education Lantus Solosta r U-100 Insulin 100 unit/mL (3 mL) subcutaneous pen completed Future Order: Radiol ogy Order Mammogram (Screen); Bilat, 2-view study of each breast, incl computer-aided detection when performed ([id number]), Ordered on: Ordered Future Order: Lab Order SARS-CoV -2 Antigen Fluorescent Immunoassay (KELSEA) ([id number]), Ordered on: Ordered Future Order: Radiol ogy Order Abdomen Ultrasound; Limited (e.g., single organ, quadrant, follow-up) ([id number]), Ordered on: Ordered Future Order: Radiol ogy Order Cervical Spine MRI WITHOUT and WITH Contrast ([id number]), Ordered on: Ordered Future Order: Radiol ogy Order Abdomen and Pelvis CT WITHOUT and WITH Contrast ([id number]), Ordered on: Ordered Future Order: Radiol ogy Order External electrocardiographic recording for more than 7 days up to 15 days by continuous rhythm recording and storage; REVIEW AND INTERPRETATION ([id number]), Ordered on: Ordered Future Order: Radiol ogy Order Duplex scan of extracranial arteries; complete bilateral study ([id number]), Ordered on: Ordered Future Order: Radiol ogy Order External mobile cardiovascular telemetry w/ECG recording, up to 30 days; technical support ([id number]), Ordered on: Ordered Future Order: Lab Order SARS-CoV -2 Antigen Fluorescent Immunoassay (KELSEA) ([id number]), Ordered on: Ordered Future Order: Lab Order CBC (INC LUDES DIFF/PLT) ([id number]), Scheduled for: Ordered Future Order: Lab Order COMPREHE NSIVE METABOLIC PANEL W/EGFR ([id number]), Scheduled for: Ordered Future Order: Lab Order HEMOGLOB IN A1c (496), Scheduled for: Ordered Future Order: Lab Order MICROALB UMIN, RANDOM URINE (W/CREATININE) ([id number]), Scheduled for: Ordered Future Order: Lab Order VITAMIN B12 (927), Scheduled for: Ordered Future Order: Lab Order VITAMIN D-OH ([id number]), Scheduled for: Ordered Future Order: Lab Order Drug Abu se Panel 9 with Confirmation, Urine ([id number]), Scheduled for: Ordered Future Order: Lab Order LIPID PA LALIT ([id number]), Scheduled for: Ordered History Of Present Illness Encounter Date Complaint History Of Prese nt Illness Acute Visit Karime reports pe rsistent diarrhea for the past two weeks, which she attributes to a possible ?bug in her stomach. She states that eating triggers immediate bowel movements. She also reports vomiting but denies nausea. She experiences chills, which she describes as similar to hot flashes and not associated with fever. She notes generalized weakness and decreased appetite since the onset of diarrhea. Additionally, she reports intermittent bloating.Karime also reports a longstanding lump at the back of her neck, associated with positional pain during sleep. She has a history of physical therapy for neck pain. Pain is rated 8/10 at its worst, improving to 5/10 with medication. At 8/10, she is unable to perform activities of daily living; at 5/10, she is functional. She does not use any topical treatments. Semi-Annual 64 y/o patient i s seen today for biannual. She joined [employer] 04/22/2019. She has had no injurious falls, hospitalizations or ER visit in the past 6 months.Overall, she has been somewhat better with regard to mood and likely consequently pain.She does continue to have chronic pain involving shoulder, back and multiple joints. She reports her mood is variable. She says she is eating.Her reflux symptoms have been more bothersome, she recently had a clinic with me and we discovered that she had not been receiving her PPI as it didn't have refill renewal. It was restarted. She has no bowel/bladder issue. She reported that she struggles with rash on her scalp and the shampoo she uses is not helping as the pruritis from the rash keeps her up at night. Healthcare proxy is her [place], it is not invoke. She has to elected full code. Saw urology in October with plan for cystoscopy and CT urogram. Urine cytology was negative as well as cystoscopy in February.Saw dental in 03/06/25. Velma will manage toenail [facility] Jan 2023Remains largely functionally independent with ADLs. Uses 4 wheeled walker or cane Acute Visit 64 year old fema villa with history of DMII, Chronic pain, Bipolar II disorder, GERD, spinal stenosis, RAYMOND and Asthma among others. The patient came in for an evaluation due to complaints of abdominal pain and diarrhea that started yesterday. She reported experiencing diarrhea for the past three days. Basic lab tests were performed and showed no significant issues. She mainly experiences burning pain in the epigastric region after eating, which is often followed by diarrhea. Additionally, she mentioned feeling nauseous, though she hasn't vomited. The patient indicated that she has faced similar issues in the past and has a history of diabetes. Currently, she lacks appetite but is staying well-hydrated. Her blood sugar levels have been stable. She also reported increased itchiness of the scalp, which has persisted for some time. The shampoo she has been using has not helped, and the itchiness sometimes leads to headaches. This condition is affecting her sleep as the itchiness makes it difficult for her to rest. The patient denies having fever, chills, or chest pain, but she does report feeling generally weak. 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 She reports having a lot of pain, discomfort, pruritis, and headache over her nuchal ridge due to a wide psoriatic lesion. She states the treatment and medication I sent her didnt help her at , however, when she explained how she apply the medication topically, realized not only she does not follow the right direction, she also has not received the coconut oil that is a precursor mediation before applying steroid shampoo. Speaking with pharmacy, it turned out coconut oil is not covered and she needs to purchase that herself. Also educated her again on the steps she needs to take. she expressed understanding. PE:a wide patch of red, dry, flaky lesion over nuchal ridge, no drainage, painful to examine Semi-Annual Karime is here fo r semi annual visit. Karime is a 64 y/o female with PMH significant uncontrolled DMII, HTN, MDD, obesity, and medications non-compliance. Today she denies any acute complaint. Nevertheless, she mentioned she has not received the prescription shampoo I sent her for treatment of her scalp psoriases. She also let me know that she forgot to get herself her weekly Trulicity inj. We discussed the importance of adherence to medication regiment as much as possbile to prevent complication, again. She expressed understanding but refuses my offer to help her with her medication management at home. Acute Visit Patient is here since she has been having dysuria for the past two days.Denies urgency, frequency, urinary retention.UA is unremarkable, but will process it. Acute Visit Karime is a 64 ye ar old female who was seen briefly by myself today for an acute visit.Karime was present for her SE day today and was noted with an HI glucose reading on her CGM. She was checked via fingerstick and noted to be about 550. She reports feeling dry, fatigued, increased urination, general malaise. She hasn't eaten anything out of the ordinary. No recent steroid injection or oral glucocorticoids. Prior to lunch, when I spoke to her, she tells me her Lantus insulin was recently stopped. Per review of the chart, it was reportedly stopped in ? late April however Karime tells me she had some leftover and continued to take 40 units once daily up until last week when she ran out. She says her blood sugars have been rising since then. Nursing gave 10 units of Humalog to Karime mid-morning. She came down to mid-300s by afternoon. She is drinking fluids well and otherwise feeling okay. A urine dip was done and showed trace ketones, 3+ glucose, + nitrites but negative leukocytes. She is asymptomatic. I have sent the urine for a formal UA with reflex culture.We will restart her Lantus at 20 units once daily as reported hypoglycemia in the past on higher dosing. Will explore getting VNA on board to help administer consistently. I have asked primary nurse to see her tomorrow for follow up. Acute Visit Patient's husban d reported she has been very sick with N/V as well as diarrhea and not able to tolerate any PO in the past two days.Patient was arranged to be brought into the clinic for treatment of dehydration as well as UTI.PELungs CTACV regular HR, mild tachycardia, no murmurSkin tenting, dry oral mucus Acute Visit Karime is here fo r the followin problems:1- she has been having dry and raised plaques on her scalp that is causing her constant purities and headache when lying down 2- She reports, in the past two weeks, has has been having watery diarrhea x 3/day. Had a couple of episodes of bowel incontinence.Has mid abdominal pain, worst with eating, Has nausea but no vomiting. No fever or chill. feels gassy and can pass gas. Had an episode of a very dark stool. Denies hemachezia. Denies mucus discharge when moving BM. Denies any urinary problems. PELungs CTA bilaterallyCV regular HR, no murmurLE no edemaAbd hyperactive, no mass, no lymphadenopathy Semi-Annual Karime is here fo r biannual. Karime is 63 y/o female with DMII, morbid obesity and polyarthritis.She has been more or less at her baseline in the past 6 months, no fall, no ED visits.We had a visit last week, when she presented for having hypoglycemia for two days. she is known to be a difficult eater. Despite multiple conversation bout how she herself can help with management of her DMII with better and more regular eating, she still tends to starve herself for hours and then when really hungry and shaking, she tends to go for all carb foods. Nevertheless, being on isulin also does not help her situation. That's why the major goal for her has been bringing down A1c aggressively until it is possible to get her off insulin. Fortunately, this goal is eventually achieved and for the first time in many years her A1c has become the lowest. Lab result from last week blood workup shows A1c down to 7.3%. Let the patient know that now we can start tirating down the insulin and eventually stop it in a couple of weeks. In the meantime, will increase Trulicity dose. Fortunately she is tolerating well and has not shown any significant side effect. Acute Visit Patient with DMI I is here since she was found to have hypoglycemia with BS 76. She presented with mild symptoms (lightheadedness and tremor). She was given some juice and food from SE, which improved her symptoms.PE:Lungs CTA bilaterallyCV regular HR, systolic murmur OV Sick Visit Acute Visit Karime is here si nce her Right had middle finger's cuticles has gotten infected.On exam the cuticle is inflamed, swollen and contains a pocket of puss.Apparently she sustained a mild injury to her finger when cleaning the stove with strong chemicals. Post Hospital Evaluation Patient 63 y/o female with PMH significa nt for DMII, is here for follow up after ED visit due to an episode of hypoglycemia.Per her chart, she has long-standing poorly controlled diabetes. It looks like this partially due to difficulty achieving adequate glycemic control without inducing hypoglycemia, and partially due to the patient's approach to food and eating habit. Reportedly, she is not having a regimented eating habit, since her the combination of her acid reflux and chronic constipation leaves you with poor appetite. Semi-Annual This 63 year old female was seen for her semiannual exam. She is unaccompanied today.No interval falls. Had anterior cervical discectomy & fusion (ACDF) on 09/11/23. Medications reviewed. Diagnoses reviewed.Advance Directives reviewed, full codeVision: seen Dental: appt coming upPodiatry: seen Vaccines: discussed Covid boosterBP 118/58T 97.8Pulse 70RR 16Wgt 194.8 Acute Visit Patient seen lisa lloyd due to pain.Her spouse, who is also a participant, stopped me in the hallway on Monday and indicated that his was in pain. I told him that she could come in on Monday or Monday, she opted to wait told today which is her usual day of attendance.She reports approximately a one-week history of right-sided back pain. It began somewhat spontaneously, she does not recall any preceding insult, full or trauma. The pain is located exclusively on the right side of her back. She says that it wraps around to some degree to the right flank. It also radiates to the anterior aspect of her leg, the very least past her knee although not stimulated the ankle. She describes the sensation in her leg is more by way of numbness rather than pain.Back pain is exacerbated by moving/bending. There is no saddle anesthesia. There is no motoric weakness in the lower extremity. There is no change in continence although she says she was constipated for 8 days, moved her bowels yesterday. She does not have dysuria, no incontinence or retention symptoms.She makes mention of the fact that she was called by neurosurgery regarding her cervical spine ([facility] for repeat C-spine MRI which showed significant pathology and she was referred to neurosurgery). She says she was told to get back to her but they never did. I encouraged her to in general be more aggressive with regard to pursuing such things given the importance. I gave her the number for basic neurosurgery and asked that she call us or she gets home. She said she would have her call, I suggested that it would be best if she personally calledROSPersistent upper extremity weakness/painNo chest painChronic constipation and gastroparesis symptomsNo symptomsChronic painExam:Well-developed, middle-aged woman who is in no acute distressAffect slightly flatDoes not appear acutely illSclera anictericMucous membranes appear well hydratedAbdominal protuberance without changeThere is no pain to the left side of her back. There is no pain in the midline. There is muscular spasm notable to the right of midline from essentially PSIS to approximately T7 level. She reports some pain wrapping around the flank although I do not fear muscular tension there. There is no rash. There is no erythema. There is no change in warmth. She is clearly significantly tender to direct pressure on the muscle.She is able to drive with her cane without change. She feels light touch to leg. Motor is intact at the ankle (plantar dorsiflexion of great toe, ankle Flexion and extension of the knee/Lumbar MRI of early 2022 reviewed OV Patient is seen for limited acute visit.Please see nursing note as well as my previous provider progress note. Patient wished to be seen and was seen.And provides additional history. She reports that her granddaughter became ill presently 2 weeks ago with either influenza or influenza-like illness. Several days later the patient became ill. She says that the fever, cough and flushing resolved however for the past 4 days she has had gastroenteritis. She reports that most of what she eats she vomits. Even fluids are difficult for her to tolerate. She describes abdominal pain and bloating after eating, regrettably not new given her gastroparesis. She also reports diarrhea, believes she had 3 episodes yesterday. She does report that no one else at home has the current syndrome.Reports some abdominal tenderness, per Michael Tovar in the upper abdomen to the right of midline which is where she generally complains of discomfort associated with impaired motility. She has some sense of gas and fullness.She is bit equivocal with regard to any lightheadednessROS: LimitedHeadaches chronicallyNo acute vision changeDoes not have dysphagia per se but upper GI symptoms as aboveNot having chest painNo longer coughingSugars are quite high, 300s todayNo dysuriaExam:Regrettably, I did not note that she did not have vital signs done today.No tactile fever, pulse 80s, respiratory rate 16Well-developed, middle-aged woman in no acute distressLooks slightly fatiguedPupils reactive, sclera anictericMucous membranes are reasonably hydratedHeart regular, not overtly tachycardicLungs diffusely diminished bilaterally, no adventitious breath soundsNo costovertebral angle tendernessShe does not have guarding or rebound. The upper abdomen is full, she is overall protuberantExtremities are without edemaShe is awake, alert and attentiveI did not surgically extensively for rash but no obvious exanthem on exposed skin surfaces. Skin turgor fair OV Patient was seen today primarily to address dental issue, we secondarily discussed a number of other issues.The patient's spoke to the dentist yesterday and noted that his was having oral pain. Dentist spoke to me and I in turn asked that patient be seen in clinic today. She reports approximately a 4 day history of right-sided dental pain. It is protective evidently maxillary, right upper. There is some ambiguity as if there is any pain in the mandibular dentition on the right. She is not feeling systemically ill but it does hurt to eat. She is aware of oral maxillofacial surgery consult scheduled many months off, regrettably.Patient received a letter from urology that she is scheduled for CT scan/CT urogram on the . She needs labs drawn. I have ordered these.Patient received a call from neurology clinic this morning indicating that a referral to neurosurgery had been made. Upon review of the documentation it appears that her recent MRI showed significant spinal stenosis at roughly the C3 level and that neurology has referred her to neurosurgery.Glucose logs have been reviewed. On average sugars are better. In review of the past several days candida was 54, maximum exceeding 300 however many were in the 100s. Regrettably I did not ask precisely what she is taking at the moment, I believe it is what I most recently prescribed. She indicates that there was non-coverage of a prescribed agent, as best I can tell this is the alternative insulin prescribed by endocrinology.ROS: LimitedNot feeling systemically illOral pain is after mentionedNo dysphasia that is new per say.No current chest pain or palpitationsNot short of breathNo new GI complaintsNo new urinary complaintsContinues to have pain in arm/shoulder girdle which is part of what led to the neurology evaluationExamination:Vital signs are notedWell-developed, middle-aged woman in no acute distressAmbulatory, I believe with cane although I do not recall seeing itSclera anictericDo not see overt facial swellingOn the lingual surface of right mandibular tooth there is what appears to be a small tract. Unclear to me if this involves only the dentition or involves the gum as well. Hard for me to say if there is edema. I do not see overt purulent material. She is tender.Slight left-sided submandibular fullness/adenopathy.Moving all extremitiesAmbulatoryNo obvious skin lesions concerning for infection Semi-Annual Patient is seen today for biannual. She has had no injurious falls, hospitalizations or your visit the past 6 months.Overall, she has been somewhat better with regard to mood and likely consequently pain.She does continue to have chronic pain involving shoulder, back and multiple joints. She has noted leg cramps in the past several weeks. What she describes seems to be more cramps although she also alludes to potential claudication symptoms. Sleep remains problematic, not seemingly different. She does dose by day.She reports her mood is variable. She says she is eating.Her reflux symptoms have been more bothersome despite consistent PPI, we talked about increasing frequency in the short-term.She is having far more frequent bowel movements. In the past would often have bowel movement once a week or once every 5 days, now having bowel movements fairly regularly.We spoke about advanced directives and healthcare proxy. She thinks she would like to change the healthcare proxy to her children rather than her spouse primarily. I strongly encouraged her to discuss her healthcare preferences with her children.She is having ongoing difficulties with the pharmacy. She is contemplative with regard to changing pharmacies to a local one. That being said, she would lose the bubble packing. Med reconciliation was done by home care nurse.Patient continues to have difficulty with her hands. She reports both difficulty with function and sensation, right greater than leftSugars are poorly controlled, variable. I reviewed recent glucometer data. I reviewed trends, time in range. Her adherence with recommendations from endocrine is seemingly incompleteSaw urology in October with plan for cystoscopy and CT urogram. Urine cytology was negative as well as cystoscopy in February.Saw dental in December, recommended extractions with oral surgery followed by periodontistSaw endocrine in January with no change in oral medications, some changes in her insulinLast podiatry I see is from April 2022[facility] Jan 2023Remains largely functionally independent with ADLs. Uses 4 wheeled walker or caneROS:Overall headaches lessened, is using when necessary medications from neurologyNo acute vision changeDoes not have consistent dysphagia although occasionally feels difficultyNo chest pain or palpitations currentlyNot currently short of breath although she does not exert herself greatly. When she climbs stairs can be winded but I believe more limited by pain rather than dyspneaNo acute abdominal complaints, has chronic reflux symptoms and gastroparesis related symptomsNo acute urinary complaintsSensory and functional deficit as aforementioned right hand greater than left.Balance per HPIPHQ-difficult to screen as she is variable in her mood and cannot miss us of the report frequency over 2 weeks.Exam:Vital signsWell-developed, well-groomed middle-aged woman in no acute distressShe is normocephalicShe has bilateral cataracts, sclerae anictericNares patentTympanic membranes visualized bilaterallyMucosal membranes decently hydrated without lesionsNo obvious cervical, supraclavicular or axillary adenopathyBreast exam not doneHeart sounds to be regular with S1-S2. No significant murmur heardLungs grossly clear bilaterally, no wheeze, no ralesAbdomen obese, soft, nontender. No obvious mass. Some slight upper abdominal perceive fullness which is without change, I do not specifically palpate anythingExtremities are without clubbing or cyanosis.Diabetic foot exam-decreased sensory with few monofilament spots felt. Pulses are present, may be minimally decreased, feet are adequately perfusedSkin exam limited. No open lesions to lower extremities. Old scars. Small psoriatic patch left elbow, fairly quiescentAwake, alert, attentiveFacial symmetry appears preservedSpeech is fluentShe is ambulatory with a caneShe moves all extremitiesHand grasp weak bilaterally with right more so than left. DTRs fairly diffusely decreased. Sensation to light touch diminished in right handAffect is somewhat flat, a bit dysphoric (has been appreciably more dysphoric in the past, but has also been less so of late). No hallucinations or delusions. Thought content is normal. Thought processes reasonably linear Office Visit Patient seen for somewhat limited visit to address diabetes. Recent data suggested ongoing poor glycemic control.The patient tells me she was recently seen by endocrine. She reports a change her insulin. I do not have the note at this point although I will obtain it.I reviewed her data available from [facility]. It was quite limited as she often does not swipe entirely consistently. There was little to no hypoglycemia. Sugars on average were slightly better controlled but there was still significant excursions. She tells me that they increase her morning insulin to 36 units, current evening is 30 units. Again will need to verify plan.We discussed the fact that some of the agents that I would prefer to use regularly or not particularly pragmatic given her gastroparesis.More globally, she reports that she feels she is doing a bit better overall with regard to mood/pain/and life in generalROS: LimitedMood is slightly betterEating by her report still the same patternNo current chest painNo acute abdominal complaintsNo acute urinary complaintsChronic painExamination:Vital signs are notedWell-developed, middle-aged woman who is well-groomed and in no acute distressShe appears more engaged overallSclerae anictericShe has central obesityNo significant lotion any pitting edemaShe is awake, alert and attentive Follow-up Patient was seen today to follow-up diabetes management. Regrettably, she has been without a new button for her Freestyle for approximately a week. She did not bring her meter with her. She reports that she does not have a conventional glucometer and has not checked her sugars in quite a while. She believes she may have been low on a number of occasions.We reviewed the MRI of her spine. I told her that I was uncertain if there were interventional targets as there is nothing terribly amiss however, I also told her that there is no utility in sending her to interventional with current glycemic control as they will not intervene.ROS: Not doneExam:Vital signs notedFingerstick 120Well-developed, middle-aged woman in no acute distressAmbulatorySclera anictericMucosa moderately decently hydratedAwake, alert, conversant OV Patient was seen today primarily for planned visit to follow-up on her diabetes.I reviewed her glucometer readings. Pattern is very labile. Evening sugars tend to remain high with him being overtly Hi, many in the 300s. There are some that are quite low in the double digits, very few that are overtly potentially hypoglycemic. Sugar at the moment is 168.I asked the patient regarding her use of insulin. She identifies the insulins by their color. She appears to use the Lantus fairly consistently and per direction which is 50 units, currently being given in the evening. Her use of the insulin per sliding scale suggested by my colleague is very difficult to determine. My overall impression is that she is not doing that consistently, specifically on not sure how many times a day she is doing it and if the sliding scale is being followed. Her eating pattern remains erratic, often one meal a day.Patient continues to complain of headache most days. It is often present when she awakens but the intensity varies of the course of the day. She describes photo/phonophobia, nausea and a sense of overall weakness. Of note when she was hospitalized at [facility] for concern for stroke impression of the neurologist was that she had migraines.She describes herself as having atypical pains in her chest when she is stressed . She does not describe exertional chest pain or typical anginal equivalent such as dyspnea, nausea, significant fatigue, diaphoresis, back pain, jaw painShe continues to sleep relatively poorly. She does not find current regimen to be terribly helpful. She does not feel the trazodone was helpful in the past. Of note she has quite significant known obstructive sleep apnea but will not consider the use of CPAP. I have explained that can contribute to her poor sleep in addition to quite possibly giving her chronic daily headaches. She is in principle amenable to the use of a positional device.ROS:Mood poorSleep werePain both cephalgia and diffuse presentNo acute vision changeNo acute dysphasiaChronic slow gastric emptying/sense of bloatingNo acute dyspnea or coughNo palpitations currently, see chest pain aboveNo acute urinary complaintsNo recent fallsExam:Vital signs stable, oxygen saturation could not be obtained on the finger and was initially perceived to be in the 80s however she is wearing elaborate fingernails and when checked on her toe oxygen saturation was 97%ObeseNo acute distressNormocephalicNo temporal indurationPupils reactive, sclera anictericMucosal membranes well hydratedNo obvious cervical adenopathyThick neckHeart regular with S1-S2. Doubt murmurLungs sound to be clear bilaterally without adventitious breath soundsAbdomen is protuberant, no overt guarding or reboundExtremities without clubbing, cyanosis or edemaShe is awake, alert and attentiveShe ambulates with a caneFacial symmetry is preserved. She moves all extremities. Speech is fluent. There is no overt tremor. OV Patient was seen for a somewhat spontaneous visit. She was in working with my physical therapy colleagues and complained of ongoing otalgia and otorrhea.The patient was seen 1 week ago with otalgia. Examination appeared to show perforated TM. To my eyes, middle ear structures were exposed and there is fair amount of erythema. She also noted small right posterior neck lump. She at the time and recent URI symptoms. The patient was placed on a 1 week course of cefpodoxime as well as ofloxacin 0.2% eardrops. In spite of the fact that they were sent directly to her pharmacy, there was a slight delay in them picking them up. I did reach out to ENT at the time to see if urgent appointment could be facilitated. I faxed the note on and Monday(the Monday transmission was to the appropriate person at the appropriate practice but I regrettably wrote [facility] rather than ENT). To date, she has not received a call from them.Patient reports that she continues to have otorrhea and pain. She indicates that she has a sense of when she puts the eardrops and they do not actually go into her ear. She has difficulty characterizing the otorrhea. She has ongoing significant pain, more so anterior to the ear as well is in the ear itself.She is not having systemic symptoms of fever. Difficult to say if she has headaches. Not having acute odynophagia.ROS: Limited and largely as aboveNot having systemic feversHe is ambulatoryNo acute vision changeVariable hearing and unusual sound in her left earNo dysphagia per seExam:Obese, middle-aged woman in no distress of the looks slightly uncomfortableVital signs are notedNormocephalic. She is ambulatory and conversantShe does not have much by way of pain over the mastoid. I do not see overt skin changes around the ear. While she does appear slightly swollen anterior to the ear, when compared to the right side I do not think there is actual swelling. She is tender anterior to the tragus. The tragus itself is tender. The canal appears somewhat swollen and certainly has debris obscuring view. Given her tenderness I did not attempt to physically remove any of the debris.She continues to have small nodule right posterior neck, may be smaller. Non tender OV Patient is seen due to subacute left ear pain. Patient apparently had URI consisting of sore throat. This is in the context of her granddaughter having had similar symptom complex. She had rhinorrhea. She had subjective fevers. She has some rhinorrhea. Unclear if she had otalgia but reports that 2 days ago she developed severe left ear pain, loss of hearing. When asked, she does endorse the possibility of clear fluid/discharge from the left ear. This did not improve her pain significantly.She does not have significant chest symptoms. She does feel she has a posterior lymph node. No nausea or vomiting. No diarrhea. No urinary symptoms that are new. Reports cold sores at the angle of the mouthROS: As aboveExamination:Middle-aged woman who is in no acute distress but clearly looks uncomfortable.Slight pallorShe is normocephalicSclerae are anictericThere is no otitis externa on the right. TM appears intact. I believe there is serous fluid. On the left there is appearance of absent TM. At the 6 position there is either the TM bunch up or possibly a small amount of purulent material. Middle ear structures to me appear visible and are erythematous. I do not see ongoing purulent discharge.Nasal discharge is clearThere is likely some degree of left submandibular adenopathy although not painful. She has a small lump posteriorly on the right neck. This is just inferior to the occiput.It is extremely difficult to visualize the oropharynx. Her tongue is quite large. Even with a tongue depressor it is nearly impossible to visualize the throat. I do not see any erythema.There is a small lesion to the left angle of the mouth. It has no characteristic findings to suggest anything particular. I do not see buccal or gingival lesions FUV As planned f/u v isit focusing only on her DM today. I last saw her a month ago in which we discussed, diet, exercise and insulin adjustment. Ppt really hasn't made any changes we discussed except for dosage changes but forgetting insulin at times. She continues to drink juice including orange and apple juice. She continues to snack on fruit at night and only have one large meal at dinner very starch heavy and not spread her meals out. She isn't getting much exercise besides helping to take care of her granddaughters 15, 4 and 1 year old in which the 15 and 4 year old lives with her. She continues to be stressed at home and doesn't feel like her is supportive as he likes to stay upstairs and go on the computer or watch TV. She continues to complain of the same symptoms likely related to uncontrolled sugars including headache, blurry vision, trouble focusing and lethargy along with n/t in her hands. She reports pain all over tristan in her neck and shoulders that she is receiving physical therapy today for. She still feel like food is getting stuck in her throat. Plan was to see speech therapy will reach out. ROSDenies fever and chillsReports intermittent posterior headaches none currently, dizziness, blurry vision. n/t in feet and hands and decreased sensation. Denies weakness. Reports forgetfulnessDenies hearing problemsDenies problems chewing endorsing to food getting stuck in her throatDenies chest pain and palpation'sReports SOB with exertionDenies abd pain and reports reflux. Denies constipation and diarrhea. Reports nausea with gastroparesis flairDenies LE weakness or recent falls uses cane and walkerReports hands weakPain all over low back, shoulders neck getting PTReports chronic intermittent anxiety, panic attacks and depression but reports grand kids make her happyPENAD, obeseAXOX 3, forgetfulMAE strong PERRLAMoist mucous membranesHeart regular rate and + s1 +v8MCOMI bilaterallyAbd soft, round, nontender, +syq6Ujhi intact but LUE firm post posterior likely from insulin injectionsCalm and cooperativePpt has a significant family hx of DM and her mother currently has DM requiring dialysis. Ppts DM is complicated by polyneuropathy and gastroparesis. She has only been giving insulin to LUE and firm area that is painful behind arm likely insulin isn't absorbing great. She received new freestyle david but unfortunately not able to download it however I went through it and found in the last [address] between midnight and 6 am is 310 and 6 am and noon is 229 and noon and 6 pm is 192 and 6pm to [id number]. Her trouble area is between 6 pm and 6 am when she is having rice, beans, chicken with bbq sause and then fruit for a snack with juice. Again went over microvascular and macrovascular complicatoins of uncontrolled DM. She reports she takes her insulin and sugars dont want to come down does forget but has been more rare. Increase lantus 50 units take subcutaneously in the fat at bedtimeContinue metformin 1000 mg daily, take with foodContinue Jardiance 25 mg daily, keep up with fluidsAdjust Humalog sliding scale 3 times a day before meals (IF NOT EATING A MEAL AND SUGAR GREATER THAN 250 TAKE HALF THE RECOMMENDED DOSE)SUGAR [id number] 16 [id number] 18 [id number] 20 [id number] 22 [id number] 24 UNITSGREATER THAN 400 26 UNITSCheck sugars before each meal and bedtimeGoal sugar in am less than 130Goal sugar before meals less than 180 to startIf sugar is less than 70 or greater than 300 on your sensor check with finger stick. If sugar still low less than 70 drink a glass of juice and recheck sugar in 20 min if coming up having a snack if not repeat juice.AVOID juice or soda unless you have a low sugar less than 70 otherwise your sugar will go very highReduce fruit and snack at night should have more protein like nuts, peanut butter, cheese, cottage cheese, high protein yogurtAdd more meat, fish, veggies, nuts, eggs, cheese that won't cause sugars to climbTry to have more frequent small meals to help with gastroparesis flairs LAURA Patient was seen today for their Semiannual. Ppt enrolled at in 04/2019. Ppt does not attend day program .Lives in a house with and some of her grandchildren that she helps take care of and watches while parents are at work, a 2, 4 and 16 year old. No recent SNFs Went to hospital on 05/28 for COVID and [facility] 09/20-09/22 for acute hyperglycemia received insulin, Facial numbness and right side stiffness/weakness, dizziness, posterior headache stroke was r/o with neuro consult and imaging felt more consistent with complex migraine. On going dizziness/vertigo here today to see Vestibular rehab. Fall in April/2022 with no injuryMultiple infections requiring antibiotics: had ear infection, had Covid, had UTI, had skin infectionComplaints: No specific complaints just reports ongoing pain everywhere and elevated sugars and feels food is getting stuck in throat. No problems with chewing. Also dizziness/vertigo recent discharge with r/o cva reporting complex migraine. A lot of stressors in her life. No issues with incontinenceDoes all of her own ADLsSocialization mostly consists of grandkids does go out more in summerImmunizations UTD interested in covid booster [facility]Podiatry: [facility] April 2022, anthonyertoyuki 2-5 b/l right >left. RN cut toenails todayAudiology: SE hearing WNL with b/l impacted cerumen that was removedColonoscopy: f/u 2024Mammogram: Referred already for mammogram reports been close to 5 yearsPap spear: 10/2019 [place] woman's last pap smear ? 2016 HPV neg, NILM. Continue to follow Dental: been a while will book with dentistOphthalmology: 11/2021 [facility] retinal consult mild non-proliferative diabetic retinopathy stable f/u 12 months plan for dm control and observeNeed to see regular eye doctor will book with optomitrist as she hasn't seen one in a while and needs new glassesMOLST: Reviewed with ppt with no changes, full codeFamly hx:Mom dm on dialysisDad healthySister dmBrother dm4Ms:Mind: AxOx3, forgetfulMeds: Takes meds no problem in bubble pack. High risk meds Depakote, pregablin, oxycodone, insulinMobility: use cane and walker feels steadyMM: healthROSDenies fever and chillsReports intermittent posterior headaches, dizziness/vertigo, blurry vision. n/t in feet and decreased sensation. Denies weakness. Reports forgetfulnessDenies hearing problemsDenies problems chewing endorsing to food getting stuck in her throatDenies chest pain and palpationsReports SOB with exertionReports epigastric abd pain and reflux along with constipation. Reports n/v with vertigo episodes.Denies diarrhea or blood in stoolDenies LE weakness or recent falls uses cane and walkerReports hands weakPain all over low back, shouldersSkin intact with reight elbow dry scaly skinReports intermittent anxiety, panic attacks and depressionPENAD, obeseAXOX 3, forgetfulMAE strong with weaker hand grasp bilaterallyPERRLABilateral tympanic membranes visualized with left ear mild redness but no drainage reports she cut it when itching earMoist mucous membranesHeart regular rate and + s1 +f2SCDUW bilaterallyAbd soft, round, nontender, +puv5Yjvr intact with right elbow scaly skinDecreased sensation to bilateral feet with 5/10 microfilamentCalm and cooperative and flat -2021 PHV Patient is seen in the wake of hospitalization at [facility] from 09/20-09/22.The patient reports that she was setting up her [place] when she experienced right hemifacial weakness. There was concern for stroke and she was seen in the ER. Precise duration of symptoms unclear. When she arrived in the ER all symptoms had resolved. It is reported that with slurred speech as well. She may have had headache bitemporallyIn the ER was moderately hypertensive and had a glucose of 485. This improved with hydration and insulin. An IV was placed in the jugular and there was extravasation of contrast during CT angiogram. Initial CT head was fairly unrevealing. She was admitted with a diagnosis of TIA. Subsequent MR brain revealed no acute infarct. She was seen by neurology, although I do not have the consult. They apparently felt this was more likely to be migrainous. They recommended Topamax but she is intolerant of it, by report. Therefore she was given a triptan.CBC during hospitalization fairly normal. Sodium 133 however corrected for glucose normal. Patient was discharged with 4 tabs of 25 mg of sumatriptan.Patient has had no recurrence of symptoms. She does not describe any significant headaches. She does not describe photo phonophobia. Her glucose has been 200s. She does not have her meter with her but tells me sugars have been in the 150s-160s at least most recently.Patient reports some vertigo since she was admitted to the hospital. She is at times mildly nauseous.Her CGM was taken off her MRI and not replaced. As such she does not have much data. I have contacted pharmacy for urgent replacementCTA was nondiagnostic given extravasation of contrastMRI showed mild chronic microangiopathy. I do not have the full report, that is the impression that is quotedROS:Has occasional headaches but none currentlyNo acute vision changeNo dysphasiaChronic abdominal bloatingNo current chest pain or palpitationsNot acutely short of breath or wheezing/coughingNo acute urinary complaintsChronic painExam: Vital signs notedWell-developed, middle-aged woman in no acute distressChronically flat affectNormocephalicPupils reactive, sclerae anictericCranial nerves II-XII grossly intactSpeech fluent.Upper extremity strength 5/5 bilaterallyAmbulatory with her cane without changeHeart sounds to be regularLungs grossly clear bilaterallyAbdomen slightly protuberant, soft, nontenderExtremities are without clubbing, cyanosis or edemaShe is ambulatory with her cane.has cerumen in canals?a few beats of nystagmus and more symptoms on Tom Hallpike to right, less so left OV Patient was seen for acute visit. She reports a 2 day history of right lower back pain, it involves the right buttock and at times radiates down the posterior aspect of her right leg. There was no trauma antedating this although the patient has been coughing for roughly a week. She reports that she is having more difficulty getting off lower surfaces although not overtly weak. She does have chronic dysesthesias and she describes dysesthesia in the right buttock that feels like crawling under her skin. She does not have distinct new numbness involving the entire leg. She does not recall having had this in many years however reports that her daughter often has sciatica.She reports that she has used heating pads. Her family rubbed the area little improvement. Pain worse when she is on the right side or turning from side to side in bed. Pain worse when standing.With regard to her cough, she reports that her granddaughter brought home a cold from school. She caught it. She is not short of breath. Her cough is minimally productive. She is not febrile or otherwise exhibiting other viral syndrome.I asked about her diabetes, predominantly in the context of planned for corticosteroids. She tells me that she has had some sugars in the 50s but no symptoms like she had before and the vast majority of her sugars are actually in the 2 and 300s. She says she is taking 60 units of Lantus in the morning.ROS:Some headachesNo acute vision change, chronic complaints of vision difficultiesNo dysphasia but has bloating with mealsNo nausea or vomitingNo diarrheaNo chest pain currentlyDenies dysuria equivocallyExam:Well-developed, middle-aged womanJing is ambulatory with a walker, usually uses a cane. That being said she is walking reasonably well and was able to rise from the chair.Sclera anictericLungs grossly clear bilaterally without adventitious breath sounds. No rales and no wheezesAbdomen is soft and nontenderNo CVA tendernessShkimberly has discomfort over the very low right side of her back and in the superior aspect of her buttock.There is no definitive muscle weakness. She has intact plantar and dorsiflexion of the ankle, extension and flexion at the knee and flexion and extension at the hip. Sensory to light touch is intact. OV Patient was seen today primarily to follow up glycemic control in view of changes made some weeks ago. Patient continues to have some lows in the afternoon typically, which is unusual. She is not typically having nocturnal hypoglycemia. She also continues to have some highs but most are overall better controlled. Candida lows in the 50sShe indicates that her classes do not fit medically well and she needs new ones. She would like to see the shipping room supervisor.Patient has diffuse pain that is essentially unchanged.ROSHeadaches on occasionNo acute vision changeNo dysphasiaChronic postprandial bloating felt to be gastroparesisNo diarrheaConstipation fairly decent with current bowel regimenNo acute dysuriaChronic depression/anxietyExamination:Vital signs notedWell-developed, middle-aged woman who is in no acute distressAffect is somewhat flat/dysphoricSclera anictericAbdomen protuberantExtremities without edema or open lesionsShe is awake, alert and attentive OV Seen in follow u p of last week and her diffuse pain. Says AM FSG 51. She is not suing prescribed insulin, rather is using variable doses of insulin. Often using up to 70 units in the PM and more than prescribed in AM. Sometimes takes up to 40 units of Humalog.We reviewed her recent labs. No recurrent hematuria.Very minimal if any dysuriaROS:Headaches on occasionNo acute vision changeDiffuse painNo shortness of breath at the moment, some exertional dyspnea when climbing stairs which is stableChronic abdominal bloating with diagnosis of gastroparesisConstipation remains problematic, we discussed regular use of MiraLAX which she is not currently doing and increasing the frequency of it to twice daily if neededExamination:Vital signs are notedWell-developed,, somewhat chronically melancholic middle-aged woman who is in no acute distressShe looks slightly more upbeat than last weekNormocephalic and atraumaticSclerae anictericHeart sounds to be regular with S1-S2. No dominant murmurLungs clear bilaterally without obvious adventitious breath soundsAbdomen is chronically slightly protuberant, soft, no guarding or reboundExtremities without clubbing, cyanosis or edemaDiffuse muscular tenderness predominantly in upper extremities, shoulder girdle, neck. Less so in lower extremities. OV Patient was seen today specifically for reported hematuria with associated back pain.She reports that she had onset of apparent hematuria roughly a week prior. No obvious substances that would be causing it. Patient reports that the hematuria has essentially resolved. She never got the [facility]. She does not report much of dysuria per se. She does not believe this to the vaginal bleeding but rather present only when urinating.She reports headaches. They are often present in the morning. They are not temporal but rather typically frontal. She describes herself as having pain everywhere, shoulder girdle and upper extremities predominate over her lower extremities however also back pain. Her left arm is both painful and somewhat weak, she describes herself as often dropping things she picks up. Past EMG is noted. As best I can tell she has not seen neurology. She feels that overall perhaps pain worsened after COVID.She reports that her chronic constipation is somewhat better. Apparently she received lactulose from another provider, she takes that with some regularity. Her appetite is mediocre. She has no fevers or chills. She rarely coughs. She has stable exertional dyspnea when she climbs her stairs. She reports some nausea and no particular pattern. Historically she has described bloating after eating.ROS:Headaches as aforementionedNot vertiginous, occasionally lightheadedVision mediocre not acutely changedNo overt dysphasiaNo chest pain, diaphoresis. Stable exertional dyspneaGI as aboveGU as aboveMood depressed without much changeExam:Vital signs are notedWell-developed, middle-aged woman who is in no acute distressSclera anictericMucous membranes decently hydratedFacial symmetry preservedHeart regular with S1-S2.Lungs clear bilaterally without adventitious breath soundsAbdomen obese, not overtly tympanitic. Slightly protuberant. No obvious palpable mass. No guardingThere is no CVA tenderness although she has diffuse back painExtremities are without clubbing or cyanosis. She does not have edema. She has multiple healed scars to lower extremityHand grasp is weak in both hands left greater than right.She reports decrease sensory in the left hand, very difficult to say if it is an ulnar distribution alone.Urine sample was observed, appears clear yellow to the naked eyeEKG SR, no acute ST/Y wave changes c.w old Telephone Visit PPT seen with PP T permission via phone call from [phone]. Two identifiers (name and ) were used to confirm PPT identity. See virtual visit summary for detailed information. PPT location: [place], [place]. Provider location: [facility] The patient encounter today occurred need for social distancing Via telephone call with the patient's verbal consent. I personally spoke to the participant as well as:Colon HPI--Pt seen at [facility] ED on 05/28/22 for weakness In the ED: Gluc 331 // COVID (+)She was Tx with 2L IVNS in the ED and dc'd homeCURRENTLY:(+) drinking water (+) food intake (+) void (+) BMTemps @ 99POC 197 this AM No SOB, cough, or chest painNo N, V, abd pain, DiarrheaNo specific questions or concerns She denies needing nausea medicine And reports she is tolerating APAP which she is using regularlyShe is strongly encouraged to call us with any changes-- LAURA Patient is seen today for biannual.In the past 6 months the patient has had one ER visit with subsequent admission on 416. She was admitted for persistent hypoglycemia. She has had no functional change. She has had no rehab stays.Globally, she reports she thinks she is doing minimally better. She suggests she knows that the pain is somewhat chronic and something to be lived with. She certainly suggest that mood is better, can clearly identify why.She continues to have bilateral shoulder pain left greater than right. She has worked with rehab in the past. She has also been seen by orthopedics in the past. Participation in rehab in the past with somewhat variable and limitations seem to be variable as well. C-reactive protein in the past was slightly elevated. She was seen by rheumatology in 2020 and at the time [facility] C-reactive protein was 1.1 which is essentially twice normal, fairly similar to ours (normal here up to 8, has been 16). Acute phase reactants were checked. He had planned a 15 mg a day prednisone trial however, I do not believe the patient never did it. This may actually be advantageous as she has poorly controlled diabetes.She complains of left axillary lump. This has been bothersome to her periodically. She at times points to the left axilla at other times to the lateral aspect of the breast.She points out a small painful bumps to the left second digit and several other digits, seemingly primarily over the DIPs. Unclear over what time. These arose. She says they are tender at times. She continues to report poor grasp bilaterally with paresthesias of the fourth-first fingers bilaterallyShe is to have fibromyalgia pain although more so in upper extremities lower. Her sleep remains overall poor. Latency is variable. She does get up to urinate generally during the night.She suggests that she is less irritable and perhaps less depressed. She does not currently have a counselor and is not currently seeing psychiatry.She feels that she is not seeing terribly well. She is seeing [facility] thank[facility]. She feels she may need new glasses. She also reports that hearing has decreased.She did not bring her glucometer today. Sugars are still quite variable. She describes some hypoglycemic episodes into the 70s, I do not believe any lower. However also has sugars in the [id number]:Mind: There is suggestion of cognitive impairment. Testing actually seems far worse than she does. Affect and medications may well be contributoryMedications: On opioids and pregabalin, otherwise most of her medications are not terribly concerning although she does have polypharmacyMobility: No recent falls, and generally ambulates with a cane.Matter most: Feeling better. Struggles to describe far brought her thematic areasSocial history:Does not smokeDoes not drink alcohol-Lives at home with her and grandchild/children -2021 IANV Patient is seen today for post hospital visit. She was at [facility] from 02/05-02/07/22.The patient referred herself to the ER primarily due to persistently low blood sugars and also due to abdominal discomfort. She had been eating somewhat poorly in the day or 2 prior to admission however, I had held insulin seemingly for at least the day of admission. In spite of the sugars were persistently low.She also reported a sensation of abdominal twisting, left flank pain. Some nausea. Last BM 4 days ago. Tingling in fingers and toes. Vital signs in the ER were stable. Examination was not particularly remarkable. Glucose in the ER ranged from 60-61. Alkaline phosphatase was 119. ALT was 39. Chemistries were otherwise fairly unremarkable.Chest x-ray showed right convex thoracic scoliosis. Mural calcification in aorta. Postoperative changes of lower cervical spine.CT abdomen and pelvis: Mild calcification in uterus. Mild degenerative changes of the lumbar spinePatient was seen by inpatient diabetes consult service. Recommendation was for Lantus 16 units in the morning. Lispro sliding scale 3 units at 100, increasing by 2 units per 50, 3 times a day.Next scheduled appointment with endocrine is not until February. I called the office and asked for expedited appointment given her brittle diabetesReview of glucose from her glucometer reveals ongoing debility. 173 currently, low of 88 yesterday, day prior all in the 200s and nearly 300.She reports that her abdomen is still bothersome. GI change her to lactulose. She says this has not helped her at all. She is not currently using her MiraLAX.Globally she feels mediocre. She says she is somewhat lightheaded at times, she is sweaty at times. It is unclear whether these episodes correlate with her sugars at all, seemingly not.ROS:Headaches at timesPoor sleepNeck painNo chest pain or palpitations currently not currently short of breathGI as aboveNo urinary complaints acutelyChronic diffuse painExam:Well-developed, middle-aged woman who is in no acute distressShe is globally flat and slightly psychomotorically slowedShe is normocephalicPupils reactive, sclerae anictericMucous membranes decently hydratedHeart sounds regular, no definitive murmurLungs grossly clear bilaterallyAbdomen slightly protuberant, no guarding, no rebound, not overtly focally tenderMay have mild tympanyExtremities without clubbing, cyanosis or pretibial pitting edemaShe has chronic recurring lesions to lower extremities, none currently openShe is awake, alert and attentiveShe is ambulatory with a cane. She moves all extremities. Manual dexterity is adequate to manipulate her smart phone FUV Patient is seen today for planned follow-up. Of note her reported that she had axillary lump several weeks ago. She reports that in point of fact her granddaughter had an axillary lump not her.She reports that through the weekend she had fever with a T-max of 101. She had nausea, vomited ?5 and had diarrhea. She says the diarrhea has resolved. She has not vomited in a day or 2 and does have some residual nausea. She had bloating although not clear if it is different from her baseline postprandial bloating. We again discussed the probability of this representing gastroparesis (which she had no recollection of discussing previously or hearing of).She suggests she may have some dysuria.She reports that her a.m. CGM glucose was 49. She has been running somewhat low in the mornings although generally over 100. P.m. fingersticks are appreciably higher.She continues to report diffuse pain although nothing new. Unclear if mood is at all different.ROS:Baseline headachesNo new neck painChronic diffuse painNot having dysphagia per seNo shortness of breathNo chest painGI per HPIDysuriaDepression and anxietyExam: Vital signs as notedWell-developed, chronically dysphoric middle-aged woman in no acute distressShe is normocephalic and atraumaticPupils are reactive, sclerae anictericMucous membranes decently hydratedHeart sounds to be regular with S1-S2.Lungs clear bilaterally without adventitious breath soundsAbdomen is grossly soft, perhaps some fullness in the upper abdomen, no guarding or reboundLower extremity rash lesions are significantly improved with no open areas. Under the lateral aspect of pannus on the right abdomen and to some extent in the inguinal creases bilaterally there is erythema with some occasional lesions with satellites consistent with fungal dermatitisShe is awake, alert, ambulatorySpeech is fluent. She moves all extremities.She reports ongoing rash to lateral abdomen on the right Attending addendum .Patient was seen with OYSTER CULTURIST Juan. Please see her HPI, ROS, exam and assessment and plan. I have reviewed it in detail, I have addended/altered what I feel is appropriate/accurate The patient has had no interval hospitalizations, ER visits, penitentiary facility admissions or injurious falls. As best I can tell, she is functionally unchanged.Neck pain per OYSTER CULTURIST HPI. It is not clear to me that this is changed from her baseline, perhaps is worse. She indicates it involves the right ear. She has some relief with oxycodone however primarily due to drowsiness. Suggests as she noted that he goes to the back. She spoke of right hip pain and more difficult walking. Occasionally she has left leg pain.She notes that she has had increase in pruritic-like lesions. Sugar this morning was 60, she took grapes, she did not recheck it. A.m. sugars have been running in a fairly normal range, evenings elevated. We reviewed glucometer data, highly variable. She notes that she has not been able to get her Humalog filled by endocrine. With regard to her Lantus dosing she gave wildly variable reports with seemingly 45 units in the evening and 15-20 in the morning. She had previously been on 50 and 50.Interestingly she reported no abdominal pain. BMs are variable, sometimes every 3 days. When asked she does report upper abdominal fullness, largely without change. She has yet to see GI with regard to the issue of gastroparesisShe reports a fair amount of anxiety and depression, unclear that this is an old change. She feels that it is perhaps worse due to pain. Memory variable. Her daughter apparently helps with checking and other such tasks.She reports her oral intake is variable. When she is in pain she eats less. Her pain is also variable from day to day with no clear precipitant. She says she feels that her hearing may be decreased. Spouse indicates that she speaks very loudly.On exam: Largely as above. There is stocking hypoesthesia LAURA Pt presents to emmett for a LAURA. She allowed Dr Ellis and Yodit Martinez INTERNET SAL[employer] CONSULTANT student to examine her. On arrival she is in a patient gown sitting on the bed. She is very restless and fidgety. When asked why she looked uncomfortable, she reported she was having right sided neck pain the went down her back and was worse on the right side of her spine at the right side of her lower back. ROS-HEENT- reports right sided neck pain with radiation to her lower back. Denies any mouth pain or difficulty chewing or swallowing. Reports that turining her neck is painful. Took oxycodone last night to help with pain and sleep with some improvement. Reports Oxy makes her drowsy. Reports her c/o her talking loudly and having the TV on loud.SKIN- Pt reports being itchy all over with worse itching being on her abd and legs. She is concerned over the multiple reddened scabbed lesions on her legs that pop up when she it itching.PULM-- denies any SOB or wheezingCV-Denies any CP or shortness of breathGI-Denies abd pain. Reports BM every 3-sandy days. Appetite id decreased when she is depressed and stays in bedGU-denies any lower abd pain or problems urinatingMSK- Reports neck pain that radiates to her lower back. When asked about difficulty walking, she reports that she is walking different d/t pain. Just got her diabetic shoes.Neuro- Denies dizziness or blurry vision. Wears glasses. Complains of new neck pain and genrealized full body chronic pain.Psych-Reports feeling depressed. Occasionally spends the day in bed. Reports anhedonia and future related anxieties I worry about dying in my sleep I worry about getting a call that my mother . Endo- Reorts she has been without humalog for a long time as she has been having trouble getting it from the pharmacy. She also has been without her Freestyle for well over a month. Today she had a low in the 60s and she ate grapes. In the office she was 89 on the Freestyle. She reports what she takes for lantus is 15-20 units in the morning and 45-50 units in the evening. Glucose has been 120s in the morning with occasional glucose <90 and glucose in the evening's has been 250-300Dtr ensures her bills are paid and gets her out of the house occasionally.4 M'sMobility- She reports she is able to get around and preform her daily activites when she is not staying in bed.Mind- She reports that she is occasionally forgetful and misplaces items around the house. Medication-Review medications. Diabetic medications seem to be the most challenging for her to understand.Matters Most- Managing her pain would decrease her anxiety and time spent in bed. She also feels like she would be more interactive with her family especially her grandchildren. Physical Exam-Pt is a 61yo female that looks anxious. HEENT-PERRL, nnl sclera nl EOM. Limited ROM of neck when turned R or L. On palpation neck is symmetric bilaterally no masses or muscle tension appreciated. Area of tenderness on R side of mid neck with no associated changes in underlying structure appreciated. She has a partial denture uppers. Oral mucosa is pink and moist. No palpable cervical lymph nodes.Skin- Multic puritic lesion on BLE. Some old and healed some with scabs. Small raised red areas on Left foot by toes. Abd fold reddened from moisture. R elbow with psoriasis.CV- S1S2 no M,R,G. Palpable radial pulses. Bilateral DP palpable L>R. No edema observedPULM. Lungs CTA, symmetric excursion and unlabored breathing. GI- Abd protuberant but soft. No masses palpable. Epigastric area mildly tender but no guarding or rebound tenderness. BSx4 present but hypoactive.PA-saautazzMUK-Os joint swelling appreciated. BLE strength good.Neuro- She is able to answer questions asked but has limited insight into her diabetes management. She has strong grasps in her hands, is able to firmly push/pull both feet. Limited lifting or shoulders d/t neck pain. OV Patient is seen today primarily to address follow-up of her depressive and irritable symptoms. She was seen on 07/29 given progressive or worsening irritability/depressive symptomatology. All of this in the context of decades of depressive symptoms. She was followed by a psychiatric prescriber who recently added medications including an antipsychotic as well as hydroxyzine for anxiety. There was some disconnect with the psychiatric provider and they declined to renew those. Unclear if at all related to that however has been noted that she was not doing beautifully well.At the time of her visit we orchestrated med changes including starting her on an SSRI.The patient also reported ongoing sense of abdominal bloating. It is unclear whether there are 2 distinct components. She complains of upper abdominal fullness which I believe to be predicated upon her gastroparesis. She also complains of more generalized abdominal fullness. She is moving her bowels regularly. She is urinating regularly. I did schedule her for abdominal ultrasound which she regrettably missed. While the patient was in the room we rescheduled this.Globally, she does feel quite a bit better psychiatrically. She notes that she is less tearful, isolative and anxious. She is able to enjoy her grandchildren a bit more. Her is currently in the hospital. She has not noted any new sleep or eating difficulties with this. I encouraged her that it has only been roughly several weeks since she started this and that full effect may not even be in place yetWith regard to the GI symptoms, nothing really has changed over months if not years. We do await GI follow-up with regard to the question of whether she would be a candidate for something to manage her motility disorder predicated upon gastroparesis (such as gastric pacemaker).Finger sticks remain highly variable, and an optimal but not extremely high either on average. No overt hypoglycemiaIn addition reported lesion to right palmar wrist. Then said she had similar lesions elsewhereROS:No new headaches or neck pain although has chronic painNo acute vision changeNo dysphasia beyond her baselineNo current chest pain or palpitationsNot short of breath currentlyNo acute GI complaints aside from aforementionedNo new urinary complaintsExamination: Vital signs are notedWell-developed, middle-aged woman who presents today with her hair colored (in contrast to last time where it was not)She seems brighter overallNormocephalic and atraumaticPupils reactive, sclerae anictericAbdomen is somewhat protuberant, not overtly tender in any way. No guarding or reboundShe was able to smile, tell me of her enjoyment of her grandchildren. She did laugh on one occasion. She is awake, alert and attentive. Overall, less dysphoric than on previous occasionOn the palmar aspect of the distal forearm there is a roughly semi-lunar shaped, nonspecific dermatitis. On the dorsum of the left ankle there is a roughly oval, area with what appears to be psoriatic lesion with scale. She points to other areas that she feels are similar however in intertriginous areas underlying skin folds she has mild irritation with no overt lesion or exanthem OV Patient is seen today for follow-up in the wake of her 's concerns last week and as a consequence of this we made this appointment.As is usually the case the patient is more taciturn however, ultimately endorsed a variety of things, many of which have been problematic for quite a while.Globally she indicates she feels very depressed. She says that she cries often. She generally wants to be alone. She often finds that she yells at her spouse and that he annoys her. She reports generally she has less tolerance. She feels less earl in seeing her children yet at the same time she spoke with great sadness of 1 of her sons who in general is not involved in her life anymore.She tells me that in the past she had multiple admissions to [facility] psychiatry for suicidality. She is not currently suicidal. She mentions that her sleep is relatively poor. She makes mention of the fact that she took Ambien in the past but it was stopped. She also mentions that she took clonazepam in the past. There is some degree of confusion as she contends that she is no longer receiving her antipsychotic and other medications prescribed by psychiatry (and being sent to [facility] rather than her primary pharmacy) as she is not connecting with the psychiatric providers over at [facility].With regard to insomnia, she reports that she often sleeps poorly. She will nod off at approximately 4 AM. We spoke about the possibility of obstructive sleep apnea.With regard to the abdominal distention/bloating described by her . She describes predominantly postprandial fullness of the upper abdomen but also describes lower abdominal fullness. We did discuss the fact that she has gastroparesis and I explained that that likely accounts for the bulk of her upper abdominal symptoms. The patient had EGD in June 2020 which demonstrated semisolid food in the stomach but no other significant findings. She had colonoscopy at that time.She has historically reported that she eats relatively infrequently but continues to gain weight. She does suggest mild to moderate constipation.. She is urinating fairly normally. She does not describe any abnormal vaginal bleeding.She describes discomfort in her right foot. She describes pain in the foot itself. Very difficult to discern if this is neuropathic pain or otherwise. It is present at night but also present when weightbearing. She reports she has sneakers from here.Sugars were reviewed. Not a great deal of data however in general not having very significant hypoglycemia and range of sugars is better controlled overallROS:Headaches, often without changeNo acute visual disturbanceHearing fairOccasional dysphagia, nothing specific and not chokingNeck pain without changeNot having chest pain or palpitationsNot overtly dyspneic, no coughGI as after mentionNo specific urinary complaintsFairly diffuse musculoskeletal painExamination:Vital signs are notedNo significant weight lossWell-developed, middle-aged woman who is in no acute distressShe is normocephalic and atraumaticShe is somewhat less kempt than her usual with cuba rootsSclera anictericPupils appear to be reactive, difficult to say for early cataractPanic membranes seenNo obvious cervical adenopathy, no clear thyroid abnormality however thick neckHeart sounded regular with S1-S2. No dominant murmurLungs clear bilaterally without adventitious breath soundsAbdomen is protuberant, nontympanitic, no guarding, no rebound. There is nonspecific fullness, more notable in the upper abdomen compared with the lower abdomen. No overt fluid waveExtremities are without clubbing or cyanosis. There is no significant muscle atrophy. Little to no lower extremity edemaThere are no skin findings or obvious abnormalities to palpation of the right foot. On the left dorsal foot there is a small lesion that was not symptomatic with pigmentation to the lateral aspect.She is awake, alert and attentiveNo obvious hallucinations or attention to internal stimuliDoes not have psychomotor agitation. Affect is flat to dysphoric, although I have not seen her in general more ebulient than this in the past. OV Patient was seen today as her spouse reported she had kidney pain since last visit, which was approximately a month ago. The patient gives a significantly different history (timelines at times are a bit challenging)The patient reports several days of malaise. She specifically makes mention of the fact that she occasionally has nausea. She feels that she has been having some cold sweats nocturnally. She has not been febrile to the best of her knowledge. She has not checked fingersticks during episodes of feeling sweaty however, she has a continuous glucose monitor and in general has not been hypoglycemic in the past several days. In point of fact her sugars have on average been higher by her estimate (I reviewed them and they are variable in the past several days). We did discuss her hemoglobin A1c in April which was above goal but actually quite good for her. The aforementioned diaphoresis is not associated with shortness of breath and occurs at restShe makes mention of the fact that she has pain in the left side of her neck and posterior aspect of her shoulder. She says the pain at times is present in her left arm. When the pain is present in her arm she has difficulty abducting the arm and only keeping the arm at rest decreases the pain. She reports this has been the case for many days however, overall persistent for well over a year since her cervical surgery roughly a year ago which in turn was done because of similar symptoms.She makes no particular mention of kidney pain but does describe bilateral lower back pain, she reports right greater than left. We spoke about past ultrasound of the kidneys which was not particularly revealing. She does not have any dysuria. She makes mention of the fact that while she walked in the past fairly avidly and was able to do tasks around the house (she estimates as recently as 9 months, I do not believe based upon historical interview that this is likely an accurate timeframe) she is now having more time standing for prolonged time periods as she has low back pain. Occasionally she will have paresthesias in her legs although she denies any radicular pain. As has been the case for as long as I recall, she reports that going up the stairs is bothersome to her. In general when she has the pain sitting will provide relief.Sleep remains exceptionally poor by her accounting. There was some conflicting information. At points she says she does not sleep. At other times she reports that she takes her medications after the 11:00 news. She takes her Elavil which she says makes her drowsy. She takes 10 mg of melatonin. She tells me she takes the hydroxyzine that psychiatry prescribed in the morning, not at night. She indicated at times that she has entirely sleepless nights but at other times she will fall asleep and then awaken at 3 to 4:00 in the morning. She laments that she cannot sleep until 8 like other members of her household. We discussed the possibility of shifting her hydroxyzine to bedtime as well as taking only half melatonin at bedtime and reserving the other half for awakenings in the middle of the night.Glasses not working well for her. Trouble accessing Psych providers med rec Data Chest x-ray 01/12 for pleuritic chest pain: No acute abnormalityCT angiogram of chest 01/14/21 for pleuritic chest pain and elevated d-dimerNo evidence of central, lobar or proximal segmental PE. No aortic abnormality. Mild atelectasis. Trace pericardial effusion. Normal thyroid. Mild atrophy of the pancreas. Mild degenerative changes of spine and shoulders.Renal ultrasound 01/08/21: Normal kidneys and bladderEndocrinology November 2020: Recommendation was for Lantus 30 units twice daily, metformin and guardians. Sliding scale insulin.Neurology no showed 01/07/21Rheumatology 01/05/21 impression bilateral rotator cuff dysfunction question inflammatory arthritis versus adhesive capsulitis. Poor response to cortisone shots and physical therapy. Plan was for prednisone. I do not believe that transpired, I expressed concern regarding her diabetes LAURA Patient is seen today for her biannual. She has had no interval hospitalizations, ER visits. She has had no recent injuries or falls. It is always somewhat hard to get a sense of her function but there has been no abrupt change.She did have an episode of chest discomfort some months ago. Elevated d-dimer made us concerned for possible PE. CT angiogram was reassuring. This resolved largely spontaneously.Patient continues with her chronic pain in shoulders, neck and lower back. The pain is really not globally change in any way. She continues to find some relief with agent/opioids.She describes health as always in a bad mood . She is seeing a new prescriber at her psychiatrist. They apparently added hydroxyzine 25 mg twice daily as needed as well as risperidone 0.5 mg twice daily.She comments on her weight gain. I did tell her that I could speak to her cow washer regarding GLP-1 agent however, she continues to have significant reflux symptoms which I explained would almost certainly worsen with GLP-1 agent. She carries a diagnosis of gastroparesis. What she describes sounds more to be gastric paretic rather than pure reflux.She is not having chest pain however when walking up the stairs she feels that she is somewhat tachycardic.She continues to have some degree of urge incontinence. We discussed behavioral strategies surrounding this. Pleuritic CP Patient was seen for an acute visit. The patient was seen outside of the center. Patient was accompanied by her daughterThe patient reports a 1 day history of right upper chest pleuritic pain. Onset seems to have been fairly abrupt. There are associated chills. There are muscular pains however difficult to say if this is any different than her baseline. She does not have much by way of a cough. She does not have rhinorrhea. She does not have a primary ENT symptoms. Difficult to comment on headache.She does not have diarrhea or other GI illness. She has slight anorexia. She has chills and perhaps at times it feels warm. Noncontact thermometer initially read 102 however her oral temperature was subsequently 97 5.Pain is exacerbated by deep breath. She has not taken any analgesics beyond her usual.ROS: Largely as aboveExam:Please see nursing notes for full vital signs however blood pressure was 120s/60s, respiratory rate was 14-16, room air oxygen saturation was 95%, as aforementioned oral temperature was 97.5, pulse 70s-80s.Well-developed, middle-aged woman who looks slightly uncomfortable but not in distressShe is normocephalic and atraumaticSclerae anictericSlight clear nasal discharge upon swabbingNo obvious cervical adenopathyHeart a bit distant but regularLungs sounded diminished but clear, right lung sounded more diminished compared with left although my recollection is that that is a somewhat chronic finding.Abdomen exam limited but overall nontenderExtremities are without clubbing or cyanosis. She does not have calf edema or tendernessShe is awake, alert and attentiveShe was sitting in the sun however when she took off her fleece she was fairly sweatyPoint of CARE influenza A/B as well as novel coronavirus swab is negative(I informed the spouse) Pain Patient is seen today, accompanied by her , for complaints of pain/insomnia/mood disorder.The patient reports that she believes that since her cervical spine surgery her pain is no better and in fact may be slightly worse. She describes the pain as involving both arms. At times she has difficulty with her hands. She recently had a fairly brief course of occupational therapy which she participated in somewhat sporadically. She has previously been seen by orthopedics as well as pain management. She has a primary shoulder pathology which I reviewed with them on the MRIs. She has not been anxious to have corticosteroid injection given poor tolerance in the past in the context of diabetes.She does have neck pain. She wondered about the use of a soft collar. The one we had was too large. I have spoken to my OT colleagues about getting an appropriately sized one.Of note, the patient previously had bilateral carpal tunnel syndrome by her report. I do not have surgical reports of this but I believe this to be correct. She continues to have back pain. She says the back pain is more present when she ascends stairs. This has been present for years. A bit unclear whether she has radicular symptoms in the lower extremities, my perception is that she does not report this.The patient sleeps very poorly. The spouse describes her as crying through the night. This is ostensibly because of physical pain.The patient was out of counseling for quite a while. She tells me that they finally connected with a therapist and will resume next week. I wondered whether she would wish to switch practices to another one such as [facility] or [facility]. She indicated she would. I have spoken to by social work colleague regarding this.ROS belowExam:WD, WN, obese middle aged woman in NADAnictericMMMMuscular neck tendernessDecreased shoulder abductionDecreased hand grasp, bilaterallyAmbulatory with caneLE motor intact in LEDecreased sensation LE and ? handsConstricted, dysphoric affect Biannual Patient is seen today for biannual. She is accompanied by her . All were wearing appropriate personal protective equipment. All conditions are chronic and stable unless otherwise indicated.The patient has had no emergency room visits. Her only admission was for planned cervical decompression. Overall she has not had significant functional change. She has not had any recent falls.Patient has seen pain management. She had cervical decompression due to upper extremity symptoms. She also had Tarah symptoms, back symptoms and shoulder symptoms that were not necessarily anticipated to improve with the cervical spine surgery and, in point of fact if not. Her hand paresthesias and weakness seems somewhat better.Her diabetes has been exceptionally poorly controlled. Multiple consultations with endocrinology. We were successful in getting her A1c down from over 11-8.3 to allow cervical spine surgery. Her sugars remain highly variable but overall I think the trend is significantly better.As is generally the case, the bulk of the issues surround pain, and psychiatric challenges.She continues to experience bilateral shoulder pain. The plan is for her to see therapy and work on this. MRIs are as detailed below. She saw rheumatology a while back and had bilateral shoulder injections. It did not appear to help her very much.She reports that the insulin needles being given are too long. She finds him to be painful. I will ask the pharmacy to give her shorter needles.She reports her anxiety is very poorly controlled. It is unclear that her depression is particularly well controlled however she has what she perceives to be debilitating anxiety, sometimes panic. She does not find current medications helpful. I told her about the possibility of buspirone. I told her I would reach out to Rishabh Rendon to get his opinion. Absent his input, we may just proceed.She describes frequent headaches. They are not truly hemicranial. The predominantly anterior. There are no alarm features. There is no consistent pattern. She feels that when her hair is tight it worsens her headaches.She describes a very odd phenomenon which somewhat antedated her neurosurgery. She has difficulty swallowing water. She says that she develops nausea and will regurgitate water. She does not seem to have this difficulty with other thin liquids. She does not seem to have this difficulty with other consistencies of food. Of note she had a EGD which showed undigested food in the stomach that seemed consistent with her pre-existing diagnosis of diabetic gastroparesis. She does have reflux symptoms. As aforementioned, EGD was done. She is on a PPI. We discussed options, potential downside of long-term use of high-dose PPI. She uses tums quite a bit.She reports that she needs glasses. We discussed the fact that she does not need a referral and simply needs to go to shipping room supervisor. Her has not gotten glasses and she knows where she can go.She describes left arm symptoms that seem to be predominantly numbness. Not associated with exertion or activity. When she climbs stairs she has somewhat winded. She does not have chest pain per se.There seems to be some association with sleep and cough. She has some left ear discomfort and is looking to have drops for that. [facility] Data Cervical spine f ilms 10/07: Postoperative changes of C4-C5 and C5-C6 interbody fusion. Preserved cervical spine alignment. Normal C1/2 relationship. Clear lung apices.Left shoulder 06/10/20:Minimal arthritic changeRight shoulder 06/10/20: Minimal loss of joint space in the right glenohumeral joint.MRI of the cervical spine preoperatively in April: Mild cord compression C4-5 and C5-C6. Normal cervical spine cord intensities. Multiple levels of cervical spondylosis.[facility] shoulders [facility] 2020 [facility] Left shoulder:Mild acromioclavicular osteoarthritis. Thickened coracoacromial ligament. Mild narrowing of the lateral outlet. Small subacromial/subdeltoid bursitis. Supraspinatus tendinopathy. Diffuse thinning and irregularity within the glenohumeral cartilage. Intermediate T2 signal within the thickened inferior glenohumeral ligament. Impression is no rotator cuff tear. Supraspinatus tendinopathy. Intermediate T2 signal within thickened inferior glenohumeral ligament can be seen in synovitis and adhesive capsulitis. Mild glenohumeral chondromalacia. Mild acromioclavicular osteoarthritis, thickened coracoacromial ligament, mild narrowing of the lateral outlet and small subacromial subdeltoid bursitisRight shoulder:Mild AC osteoarthritis. Thickened coracoacromial ligament. Mild narrowing of lateral outlet. Small subacromial/subdeltoid bursitis. Supraspinatus and infraspinatus tendinopathy. Intermediate T2 see them within a thickened inferior glenohumeral ligament. Diffuse thinning of glenohumeral cartilage. As on the other side, impression is supraspinatus and infraspinatus tendinopathy, possible adhesive capsulitis versus synovitis, mild glenohumeral chondromalacia,Venous duplex 09/11/20, postoperatively, no DVTMammography June 2020: Normal, one-year follow-upShe most recently saw endocrine in August.C-reactive protein drawn at [facility] in May was 1.1 which is slightly high for their lab. Rheumatoid factor under 10 and CCP antibody 6She saw sleep medicine in April, they ordered auto CPAP with nasal interface. Follow-up did not occur. The ferritin and iron/iron-binding capacity were not drawn. She saw rheumatology in a number of times most recently in August right subacromial injection was done. A left subacromial injection was done in July. The patient was seen initially in May with a diagnosis of lumbar spondylosis, bilateral shoulder pain. Exam ov Patient is seen today primarily for complaint of lower extremity pruritus and pain. We also discussed her shoulders. We discussed some issues with regard to equivocal and unusual dysphasia symptoms. We discussed her diabetes.Patient has a history of severe cutaneous hyperesthesia/allodynia. In the past sun exposure would cause her to have significant pain. Water from the shower hitting her skin would cause her pain. Air conditioning blowing on her skin would cause her pain. For reasons that are unclear, this seemed to improve somewhat. She now describes pruritus, predominantly to lower extremities (which is not new) and after she scratches she has pain. She does not have pain seemingly before she scratches. She has not had any new exposures or obvious soaps. She does not necessarily have a rash although has multiple healed lesions. She previously saw dermatology with a diagnosis of dermatosis versus psoriasis as well as seborrheic dermatitis.In the past and had also been incidence of the entire family itching and some concern regarding infectious cause. Several members of the household treated on a number of times with permethrin.The patient reports ongoing difficulty with her shoulders. She reports this is not changed by her cervical spine decompression. I reminded her that she has primary shoulder pathology. She was seen by orthopedics in the past. She is amenable to trying physical therapy.The patient reports no difficulty swallowing solids however says that water gives her difficulty. She seems to be able to tolerate juice. It is very difficult for me to conceive how this is the case. She reports that when she drinks water she sometimes has to spit it out. Pills taken with water are problematic but not with other thin liquids.Her sugars remain highly variable. She says that when her pain is significant sugars rise. Subsequent to visit pharmacist kindly pointed out to me that endocrine recommended cessation of the Amaryl.ROS:See ROS section belowExam:Well-developed, obese middle-aged woman in no acute distressLooks dysphoric/constricted affectSclera anictericRight anterior neck surgical scar well-healedHeart sounds to be regularLungs clear bilaterally without adventitious breath soundsAbdomen obese and softExtremities without clubbing or cyanosis. There is no pitting edemaLimited and painful abduction of both shoulders, no obvious synovitis, increased warmth or obvious deformity. Distal function in both arms is intact.There are no open lesions that I see on the anterior posterior trunk, upper extremities or lower extremities. There are healed, nonspecific, roughly annular lesions to the legs bilaterally. There is no primary exanthem that I am able to see. Appears to have allodynia/hyperalgesia to light touch of the skin although her response was very modest to light touch Post Op Patient was seen today for post surgical visit. The patient had Annulotomy, discectomy, anterior and posterior osteophytectomy, arthrodesis and bilateral foraminotomy at C4-C5 and C5-C6. Placement of 2 PEEK titanium lordotic ONEIL-C implants. Implants filled with harvested autograft and concha allograft. Postoperatively the patient had bilateral LE pain and underwent Doppler. There was no evidence of DVT. on 09/10. The patient was discharged in 09/11. The patient was to come into the office today however, spouse indicated she had excessive pain that precluded her from traveling and therefore I went to see her.The patient's major complaint is odynophagia. She reports that since the time of surgery she has had a sensation of a sore throat. She says that she is having difficulty eating anything solid. She said that even soups at times feel like they do not go down well. She suggest that some are coming back however she does also report that she is able to swallow certain things. She indicates that her spouse and her son have been mashing up food for her. In view of her mediocre intake, while she does not spontaneously report that she does indicate that her sugars have been low. She reports sugars in the 40s and 50s yesterday. She has not changed her insulin. She says that she is taking her pills somewhat variably and had difficulty getting down the larger pillsIn addition, she reports that she has a sense of a bad taste in her mouth. She feels that her mouth is somewhat glue-like. When asked she reports that she is not had a bowel movement in 4-5 days. She does not report nausea per se.She reports that her neck is somewhat sore. She is not feeling feverish or chilled. She is not having urinary retention. She is able to ambulate. She is climbing the stairs, with the assistance of her spouse her son. When I asked if anything is better she seems to suggest that her upper extremity pain is better although she still has some residual paresthesias/hyperesthesia. She continues to have some shoulder pain and again endorses neck pain which I told her is not entirely unreasonable given the surgery she underwent.She applied a Band-Aid to her anterior neck incision as some of the dressing apparent they fell off. As far as I can see there are Steri-Strips on. There is no active bleeding.ROS:No acute vision changeOdynophagia has aboveNo reports of chest painNo reports of dyspneaConstipation as after mentionNo new urinary complaintsExam:Well-developed, middle-aged woman sitting on her couch in no acute distressTemperature 98.2, respiratory rate 14, room air action saturation 96%, pulse 70sShe is normocephalic and atraumaticThere is right anterior surgical site that is covered with Steri-Strips. There is no active bleeding.She has some neck stiffness but no erythema, focal tenderness or other abnormalityThere is mild pharyngeal erythema by do not see anything suggestive of infection or inflammation. There is no obvious cervical adenopathy. There is some dental attrition. The patient was able to swallow water without incident, coughing or other difficultiesLungs were slightly diminished but overall clearAbdomen protuberant but overall softExtremities are without clubbing, cyanosis or edemaHand grasp is 5/5 bilaterally. Flexion and extension at elbow grossly intact and symmetric. Shoulder abduction strong bilaterally. Plantar and dorsiflexion intact, knee extension intactPatient is awake, alert and attentive OV Patient was seen today for increasing chronic pain. I spoke to the purchasing coordinator in advance of the visit and it seems likely she can be booked the next 2-3 weeks; therefore this will serve as a preoperative visit as well.Patient with a very long history of chronic pain syndrome. 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 In addition, there is almost certainly fibromyalgia. There is also almost certainly lower extremity polyneuropathy related to her diabetes. There is appreciable mood overlay.The patient continues to complain of some neck pain but more so lower back pain. She reports that when she walks and or climbs stairs she feels like her back is swollen and that her legs are heavy. She reports paresthesias and dysesthesias in both hands. She feels that both shoulders hurt her particularly the left and she has limited range of motion.Both she and her spoke at length about how profoundly miserable she is. They report that she is often crying, screaming and otherwise expressing enormous pain. She often does not particularly wish to get out of bed. They report that the has to often walker to the bathroom and that when she returns from such an event she is exhausted. She feels that her mood is worse due to pain.We had a long discussion about the after mentioned. and the patient to our long fixated on dosage of opioids. Interestingly this in spite of the fact that she indicates that when she takes opioids she falls asleep but awakens and pain. I have again explained that opioids are unlikely to significantly alter her chronic neuropathic and other pain. I have in the past although not today, explaining that in fact with time opioids can actually cause hyperalgesia.The patient has been seen by pain management, orthopedics and others.As aforementioned, the patient was scheduled for cervical surgery due to cervical stenosis however it was deferred when her A1c was noted to be 11.7.With intensive management of her diabetes, in conjunction with [facility] endocrinology, her A1c has fallen to 8.3. I have spoken to her team at [place] to endocrinology and they agree that it is reasonable to proceed with surgery with regard to her glycemic control.With regard to fitness for surgery, she does not have excess bleeding. She is not currently experiencing chest pain. She does not have significant exertional dyspnea although she is deconditioned. As after mentioned, she is able to climb the stairs and seems more limited by pain rather than cardiovascular pulmonary fitness. She does not currently have evidence of infection.I did speak with the patient and her regarding the issue of aspirin and past diagnoses that had been reported including MN (which seems erroneous) seizure disorder-which seems likely to be pseudoseizure and neurology is following. She insists that she had a stroke as does her . I mentioned that MRI thankfully shows no evidence of a stroke. They report that they went to the hospital and she had treatment, so it is certainly conceivable that she had TPA without evidence of infarct but again I am uncertain about this. I did send event that she had a past stroke aspirin would be reasonable.EKG:SR @65. No acute changes, nl intervals, axis. C/w [facility] EKG from 2013, aside from QTC increase to 460mSec, i see no other changes Rectal Bleed Ms. Karime Puga is being seen today in the clinic by this provider in absence of my colleague, her PCP, Dr. Ellis. Her Israel Puga is also present for the visit. She called triage yesterday reporting weakness and blood in her diarrhea. She declined to go to the ED and was given an appt for the clinic today. She was also instructed to bring in a stool sample if possible for visit today. Chart summary per previous records: EGD May 2018: Moderate amount of gastric retention, right mild reflux esophagitis and small hiatal hernia. Gastric antrum biopsies showed moderate chronic gastritis and was H. pylori positiveColonoscopy March 2017: 4 mm sigmoid polyp was a tubular adenoma and 1.5 cm polyp in the rectum which was a tubular adenoma. Gastric emptying study read as mild gastroparesis. Normal HIDA scan with [facility]CK in July 2018. She reports that over the last 3 days when having a BM, has found blood on her toilet paper and noted in the toilet. Blood can be occasionally dark red in color, can see clumps of bright red blood at times. Reports constipation alternating with diarrhea. Reports occasional dizziness/lightheadedness with change in position, but states this has not changed since noting the blood in her stool. She reports has GI appt in June, was previously going to have but this was rescheduled due to COVID19. She reports previous colonoscopies with polyp removal. Appears stable, not orthostatic. See examination. OTHER- Reports having a back surgery in mid May at [facility] - she will follow up with care team with this. - She and had a question on pain medication which she can review with PCP and her regular care team. PLAN:- HOLD aspirin 81 mg daily due to reports of bleeding.- Will attempt to obtain sooner GI appointment. Appears that she has a colonoscopy scheduled in June. GI office called and they were unable to find any sooner colonoscopies. Ppt encouraged to call also on her own to see if they have cancellations. Red flags reviewed and instructed to go to ED for concerns. SE care team will follow up with her by phone or in person this week. - Updated labs to be completed today.- Will be seen in follow up by PCP. Biannual Patient is seen [id number] for biannual. Appropriate PPE was worn.She has had no hospitalizations, recent ER visits over a recent falls.Dominant issue is pain. While in the remote past the pain was predominantly in her low back and occasionally lower extremities, more recently her pain has been predominantly in her shoulders. Pain is bilateral. It involves her shoulders but not more distally in her arms. It involves trapezius bilaterally. She describes neck pain although unclear if this is a distinct phenomenon. Of note, due to my concern of the possibility of this being polymyalgia I previously check inflammatory markers. CRP was minimally elevated and sedimentation rate was normal.She reports that the 5 mg of oxycodone does very little for her pain. She says it does sometimes make her tired but does nothing to also the pain. She says she generally takes it twice a day although elsewhere has reported that she takes it once a day. I asked her if she had ever taken to 2 tablets together. She says it was not particularly effective and as such I told her I thought there was essentially no benefit in changing it and that that was not standard care for chronic pain unrelated to life limiting illness.She reports weakness in both hands, somewhat long-standing. She has some degree of paresthesias. She has had previous hand surgery bilaterally. She reports this is quite debilitating. The pain is severe and interferes with sleep among other things. She is unable to brush her hair or do other activities involve raising her hands above her. Pain management has given her some injections in the past, apparently to little avail. 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 She was referred previously to physical therapy which she participated in briefly before dropping out as she felt the pain was excessive.She reports what she perceives to be increasing left upper extremity more so than right tremor. Occurs at rest and with activity.Diabetes is overall quite poorly controlled. It is variable. 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 I previously spoke to them and Amaryl was increased however neighbor came to fruition. More recently they've renewed her dose at 2 mg per day. Her Amaryl goes to a different pharmacy from the rest of her medications.She reports adherence with insulin although in the past there has been some variability with this. She reports she is taking her oral hypoglycemics. She presented her bubble pack list from [employer].She has some lesions to her legs. They're pruritic. They bother her at various times of day. She contends that her family does not currently have any such lesions although did previously. She does have a dog in the house. She contends daughter does not have any fleas or the like.She reports daily headaches. The headache is posterior. It generally occurs in the afternoon. She cannot clearly associate any particular activity with the headache. She indicates in the past she was diagnosed with migraines. She does describe certain migrainous features such as photophobia phonophobia, nausea and improvement with being in a dark quiet room. The headache onset is gradual and it comes to be. She does describe, when asked, occasional scotomas however, reports they occur at times other than headache as well. Duration is somewhat unclear. She says she takes Tylenol for this and it does very littleThe patient sleeps very poorly. She reports that her mind often races at night. She generally does not fall asleep before 4:00 in the morning and generally sleeps until 10 AM. She does not sleep during the day by her report. Of note she has established diagnosis of obstructive sleep apnea dating to 2009. She does not currently use a CPAP and was not enthusiastic about consideration but after I described the pleiotropic effects of RAYMOND she is willing to consider return to sleep medicine/repeat polysomnographyShe remained significantly depressed. She continues to work with therapist. She continues to see Rishabh Rendon for medication management. She attributes a fair amount of the depression to her pain.She reports that her vision is poor without her glasses. She also reports that she has a toothache on the left posterior maxillary tooth. Of note, she has very few teeth on that side and the tooth that she does have which does appear to be significantly decayed seems to anchor her partial on that side. I explained that in the event that it is removed, which almost certainly needs to be, she may not be able to anchor her upper partial.While she does not spontaneously make mention of it, when asked she reports she has had loose stools for roughly 4 days. She reports that she has a very strong gastrocolic stimulus over the past 4 days and after she eats essentially anything she has to go the bathroom. She says describes stool in great detail, no obvious blood. It would seem that stools are loose although unclear if watery. She reports some nausea and perhaps vomiting although is again very vague on details. She says she typically has such episodes 1-2 times a month where she will have symptoms and then they resolve spontaneously. She cannot correlate them with any food item or other event. She says she has had these for many years and has had workup including upper endoscopy. She does have a diagnosis of gastroparesis although I am skeptical that directly impacts upon her loose stools.Social history: No changeLives with her spouse, 27-year-old son, his girlfriend, 13-year-old grandchild and 2-year-old grandchild. She reports that she is the primary caregiver for her grandchildren however, does get some help from her son and his significant other. She does not drink or use any substancesFamily history:Extensive family history of diabetes, chronic kidney disease in her mother, blindness in her mother related to diabetesSocial history:Seemingly independent in her ADLsMedications are reconciled with her pharmacy list (tablets). She says she is using a white cream for the pruritic area of her legs, it is unclear to me what this is additional data Lumbar x-ray of spine 11/19/27:No fracture, no spondylolisthesis, some evidence of degenerative disc disease at L4-5 and L5-S1. SI joints normalRenal ultrasound October 2019:[id number] hr eegAbnormal, no epileptiform activity. Slowing over temporal regions.Saw neurology with plan for EEG, referral to pain management and referral to sleep medicineMammogram April 2019GI note from August reviewed. They in turn got records from Dr. Dennison.EGD May 2018: Moderate amount of gastric retention, right mild reflux esophagitis and small hiatal hernia. Gastric antrum biopsies showed moderate chronic gastritis and was H. pylori positiveColonoscopy March 2017: 4 mm sigmoid polyp was a tubular adenoma and 1.5 cm polyp in the rectum which was a tubular adenoma. Gastric emptying study read as mild gastroparesis. Normal HIDA scan with CCK in July 2018.Last vitamin D was 29 in May 2019. B12 was 733 at the time. ESR was 28 in December and C-reactive protein was 11 with upper normal being 8 hepatitis C antibody positive however, viral load not detected minimal. Hepatitis the negative, being immunized. Last hemoglobin A1c was 10.4 in September which was down from 11.4 in May. Minimal microalbuminuria in September 2019 Rectal bleeding- dry skinright e lbowbleedingsugars 215-300s, pm 415, 551GI in Aug, needs to returngrandson with vomiting+lighheadedbloatingShoulder, combingHgb 12Patient is seen due to episode of abdominal pain, nausea and [place] bleeding last week. Patient was here on and apparently had some nausea and abdominal pain however, it did not come to attention to later. She reports that subsequently she had several episodes of diarrhea with passage of clots. She reports the bleeding was per rectum, not vaginal.She reports she did not have any vomiting. The available pain was predominantly upper. Unclear what exacerbated or caused remission. In general, she reports that she tends to have discomfort when eating. The GI symptoms persisted for roughly 3-4 days. She reports last episode of any bleeding to open this past Monday. She still has occasional nausea and minimal abdominal pain, consistent with her usual baseline. One of her grandchildren did have vomiting although they feel is result of posttussive vomiting. She has minimal lightheadedness at times. She is not tachycardic. She is not short of breath. She does not have chest pain. Of note, the patient was referred to GI towards the end of last year. She was seen in August. Plan have been for consideration of upper and lower endoscopy however, they were apparently awaiting records.She is eating reasonably normally although says she is trying to cut back to lose weight. She reports chronic upper abdominal bloating.We did go through diabetes, the patient reports that her sugars are quite high. I have the results. P.m. sugars are as high as 500. She was seen by endocrinology and they stopped her Humalog. In addition they report that they decreased her Lantus to 40 units. She contends she is taking 60 units. She was started on by mouth sulfonylurea based upon endocrinology testing/recommendation.She reports long-standing shoulder pain. She reports difficulty combing her hair. She receives injections in the past. Unclear if she has established diagnosis of rotator cuff tendinopathy.Reports dry skin to lower extremities despite some application of cream. She also has a small area to her left side. Right elbow is still scaly despite use of medications from dermatology. She apparently missed a dermatology appointment. I asked that she reschedule this and let us know. I have given her the number for the transportation line.ROS:Sleep variableStill has significant headachesAcute vision changeNo dysphagiaGI as aboveNo current chest pain or shortness of breathNo urinary complaintsExam:Vital signs notedWell-developed, middle-aged woman in no acute distress. She actually looks fairly well today, certainly not acutely ill.She is no swelling atraumaticPupils are reactive, sclerae anictericMucous membranes is dehydratedNo pharyngeal injectionHeart sounds irregularLungs generally clear bilaterallyAbdomen obese, soft, nontender to palpation. No guarding or reboundExtremities are without clubbing or cyanosis. There is no significant pittingShe is awake alert and attentiveFine scale to LE b/l. Lateral thigh there is small scabRight olecranon Chronic redness and coarse scalePOC Hgb FUV Patient had sche duled follow-up today and is seen for multiple complaints, most of which are chronic in nature.Anxiety: Patient with long-standing history of what appear to be anxiety attacks. The some background of significant depression and anxiety. Of note, she has untreated significant sleep apnea. She is followed by Rishabh Rendon at [facility] for medication and she has a therapist. She suggest that for the past several weeks she has had uptake in frequency and severity of her anxiety attacks. Of note, her desvenlafaxine was increased, although I am uncertain precisely when. She's currently on 100 mg extended release per day. She does not feel this has improved her depression significantly. She continues to take prazosin at bedtime as well as amitriptyline. She clearly would like benzodiazepines although Mr. Rendon told her that that was not likely to happen. I explained the rationale why.Her other major complaint is headaches. As before, she describes headaches that are of somewhat indeterminant subtype . She describes significant generators of pain in her neck and to some extent posterior head. That having been said she mentions, as she did before, features of photophobia and to lesser extent photophobia. She at times has associated nausea. She continues to take a moderate amount of OTC analgesics, predominantly Tylenol. This provides her relatively minor relief. She is on propanolol, antiepileptics although perhaps her different indication as well as, amitriptyline. Unclear what has helped, in the past. Referral to headache clinic is pending, difficult to say but I believe it may be later in November. As aforementioned, has untreated sleep apnea which was deemed severe roughly a decade ago. 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 No epileptiform activity was present.She reports some constipation. Diffuse musculoskeletal pain syndrome is largely without change.Appears that she missed a sleep medicine clinic appointment on 11/18.ROS: Many chronically positive findingsHeadaches as aboveShkimberly reports some constipationEquivocal dysphasiaNo current chest painNot particularly active so difficult to know if she has exertional dyspneaConstipation as aforementioned, she tells me that she ran out of the Quidsi some while back and has been constipated as a result of this (we discussed being proactive and requesting refill rather than simply accepting the medication has ).Sugars reasonably controlledExam:Well-developed, overweight woman in no acute distressShe is also back and atraumaticAffect is somewhat flat to dysphoric, which is baselinePupils appear reactive, sclerae anicteric, extra ocular movements fullThere is tenderness along the suboccipital ridge and in the musculature of the neck/shoulder (trapezius)Neck suppleHeart sounds irregular with S1 and S2. No definitive murmurLungs clear bilaterally without obvious adventitious breath soundsDiffuse back painAbdomen exuberant, obeseExtremities without clubbing or cyanosis. At most trace edema.Awake, alert, ambulatory. Moves all extremitiesAffect is flat to dysphoric. She does not exhibit psychomotor agitation. FUV Patient was seen for follow-up of recent sense of urinary attention. At the time she did not have significant postvoid residual. She was taken off the oxybutynin that she been put on for off label use of menopausal symptoms by [employer]. It is her sense that the urinary retention has improved dramatically if not entirely resolved.She has myriad complaints today. Principally, she isn't far more pain. She describes allodynia as she did when she first in the program. She reports that her skin hurts her. She finds the flow of water from the shower to cause her pain. Her grandchild sitting on her lap causes her pain. She does not explicitly report being more depressed. When she was a dermatology they apparently told her that she should be referred to a bone doctor. She has no idea for what symptom complex or what was meant. My assumption is that they meant a server developer regarding the possibility of psoriatic arthritis and/or for her presumed fibromyalgia.She has seen psychiatry provider. She brings in the medications that they prescribed. She is having far worse reflux symptoms despite taking PPI twice daily. She is uncertain if she has GI appointment, although I'm reasonably sure she has been seen by them.Additionally, she is having an increase in headaches. She describes what sounds to be migrainous events with hemicranial pain (she does not spontaneously offer this), photophobia and the need to be in a dark room and silence. She is in general taking Tylenol. She says she takes this only when she has symptoms. Is not particularly effective. She reports that her reviewed PCP explained the concept of rebound headaches and she avoids overtaking OTC analgesics.Sugars are reviewed and are regular basis. Adjustments to insulin have been madeShkimberly also notes a rash to her right foot that has been present for a day or 2. She saw dermatology roughly a week and a half ago. She was placed on:Triamcinolone 0.1% ointment, ketoconazole cream, calcipotrieneMedications from psychiatric provider include:Prazosin 1 mg at bedtimeMelatonin 5 mg at bedtimeAmitriptyline 25 mg at bedtime, I believe she was already on thisDesvenlafaxine 50 mg dailyROS:Headaches as aboveGen. irritabilityNo acute vision changeDoes not describe significant dysphagiaNo current chest pain, does describe reflux symptomsNo increase in shortness of breathDescribes flank pain predominantly on the right. This is fairly ubiquitous and not specifically associated with symptoms. She does not describe renal colic.Does not describe constipationMood poorExam:Well-developed, middle-aged woman in no acute distress.She looks dysphoric as she did initially when she joined the programShe is walking with her caneVital signs are notedShe is normocephalic and atraumaticPupils are reactive, sclerae anictericThere are no oral lesionsIs obvious JVD or cervical adenopathyHeart sounds to be regular with S1 and S2. No definite murmurLungs are clear bilaterally without adventitious breath sounds. It is somewhat difficult to tell if she has paraspinal pain on the right. She does not have costovertebral angle tendernessAbdomen is somewhat obese, no guarding or rebound.Extremities are without clubbing or cyanosis. There may be trace pitting edema.The right foot has a nonspecific, fairly diffuse, minimally erythematous rash the dorsum of the foot. On the left posterior thigh there is what appears to be a healing pustule. There is no residual purulent material. There is no significant induration. 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 She was also assessed by assistant professor of music and primary RN. Patient reported several days of focal pain to lateral aspect of left leg. She said she felt as if a vein had popped out. She does not recall any trauma or bite although commented that it looked like someone bit me . It is not particularly pruritic. She is not systemically ill. Does not appear there is edema to the leg elsewhere.She also reported to RN and myself that several days ago she noted she was having appreciable difficulty voiding. She is not having dysuria, hematuria, pyuria. She had some low back pain. She noted that when she went to the bathroom she was voiding several drops of urine. This persisted for approximately a day or 2. This has improved somewhat and feels she is returning more to her usual voiding pattern however perhaps not quite at baseline. She drinks relatively little water.Patient is awake, alert and attentiveOn the lateral aspect of the left calf there is a roughly 3-4 cm X1 to 1.5 cm patch of erythema. The area is not indurated. It is not warm to the touch. It is mildly tender. There appears to be underlying varicosity.Bladder scan by nursing showed volume of approximately 130 mL. Semi Annual 3-54 days of wor se painWorse with activity Long walksAll in backLeft ear hurtSwellingNumbness of LENeuropathy of Brianne is dathDepression betterSleep poor, difficulty falling asleepBlsiters under breastCall retinaBreathing wehn climbing stepUIPain in legs/ShoulderL ear rythemaSinus sx betterL ootiitstorsemideInsulinPatient is seen today for semiannual. She has had no interval hospitalizations. She's had no recent ER visits. She's had no recent falls.We discussed her fairly normal MR of brain, not suggesting old stroke. We discussed cardiology records indicating that she does not appear to have active coronary disease or strong suggestion of old MN. She reports 3-4 days of worsening low back pain. She wonders about the possibility of being kidney. The pain is not radiating. She has more pain when she is walking or standing for long time periods. She is not having any new numbness or paresthesias in the lower extremities.Weakness. She's had no change in gait.Assessment chronic pains and legs and shoulders.Left ear is bothersome at times. She says is slightly painful. There is no drainage. Sinus symptoms that she had roughly a week ago have improved.Lower extremity neuropathy is relatively sensory. There is not much of a pain component to it currently.She reports her depression is overall somewhat better. It's a bit unclear to me when she last saw provider. She sees a therapist with regularity.She reports her sleep is poor. She has difficulty initiating sleep. Less clear how well she sleeps when she falls asleep.RN noted dermatologic findings under both breasts. Vaguely blisterlike findings. There is slightly uncomfortable. The overall pruritus that she has had fevers to be resolving or resolved. Unclear if this is related to treatment for scabies.She notices some exertional dyspnea. She has noticed slight lower extremity edema course of the day. Not having chest painSugars are still quite poor. Multiple adjustments to the insulin had been made. She will be seeing endocrinology next week. Still ambiguity regarding who she sees for ophthalmology although as best I can tell she has seen retina specialist.Saw GI, scope TBDSome UIROS: as belowExam:Well-developed, middle-aged woman in no acute distressVital signs are notedShe is normocephalic and atraumatic.Pupils are reactive, sclerae anicteric, extraocular movements are fullThere is minimal erythema of the left canalTympanic membranes appear to be intact bilaterallyNares patentNo oral lesionsNo obvious JVD or cervical adenopathy, I don't clearly feel thyroid nodularityNo obvious supraclavicular or axillary adenopathyBreast examination is deferredHeart sounds irregular with S1 and S2. No obvious murmurs/rubs/gallopsLungs are clear bilaterally without adventitious breath soundsAbdomen is slightly protuberant, soft, not obviously tender. No obvious mass or herniaNo CVAT, no midline spine tenderness.Extremities are without clubbing or cyanosis. There is trace to 1+ lower extremity edema pittingMonofilament exam is abnormal but she does have some sensationDorsalis pedis pulses are present but likely slightly diminishedThere is no significant scoliosis. There is no obvious acute synovitisFacial symmetry is preserved. Speech is fluent. Motor strength is symmetric and fullGait is slightly impaired, uses a cane. Difficult to say if it is antalgic.Affect is flat, mood seems congruent. She is free of hallucinations and delusions. Thought content is fairly normal although she has difficulty keeping track of certain details.Large patch of right elbow psoarisis, tiny annular , flat lesiosn under breasts. No ouruence, no ulceration, do not appear pustular Additional Data CT angiogram of the heart November 2018Small amount of pericardial fluid, likely physiologic, normal LV thickness and wall motion, tricuspid aortic valve, right dominant circulation, all major branches are patent, mild right lung base atelectasis. Fatty liver.MRI brain July 2019Minimal white matter disease, otherwise normalUltrasound right breast April 2019 no evidence of massUltrasound of liver July 2019 echogenic liver consistent with fatty type infiltration or fibrosis.Mammography 05/22/19-normalGI August 2019 MiraLAX increased. Omeprazole continued. They are awaiting records and then we'll schedule colonoscopy and or EGDGYN August 25: Trialing off label oxybutynin for vasomotor symptoms. Follow up Medical Condition We met today, largely for preplanned vis it. We spoke about the hepatitis C although subsequently her hepatitis C RNA came back negative suggesting that either the antibody was false positive or that she cleared. This information was conveyed to her subsequently. It is noted she is not immune to hep B and likely merits immunizationShe remains quite pruritic. The lesions to the upper, inner bicep of largely resolved however she continues to have it at the wrists. Her spouse and granddaughter are both pruritic as well and I suggested to both the spouse and her that they contact [facility] to have an pinmaker come out.She is using the corticosteroid to her elbow and her intergluteal cleft. It is somewhat better.Reflux symptoms persist despite twice daily 20 mg of omeprazole. I explained to her that GI is pending, she likes the need to H. pylori testing. We discussed option of increasing PPI and consequent side effectsDiabetes remains problematic. Some data provided, still quite labileShe no longer has pain in the toe. She feels that the Keflex gave her nausea and therefore she did not completed. The nausea has resolved. She is not feeling feverish on well otherwise.We discussed her depression and anxiety. I explained that benzodiazepines are not the way to treat his long-term. She is currently seeing a counselor from [facility], per patient. She is trying to connect her with a psychiatrist/provider. In the interim, we discussed the possibility of trying an SSRI. She is uncertain if she has previously taken citalopram or sertraline. As an after thought, she makes mention the fact that she has been having menopausal symptoms, principally what sound to be vasomotor symptoms for some years. She wonders about the possibility of treatment. She believes she saw SOCK LINER at [facility] some months ago but recalls no details. She is uncertain if she has ever had hormonal replacement therapy.Diabetic control remains variable and elusive.ROS:Has been somewhat more forlorn when she thought she had newly diagnosed hepatitis COccasional headaches, sleep variableVision not acutely changedWas evaluated for dysphagia, swallowing okayNo current chest painShort of breathNo significant GI complaints, sense of abdominal bloating (no known gastroparesis dx)Toe is no longer painful, will be seeing podiatry after our visitExam:Vital signs are notedWell-developed, middle-age woman in no acute distress and she is normocephalic and atraumatic. Pupils are reactive, sclerae are anicteric. Mucous membranes are decently hydratedNo obvious JVD, cervical adenopathy or thyroid enlargementHeart sounds irregular with S1-S2.Lungs are clear bilaterally without significant adventitious breath sounds. Abdomen is slightly protuberant, overall soft, nontender. There is no guarding or rebound. There is no obvious hernia or fascial defect. I don't feel a mass. Extremities are without clubbing or cyanosis. There is trace to no edemaThe rash to the left inner bicep area is largely resolving. There is still residual excoriation to the distal wrist at the very least on the left.She is awake, alert and generally attentive. Mood and affect are congruent and dysphoricNo overt hallucinations or delusionsErythema surrounding the fourth toe by mouth dramatically better. I'm less certain that the toenails appear to be avulsed in point of fact were Abd Rash Patient is seen for multiplicity of complaints. She has also seen to address some other chronic issues. History is somewhat diffuse. There are multiple sources of information including spouse, patient, interactions with nursing staff.Some weeks ago the patient had submammary and groin rash. It was deemed to be fungal most likely and she was started on antifungal powder. She is using this. She reports that she still has significant pruritus in those areas. Last week, there was concern about rash to elbows and buttocks. These were thought to be somewhat chronic. Patient was started on corticosteroid. She has not found this to be dramatically helpful.Yesterday spouse called with significant dissatisfaction surrounding abdominal complaints. In speaking with primary care nurse went out to see her and they noted that she had several days of pruritic rash predominantly involving left upper extremity and to a lesser extent her abdomen. No clear precipitant. No recent change in detergents or products. No recent viral illness although she did have what sounds to have possibly been a viral gastroenteritis from Monday through Monday night.She reports vomiting and diarrhea Monday through Monday night. She's had no further episodes. She does have some residual epigastric pain as aforementioned. She says her appetite overall is relatively poor. She's not moved her bowels since then. She describes historic episodes of constipation alternating with diarrhea. She does not use anything for her bowels by her report.She reports that both her spouse and her granddaughter lives in the home are pruritic but did not have a rash. She also reports that over the summer her grandson visited him several times and had significant pruritus, she suggest that she developed that thereafter although elsewhere suggested that she has had this for only several days. There do not appear to be new medications. She did find the diphenhydramine last night somewhat helpful with regard to the pruritus and it helped her sleep.Spouse reported dramatic increase in pain, reported that she was taking oxycodone every 4 hours in lieu of the prescribed every 8 hours. She reports that overall her chronic pain is somewhat better. She does report that she had epigastric pain, perhaps worse when she was having vomiting and diarrhea. She does still have some epigastric pain. It tends to worsen with eating. She occasionally has nausea although not consistently.She does describe significant reflux symptomatology and water brash. She also notes that the toenail of her right fourth toe fell off the other day. The right third toe lost its toenail several days ago. On examination she does have some tenderness of the right fourth toe despite having fairly insensate feet.I spoke the patient's surrounding cardiology report and indicated to her that there is no evidence that she had an old MN. She reports that she had old stroke and may be completing the tube. In any event, she does report that she has memory difficulties, not new in particular.She brought in her diabetic log for review. In the past week she has been consistently elevated. Fingersticks range from the 270s to 400. There are no lows. Interestingly there are some readings on the paper that do not appear on the meter, unclear if she took them another meter.We spoke at some length about her hepatitis C. I explained the nature of hepatitis C. I explained testing, I explained complications, I explained modes of transmission. I gave her a handout from the [facility]. She indicated that her spouse had been unfaithful in the past and wondered if that was a potential benefit of infection. I told her it was difficult to say and that sexual contact was a relatively uncommon way of obtaining hepatitis C. She denies any IV drug abuse in the past. She does not recall transfusions. I did not specifically asked regarding tattoos although none were evident.ROS:Memory difficulty as aforementionedSleeps relatively poorlyShe suggest a chronic pain somewhat betterNo current chest painNo current shortness of breathGI as aboveNo urinary complaintsSuggest a chronic pain is somewhat better overallExam:Vital signs are notedWell-developed, middle-age woman in no acute distressShe is normocephalic and atraumaticPupils are reactive, sclera anictericCoast membranes isn't dehydratedNo clear oral lesionsNeurologic his JVDAbdomen was obese, relatively soft, free of guarding or rebound. There may be minimal epigastric tenderness.Extremities are without clubbing or cyanosis. There is at most trace lower extremity edema. There is avulsion of the toenails of the third and fourth toes. The fourth toe has mild to moderate erythema surrounding the nail bed. It is not warm. It is difficult to say if it is cellulitic or inflammatory. It is somewhat tender. There is no purulence evident. Feet appear reasonably perfused opiates insensateThere is resolving fungal dermatitis under the breasts. Groin actually appeared relatively free of erythema intertrigo however she has residual symptoms. There was powder evident. In the cephalad into her gluteal cleft there is patch of dermatitis that appears quite possibly consistent with psoriasis. There are patches to both elbows with some scale again, most consistent with psoriatic manifestations. There is a roughly annular scab to the right knee which at this point is difficult to qualify as it was picked off. There is a scab on the leg.On the left palmar surface of the forearm there are several small areas of excoriation. It is very difficult to say there any distinct underlying lesions. On the medial aspect of the left bicep there are several areas of erythema. There are nonspecific confluent. I do not see distinct bite gardner or puncta. There are several pinpoint areas of excoriation and scabbing on the abdomen without erythema or distinct morphology. I do not see anything on the posterior trunk. There is nothing on the face or neck currently. There is nothing on the distal legs.She is awake, alert and attentive. There is likely a degree of memory impairment. She is somewhat vague consistent with baseline in my experience with her, which is very limitedMBS done several days ago, pending 2 week follow up for pain Patient is seen today primarily to follo w-up pain as well as diabetes and other issues. The patient traveled to [place] via car. She says that she overall enjoyed the trip however, it was quite warm and she found the walking excessive.She apparently forgot her glucometer. She opted against using her 's as she feared that it would affect his readings. At one point she suggest that she did not take the insulin although I believe she did. There are relatively few readings during that time. There appear to be more consistent reading since she is back. Fingersticks are variable. Lowest was 140, highest was 365. The low 200s to low 300s. Interestingly the pattern is not particularly discernible for anything in particular. She does not recall the number of units of Lantus she takes. She does tell me that she has 3 insulins are home. Subsequently the home care nurse for a kindly clarified that there are too short acting, one generic and 1 branded.I have given her reassuring her written instructions that she has to use the Humalog before meals per the sliding scale and the Lantus once in the morningWith regard her pain, she reports that the last change. She continues to have fairly diffuse pain. In addition, she has which he believes to be a pulled muscle in the right posterior thorax. She says when she twists it causes her pain. Of note, she suggest that she got the amitriptyline although when I call the pharmacy they suggest that she has not received it. In addition she has not received increase in Lyrica due to the fact that she was in [place].I told her that her urine did not show any oxycodone in the system. She insists that she is taking it. She and point of fact tells me that 3 times a day is not adequate to control her pain. I again explained to her that this is a short-term solution only. I explained that there is no role for opioids with chronic pain. I explained that we are trying adjuvants. In addition I told her that generally policy is such that this would not be accepted practice and that I believe that the wind of change are such that use of opiates will not be possible for conditions such as hers in the near future.She tells me she last used oxycodone last night. She continues to report relatively poor sleep however has not yet had the amitriptyline or pregabalin increase.ROS: LimitedNo feverNo current chest painOperative short of breathNo GI complaints acutelyNo dysuria currentlyExam:Limited examVital signs are notedWell-developed, middle-age woman in no acute distressBreathing quite comfortablyNormocephalicSclerae anictericShe has no lower extremity edemaShe speaks easily in full sentencesShe is able to rise from the chair easily and ambulates without difficulty Preventive care 2 Weeks Patient is seen today for follow-up. Specifically, areas of concern were her pain, diabetes. Some other ancillary issues discussed.She continues to have diffuse pain. The magnitude is somewhat less than when she was in distress last week. She is uncertain why her pain increased. We have very long and candid discussion surrounding use of opioids, the probable diagnosis, the relative lack of efficacy of opioids for her chronic pain likely fibromyalgia.We reviewed multiple medications that she had been exposed in the past. I told her that typical agent such as duloxetine are use. She says she was intolerant of it in the past. Again, she is on pregabalin. At higher doses she apparently was mean . Gabapentin has not been particular effective for her. She indicated she did not believe she had trialed Elavil in the past however, when I go to prescribe it indicates that she had adverse reaction with nausea in the past.She indicates that she was not sleeping at all when she was in pain. She says that she is sleeping somewhat better. The pain is fairly diffuse but predominantly in her back extending from her neck all the way to her lower back. She does not describe radicular pain per se but rather diffuse pain across shoulder girdle, lower extremities. She repeatedly eludes to her skin hurting. This has been consistent since previous. She says she tried topical agent at some point.She tells her that she has a limited number of oxycodone tablets left. She reports that she has been taking them. I shared with her, which she well-nourished, that there was concern the past that there was diversion.With regard to her diabetes, she brought in a glucose log today. All sugars are high. That having been said, the trend has been better. We discussed the ambiguity regarding her diagnosis of insulinoma. 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 She indicated that she is comfortable with transition if needed. For now she was also quite content not to see cow washer. I told her that I certainly uncomfortable escalating her insulin dose however, he began to have lows or ill-defined aberrations I would be quite uncomfortable. Of note there is historical debate as to the possibility of surreptitious insulin use versus insulinoma.With regard to her seizures, I told her of my review of her video EEG in 2009 indicating that she did not have seizures at the time. She tells me that from her perspective last time she had a seizure was many years ago. She reports that she spoke to her PCP about the possibility of coming off antiepileptics. She indicated that he was reluctant as he feared she would seize. I told her that in fact that is a possibility. Is a bit unclear to me whether she has a neurologist. I told her that options would include tapering her off antiepileptics (she is on Dilantin as well as valproic acid although the latter may be for psychiatric purposes). I did tell her that it is possible she could have a seizure but that there is no absolute evidence that she has a seizure disorder. I told her that yet another possibility was going to neurology and getting their opinion.She expressed concern regarding her right third and fourth toes. The nailbeds are somewhat darkened. She does not specifically recall having traumatize them although it is certainly possible that she would without being aware of it. I told her that I suspect that that is the etiology. I told her that it would be highly unlikely to have subungual melanoma in 2 locations simultaneously. It is painless. The exact chronicity is unclear.She reiterates being told she had a stroke in the past. She also reiterates having had an MN. She tells me that she had cardiac catheterization at [facility]. Of note, I was not able to locate records of that in recent years but I will need to look further perhaps. 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 She does not currently get chest pain.ROS:Has mood disturbanceSleep slightly improvedOccasional headachesNo acute vision changeNo acute dysphasiaNo current chest painNot short of breath currentlyDiffuse pain syndromeNo acute GI complaintsNo acute urinary complaintsExamination:Well-developed, middle-aged woman sitting in no acute distressVital signs are notedShe is normocephalicPupils appear reactive, sclerae anictericMucous membranes decently hydratedNo significant mucosal lesionsNo obvious JVD or cervical adenopathyHeart sounds irregular with S1 and S2. No obvious murmurLungs clear bilaterally without adventitious breath soundsAbdomen is grossly soft and nontenderExtremities are without clubbing or cyanosisShe has diffuse tenderness across her back. She also has tenderness of the shins and various other tender spots across her shoulders and lower extremities.She is awake, alert, generally attentive although perhaps slightly flat.Thought content is normal. Thought processes reasonably linear. PEE Post enrollment examination. Of note, subsequent to seeing her I reviewed medical records available from endocrine at [facility], PCP, [facility] records. Regrettably, there is a great deal that remains quite unclear and I sense is that there is very heavy burden psychiatric comorbidities and the possibility of diversion of medications, very complicated psychosocial situation.Issues of concern to the patient include her back pain, right knee pain, generalized fatigue. She reports that when she walks she has a fair amount of back pain. She reports that she has poor dexterity and poor strength. She also has headaches which are in a nonspecific pattern but may be present in the morning. She has by her report known sleep apnea (which is confirmed) but for which she does not use CPAP which was helpful.Notes from PCP and endocrinology detail long history of nonadherence. In addition there have been questions of her medications being stolen and on several occasions when confirmatory urine testing was done her urine apparently did not show evidence of medications that should have been present. These included opioids and other.There is strong suspicion of fictitious hypoglycemia with her using insulin however, consideration was being given to admitting her for rule out of insulinoma. She is not particularly enthusiastic and apparently declined that.She notes that she has lumps growing and she is apparently had previous excision of a right breast lump. She'll put this to be lumpectomy but rather something else. She has also had lumps/swelling on her right anterior leg and historically elsewhere.She does endorse depression. I asked her if she has bipolar disease and she said she was uncertain. She tells her that her psychiatrist no longer wishes to see her but that she continues to see the therapist. Her subsequently was present for part of the visit and he clearly expressed interest in her going back on medications for her pain. Interestingly had intake of both expressed lack of understanding as to why she was taken off medications. Again, this was done in the context of urine testing, and apparently discussion between psychiatrist and PCP.PCP notes indicate chest pain admission with 2 negative catheterizations although I do not see that in the [facility] system.She reports that she has been having bright red blood per rectum. She has a history of polyps. She is scheduled for a colonoscopy at [place] in May. She has been informed that this likely will need to be rescheduled.Of note, the patient was transitioned to oral medications given concern for surreptitious and perhaps excessive insulin use. It is truly unclear precisely what she hasn't has not been taking however sugars in the days before she joined and in the first roughly 2 weeks of the program were markedly elevated. She was started on short acting insulin on sliding scale which appears to be taking. Given the dismal control I did add 10 units of Lantus. Of note, the endocrine nodes are very concerningData:Cardiac CT November 2018 showed no significant stenosis of arteries. Mild left lung base atelectasis. Fatty liver.Video EEG in 2009 at [facility] suggestive of psychogenic nonepileptic shakingPolysomnogram 2009 RAYMOND, severe, chronicPolysomnogram with CPAP 2009 showed RAYMOND treated with CPAP 9cmPast medical history is reviewed again: There is a great deal of ambiguity.Reported to have had a stroke although PCP notes say a TIA and I don't find any evidence of neuroimaging in the [facility] system. She reports some paresis in the past, unclear if this is accurate.Chronic pain syndrome, possibly fibromyalgia, chronic low back painReported possible migrainesBrittle diabetes, possibility of fictitious hypoglycemia, consideration to rule out of insulinoma. Has had hospitalizations for hypoglycemia.Arthritis/arthralgiaHypertensionRe ported diabetic neuropathy, nephropathy and retinopathy (getting VEGF). Consideration was given to gastroparesisHistory of fallsHistory of H pyloriGERD?AchalsiaPolypsHistory of hidradenitis of axillaGait impairmentLipid disorder, largely intolerant of statinsReported to have seizure disorder however, as I suspected, no clear EEG evidence of this and in fact video EEG was strongly suggestive of nonconvulsive shakingObesityReported rare urinary incontinence. PCP note also is the possibility of retentionPossible eczematous dermatitisDepressionAnxietyHistory of plantar fasciitisFatty liver diseaseOSA, not using cpapShe reports diabetic foot infection in the past leading to hospital admissionreports past MN, I am not sure if accurate. 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 She has raised her granddaughter actually, granddaughters 12 and lives with her and spouseFamily history:Extensive family history of diabetes, arterial diseaseMother apparently on dialysisFunctional:Ind toileting, Upper body dressingLower body assistanceBathing?Feeding indIADLs variableCane at timesFalls in pastAll: Extensive, many at best intolerancesMeds: Very ambigous Intake Patient is seen today for intake. She is accompanied by her who is a participant.They report the primary school bus driver of desire to enroll is dissatisfaction with current PCP. Specifically, they aren't happy with his management of her chronic pain. He apparently stopped opioids and stopped pregabalin. The precise rationale for this is unclear however they do mention a negative urine toxicology. They feel that her overall condition has markedly deteriorated/functionally decompensated in the wake of this. A Ramírez of the fact that he alludes to wishing that he had a magic pill .The patient was hospitalized fairly recently, seemingly for hypoglycemia among other issues. Insulinoma is being excluded. She has not had very recent falls but has had falls.She lives in her own home, with . They apparently have custody of a grandchild. Her daughter does not live with her but apparently often helps her. She apparently needs assistance with bathing, often needs help with lower extremity dressing.She carries a diagnosis of fibromyalgia. She has headaches that sound migrainous. She has extensive chronic pain and describes episodes in the past of allodynia/hyperalgesia.PCP is Dr. Zuluagaocrinologist is at [facility], I told her I wasn't certain she would be able to retain the physician. Liner Man Dr. Juma Calderon,Correctional Sergeant is unclearSees ophthalmology, quite possibly a retina specialist (she does not recall more details) and gets injectionsAllergies manyPharmacy is [facility] [address] StreetMedications are somewhat uncertain as endocrinology appears to stop many of themShe wears glassesHas a upper partialShe walks with a cane for short distances and a walker for longer distancesPast mental history:Chronic pain, possible fibromyalgia, low back pain,Possible migrainesBrittle diabetes, rule out insulinomaArthritis/arthralgiaHypertensionRepor simon diabetic neuropathyHistory of stroke with left-sided paresisHistory of fallsHistory of H. pyloriHistory of hidradenitis of the axilla/cellulitis Gait impairmentHistory of fallsDyslipidemiaReported seizure disorderMorbid obesityRare urinary incontinenceprobable eczematous dermatitisDescribes past episodes of allodynia? History of burnsPresumed depression although not specifically statedReported anxiety.Plantar fasciitisPast axillaryMedications: Quite unclear.Off opioidOff pregabalinDilantin, dose is somewhat unclearDicyclomine again dosage unclearPropanolol 3 times a dayLisinopril 5 mg dailyDepakote seemingly 125 twice dailyVitamin D 3 reportedly 5000 unitsPrilosec 29 aspirin 81 mgAdvairPro-airUnclear if on pravastatin.Appear she is off insulin currentlyUnclear if on senna and MiraLAXIn summary, 58-year-old woman with a fair degree of disability. Unclear how much of this is predicated upon her stroke and how much of this is predicated upon chronic pain. The etiology of the chronic pain is unclear. Perhaps his fibromyalgia perhaps something else. There is clear mood overlay. Might consider excluding porphyria, albeit unlikleyThe cessation of medications and her self-report of abnormal urine toxicology is of concern. There is no reason to exclude from program however, not clear that she will get what she is seeking Instructions Date Instruction Additional Infor mation -Chronic with some p ressure point-Neck was message with muscle rub, will sent lidocaine patient for night time use-Encourage to use diclofenac gel -will f/u in 7 days Related to Other chronic pain -Chronic with some p ressure point-Neck was message with muscle rub, will sent lidocaine patient for night time use-Encourage to use diclofenac gel -will f/u in 7 days Related to Chronic neck pain -Diarrhea intermitte nt-On trulicity and metformin which can exacerbate GI symptom working in synergy.-A1c 8.7%, she was on jardiance before, I will reintroduce that and stop metformin and f/u with [id number] to stop taking senna and report recurrence of constipation-I have added antigas and lactaid-I will f/u in 7 days Related to Diarrhea, unspecified type -Given GI symptoms, metformin discontinued and Jardiance started-Continue lantus and trulicity-Recheck A1C Related to Type 2 diabetes mellitus with hyperglycemia, with long-term current use of insulin -Given GI symptoms, metformin discontinued and Jardiance started-Continue lantus and trulicity-Recheck A1C 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 Stable k idney function. BPN (-). euvolemic. Continue with Lisinopril. Related to Hypertensive renal disease, stage 1 through stage 4 or unspecified chronic kidney disease She declines to cons ider CPAP and is not interested in nocturnal oxygen which may help blunt the hypoxia at least-Continue to offer Related to Obstructive sleep apnea hypopnea, severe Stable. no recent ex acerbation, continue with Symbicort. Not smoking. not on home O2. Related to Mild intermittent asthma without status asthmaticus without complication The patient had a vi akin EEG in 2009 suggestive of pseudoseizures. MRI of brain was essentially normal aside from small vessel disease. More recent EEG showed some degree of focal intermittent slowing. No longer on phenytoin. Still on Depakote 125 mg twice daily, which is not clear if it was given for mood disorder or seizures. 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 She is appropriate. HCP is . Goal functional. Related to Cognitive deficits Patient reports diff use musculoskeletal pain, which can be a symptoms of fibromyalgia. But her pain flares up mostly when she is also having s/s of worsening of depression. Regardless, she is on Lyrica that is effective in treatment of musculoskeletal pain. Has not been reporting any worsening for moths Related to Fibromyalgia Continue with genera lized pain, on multiple analgesic. Related to Other chronic pain Continue with genera lized pain, on multiple analgesic. Related to Chronic low back pain, unspecified back pain laterality, unspecified whether sciatica present Longstanding neck pa in, s/p Anterior cervical discectomy & fusion (ACDF) on 09/11/23. On oxy and Lyrica for pain control. Ideally, I believe she should be tapered off narcatics while increasing her home exercises. However, knowing her complicated psych history, it would be very challenging to successfully wean her off. On the bright side, her pain is controlled so she can continue be active with her socialization and not showing significant degree of side effects. Related to Neck pain of multiple joints. Has multiple agents for pain including narcatics, lyrica, and Tylenol. today has no complaint. Related to Generalized osteoarthrosis of multiple sites Continue with genera l pain, nothing specific or acute at the moment, on opioid. will continue to monitor Related to Pain in left shoulder Continue with genera l pain, nothing specific or acute at the moment, on opioid. will continue to monitor Related to Pain of both shoulder joints BP at goal. Stable k idney function. BPN (-). euvolemic. Continue with Lisinopril. Related to Hypertensive renal disease, stage 1 through stage 4 or unspecified chronic kidney disease resolved after start ing PPI. Will continue to monitor. Checking pancreatic enzyme Related to Diarrhea, unspecified type In the setting of di abetes and opioid use. Currently stable with prn MiraLAX. Related to Slow transit constipation Although improve aft er the restarting of PPI and the addition of reglan, and no c/o of abd pain. I will recheck enzyme and f/u.Plan:Check Amylase and Lipase Related to Pancreatic atrophy Hep C antibody posit tracy, RNA negative which indicates no active infection. No concern for liver damage. Unsure if she when she received treatment. No further monitor Related to Positive hepatitis C antibody test US ABD 08/2021 : ech ogenic liver with fatty infiltration. Encourage low fat diet.Liver enzymes remains stable. Related to Hepatic steatosis Hx of GERD on omepra zole 20 mg daily Didn't report any difficulty this visit. Had an EGD in past that didn't show anything concerning.. Ppt has reasons to have achalasia vs diffuse spasm vs esophageal stricture.Can re-refer to ST as needed Related to Esophageal dysphagia Unsure if she was tr eated, does suffer from burst of dyspepsia in the setting of diabetes and GERD. Will ask patient on next encounter Related to History of Helicobacter pylori infection improved after resta ting PPI, she was not taking her PPI as there was no refill since 10/2024. -I have refilled it 04/04/2025, she will take 40mg for a month and return to her original dose of 20mg. Related to Gastroesophageal reflux disease without esophagitis Nuclear cataract per last ophth note. They recommended observation- Routine vision appts Related to Nuclear sclerotic cataract, bilateral Saw Dentist 03/12/25 for impression for custom trays. 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 I have encouraged low calories intake. Related to Body mass index (BMI) of 34.0-34.9 in adult Continue Vit D supplement Relate d to Vitamin D deficiency Intermittently contr olled. In the setting of GERD with acute dyspepsia as evidence by epigastric pain, decreased appetite, and nausea . I have sent reglan 10mg BID PRN for nausea. Related to Diabetes mellitus with gastroparesis On metformin. 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 Stable on Lyrica Related to Type 2 diabetes mellitus with diabetic polyneuropathy, with long-term current use of insulin EGFR 78, last A1C 8.7% improved. Lantus was increased by 4 units. Related to Type 2 diabetes mellitus with stage 2 chronic kidney disease, with long-term current use of insulin EGFR 78, last A1C 8.7% improved. Lantus was increased by 4 units. Related to Chronic kidney disease, stage 2 (mild) Last visit documente d with ophthalmology was with retina specialist in January of 2023. I will put in order for next visit. At that time findings were mild nonproliferative diabetic retinopathy in both eyes. There was slight cystic edema OD. Additionally, patient has bilateral nuclear cataracts-1 year follow-up with retina-Ongoing efforts at tight glycemic controlWith regard to diabetes: Very long-standing fairly poorly controlled diabetes. She has multiple complications including retinopathy, neuropathy, chronic kidney disease, hyperglycemia, gastroparesis. Related to Type 2 diabetes mellitus with both eyes affected by mild nonproliferative retinopathy without macular edema, with long-term current use of insulin Lipid panel Sep 2023 : TC 133, HDL 43, LDL 71, trig of 100. Improved from previous total cholesterol of 165, HDL of 42, LDL of 99. Triglycerides were 144. Patient is currently on rosuvastatin 10 mg daily. Given diabetes, I will favor ldl below 70. will increase statin-Increase rosuvastatin to 20 mg-Need to control diabetes to keep triglycerides in check Related to Mixed hyperlipidemia Incidental finding o n CT urogram. Continue with optimizing BP and lipid panel. Related to Abdominal aortic atherosclerosis Continue to report t olerable pain and remains on opioids after her decompression of the cervical spine surgery. She has seen a large variety of subspecialists including pain medicine, rheumatology, orthopedics. I will assess the ongoing benefit of opioid on next encounter. No history of misuse. Poly pharmacy evident. Will continue to monitor Related to Uncomplicated opioid dependence Stable. BP at goal. Continue low dose Lisinopril and statin Related to Essential hypertension Longstanding , PHQ-9 =7, mild depression in the setting of chronic pain controlled on opioids. She is on Citalopram 20mg decreased from 30mg. She is also on depakote.Will continue current regimen and monitor Related to Hypomanic bipolar II disorder Diagnosis of general ized anxiety disorder in the past. Reports she is still working with psychiatrist. Symptoms appear to be controlled -Continue citalopram 20 mg daily-I believe the Depakote 125 mg twice daily was given for psychiatric indication Related to Generalized anxiety disorder 01/02/2025 A1C was 10 .6, 04/17/25 a1C 8.7 which is improved. Patient reported CGM BS runs 250-300. I have increased lantus to 40units Am and 4 units PM. Continue on Trulicity and metformin Related to Type 2 diabetes mellitus with hyperglycemia, with long-term current use of insulin 01/02/2025 A1C was 10 .6, 04/17/25 a1C 8.7 which is improved. Patient reported CGM BS runs 250-300. I have increased lantus to 40units Am and 4 units PM. 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 She also struggles with sleep d/t pruritis. No concern for psoriatic arthritis. Psoriasic plaques extend from the top of the scalp to the neck hair line. -Betamethasone topical for 2 weeks-Consider referring to Derm if no relief Related to Psoriasis In the setting of GE RD with acute dyspepsia as evidence by epigastric pain, decreased appetite, and nausea . I have sent reglan 10mg BID PRN for nausea. Related to Diabetes mellitus with gastroparesis Uncontrolled, appear s that she may have not been taking her PPI as there was no refill since 10/2024. -I have refilled it, she will take 40mg for a month and return to her original dose of 20mg. Related to Gastroesophageal reflux disease without esophagitis Psoriasic plaques th at extend from the top of the scalp to the neck hair line. Will re-send Clobetasol shampoo. She is instructed to purchase her coconut oil, apply a thick layer to scalp over night, cover with head scarf, rinse in the morning, then apply Clobetasol shampoo. Of note, knowing the patient and her style of compliance, I doubt it if she go through a whole week of intense therapy and may need biologic medication. Related to Psoriasis Psoriasic plaques th at extend from the top of the scalp to the neck hair line. Will re-send Clobetasol shampoo. Related to Psoriasis She is not showing o vertly any s/s of sleep apnea, regardless, she is not interested in treatment with CPAP Related to Obstructive sleep apnea hypopnea, severe Previous decompressi on, now stenosis at a different level.On lyrica for radiculopathy Related to Cervical spinal stenosis Stable. no recent ex acerbation, continue with Symbicort. Not smoking. not on home O2. Related to Mild intermittent asthma without status asthmaticus without complication Annulotomy, discecto my, anterior and posterior osteophytectomy, arthrodesis and bilateral foraminotomy at C4-C5 and C5-C6. Placement of 2 PEEK titanium lordotic ONEIL-C implants. Implants filled with harvested autograft and concha allograft. Dr De La Rosa ([facility] [place]) Aug 2020 Related to H/O excision of lamina of cervical vertebra for decompression of spinal cord The patient had a vi akin EEG in 2009 suggestive of pseudoseizures. MRI of brain was essentially normal aside from small vessel disease. More recent EEG showed some degree of focal intermittent slowing. No longer on phenytoin. Still on Depakote 125 mg twice daily, which is not clear if it was given for mood disorder or seizures. 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 On oxy and Lyrica for pain control. Ideally, I believe she should be tapered off narcatics while increasing her home exercises. However, knowing her complicated psych history, it would be very challenging to successfully wean her off. On the bright side, her pain is controlled so she can continue be active with her socialization and not showing significant degree of side effects. Related to Neck pain Patient reports diff use musculoskeletal pain, which can be a symptoms of fibromyalgia. But her pain flares up mostly when she is also having s/s of worsening of depression. Regardless, she is on Lyrica that is effective in treatment of musculoskeletal pain. Has not been reporting any worsening for moths Related to Fibromyalgia of multiple joints. Has multiple agents for pain including narcatics, lyrica, and Tylenol. today has no complaint. Related to Generalized osteoarthrosis of multiple sites mostly opioid induce d. Currently stable with prn MiraLAX. Related to Constipation, unspecified constipation type Neg Colonoscopy 06/2020, recc 5 y r repeat Related to History of colonic polyps Hep C antibody posit tracy, no viral load. Not sure what promoted previous PCP to obtain serology. Nevertheless, her liver enzymes have remained WNL. Related to Positive hepatitis C antibody test Seen incidentally on CT urogram. Pancreatic enzymes WNL. not symptomatic with diarrhea Related to Pancreatic atrophy Controlled with PPI. Again discussed the risk of manager intermediate use of PPI, she is adamant she needs the medicine. Related to Gastroesophageal reflux disease without esophagitis US ABD 08/2021 : ech ogenic liver with fatty infiltration. Liver enzymes remains stable. Related to Hepatic steatosis Continue Vit D supplement Relate d to Vitamin D deficiency BMI stable at 33.23 Related to B MN 33.0-33.9,adult BMI stable at 33.23 Related to C lass 2 severe obesity due to excess calories with serious comorbidity and body mass index (BMI) of 35.0 to 35.9 in adult With A1c 8.6%. [place] dose was recently titrated up to address her A1c elevation. Related to Type 2 diabetes mellitus with hyperglycemia, with long-term current use of insulin Has mild polyneuropa thy, which is concurrent with lumbar spine radiculopathy. Stable on Lyrica Related to Type 2 diabetes mellitus with diabetic polyneuropathy, with long-term current use of insulin A1c 8.6%. Followed r egularly by ophtha for retinopathy. Related to Type 2 diabetes mellitus with both eyes affected by mild nonproliferative retinopathy without macular edema, with long-term current use of insulin A1c 8.6%. Followed r egularly by ophtha for retinopathy. 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 Continue with optimizing BP and lipid panel. Related to Abdominal aortic atherosclerosis Continue with statin Related to Mixed hyperlipidemia Stable. BP at goal. Continue with Lisinopril and statin Related to Essential hypertension She scored 17/30 per sistently in the past 4 years. She consistently did well with the clock, visual recognitions and orientation, and not well at all in math, attention and short recall. She has 11th grade education, has multiple mental and personality disordered. Consdering all these factors, I believe she has MCI rather than dementia, though her MOCA scores are low. She is still functional and her mood and behavior is more or less controlled. Related to Mild cognitive impairment Remains on opioids a fter her decompression of the cervical spine surgery. She has seen a large variety of subspecialists including pain medicine, rheumatology, orthopedics. Related to Uncomplicated opioid dependence Has been showing sta ble mood and behavior. Has a long-standing history of hypomanic depression. Had hospitalization as a teenager. It is very difficult to gauge using PHQ as a screen as she waxes and wanes. Nonetheless, She has shown significant improvement with increased Citalopram to 30 mg daily. 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 Related to Dysuria -Last HbA1c was exce llent at 7.3% however Karime tells me she was in fact taking Lantus still despite it reportedly being discontinued in late April 2024. She says she took it up until last week when she ran out of her last pen and then her blood sugar has since been elevated with it being in the 500s today.-10 units Humalog given in the office today with blood sugar coming down into the 300s before she left.-Restart Lantus 20 units once daily. Will explore involving the [facility] to help ensure consistency. Nursing to see pt tomorrow. -Continue Metformin 1000mg twice daily and Trulicity 1.5mg once weekly. Related to Type 2 diabetes mellitus with hyperglycemia, with long-term current use of insulin -Last HbA1c was exce llent at 7.3% however Karime tells me she was in fact taking Lantus still despite it reportedly being discontinued in late April 2024. She says she took it up until last week when she ran out of her last pen and then her blood sugar has since been elevated with it being in the 500s today.-10 units Humalog given in the office today with blood sugar coming down into the 300s before she left.-Restart Lantus 20 units once daily. Will explore involving the [facility] to help ensure consistency. Nursing to see pt tomorrow. Related to alf (current) use of insulin Psoriasic plaques th at extend from the top of the scalp to the neck hair line. Will prescribe Clobetasol shampoo. Related to Psoriasis Primary UA confirms UTI. Plan:- A dose of 1mg Ceftriaxone IM- Followed by a course of oral Cipro Related to UTI (urinary tract infection), uncomplicated DMII medications on holdStool culture pendingGiven repeated N/V, will start her on IV fluidLab: CMP to assess for electrolyte disturbances Related to Diabetic diarrhea DMII medications on holdStool culture pendingGiven repeated N/V, will start her on IV fluidLab: CMP to assess for electrolyte disturbances Related to Diarrhea, unspecified watery diarrhea x3/d ay for 2 weeks. She has multiple GI problems including pancreatic atrophy. However, the most likely cause of her current condition is Trulicity she is on for DMII, which was increased in dose a month ago. Plan: stop trulicity. Obtain repeat a1c for medication adjustment. Send out stool for culture to rule out infectious process.Although asymptomatic with symptoms, will obtain urine culture since her urine dipstick shows moderate leukocytes. She is on Jardiance (also fo DMII) that can potentially cause infection. Related to Diabetic diarrhea Small area of psoria sis on the scalp. Will consider prescribing her calcipotriene if worsen. Related to Psoriasis She is not showing o vertly any s/s of sleep apnea, regardless, she is not interested in treatment with CPAP Related to Obstructive sleep apnea hypopnea, severe Stable. no recent ex acerbation, continue with Symbicort. Not smoking. not on home O2. Related to Mild intermittent asthma without status asthmaticus without complication Previous decompressi on, now stenosis at a different level.On lyrica for radiculopathy Related to Cervical spinal stenosis Annulotomy, discecto my, anterior and posterior osteophytectomy, arthrodesis and bilateral foraminotomy at C4-C5 and C5-C6. Placement of 2 PEEK titanium lordotic ONEIL-C implants. Implants filled with harvested autograft and concha allograft. Dr De La Rosa ([facility] [place]) Aug 2020 Related to H/O excision of lamina of cervical vertebra for decompression of spinal cord The patient had a vi akin EEG in 2009 suggestive of pseudoseizures. MRI of brain was essentially normal aside from small vessel disease. More recent EEG showed some degree of focal intermittent slowing. No longer on phenytoin. Still on Depakote 125 mg twice daily, which is not clear if it was given for mood disorder or seizures. Related to History of pseudoseizure She scored 17/30 per sistently in the past 4 years. She consistently did well with the clock, visual recognitions and orientation, and not well at all in math, attention and short recall. She has 11th grade education, has multiple mental and personality disordered. Consdering all these factors, I believe she has MCI rather than dementia, though her MOCA scores are low. She is still functional and her mood and behavior is more or less controlled. Related to Mild cognitive impairment Likely migraine head ache since reports aura and one-sided pulsating headaches. Takes Sumatriptin prn with effectiveness. Related to Frequent headaches Patient reports diff use musculoskeletal pain, which can be a symptoms of fibromyalgia. But her pain flares up mostly when she is also having s/s of worsening of depression. Regardless, she is on Lyrica that is effective in treatment of musculoskeletal pain. Has not been reporting any worsening for moths Related to Fibromyalgia Longstanding neck pa in, s/p Anterior cervical discectomy & fusion (ACDF) on 09/11/23. On oxy and Lyrica for pain control. Ideally, I believe she should be tapered off narcatics while increasing her home exercises. However, knowing her complicated psych history, it would be very challeneging to successfully wean her off. On the bright side, her pain is controlled so she can continue be active with her socialization and not showing significant degree of side effects. Related to Neck pain of multiple joints. Has multiple agents for pain including narcatics, lyrica, and Tylenol. today has no complaint. Related to Generalized osteoarthrosis of multiple sites mostly opioid induce d. Currently stable with prn MiraLAX. Related to Constipation, unspecified constipation type Stable. monitor Related to Femal e cystocele Seen incidentally on CT urogram. Pancreatic enzymes WNL. not symptomatic with diarrhea Related to Pancreatic atrophy Hep C antibody posit tracy, no viral load. Not sure what promoted previous PCP to obtain serology. Nevertheless, her liver enzymes have remained WNL. Related to Positive hepatitis C antibody test US ABD 08/2021 : ech ogenic liver with fatty infiltration. Liver enzymes remains stable. Related to Hepatic steatosis Controlled with PPI. Again discussed the risk of group home use of PPI, she is adamant she needs the medicine. Related to Gastroesophageal reflux disease with esophagitis without hemorrhage Continue Vit D supplement Relate d to Vitamin D deficiency BMI improved from 34 in February 13 to 33.23 now Related to Body mass index [BMI] 33.0-33.9, adult BMI improved from 34 in February 13 to 33.23 now Related to Class 1 obesity with serious comorbidity and body mass index (BMI) of 33.0 to 33.9 in adult, unspecified obesity type BMI improved from 34 in February 13 to 33.23 now Related to Body mass index (BMI) of 34.0-34.9 in adult Has mild polyneuropa thy, which is concurrent with lumbar spine radiculopathy. Stable on Lyrica Related to Type 2 diabetes mellitus with diabetic polyneuropathy, with long-term current use of insulin With significantly i mproved A1c 7.3% after 6 months of agressive treatment. She is ready to be weaned off insuline and go up on Trulicity, which hopefully will help with her weight management. Related to Type 2 diabetes mellitus with hyperglycemia, with long-term current use of insulin With improved glycem ic control. Followed regularly by ophtha for retinopathy. Related to Type 2 diabetes mellitus with both eyes affected by mild nonproliferative retinopathy without macular edema, with long-term current use of insulin With improved glycem ic control. Followed regularly by ophtha for retinopathy. 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 Stable k idney function. BPN (-). euvolemic. Continue with Lisinopril. Related to Essential hypertension Continue with statin Related to Mixed hyperlipidemia Incidental finding o n CT urogram. Continue with optimizing BP and lipid panel. Related to Abdominal aortic atherosclerosis Remains on opioids a fter her decompression of the cervical spine surgery. She has seen a large variety of subspecialists including pain medicine, rheumatology, orthopedics. Related to Uncomplicated opioid dependence Has been showing sta ble mood and behavior. Has a long-standing history of hypomanic depression. Had hospitalization as a teenager. It is very difficult to gauge using PHQ as a screen as she waxes and wanes. Nonetheless, She has shown significant improvement with increased Citalopram to 30 mg daily. 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 She tends to starve herself and when gets hypoglycemic she would resort to all carb diet. This is despite years of caring and educating by different members of the team including electrolytic etcher. Given her eating habits, my goal for her to get off insulin altogether. Today, will repeat her A1c. 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 She tends to starve herself and when gets hypoglycemic she would resort to all carb diet. This is despite years of caring and educating by different members of the team including electrolytic etcher. Given her eating habits, my goal for her to get off insulin altogether. Today, will repeat her A1c. She is due for a biannual Related to Diabetic hypoglycemia Under clean environm ent, the the nail bed was opened and the puss was drained. The small incision was cleaned, treated with topical antibiotic and warped with dressing gauze.Educate the patient to repeat the wound care for the next three days with topical antibiotc she was given today i the office and keep the dressing clean and dry for the next two days. Related to Paronychia of finger of right hand She has been on PPI for a very long time without achieving the goal of controlled acid reflux. A part of the problem is that patient is not educated enough to know that she has to take Omeprazole on a daily basis and 30min before eating. Since she is having poor memory, will switch her to Pantoprazole to be taken at night (not in the morning). Will also speak with her daughter to make sure she gets reminder regarding her medications. Related to Gastroesophageal reflux disease with esophagitis, unspecified whether hemorrhage Reported intense itc hiness in the back of her head. On exam noted her having a scalp yeast infection. Will prescribe her ketoconazole shampoo. Related to Fungal dermatitis Has a long-standing depression. Had hospitalization as a teenager. It is very difficult to gauge using PHQ as a screen as she waxes and wanes. Nonetheless, she admits having poor appetite, poor sleep, low energy, withdrawn from socialization most of the time, feeling very sad 3-4 days/week and feeling tired of her chronic pain. She is currently on Citalopram 20 mg daily. Will increase the dose to 30mg and reevaluate in 1 month. In the meantime, given her problem is less of anxiety issue and given her polypharmacy, will discontinue her Bupripion. Related to Moderate episode of recurrent major depressive disorder Poorly controlled DM II, for so many different reasons, most pressing is her chronic pain, sub-optimally treated depression and long-standing body dysmorphia and mild cognitive impairment. - Has fibromyalgia and diabetic polyneuropathy. On Lyrica and Oxycodone 10mg daily for years.- Chronic constipation, most likely due to Oxycodone 10mg daily for years- Her MOCA indicates very poor memory. She consistently scored 17/30, which might be due to underlying depression.- Mental disorders (MMD, body dysmorphia, PTSD): had a very difficult childhood, she was constantly shamed for her weight by her mother, she also lost her first child when she was 19 due to undiagnosed diabetes.Plan: C/o with Jardiance and Metformin as prescribed. Will start her on Trulicity in the hope that 1) it would improve her glycemic control so there would not be any need for insulin (eliminate the risk for hypoglycemia 2) it would improve her GI function and constipation 3) it would help with weight loss Related to Type 2 diabetes mellitus with hyperglycemia, with long-term current use of insulin Poorly controlled DM II, for so many different reasons, most pressing is her chronic pain, sub-optimally treated depression and long-standing body dysmorphia and mild cognitive impairment. - Has fibromyalgia and diabetic polyneuropathy. On Lyrica and Oxycodone 10mg daily for years.- Chronic constipation, most likely due to Oxycodone 10mg daily for years- Her MOCA indicates very poor memory. She consistently scored 17/30, which might be due to underlying depression.- Mental disorders (MMD, body dysmorphia, PTSD): had a very difficult childhood, she was constantly shamed for her weight by her mother, she also lost her first child when she was 19 due to undiagnosed diabetes.Plan: C/o with Jardiance and Metformin as prescribed. 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 Had an EGD in past that didn't show anything concerning.. Ppt has reasons to have achalasia vs diffuse spasm vs esophageal stricture.Can re-refer to ST as needed Related to Esophageal dysphagia DM management under DM with retinopathy. With regard to neuropathy it is more sensory than painful- Continue pregabalin 75 mg twice daily- saw podiatry 09/2023 and diabetic shoes are to be ordered Related to Type 2 diabetes mellitus with diabetic polyneuropathy, with long-term current use of insulin On chronic oxycodone . Has diffuse musculoskeletal pain syndrome. Has fibromyalgia. Has rotator cuff pathology. Some debate as to whether there is primary arthritis. Would withdraw if oxycodone 10 mg thrice daily was stopped abruptly-Continue opioids for now, ongoing assessment of risk and benefit-Follow urine toxicology-On multiple adjuvants Related to Uncomplicated opioid dependence Mammogram January 2023 CT abdomen January-scope 2025See diabetes specific screenings in appropriate sectionImmunizations: Would benefit from covid booster. Will repeat PPV 20 after age 65 unless guidelines changeGYN screening, not explicitly explored. I am not aware of abnormal Pap smears -last Pap was without intraepithelial lesion and HPV negative. Absent new partner I would think that given age and context this is likely adequateDEXA lower priority Related to Encounter for health maintenance examination Patient with diffuse musculoskeletal pain syndrome. Additionally, has shoulder pain which rheumatology felt was rotator cuff pathology. There was some ambiguity as to whether there was any inflammatory component, CRP is chronically roughly 2 times upper limit of normal.-Has significant polypharmacy and the extent to which this is helpful is somewhat unclear-Continue baclofen at bedtime more so for muscle spasm-Continue treating depression, I do not see clear trial of duloxetine in the past. Given her chronic pain center changes certainly a possibility. I will discuss with her in the future-Continue pregabalin 75 mg twice daily Related to Fibromyalgia Longstanding neck pa in, s/p Anterior cervical discectomy & fusion (ACDF) on 09/11/23. She describes neck pain today, will follow up with neurosurgery Related to Neck pain Small area of psoria sis on the left elbow, well controlled. Historically has used calcipotriene. No clear suggestion of psoriatic arthritis although difficult to definitively exclude. Has had quite a bit of imaging. Related to Psoriasis Unclear if she ever had PFTs. Was smoker in pastDoes not endorse frequent symptoms. She is currently on Advair 500/50 one inhalation twice daily as well as Pro Air as needed-Continue same for now-Could consider step down in steroid dosing if she remains stable Related to Mild intermittent asthma without status asthmaticus without complication Please see above reg devang chronic kidney diseaseHypertension is well controlled. Goal systolic blood pressure is ideally under 120 systolically and diastolic under 70. She is on lisinopril 5 mg. She is no longer on propranolol. She is on SGLT2 which can have modest antihypertensive/volume unloading effect-No med changes re: BP Related to Hypertensive renal disease, stage 1 through stage 4 or unspecified chronic kidney disease Patient with a histo ry of gastroparesis, hiatal hernia, obesity. Had high-dose PPI in the past. Attempts at dose reduction were variably successful-Has seen GI and a number of occasions, they did not feel there was a role for promotility agent/fundoplication/additional testing Related to Gastroesophageal reflux disease, unspecified whether esophagitis present Nuclear cataract per last ophth note. They recommended observation- Routine vision appts Related to Nuclear sclerotic cataract, bilateral Please see diabetes management under DM with retinopathyPlease see commentary on gastroparesis under reflux. As there is no vomiting and no significant weight loss, GI did not feel that gastric pacemaker or promotility agent is likely worth the risks. Presence of gastroparesis does limit medication choices Related to Diabetes mellitus with gastroparesis Jardiance 25 mg, metformin 1000 mg BID Related to alf (current) use of oral hypoglycemic drugs Please see diabetes management under diabetes with retinopathyPlease see CKD Related to alf (current) use of insulin Please see diabetes management under diabetes with retinopathyPlease see CKD Related to Type 2 diabetes mellitus with stage 2 chronic kidney disease, with long-term current use of insulin Renal indices variab le however, most recent estimated GFR was 85 on 06/15. Diabetes, hypertension and age are the major drivers in her CKD-Control diabetes-Hypertension is reasonably well controlled-On SGLT2-Dose medications cautiously to avoid nephrotoxic effects when possible-Continue FRANKIE inhibitor, may increase-For now continues to need PPI, data on the extent of which it affects chronic kidney disease is somewhat weak Related to Stage 2 chronic kidney disease Current signs/sympto ms &/or complications Medication, treatment, risk reduction &/or monitoringWith regard to the retinopathy:Last visit with ophthalmology was with retina specialist in January. At that time findings were mild nonproliferative diabetic retinopathy in both eyes. There was slight cystic edema OD. Additionally, patient has bilateral nuclear cataracts-1 year follow-up with retina-Ongoing efforts at tight glycemic controlWith regard to diabetes: Very long-standing fairly poorly controlled diabetes. She has multiple complications including retinopathy, neuropathy, chronic kidney disease, hyperglycemia, gastroparesis. Precisely why diabetic control has been so difficult to achieve is a bit of a mystery. At times there is significant deviation from recommendations. She is seeing endocrine. At one point she had tight glycemic control and in point of fact developed hypoglycemia necessitating change in plans. She is currently on jardiance 25mg daily, metformin 1 g daily, insulin Lantus not taking what is prescribed, Humalog use some is somewhat haphazard. Most recent A1c was 9.3, improved but well above goal.-Continue SGLT2 without change -Recommend adherence with Lantus 30 units in the morning and 40 in the p.m., Should this not prove possible would consider moving to 60 units once daily Related to Type 2 diabetes mellitus with mild nonproliferative retinopathy of both eyes without macular edema, unspecified whether manager intermediate insulin use Lipid panel Sep 2023 : TC 133, HDL 43, LDL 71, trig of 100. Improved from previous total cholesterol of 165, HDL of 42, LDL of 99. Triglycerides were 144. Patient is currently on rosuvastatin 10 mg daily. Goal LDL from my perspective given her comorbid conditions is under 70.-Continue rosuvastatin 10 mg-Need to control diabetes to keep triglycerides in check Related to Mixed hyperlipidemia Incidental finding o n CT urogram- see hyperlipidemia Related to Abdominal aortic atherosclerosis Long-standing francisco javier fermin. Had hospitalization as a teenager. It is very difficult to gauge using PHQ as a screen as she waxes and wanes and has difficulty reflecting on the past 2 weeks. Globally, has been doing better in the past several months, unclear if there is any backsliding-Continue citalopram 20 mg daily-Continue Depakote 125 mg twice daily-Will need to clarify if she is working with [employer] Related to Recurrent major depressive disorder, remission status unspecified Diagnosis of general ized anxiety disorder in the past. No longer working with psychiatrist as best I can tell. Had seen therapist in the past. Symptoms appear to be controlled -Continue buspirone 7.5 mg twice daily-Continue citalopram 20 mg daily-I believe the Depakote 125 mg twice daily was given for psychiatric indication Related to Generalized anxiety disorder Bilateral median ner ve neuropathies on EMG in 2020. Neurology recommending evaluation. 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 Related to Cervical spinal stenosis Low back pain, there is right sided muscle spasm. No alarm symptoms. Fairly recent MR [facility]. I do not believe there is non msk etiol-PT input (discussed with PT). I told ppt she could be seen before next week if she wished-Escalate muscle relaxant temporarily Related to Acute right-sided low back pain without sciatica Long-standing consti pation, likely opioid induced. Things had improved significantly with MiraLAX. Appears she was started on senna subsequently. There is obesity group ambiguity as to precisely what she is taking, especially now that she is using local pharmacy. Is a bit unclear to me whether she ran out of MiraLAX as it does not appear there were refills on the June prescription.-Renew MiraLAX prescription-Double senna dose Related to Constipation, unspecified constipation type Patient presents wit h 3-4 days of upper and lower GI symptoms. This in the context of recent viral syndrome, potentially influenza which he contracts approximately week and a half ago. Other symptoms of that have resolved however onset of symptoms in the past 3-4 days. She reports poor by mouth tolerance and several episodes of diarrhea per day. I believe that viral etiology is most likely. She does have pre-existing gastroparesis complicating matters. A very sincerely doubt obstructive physiology both given the diarrhea as well as abdominal exam and history.She does not currently appear overtly volume deplete, regrettably I do not have a blood pressure. Clinically does not look on well, ambulating.-I asked that she hold metformin until she is no longer expressing GI losses-Consideration could be given to holding the SGLT2.-We will trial Zofran, prior authorization submitted-Imodium as needed-In the event she has complete by mouth intolerance with forementioned treatment over the weekend she would likely need to go to the ER to receive IV fluids or [facility]-I told her that if symptoms persist through the weekend and she has similar problems in the next week to call us thing on Monday, or obviously over the weekend, and we will pursue IV fluids, might need imaging should she continue have unremitting vomiting Related to Gastroenteritis Patient with known d ental disease, waiting several extractions. Comes in today with approximately 4 day history of right maxillary dental pain. There may be sinus tract. May also have some mandibular tooth pain but less dominant-Given penicillin allergy will use Clinda, I did mention risk of C. difficile-I will see if we can get her in with dental sooner Related to Pain, dental Patient with microhe maturia in the past. Refer to urology. They did a cystoscopy which was thankfully negative. I recently noted that CT urogram was ever done and perhaps based upon my correspondence or independent of [address]rogram-We will order chemistries in advance of the CT and for them to urology per their request Related to Hx of hematuria Patient with history of cervical decompression. Has recurrent versus persistent upper extremity symptoms. Neurology sent the patient for MRI and results on 06/14/23 were as follows: Motion degraded study. Status post ACDF at C4-5 and C5-6. No marrow or paraspinal edema. No significant loss of height of C3-4 and C6-7. Marginal spurring present C3-4 and C6-7. The visualized posterior cranial fossa structures and cervical medullary junction are unremarkable. No convincing cervical spinal cord signal abnormality. No abnormal cord enhancement or epidural fluid collection.C3-C4: New broad-based disc protrusion is present. The severely narrowed spinal canal and mildly compresses the cervical cord. Probable mild left foraminal narrowing. Unclear about right. At C4-5 there is posterior disc-osteophyte complex less pronounced when compared to prior. Moderate central canal narrowing is noted with borderline cord compression which is less pronounced. Mild right and mild to moderate left foraminal narrowing. C5-6: Status post ACDF. Central canal narrowing and cord compression on the prior exam have nearly resolved with minimal left central canal narrowing. Moderate left foraminal narrowing. C6-7. Concentric disc osteophyte complex. Minimal central canal narrowing. At least mild left foraminal narrowing. Impression is degenerative and postoperative changes of the cervical spine. At C3-4 there is new central disc protrusion which severely narrows the spinal canal and mildly compresses the cervical cord without definite cord signal abnormality. Borderline cord compression present at C4-5 which is less pronounced and cord compression at C5-6 has resolved.Neurology has referred the patient to neurosurgery for consultation. Will place consult for same. I did discuss with her that it is not always entirely clear that decompression will resolve symptoms Related to Cervical spinal stenosis Mammogram January 2023 CT abdomen January-scope 2024See diabetes specific screenings in appropriate sectionImmunizations: Would benefit from covid booster, I will send her a letter. Will repeat PPV 20 after age 65 unless guidelines changeGYN screening, not explicitly explored. I am not aware of abnormal Pap smears but do not have-last Pap was without intraepithelial lesion and HPV negative. Absent new partner I would think that given age and context this is likely adequateDEXA lower priority Related to Encounter for health maintenance examination Patient was admitted to the hospital with symptoms that were concerning for TIA in Sep. Neurology feels it was likely migraine-Awaiting Holter or equivalent-Carotid Duplex not remarkable Related to Episode of transient neurologic symptoms Small area of psoria sis on the left elbow, well controlled. The both the time she does not apply anything. Historically has used calcipotriene. No clear suggestion of psoriatic arthritis although difficult to definitively exclude. Has had quite a bit of imaging. Related to Psoriasis -This may well be co ntributory to her cognitive decline, sleep disturbance, poor mood and multitude of other medical challenges. She declines to consider CPAP and is not interested in nocturnal oxygen which may help blunt the hypoxia at least-Continue to offer Related to Obstructive sleep apnea hypopnea, severe Unclear if ever have PFTs. Was smoker in pastDoes not endorse frequent symptoms. She is currently on Advair 500/50 one inhalation twice daily as well as Pro Air as needed-Continue same for now-Could consider step down in steroid dosing if she remains stable Related to Mild intermittent asthma without status asthmaticus without complication Patient with weaknes s and sensory deficit in the right hand for more so than the left. She has had a history of carpal tunnel with a believe bilateral release. Additionally, patient had cervical decompression with no change in her symptoms. EMG in 2020 showed bilateral median mononeuropathies consistent with clinical diagnosis of carpal tunnel syndrome at both wrists. 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 That being said, her function seems to be acutely better than this. I think it is somewhat difficult to ascertain the nature of this with her psychiatric overlay. She is on chronic opioids at this point which could be contributory. She is off anticholinergic tricyclics. I doubt gabapentenoid is impairing her. Testing antedated baclofen. Certainly given risk factors that could be a component of vascular injury. Historically thyroid function was adequate. Has sleep disturbance. has severe RAYMOND-Continue to insure adeq B 12, TSH-Will not try CPAP or oxygen re: RAYMOND Related to Cognitive deficits Patient with fairly frequent headaches although frequency has decreased. When she was at [facility] with concern for TIA neurology actually felt she likely had migrainous event. She was started on sumatriptan as needed and has found it very helpful. While classically she has not had particularly migrainous features, perhaps this suggests that she does not track of migraines. She had been on propranolol in the past although I do not believe is primarily for headache prophylaxis.-Continue sumatriptan as needed-May need to consider longer term prophylaxis although I am reluctant to increase pill burden Related to Frequent headaches -Check mag, K, Calci umOn Mag and nocturnal Baclofen Related to Nocturnal muscle cramps See fibromyalgia Related to Othe r chronic pain Patient with diffuse musculoskeletal pain syndrome. Additionally, has shoulder pain which rheumatology felt was rotator cuff pathology. There was some ambiguity as to whether there was any inflammatory component, CRP is chronically roughly 2 times upper limit of normal.-Has significant polypharmacy and the extent to which this is helpful is somewhat unclear-Continue baclofen at bedtime more so for muscle spasm-Continue treating depression, I do not see clear trial of duloxetine in the past. Given her chronic pain center changes certainly a possibility. I will discuss with her in the future-Continue continue pregabalin 75 mg twice daily- Related to Fibromyalgia Please see above reg devang chronic kidney diseaseHypertension is actually well controlled. Goal systolic blood pressure is ideally under 120 systolically and diastolic under 70. She is on lisinopril 5 mg. She is no longer on propranolol. She is on SGLT2 which can have modest antihypertensive/volume unloading effect-No med changes re: BP Related to Hypertensive renal disease, stage 1 through stage 4 or unspecified chronic kidney disease Will need episodic u ltrasound surveillance regarding HCC, will look at date of last abdominal imaging-Needs better glycemic control, again may consider increasing metformin Related to Hepatic steatosis Patient with a histo ry of gastroparesis, hiatal hernia, obesity. Had high-dose PPI in the past. Attempts at dose reduction were variably successful-Try escalating dose of PPI-Has seen GI and a number of occasions, they did not feel there was a role for promotility agent/fundoplication/additional testing Related to Gastroesophageal reflux disease, unspecified whether esophagitis present On high-dose repleti on, suspect nonadherence-Repeat levels Related to Vitamin D deficiency BMI 34.3, multiple c omplications of obesity-Encouraged modest weight loss, how precisely to achieve this is unclear-Regrettably, medications that would help with weight loss are likely to exacerbate her gastroparesis-She is unlikely to exercise significantly given pain Related to Class 1 obesity with serious comorbidity and body mass index (BMI) of 34.0 to 34.9 in adult, unspecified obesity type 34.3 Related to Body mass index (BMI) of 34.0-34.9 in adult Please see diabetes management under DM with retinopathyPlease see commentary on gastroparesis under reflux. In brief, I saw GI, as there is no vomiting and no significant weight loss they do not feel that gastric pacemaker or promotility agent is likely worth the risks. Presence of gastroparesis does limit medication choices Related to Diabetes mellitus with gastroparesis Seen by [facility] dental i n December. Body of the note suggests she needs oral surgery input, assuming she is agreeable to multiple extractions. There is also mention of instrument man after the extractions. The end of the note has [facility] follow-up check and this was requested.-We will place a request for OMFS consultation-Hold on periodontal consult until after OMFS Related to Dental caries Please see managemen t under diabetes with retinopathyDoes continue to have elevated glucose of both the time and need to consider ongoing management if insulin adjustment alone is inadequate.-Would strongly consider increasing metformin-Follow urine microalbumin Related to Type 2 diabetes mellitus with hyperglycemia, with long-term current use of insulin DM management under DM with retinopathyWith regard to neuropathy it is more sensory than painful-Continue pregabalin 75 mg twice daily- Related to Type 2 diabetes mellitus with diabetic polyneuropathy, with long-term current use of insulin Please see diabetes management under diabetes with retinopathyPlease see CKD below Related to Type 2 diabetes mellitus with stage 2 chronic kidney disease, with long-term current use of insulin Renal indices variab le however, most recent estimated GFR was 86 on 03/30. Diabetes, hypertension and age are the major drivers in her modest decrement in creatinine clearance-Control diabetes-Hypertension is reasonably well controlled-On SGLT2-Dose medications cautiously to avoid nephrotoxic effects when possible-Continue FRANKIE inhibitor, may increase-For now continues to need PPI, data on the extent of which it affects chronic kidney disease is somewhat weak Related to Chronic kidney disease, stage 2 (mild) With regard to the r etinopathy:Last visit with ophthalmology was with retina specialist in January. At that time findings were mild nonproliferative diabetic retinopathy in both eyes. There was slight cystic edema OD. Additionally, patient has bilateral nuclear cataracts-1 year follow-up with retina-Ongoing efforts at tight glycemic controlWith regard to diabetes: Very long-standing fairly poorly controlled diabetes. She has multiple complications including retinopathy, neuropathy, chronic kidney disease, hyperglycemia, gastroparesis. Precisely why diabetic control has been so difficult to achieve is a bit of a mystery. At times there is significant deviation from recommendations. She is seeing endocrine. At one point she had tight glycemic control and in point of fact developed hypoglycemia necessitating change in plans. She is currently on jardiance 25mg daily, metformin 1 g daily, insulin Lantus not taking what is prescribed, Humalog use some is somewhat haphazard. Most recent A1c was 9.3, improved but well above goal.-Continue SGLT2 without change -Recommend adherence with Lantus 30 units in the morning and 40 in the p.m., Should this not prove possible would consider moving to 60 units once daily-Suggested Humalog sliding scale be adhered to when she is eating, again a somewhat irregular endeavor Related to Type 2 diabetes mellitus with both eyes affected by mild nonproliferative retinopathy without macular edema, with long-term current use of insulin Not using prescribed dosing, asked to implement what Endo suggested Lantus 30Units AM, 40 PM and Humalog 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 Triglycerides were 144. Patient is currently on rosuvastatin 10 mg daily. Goal LDL from my perspective given her comorbid conditions is under 70.-Continue rosuvastatin 10 mg-Need to control diabetes to keep triglycerides in check-We will likely recheck lipids in next 6 months, adjust statin if necessary to get LDL down further Related to Mixed hyperlipidemia On chronic oxycodone . Has diffuse musculoskeletal pain syndrome. Has fibromyalgia. Has rotator cuff pathology. Some debate as to whether there is primary arthritis. Would withdraw if oxycodone 10 mg thrice daily was stopped abruptly-Continue opioids for now, ongoing assessment of risk and benefit-Follow urine toxicology-On multiple adjuvants Related to Opioid dependence, uncomplicated Long-standing depryuki zander. Had hospitalization as a teenager. It is very difficult to gauge using PHQ as a screen as she waxes and wanes and has difficulty reflecting on the past 2 weeks. Globally, has been doing better in the past several months, unclear if there is any backsliding-Continue citalopram 20 mg daily-Continue Depakote 125 mg twice daily-Will need to clarify if she is working with [employer] Related to Moderate episode of recurrent major depressive disorder Diagnosis of general ized anxiety disorder in the past. No longer working with psychiatrist as best I can tell. Had seen therapist in the past. Overall tone of panic seems decreased-Continue buspirone 7/2 mg twice daily-Continue citalopram 20 mg daily-I believe the Depakote 125 mg twice daily was given for psychiatric indication Related to Generalized anxiety disorder Headaches:Patient wi th fairly frequent headaches, the exact nature of which has historically been a bit uncertain. The frequency seems to have decreased. I did not feel that he typically had a migrainous quality. The patient had been on propanolol in the past although there was a bit of debate as to whether that was for headache were seemingly more so anxiety. During [facility] hospital admission in September for presumed TIA it was actually felt that she had migrainous phenomenon and recommendation was for discharge on sumatriptan. She has found this to be helpful-Continue sumatriptan-May need to consider chronic prophylaxis although given the multitude of medications she is on I am quite reluctant to add additional medications Related to Frequent headaches Per [facility] dentist, kamila sanchez extraction of multiple iophz-ACLB-Fpcpak send [facility] dental note/referral to OMFS Related to Dental caries Lasting globin A1c t hat I have was 10 which was done in September. If she was seen at endocrine they likely did point of care hemoglobin and I will await that. Her glycemic control remains suboptimal. She says they increased her insulin to 36 units in the morning and maintained evening insulin which is seemingly 30 units. She is using her Lantus insulin rather sporadically and I cannot get a wonderful sense of how much and when she uses it. She uses it in the evening and advance of her meal however consistency and precise amount seem unclear. I believe she generally gives himself 15 units if she is going to give it, the degree to which she adjusts for fingerstick is a bit unclear. 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 She eats in a regular pattern. She has gastroparesis. Options for add-on medications are somewhat limited by her gastroparesis. In the absence of data somewhat difficult to make any informed choices-I contacted the pharmacy and verified that we will send out her Freestyle David sensors today.-I have given her a backup glucometer (and associated supplies) and we reviewed its [id number]-[id number]-iw in several weeks with data Related to Diabetes mellitus with gastroparesis Humalog sliding scal e before meals. Lantus currently 50 units in the p.m. Related to alf (current) use of insulin Very long-standing b rittle diabetes. She has gastroparesis. She tends to need one meal a day. Usage of insulin is fairly inconsistent. Patient is not on a GLP-1 or DPP 4 due to gastroparesis. She is currently on 1 g of metformin extended release daily, insulin (the use of Humalog appears relatively inconsistent) and Jardiance. Her dietary options/choices are likely not optimal.-Encouraged consistent use of the Humalog -At this point not changing insulin, a bit unclear if she is consistently using Humalog 40 or 50 units. -We will follow up with glucometer readings in the next several weeks to month. Related to Type 2 diabetes mellitus with hyperglycemia, with long-term current use of insulin Lantus 50 unitsHumalog SS Relate d to alf (current) use of insulin Patient reported to medical social worker that she had chest pain and EKG was done. To my eyes EKG is entirely unchanged from previous. When I asked her she reports she does not currently have chest pain but when stressed she does. Please see HPI for some additional details regarding the nature of her pain.While I do not perceive her complaints to likely reflect coronary artery disease, she certainly is at high risk. When we met her initially she reported old MN. Echocardiogram thankfully does not show clear evidence of previous MN, nor does EKG show anything definitive. We have not done a stress test in the past.-I will discuss this with her in future visits and decide with her if she would like to proceed with cardiac stress test Related to Atypical chest pain As before, patient ceasar ppears to have headaches most days. Regrettably, it is very hard to sort out precisely the type. There are features such as her photo and phonophobia and nausea that favor migraine however the frequency, bilateral nature of the pain etc. does not. During her recent hospitalization at [facility] in September she presented with what was initially perceived to possibly be a TIA however neurology believes it more likely to be migraine. They suggested a trial of sumatriptan which did not happen. The patient was referred to [facility] neurology, note date book as of yet.The patient does have chronic slight elevation of C-reactive protein to the range of 16. She does not clearly have temporal artery induration. She is somewhat young for that and the CRP has been elevated for a good while without progression or resolution. Patient has seen rheumatology in the past.Complicating matters is untreated obstructive sleep apnea for which she does not want CPAP. Additionally there is significant mood disorder overlay as well as chronic pain and it is somewhat unclear whether chronic cephalgia as part of her manifestations of chronic pain. She has musculoskeletal neck pain which could contribute to the headache. I do not think she has overt suboccipital cephalgia.-Requested MRI from [facility]-I am going to trial of the sumatriptan recommended by [facility] neurology with some degree of trepidation-Consult to [facility] neurology remains pending from September-Will ask OT to order positional pillows such as the Zzoma to see if that will help with her sleep apnea if she uses it Related to Frequent headaches Pt presented 1 week ago with otorrhea, otalgia, absent/perforated TM. Treated with Po cefpodox, cipro drops. has persistent pain, debris in canal.-Suspect she needs a wick-Concern re: persistent/potentially worsening infection-I sispect she needs imaging-Needs ENT input-I called ENT and left message for coordinator-Regrettably I am skeptical I can get her to another ENT practice, may need to be seen in ER Related to Acute otitis media with perforation, left See H66.92 Related to Unspe cified perforation of tympanic membrane, left ear Patient with sore th roat. Is able to hydrate and eat adequately. It is extremely difficult to visualize the posterior pharynx due to her tongue and anatomy. She does have some adenopathy. I do not see any purulence or exudate although again he was very limited. She is going on antibiotics for the perforated TM anyhow which should cover her in the event she does have a bacterial pharyngitis with I think is highly unlikely Related to Sore throat Patient with several days of what sounds to be a viral syndrome with sore throat, rhinorrhea. Developed fairly severe otalgia 2 days ago. When asked, endorses what sounds to be a small amount of fluid draining from left ear. There was dry crusted material on the exterior of the ear on the left. I do not see a TM. Middle ear structures are visible and erythematous right-Cipro 0.2% eardrops for 1 week-Oral cephalosporin, known penicillin allergy that is non-anaphylactic and past tolerance of cephalosporins-I have called ENT to see if I can expedite an appointment, I await response Related to Perforated tympanic membrane on examination, left Hx of GERD on omepra zole 40 mg daily Describes food getting stick in her throat tristan things like rice and meat. Had an EGD in past that didn't show anything concerning.. Ppt has reasons to have achalasia vs diffuse spasm vs esophageal stricture.Plan[facility] depending on what they findDiscussed eating softer foods right now until we can figure out what is going on Related to Esophageal dysphagia see type 2 dm with h yperglycemia on basal bolus insulin Related to alf (current) use of insulin 09/2022 alc 10% goal less than 7%. Discussed microvascular and macrovascular complications related to uncontrolled DM. She has diabetic gastroparesis and neuropathy. She also has a significant amount of stress in her life. Discussed coping strategies. Reports misses her meds at times but when takes her insulin still high sugars. High in a starchy sugary diet with not much exercise planIncrease lantus 50 units take subcutaneously in the fat at bedtimeContinue metformin 1000 mg daily, take with foodContinue Jardiance 25 mg daily, keep up with fluidsAdjust Humalog sliding scale 3 times a day before meals (IF NOT EATING A MEAL AND SUGAR GREATER THAN 250 TAKE HALF THE RECOMMENDED DOSE)SUGAR [id number] 14 [id number] 16 [id number] 18 [id number] 20 [id number] 22 [id number] 24 UNITSGREATER THAN 400 26 UNITSCheck sugars before each meal and bedtimeGoal sugar in am less than 130Goal sugar before meals less than 180 to startIf sugar is less than 70 or greater than 300 on your sensor check with finger stick. If sugar still low less than 70 drink a glass of juice and recheck sugar in 20 min if coming up having a snack if not repeat juice.AVOID juice or soda unless you have a low sugar less than 70 otherwise your sugar will go very highReduce fruit and snack at night should have more protein like nuts, peanut butter, cheese, cottage cheese, high protein yogurtAdd more meat, fish, veggies, nuts, eggs, cheese that won't cause sugars to climbTry to have more frequent small meals to help with gastroparesis flairs Related to Uncontrolled type 2 diabetes mellitus with hyperglycemia Admitted to [facility] after she developed what she perceived as right eye twisting and right-sided stiffness. Elsewhere described as right facial droop and dysarthria. Thankfully, MRI did not reveal any acute CVA. CT angiogram was nondiagnostic due to extravasation of contrast bolus. Sense of neurology was that it was more likely to be migrainous.Obviously, I cannot say definitively what the event was. She was hyperglycemic. She was slightly hypertensive but that was in the ER and may not reflect baseline hypertension. Her blood pressure today is actually on the low side.-Continue aspirin, I do not think there is a role for double antiplatelet therapy even in the short-term absent obvious infarct-We will refer to neurology. The neurologist saw her in [place] is not contracted-We will obtain 30 day monitor to exclude atrial fibrillation-Carotid duplex-I am not entirely sure what to do with regard to the question of migraine. I am not entirely enthusiastic about triptan's but if necessary will use. Unclear to me if this was helpful with her symptoms-Needs better DM control, will also f/u lipids-Appears echo pending Related to Neurological deficit, transient Endorses vertigo sin hospital admission on 09/20. As previously mentioned, MRI was negative for any acute event. Neurology apparently saw her (I do not have the consult close (and felt that her presenting symptoms were not likely stroke or TIA but rather migrainous. Findings today somewhat consistent with BPPV.-Vestibular rehab Related to Vertigo Hospitalized at the end of Aug of this year for dizziness/vertigo, right side numbness, posterior headache and right side weakness found to have complex migraine by neuro inpt.Plan for vertigoDiscussed with these episodes to try to focus on one object and sit downseeing [facility] Related to Intermittent vertigo Immunizations UTD in terested in bivalent covid booster which [facility] for colonoscopy 2024Ppt has already been referred to breast center for exam and imaging as they deem appropriate, overdue for mammographyWill make appts to see optomotrist and dentist here already consultedST fridaal here for problems with feeling of something stuck in her throat when swallowingContinue with podiatry nails were cut today Related to Encounter for health maintenance examination No falls since 2021. This is also multifactorial including neuropathy, potentially medication effect although difficult to be definitive,-Monitor, reduce potential medication effect if possible however there are many competing interests Related to Recurrent falls Known severe RAYMOND. Th is is likely contributory to cognitive decline, depression, chronic pain. 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 She is requiring albuterol quite infrequently.-Encouraged to continue swishing after use Related to Mild intermittent asthma without status asthmaticus without complication Chronic pain that is present as fibromyalgia, related to degenerative joint disease, strongly suspect neuropathic component at the very least in her lower extremities and conceivably upper extremities. There is chronic headache at times which may relate to the RAYMOND alone but likely also part of a chronic pain syndrome. She also has IBS-like syndrome although also has evidence of gastroparesis.-Ongoing work on mood, seems marginally better and is my hope that the pain will follow-She remains on a total of 30 mg of oxycodone a day. Would not dose escalate-She remains on several adjuvants including pregabalin 75 mg twice daily. She is also on Depakote 125 mg twice daily, this was seemingly started more for psychiatric indication, benefit with regard to her pain is unlikely. Would check a level Related to Chronic pain syndrome The patient had a vi akin EEG in 2009 suggestive of pseudoseizures. MRI of brain was essentially normal aside from small vessel disease. More recent EEG showed some degree of focal intermittent slowing. Her phenytoin was tapered off. She remains on Depakote 125 mg twice daily. It has never been entirely clear to me if the indication for this was mood disorder or seizures. She has not seen neurology recently. I will strive to have her seen again. 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 Placement of 2 PEEK titanium lordotic ONEIL-C implants. Implants filled with harvested autograft and concha allograft. Dr De La Rosa ([facility]) Aug 2020 Related to H/O excision of lamina of cervical vertebra for decompression of spinal cord There are perhaps fe wer potentially impairing medications in the mix. She is off tricyclic. It is extremely hard to gauge her cognition in the context of significant mood disorder as well as her medications-Continue supportive care-Follow tests of cognition-Aim to treat psychiatric comorbidities while trying to avoid worsening polypharmacy Related to Cognitive deficits Patient with headach es. She has some features of migraine however, others are absent. Again, I think this is intimately linked to her sleep disorder, mood disorder and pain disorder. She has seen [facility] neurology. Recently hospitalized for possible cva found to be complex migraine PlanContinue magnesium per neuroContinue stress reliving techniques Continue prn tylenolContinue valporic acid which can help with headache mostly used for mood disorder and neuropathy for this ppt Related to Frequent headaches Continues to be a ma juan source of pain.-Continue current treatment of depression and chronic pain Related to Fibromyalgia EMG/NCV 09/2021 abnormal study. Bilateral median mononeuropathies, consistent with a clinical diagnosis of carpal tunnel syndrome at both wrists. No evidence of devnervaton of abductor pollicis brevis muscle. A large fiber sensorimotor polyneuropathy of both arms with axonal and demyelinating features. No evidence of superimposed C5-T1 cervical radiculopathy affecting either arm. Related to Bilateral arm pain EMG/NCV 09/2021 abnormal study. Bilateral median mononeuropathies, consistent with a clinical diagnosis of carpal tunnel syndrome at both wrists. No evidence of devnervaton of abductor pollicis brevis muscle. A large fiber sensorimotor polyneuropathy of both arms with axonal and demyelinating features. No evidence of superimposed C5-T1 cervical radiculopathy affecting either arm. Related to Pain in left arm Patient with a long history of neck pain. Had decompressive cervical surgery with little to no change in her pain or function. The bulk of her current neck pain and reported shoulder pain is actually located in trapezius. She previously briefly trialed therapy and found it to worsen her discomfort.-My OT colleague will very kindly try to get her a collar as she believes that will help.-We will ask physiatry if there is anything else that they feel would be helpful-ppt with a lot of stress in her life taking care of her grandchildren discussed stretching and decompressing Related to Neck pain Rheumatology ([facility]) 01/05/21- Impression: bilateral rotator cuff dysfunction question inflammatory arthritis versus adhesive capsulitis. Patient has not responded well to cortisone shots and previous physical therapy. -had a short burst of prednisone before that wasn't super helpful. Had already been referred to PT.Inflammatory markersAt this time not super interested in follow up with Rheumatolgy Related to Pain of both shoulder joints Rheumatology ([facility]) 01/05/21- Impression: bilateral rotator cuff dysfunction question inflammatory arthritis versus adhesive capsulitis. Patient has not responded well to cortisone shots and previous physical therapy. -had a short burst of prednisone before that wasn't super helpful. Had already been referred to PT.Inflammatory markersAt this time not super interested in follow up with Rheumatolgy Related to Pain in left shoulder Back, lower extremit y joints, potentially shoulder joints.Plan:-OT for shoulders-Oxycodone with Tylenol primarily and adjuncts as listed -Of check inflammatory markers more so for the shoulder. C-reactive protein is minimally elevated. Sedimentation rate is normal. Will recheck-urine tox Related to Generalized osteoarthrosis of multiple sites 06/2022 lipid panel: 144/105/78/86 with LDL close to goal of less than 70Plan:Discussed diet and exerciseNo change to statinweight lossRepeat Lipid panel Related to Mixed hyperlipidemia Remains on opioids a t escalated doses post surgery. PCP as well as myself have emphasized to her that I do not think there is benefit for long-term opioid and in point of fact there is likely only increased risk. That having been said, they both feel that she has able to sleep and function marginally better with the opioids and without. She is on adjuvants. She has seen a large variety of subspecialists including pain medicine, rheumatology, orthopedics. She is followed by a psychiatric provider. She has seen neurology. She has seen sleep medicine. She has had decompression of the cervical spine. In spite of all this, continue to be at a standstill with the pain and no great answers. plan-OT will kindly work with her regarding the shoulders-Eventual return to orthopedics feasible however, it does not appear there is likely surgical disease of either shoulder.-For now she continues on ocycodone 10 mg 3 times a day and adjuncts pregabalin 75 mg twice daily, citalopram mostly for mood and anxiety but can help with neuropathy pain and valporic acid for chronic neuropathy pain and fibromyalgia but also has remote hx of seizures. Related to Opioid use, unspecified, uncomplicated Long standing depres zander and many associated conditions such as sleeps poorly and has pain all over from fibromaligia and neuropathy..PLanContinue citalopram and valporic acid and continue to follow with psychiatrist an therapist-valporic acid level-Continue pain management and good sleep hygiene -DM control Related to Recurrent major depressive disorder, remission status unspecified Hx that is consisten t with generalized anxiety d/o followed with a pschiatrist and reports still seeing a therapist. Intermittent panic attacks but not as frequent.PlanContinue citalopram and buspar with no changes Continue to follow with therapist and pschiatry who is managing her psychoactives Related to Generalized anxiety disorder HgA1C uncontrolled f or some time between 9-11% was 9.8% in on basal/bolus insulin, sglt2, unable to tolerate full dose of metformin due to diarrhea and unable to do GLP due to gastroparesis. David download reveal no recent lows sugars mostly in high 200s with highest sugars between midnight and [address] sugar 250 in last 14 days. Diet high in carbs with juice, sweets and rice/beans. Reports only one big meal a day but has snacks. No recent lows. Reports sugars in the 200s in constant pain due to fibromalgia and neuropathy which can drive up sugars. On multiple agents for pain control including narcotics. Ppt not getting much exercise but has lost some weight. Continues have anxiety and depression that is likely playing a role on agents for this. She was not following plan that endo made and PCP taking her own doses of insulin and has missed some humalog. Will adjust TDD of insulin to 1 unit/kg with 50% basal/bolus already on a reasonable dose of lantus based on this however feel underdosed on humalog. She also has pain driving up sugars even when not eating.Plan:Goal hgAlc less than 7%Discussed diet and exercise optionsfollow with rddiscussed weight lossDiscussed small frequent meals to help with gastroparesisDiscussed macrovascular and microvascular complications with uncontrolled DM and the importance of diet, exercise, weight loss and compliance with medication regimen and checking sugarsCheck sugars before meals and bedtimecontinue with anxiety, depression and pain control planContinue lantus 40 units sq injection dailyContinue metformin 1000 mg daily, take with foodContinue Jardiance 25 mg daily, keep up with fluidsAdjust Humalog sliding scale 3 times a day before meals (IF NOT EATING A MEAL AND SUGAR GREATER THAN 250 TAKE HALF THE RECOMMENDED DOSE)SUGAR [id number] 10 [id number] 12 [id number] 14 [id number] 16 [id number] 18 [id number] 20 UNITSGREATER THAN 400 22 UNITSIf sugar is less than 70 or greater than 300 on your sensor check with finger stick. If sugar still low less than 70 drink a glass of juice and recheck sugar in 20 min if coming up having a snack if not repeat juice. Related to Type 2 diabetes mellitus with hyperglycemia, unspecified whether manager intermediate insulin use see ckd and t2dm wit h hyperglycemia on lisinopril and jardiance for kidney protection with the later to help out with blood sugars Related to Type 2 diabetes mellitus with diabetic chronic kidney disease, unspecified CKD stage, unspecified whether group home insulin use Poorly controlled T2 DM for some time HgA1C mostly 9-11%. Lower extremity hypoesthesis and dysesthesia with 5/10 microfilament test. Weak hand grasps and abdnormal EMGs not sure if related to prior carpal tunnel, cervical surgery or neuropathy.PlanContinue pregabalin 75 mg twice daily-Continue citalopram although not the primary use in this ppt-Awaiting on neurology inpt on upper extremities Related to Type 2 diabetes mellitus with diabetic polyneuropathy, unspecified whether manager intermediate insulin use Doesn't seem to be f ollowing plan of taking lantus 60 units daily (decreased due to low sugars) currently taking lantus 40 units daily and HSS by endo. Reports takes 5-10 units of humalog with dinner and sugars still high all around in the 200s. please see type 2 DM with hyperglycemia for plan Related to alf (current) use of insulin Likely from long sta nding uncontrolled T2DM with HgA1C mostly ranging from 9-11s currently 9.8% in . EGD in 2019 revealed semi solid food consistent with gastroparesis. No issues with n/v related to gastroparesis. Ppt did have weight loss but purposeful. PlanDM control with goal alc less than 7%small frequent mealsPCP reached out to GI and did not feel more extreme interventions are neededCould consider gastric motility drug in the future however due to many adverse side affects will hold off Related to Diabetes mellitus with gastroparesis Vit d level 23 in Ju currently on Vit D TDD of 6000 units [id number] d level today Related to Vitamin D deficiency Hx of poorly control led T2DM with gastroparesis, hepatic steatosis, RAYMOND unable to use cpap, GERD all of which are affected by obesity. Ppt did lose close to 10 pounds in 3 months.Plan:Encouraged continued weight loss and discussed eating small more frequent meals to help with gastroparesis vs one large mealdiscussed diet and exerciseNot a candidate for GLP1 due to gastroparesis Related to Class 1 obesity due to excess calories with serious comorbidity and body mass index (BMI) of 32.0 to 32.9 in adult 32.61 improved Related to BMI 3 2.0-32.9,adult Cataracts OU, given poorly controlled DM and young age this is related to diabetes-f[facility]u [facility] as was supposed to see Dr. Peralta and never did needs new glasses Related to Cataract due to DM Last eye exam with r etinal specialist in found to have bilateral mild nonproliferative diabetic retinopathy with plan to observe and dm control. 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 She was given contact info for Dr. Peralta general ophthalmogic care but never appears to of gone. Reports vision is blurry at times however sugars have been elevated. 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 Curretly on lisinopril 5 mg daily which also has kidney protection and propanolol 20 mg TID withe the latter not primarily for HTN.PlanContinue lisinoprilContinue Jardiance has heart and kidney benefits with a small amount of osmotic diuretic effect that can help with swelling and BP Related to Hypertensive chronic kidney disease with stage 1 through stage 4 chronic kidney disease, or unspecified chronic kidney disease Cr 0.66 an d GFR 100. -plan-DM control goal alc less than 7%-BP control goal less than 120/70 currently well controlled-Continue Jardiance and lisinopril for kidney protection-CMP today Related to Stage 2 chronic kidney disease Still having hard st ools intermittent and is on medications that can harden stools like narcotics along with has gastroparesis that slows down food.Plan:Continue miralaxStart senna dailyEncouraged to keep up with fluids and exerciseencouraged DM control Related to Slow transit constipation RNA neg Related to Posit tracy hepatitis C antibody test Neg Colonoscopy 06/2020, recc 5 y r repeat Related to History of colonic polyps US ABD 08/2021 DX: echogenic liver with fatty infiltration. Pancreas limited d/t bowel gas. Likely from uncontrolled DM and obesity. Currently liver enzymes are normal. Intermittent epigastric pain however many reasons for that see gerdPlanWeight lossGoal HGa1c less than 7%Need to consider hepatoma screening periodically Related to Hepatic steatosis Hx of hiatal hernia, gastroparesis and obesity all can result in reflux which has been reasonably controlled on current dose of PPI. In past ppi was as high as 80 mg and was reduced further without success. Does describe some epigastric pain at times which can be from one of these listed above or all. Plan:Lose weightContinue current dose of PPI, omeprazole [address] dailyavoid spicy and acidic foodsDM control Related to Gastroesophageal reflux disease without esophagitis Hx of GERD on omepra zole 40 mg daily Describes food getting stick in her throat tristan things like rice and meat. Had an EGD in past 06/2020 that didn't show anything concerning in the esophagus and revealed semisolid food in the stomach consistent with gastroparesis. Possible achalasia vs diffuse spasm vs esophageal stricture vs scar tissue from GERD. Plan:[facility]idaal [facility]Possibly repeat EGD depending on ST evalContinue PPIDiscussed eating softer foods right now until we can figure out what is going on discussed small frequent meals due to gastroparesis and gerd Related to Esophageal dysphagia Patient with 2 days of severe right lower back and buttock pain that extends posteriorly along her leg. Clinically this is sciatica. She does not have focal weakness or significant sensory loss. There is no saddle anesthesia, incontinence or retention.No suggestion of UTI or cauda eq pathology-I spent a fair amount of time explaining to her the pathology involved and the natural course-I told her that these often take weeks to months to resolve-I will give her a 5 day course of corticosteroids. We discussed the strong probability that her glucose will rise quite significantly. If and when this occurs she will need to add on nocturnal Lantus and she is comfortable doing so. Additionally, she uses short acting insulin. I asked that she call us over the weekend if she has any questions and not to let his rise precipitously-She tells me that she has not received freestyle monitor buttons. 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 I told her this is not going to happen clinically I did educate her on red flag symptoms and told her that should they happen she needs to call us immediately Related to Sciatica of right side Cough with minimal t o no sputum. She is not hypoxic or dyspneic. Her granddaughter has a cold and it is likely that she has caught it. She is COVID negative on rapid testing-Supportive care-She will receive corticosteroids for her sciatica which may help with bronchitic type process Related to Acute cough Chronic kidney disea se as above, overall stableDiabetes has always been brittle. She had been very hyperglycemic. Changes were made to her insulin regiment. More recently has been hypoglycemic, particularly in the mid to late afternoon which is somewhat difficult to understand. She is eating although says not eating very much and typically eats one meal a day which may account for some of this. Unclear to what degree gastroparesis is complicit. My RD colleague has spoken with the patient. Would favor smaller consistent meals through the course of the day-Consolidate Lantus to a lower dose once a day, will dose at 60 units in the evening only and omit AM dose (had been on 50 in the a.m. and 50 in the p.m.) to see if this eliminates mid-to-late afternoon hypoglycemia-Encouraged judicious use of the Humalog sliding scale particularly as she is on other agents Related to Type 2 diabetes mellitus with stage 2 chronic kidney disease, with long-term current use of insulin Changing Lantus cove rage today. Is also on Humalog. 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 Fibromyalgia is the etiology of the majority of her pain although I think there is superimposed primary shoulder pathology.-No change in medications currently-She is not particularly desirous of returning to rheumatology at this point-We will try to see her more frequently to see if we can make any headway although most of her pain syndrome has been the case for many years-I am trying to get neurology to see her regarding the upper extremity neuropathy Related to Fibromyalgia Patient with long-st anding and brittle diabetes. She reports that her morning sugars are often in the 60s and occasionally as low as 50. That being said by the end of the day her sugars are often in the 3 and 400s. She did indicate that she is not really adhering to the recommended doses of insulin and in fact is taking fairly large doses off in the evening which despite theoretical 24 hour action may be resulting in some a.m. hypoglycemia.-No change in oral regimen-Increase a.m. Lantus to 60 units, 40 units of Lantus in the evening.-I have asked that she generally not exceed 30 units of Humalog before dinner, as she has been occasionally giving herself 40 units in the somewhat sporadic manner predicated upon high sugars-We will aim to see her back in about 2 weeks, I have asked her to bring the Artsicleyle reader as she did not bring it today Related to Type 2 diabetes mellitus with hyperglycemia, with long-term current use of insulin She is not adhering to recommended amounts in fact is varying Lantus dosing as well as Humalog dosing quite a bit. She is having morning hypoglycemia times likely related to this.-I have asked that she transition to 60 units of Lantus in the morning, 40 in the evening. I asked that she keep Humalog dosing under 30 units Related to alf (current) use of insulin Sep-22-2022 Patient with a long history of chronic pain. She has multiple tender points consistent with fibromyalgia. In the past evaluation did show neck pathology and she had cervical decompression with really no demonstrable change in her symptoms. She does have upper extremity neuropathy as documented in problem above under left arm pain. She has a history of hyperalgesia/allodynia where the air conditioner touching her leg or similar events seem to cause her pain. She reports that her dog touching her leg now makes it painful.She is on multiple adjuvants. She is on moderate dose opioids which I have long to explain to her are not likely to help her chronic pain. I have not found anyone locally that would consider compounding ultra low dose naltrexone. She has seen rheumatology for consideration of any additional inflammatory/mixed connective tissue process without clear evidence of same. She does appear to have rotator cuff pathology bilaterally however the pain is far more diffuse. The patient opted not to return to rheumatology. Of note he had planned empiric corticosteroids which ultimately the patient did not take-Recheck labs as CRP has been chronically roughly twice normal although sed rate is normal and other acute phase reactants appear quite normal-Can consider alternative rheumatology consultation if she so desires. I am not entirely sure this will prove fruitful Related to Allodynia Patient reports hist ory of a week of gross hematuria. She has minimal dysuria. She does not believe this to be vaginal bleeding. Urine is grossly clear at the moment. She has not received the antibiotics I empirically prescribed last Monday. It does not clinically appear that her back pain is costovertebral angle tenderness. She does not look toxic.-Labs-Had CT abdomen and pelvis with IV contrast in January with no evidence of renal involvement-Urology referral for cystoscopy-Await results of labs Related to Gross hematuria Upper extremity EMGs September 2021:Bilateral median neuropathies consistent with clinical diagnosis of carpal tunnel syndrome in both wrists. No electrodiagnostic evidence of associated innervation of either abductor pollicis brevis muscles. 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 Historically while her CRP is slightly elevated we have not found evidence for clear inflammatory myopathy or other connective tissue disorder. She did have some degree of cervical spine disease and underwent decompression with no real change in symptoms that she can identify. She has previously had carpal tunnel surgery. I am unclear to what degree the large fiber neuropathy is causing symptoms, and similarly I am uncertain as to the diagnosis for this.-There is pending neurology consult from October of this year, I will try to see if this has been scheduled.-Would hold off on hand surgery evaluation to address the question of carpal tunnel syndrome until neurology sees her Related to Pain of left upper extremity Seen in ED three day s ago and dx with COVID Her random Gluc in the ED was 330Currently her oral intake is intact She reports she is taking her baseline diabetic regimenher POC this AM was 197She is strongly encouraged to maintain her oral intakeAnd continue to trend her blood sugarsShe is strongly encouraged to call with any changes Related to Type 2 diabetes mellitus with hyperglycemia, with long-term current use of insulin Seen in ED three day s ago and dx with COVID Her random Gluc in the ED was 330Currently her oral intake is intact She reports she is taking her baseline diabetic regimenher POC this AM was 197She is strongly encouraged to maintain her oral intakeAnd continue to trend her blood sugarsShe is strongly encouraged to call with any changes Related to alf (current) use of insulin COVID (+) in ED thre e days agoPt currently with body aches and low grade tempNo pulm involvement No GI involvement (+)oral intake intact(+)VOID/BMPt to continue PO intact and APAP as neededShe denies needing any other symptomatic txShe will call us with ANY changes Related to COVID I do not see evidenc e that she had booster done for novel coronavirus.-Encourage her to obtain it in communityColonoscopy in 2024Referred to breast center for exam and imaging as they deem appropriate, she is overdue for mammographyPodiatry and ophthalmology for her diabetes related health concerns/screeningDEXA scan in the next several yearsDiscussed advanced directives Related to Encounter for health maintenance examination Chronic pain that is present as fibromyalgia, related to degenerative joint disease, strongly suspect neuropathic component at the very least in her lower extremities and conceivably upper extremities. There is chronic headache at times which may relate to the RAYMOND alone but likely also part of a chronic pain syndrome. She also has IBS-like syndrome although also has evidence of gastroparesis.-Ongoing work on mood, seems marginally better and is my hope that the pain will follow-She remains on a total of 30 mg of oxycodone a day. Would not dose escalate-She remains on several adjuvants including pregabalin 75 mg twice daily. She is also on Depakote 125 mg twice daily, this was seemingly started more for psychiatric indication, benefit with regard to her pain is unlikely. Would check a level Related to Other chronic pain Known severe RAYMOND. Th is is likely contributory to cognitive decline, depression, chronic pain. She remains fairly adamant in her refusal to consider CPAP and even oxygen.-Ongoing counseling regarding detriment to her health Related to Obstructive sleep apnea hypopnea, severe Continues on Advair 50/501 inhalation twice daily. She is requiring albuterol quite infrequently.-Encouraged to continue swishing after use-Conceivably could consider dose decrease Related to Mild intermittent asthma without status asthmaticus without complication [place] score 22 in 201 9, 17 and 202 and 16 this year. That being said, her ability to function seems significantly better than testing indicates. I am not sure what to attribute this difference to, conceivably mental health. She is on somewhat few medications that may cloud sensorium although her Depakote, opioids and pregabalin may negatively impact her thinking. I also think that her untreated RAYMOND plays a role.-As always, strive to minimize medications although there are competing interest-Ongoing exploration of ability to use CPAP or willingness to do so Related to Cognitive deficits Continues to be a ma juan source of pain.-Continue current treatment of depression and chronic pain Related to Fibromyalgia Long-standing neck p ain, arm pain, shoulder pain. Some of this is likely to be fibromyalgia. She did have abnormal MR of C-spine and subsequently decompression without significant change in symptoms. More recently had abnormal EMG of upper extremities.-She awaits neurology pkrrwwq-Vjiouiwlb-Ohrdevv if the pregabalin she takes for lower extremity dysesthesias is helpful for upper extremity symptoms as well Related to Pain in left arm Long-standing neck p ain, arm pain, shoulder pain. Some of this is likely to be fibromyalgia. She did have abnormal MR of C-spine and subsequently decompression without significant change in symptoms. More recently had abnormal EMG of upper extremities.-She awaits neurology iuxpfqp-Cmqmrkmtc-Unzwsbi if the pregabalin she takes for lower extremity dysesthesias is helpful for upper extremity symptoms as well Related to Bilateral arm pain DJD spine. No specif ic intervention available other than analgesia and encouragement of ongoing physical activity Related to Generalized osteoarthrosis of multiple sites Patient at one point had very limited motion of either shoulder. Had pathology on MRI. She was seen by orthopedics. She was also seen by rheumatology after I found CRP to be roughly twice normal. CRP in [facility] system was also twice normal. At last check rheumatology proposed empiric 15 mg of prednisone daily which she never did, likely a good thing given her glycemic control however, she continues to have shoulder girdle discomfort. Very difficult to say if this is all her fibromyalgia-Repeat CRP-Conceivably may have her see rheumatology again although I do not think that the polymyalgia is likely Related to Pain of both shoulder joints Patient at one point had very limited motion of either shoulder. Had pathology on MRI. She was seen by orthopedics. She was also seen by rheumatology after I found CRP to be roughly twice normal. CRP in [facility] system was also twice normal. At last check rheumatology proposed empiric 15 mg of prednisone daily which she never did, likely a good thing given her glycemic control however, she continues to have shoulder girdle discomfort. Very difficult to say if this is all her fibromyalgia-Repeat CRP-Conceivably may have her see rheumatology again although I do not think that the polymyalgia is likely Related to Pain in left shoulder She remains on 10 mg 3 times a day of oxycodone. She feels this helps her function with her multifactorial pain most prominently fibromyalgia. I have repeatedly counseled on the decrements. Would certainly not increase the dose.-Follow urine toxicology-Ongoing exploration of risk-benefit--Would experience withdrawal symptoms if stopped abruptly Related to Opioid use, unspecified, uncomplicated Does continue to exp ressed depression however, subjectively better and PHQ 9 score seems to have fallen. Seems marginally less anxious.-Continue medications as listed under generalized anxiety disorder Related to Moderate episode of recurrent major depressive disorder Precise description of what bothers his challenging, as often hard to ascertain. There is clearly depression. There is a fair amount of irritability at times. She has had sound to be panic attacks in the past, this seems marginally better. Her current medications include the addition of BuSpar 7.5 mg several months ago, citalopram 20 mg daily, Depakote 125 mg twice daily seemingly for mood lability although she also carries a historical diagnosis of seizure. She is on pregabalin although not for mood stabilization. She is off tricyclic-For now, I would stay the course. Seems marginally better with regard to mood and anxiety manifestations Related to Generalized anxiety disorder Goal systolic 120, g oal diastolic 70. She is on lisinopril 5 mg and propranolol 20 mg 3 times a day although propanolol is not for hypertension primarily. Blood pressure is actually below goal-No medication changes Related to Hypertensive chronic kidney disease with stage 1 through stage 4 chronic kidney disease, or unspecified chronic kidney disease Reports this is sign ificantly better, now having 3-4 bowel movements a week with MiraLAX Related to Constipation, unspecified constipation type Has hiatal hernia an d gastroparesis. Also has obesity. Symptoms of reflux are actually reasonably controlled on 40 mg of omeprazole. She does describe some nausea but difficult to say if this is purely gastroparesis or reflux or neither.-No change in the 40 mg of omeprazole. Past attempts at decreasing medication were not successful. At one point required 80 mg daily. Related to Gastroesophageal reflux disease, unspecified whether esophagitis present Cataracts OU, given diabetic control and young age this is related to diabetes-DR Peralta follow up Related to Cataract due to DM Last visit with elma borden in November. At the time found to have mild nonproliferative diabetic retinopathy in both eyes. Also with nuclear cataract in both eyes. They apparently also gave her contact information for Dr. Peralta, presumably for her general ophthalmologic care.-We will see optometry here as she feels her glasses not working properly-1 year follow-up with retina-Ophthalmology Dr. Peralta Related to Proliferative diabetic retinopathy of both eyes without macular edema associated with type 2 diabetes mellitus Last vitamin D level 23. Currently on 5000 units of vitamin D-Repeat level given high repletion requirement Related to Vitamin D deficiency DM, hepatic steatosi s, RAYMOND. BMI now 35-Regrettably given her GI issues I do not think it GLP-1 is a reasonable add-on. She reports she eats little. I can't entirely recocile this-Encourage modest weight loss Related to Class 2 severe obesity with serious comorbidity and body mass index (BMI) of 35.0 to 35.9 in adult, unspecified obesity type BMI 35 Related to Body mass index (BMI) of 35.0 to 35.9 While I do not have the primary data, reportedly before enrolling had a diagnosis of gastroparesis which is probable given her long-standing diabetes with relatively poor control. At the time of EGD she had undigested food consistent with gastroparesis. I did reach out to GI and inquired regarding their thoughts about medication options as well as gastric pacemaker. In the absence of actual vomiting or weight loss they did not feel more extreme interventions are necessary and regrettably as a new there are no good options medically-Encouraged smaller meals-Tight glycemic control to the degree possible Related to Diabetes mellitus with gastroparesis She has lower extrem ity dysesthesias as well as hypoesthesia. In the upper extremities she has decreased grasp and abnormal EMGs although unclear to me that is related to diabetes.-Continue pregabalin 75 mg twice daily-Awaiting neurology for the upper extremities Related to Type 2 diabetes mellitus with diabetic polyneuropathy, with long-term current use of insulin Current Lantus 24 un its twice daily, Humalog sliding scale when eating. These are the most recent changes made by endocrinology. Her sugars are overall not well controlled. She did not bring her glucometer today.-Await concomitant data-We will likely increase her Lantus up again, it was fairly dramatically decreased during [id number] today Related to Type 2 diabetes mellitus with hyperglycemia, with long-term current use of insulin Please see chronic k idney disease belowDiabetes has always been brittle/challenging. She still on occasion has hypoglycemia however generally is fairly poorly controlled. She tends to run short on freestyle sensors as they fall off or get lost. I called the pharmacy today, she is not due for several more days. She was hospitalized in January with hypoglycemia, the entire rationale for which is not entirely clear.-Obtain hemoglobin A1c today, I suspect increase in medications is necessary-Follow urine microalbumin-Seeing retina, will see optometry duvn-Lldzbbjw-Ysclxads Humalog sliding scale, modified by endocrinology 02/15-Jardiance 25 mg dailyLantus 24 units twice daily per Endocrinology in 02/15Metformin 1 g daily Related to Type 2 diabetes mellitus with stage 2 chronic kidney disease, with long-term current use of insulin Lantus 24 units twic e daily, uses Humalog sliding scale which was adjusted by endocrinology in January in the wake of her hospitalization for hypoglycemia 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 It tends to bounce between the 70s and 90s. 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 Patient seemingly did not tolerate atorvastatin in the past. She was placed on rosuvastatin 10 mg. Off zetia-Repeat lipids-Difficult to say what definitive LDL goal is. She has not had cardiac event. She reports past stroke although MRI has shown no evidence of this-Ideally would aim for LDL of approximately 70 if attainable without adverse reactions Related to Mixed hyperlipidemia Patient perceives ar ea of fullness in the left axilla, possibly left axillary tail of the breast. It is my believe she had hidradenitis on the contralateral side. I do not feel anything although exam was limited to axilla.-Overdue for mammography however, I think it is [place] for her to see a specialist for them to choose diagnostics Related to Lump of axillary tail of left breast Lantus was decreased to 16 units, Humalog 3 units starting at 100, increase by 2 units every 50 of glucose thereafter Related to alf (current) use of insulin Patient with long-st anding constipation, unclear if it is related to autonomic function, opioids or combination thereof. She saw GI recently although I referred her for discussion of her gastroparesis. They switched from MiraLAX to lactulose which is either not been effective or been even less effective than the MiraLAX.-I have written them to let them know the above-I have asked that she re-add MiraLAX in addition to her lactulose with the aim of increasing stools to every day or 2. Related to Constipation, unspecified constipation type Patient with quit lo ng-standing diabetes. Her sugars have historically been quite variable although overall control has been poor. There is at times been some difficulty with consistency with medications and blood glucose. As for the etiology of her hypoglycemia leading to hospital visit and admission, it is quite unclear.-I await a call from endocrinology regarding expedited xqfueg-ks-Vkuval 16 units and Humalog per their directions-No change in oral hypoglycemic agents for now-Continue fingersticks-She knows to call for worseningWith regard to gastroparesis, I did refer her back to GI however the seem to focus more on the constipation. I have written to them and asked their thoughts on the gastroparesis and options for this. It is somewhat reassuring that she is not vomiting and not losing significant weight. It may be that no intervention is indicated at the moment. Related to Diabetes mellitus with gastroparesis Upper GI symptoms fr om gastroparesis. (Came to us with a diagnosis of gastroparesis from former GI in [place] and at time of EGD had food in her stomach which endoscopist felt was indicative of gastroparesis). I have asked GI to see her regarding this, that has not come to be so far-We will ask again Related to Diabetes mellitus with gastroparesis Abdominal fold and i nguinal fungal dermatitis-Given nystatin powder from stock Related to Fungal dermatitis Improved with topica l steroids, etiology not clear Related to Skin lesion of lower extremity Patient with very lo ng-standing diabetes, historically exceedingly poor control with complications. She had been followed by endocrine, seems to fallen out of care. She is on a very complex regimen with variable adherence. She was using varying doses of Lantus. She had apparently run out of short-acting insulin. Sugars remain highly variable with at times poor/low a.m. glucose with afternoon and evenings appreciably higher although much better than she was at her worst-It is my hope that endocrinology will be able to help us with a more rational regimen. As she has been out of care for quite a while I called and made an appointment for her to see them however that will not be until February.-We will bring her back in approximately 1 month and likely suggest use of sliding scale insulin at other times of day, conceivably may actually not to use it at dinnertime which she is using it currently given lower a.m. 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 This likely represents gastroenteritis however, given the report of dysuria and perhaps flank pain will obtain urinalysis. She is not clinically ill at the moment Related to Dysuria Immunizations [facility] s cope late 2021 per GI Related to Encounter for health maintenance examination She has multiple sebastian ateral lower extremity, somewhat nonspecific, linear skin lesions. These are pruritic. They are generally scabbed. It is my recollection in the past and a diagnosis of diabetic dermatopathy was made although I cannot find clear evidence of that. I am uncertain if this represents same.-We will ask dermatology to see again Related to Skin lesion of lower extremity Patient with severe RAYMOND. This is likely contributory to insomnia, pain, mood disorder, headaches. She will not use CPAP.-We will continue to educate on the deleterious effects of untreated RAYMOND-Encourage weight loss Related to Obstructive sleep apnea hypopnea, severe 50/500 puff twice da amelia. She does not need albuterol frequently.-Would continue same Related to Mild intermittent asthma without status asthmaticus without complication There are perhaps fe wer potentially impairing medications in the mix. She is off tricyclic. It is extremely hard to gauge her cognition in the context of significant mood disorder as well as her medications-Continue supportive care-Follow tests of cognition-Aim to treat psychiatric comorbidities while trying to avoid worsening polypharmacy Related to Cognitive deficits Is noted to have abn ormal EMGs. Does not appear to originate from cervical spine. I am not entirely sure what the etiology of this is.-Neurology input-Continue pregabalin 75 mg twice daily Related to Pain in left arm Is noted to have abn ormal EMGs. Does not appear to originate from cervical spine. I am not entirely sure what the etiology of this is.-Neurology input-Continue pregabalin 75 mg twice daily Related to Bilateral arm pain Very long history of neck pain. I somewhat reluctantly referred to surgery and she had decompressive cervical surgery with no pain change or functional improvement. She has trialed a soft collar. She has trialed OT briefly.-Physiatry input requested Related to Neck pain Stable dose of oxyco done. Unclear to what degree it is helpful however she feels that it does help take the edge off her pain. She is well aware of the potential complications of this therapy.-Urine toxicology-I would still aim to consider tapering to off with the use of adjuvant however, he did report that has not been very successful.-Would experience withdrawal symptoms if she were to stop abruptly Related to Opioid use, unspecified, uncomplicated Blood pressure is ac tually well controlled. Goal systolic approximately 120 and goal diastolic roughly 70. She is on lisinopril 5 mg daily. She is on propranolol 20 mg 3 times a day although that is not primarily for her blood pressure. Related to Hypertensive chronic kidney disease with stage 1 through stage 4 chronic kidney disease, or unspecified chronic kidney disease Patient with hiatal hernia and gastroparesis.-Efforts at lifestyle modification. Her symptoms are actually fairly well controlled on omeprazole 40 mg daily. Ideally I would prefer to decrease this and/or eliminated however, at this juncture I do not think that is going to be possible-Await evaluation for gastroparesis by GI Related to Gastroesophageal reflux disease, unspecified whether esophagitis present Bilateral cataracts which given her age and diabetes control are related to the diabetes-Continue efforts at diabetic control-Ophthalmology follow-up Related to Cataract due to DM Last exam May. Mild proliferative diabetic retinopathy, appears to be bilateral.-Follow-up 6 months from last, due next month Related to Proliferative diabetic retinopathy of both eyes without macular edema associated with type 2 diabetes mellitus DM 34.5, Has diabete s, hepatic steatosis. BMI decreased a bit to 34.5-Encourage weight loss although given her reported poor oral intake this has to be balanced carefully. Related to Class 1 obesity with serious comorbidity and body mass index (BMI) of 34.0 to 34.9 in adult, unspecified obesity type 34.5 Related to Body mass index [BMI] 34.0-34.9, adult Sugars are poorly co ntrolled particularly in the evening. She is not currently using what has been prescribed with regard to insulin although, it is conceivable knowledge he has alter things. Additionally, she does not have Humalog to use for sliding scale which contributes to her poor control-Continue medications as listed under diabetes with chronic kidney disease-Repeat C1l-Eta to get back to endocrine-Humalog sent to pharmacy Related to Type 2 diabetes mellitus with hyperglycemia, with long-term current use of insulin DM control has been poor especially with the lack of monitoring from her Freestyle and use of humalog. She would benefit from another visit to endocrinology goal A1c under 7-Continue jardiance 25 mg daily-Lantus 50 units in the morning 50 units in the evening was what was ordered. However, due to the variability she reports in her daily dosing, it is hard to assess if it is working as orderedLisinopril 5 mg for nephro protectionMetformin extended release 1 g daily-Routine ophtho needed, same for podiatry Related to alf (current) use of insulin DM control has been poor especially with the lack of monitoring from her Freestyle and use of humalog. She would benefit from another visit to endocrinology goal A1c under 7-Continue jardiance 25 mg daily-Lantus 50 units in the morning 50 units in the evening was what was ordered. However, due to the variability she reports in her daily dosing, it is hard to assess if it is working as orderedLisinopril 5 mg for nephro protectionMetformin extended release 1 g daily-Routine ophtho needed, same for podiatry Related to Type 2 diabetes mellitus with stage 2 chronic kidney disease, with long-term current use of insulin Most recent estimate d GFR was 80 in May. Prior to that was 95. It has varied between the mid 80s and the 90s. Given hypertension, age, diabetes either degree of renal function is actually quite well preserved.-Avoid nephrotoxins-Blood pressure adequately controlled-On FRANKIE inhibitor for nephro protection-Needs better DM control Related to Stage 2 chronic kidney disease Last lipid panel in April 2021 showed total cholesterol of 188, HDL of 40, LDL of 119, triglycerides 174. Believe given her overall risk profile aiming for LDL under 70 is reasonable. She is intolerant of atorvastatin however, exact details are unknown. She is currently on ezetimibe which is not particularly effective.-Will trial rosuvastatin at low dose initially and titrateStop Zetia Related to Mixed hyperlipidemia Lesion to R elbow is mildly red and flaky-Will continue calcipotriene\ Related to Psoriasis, unspecified Today she presents w ith R neck and back pain that is present with her usual chronic pain endorsements. She has pain syndrome with all elements of fibromyalgia. She recently had and EMG and it was abnormal._Continue Oxycodone-Continue lyrica-Will have OT see her and make recommendations for back/neck pain if there are any-Improve management of depressive symptoms Related to Chronic pain syndrome Still having mild co nstipation and reports BM q3d. Continue Miralax for constipation and simethicone for gas/bloating Related to Constipation, unspecified constipation type She continues to end orse depression, chronic pain, and concurrent anxiety with appetite changes. She reports her irritability with her has been less but is still present. She reported going on vacation but staying in bed most of the time-will continue citalopram 20 mg dailyWill encourage her to enter therapy again Related to Moderate episode of recurrent major depressive disorder Anxiety has been rosio llenging but isn't worse. TIFFANIE, was worse, she endorses less now. Psych has put her on as needed hydroxyzine and Risperdal, the latter presumably not for anxiety.-Depakote 125mg twice daily --Citalopram 20mg dailyWill add buspar 7.5mg bid and see if her anxiety improves Related to Generalized anxiety disorder Poor DM control and she continues to have symptoms of gastroparesis. She followed up with GI and will be having a screening colonoscopy soon. -The possibility of gastric pacemaker or other promotility options is still pending the GI workup Related to Diabetes mellitus with gastroparesis She has BLE diabetic neuropathy with increased R vidal tingling/burning sensation. She has recently acquired diabetic shoes but came in today wearing moccasin slippers. Feet donot have any diabetic lesions on them and her toenails are managed. Encourage the use of her diabetic shoes Related to Type 2 diabetes mellitus with diabetic polyneuropathy, with long-term current use of insulin Lesion to left dorsa l ankle appears to be psoriatic. The area to her right distal arm may well be psoriatic as well though somewhat difficult to tell.-Topical corticosteroids for 2 weeks-Has used calcipotriene in the past, can certainly retry it if needed-Barrier cream for Intertriginous areas that are unrelated to her wrist or ankle Related to Psoriasis, unspecified Diabetes control rachael y far from optimal but has trended towards better-No immediate changes todayShe does continue to have sense of abdominal fullness. I believe some of this is predicated upon her gastroparesis. She did have EGD by [facility] not too long ago.-Await their input with regard to the possibility of gastric pacemaker or other promotility options-I have rescheduled the ultrasound to exclude the possibility of ascites or other such because of her more generalized abdominal fullness Related to Diabetes mellitus with gastroparesis Long history of depr ession, anxiety, comorbid pain, sleep disturbance and many other challenges. Recent change with addition of SSRI. Her mood and irritability seem better.-I have encouraged her to continue the citalopram 20 mg daily-I have informed her that full effect is likely not present yet, I have expressed hope that she continues to improve further-I will inform the psychiatric practice she was attending that she is currently on this medication. I have asked the pharmacy not to refill the Risperdal or hydroxyzine that psychiatry put her on (this goes to a separate pharmacy).-I hope she can resume therapy regularly Related to Moderate episode of recurrent major depressive disorder There is somewhat no nspecific, lesion to the left foot. Pigmentation is slightly increased. There are some features suggestive of fungal dermatitis. She does have a history of psoriasis and is difficult for me to definitively exclude this.-Try combined nystatin/triamcinolone cream to the lesion for several weeks Related to Skin lesion of foot Very long-standing d epression, chronic pain syndrome, insomnia, anxiety. She describes significant inanition, increased irritability, less earl overall. Her overall dysphoria has been present for decades. Unclear if it is any worse. Psychiatry had placed her on an antipsychotic without obvious benefit. There is also placed her on hydroxyzine. By her report there are no longer prescribing those as she missed appointments or they are not somehow connecting. my social work colleague will very kindly reach out to the mental health provider agency -[facility] to off-Start SSRI, I cautioned her not to expect optimal results for several weeks-My inclination is to leave her off the antipsychotic and certainly off the vxfymmcpzpw-Nllhte-nr in 2-3 weeks-Discussed that the use of CPAP may help with sleep, mood, pain Related to Moderate episode of recurrent major depressive disorder Diabetes has long be en relatively difficult to control. She is currently using wearable glucose monitor. Overall glycemic control is somewhat improved. Goal A1c given her age and comorbidities and certainly 7 or under. End-for now would continue the insulin sliding scale which was suggested by endocrine, 25 mg daily, Lantus 50 units twice daily, metformin 1000 mg dailyWith regard to the gastroparesis, she has previously had a gastric emptying study and had EGD last year that showed gastroparesis. I await repeat consultation with GI surrounding the issue of options of gastric pacemaker or other suggestions for remediation of this. It is unclear whether this accounts for all of her abdominal bloating. She thankfully, from this perspective is not losing weight although it would be advantageous to lose weight overall.It is a bit difficult to know if this accounts for all of her abdominal symptoms. The fact that she is not losing weight and had negative GI workup is somewhat reassuring. Given her diabetes and some chronic kidney disease contrast carries risk and as such doing a CT of abdomen and pelvis with IV contrast is not my first choice-We will obtain ultrasound mostly to exclude ascites which I do not appreciate clinically and to exclude obvious SOCK LINER pathology-Also increasing miralax to see if it helps with constipation/bloating (BM Q3-4d) Related to Diabetes mellitus with gastroparesis Patient with quite l himanshu-standing bilateral lower extremity diabetic neuropathy. She is having increasing right foot pain. I do not see anything on examination. There is no trauma history. In spite of her neuropathy there is little to suggest there is acute pathology by exam.-I will ask my rehab colleagues to evaluate for new shoes as she is quite overdue, she does tend to wear other shoes in warmer weather but perhaps currently will wear supportive footwear more Related to Type 2 diabetes mellitus with diabetic polyneuropathy, with long-term current use of insulin Patient with quite l himanshu-standing bilateral lower extremity diabetic neuropathy. She is having increasing right foot pain. I do not see anything on examination. There is no trauma history. 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 Is slightly pruritic. There is nothing that specifically raise concern for malignancy. I think a fungal etiology is far more likely. She also has more classic intertrigo on the right abdomen.-Combination corticosteroid antifungal for both sites Related to Dermatitis In addition to the p resenting low back pain, there is left neck pain, please see below. There is left shoulder pain with known history of rotator cuff tendinopathy, poor response to therapy and no real desire to continue therapy. There is diffuse musculoskeletal pain syndrome with depressive symptoms, chronic abdominal complaints, chronic cephalgia. The pain syndrome meets criterion for fibromyalgia. She is on multiple adjuvants. She is receiving psychiatric support although has had some difficulty accessing this of late.-No real change in her pain regimen-We will explore the low back pain with MRI as above-We will ask physiatry to see if they have any additional recommendations.-Has previously seen rheumatology Related to Other chronic pain There does not appea r to be any kidney pain . There is chronic low back pain. What she describes is essentially what she has described since I have known her. I do not get the sense that there is any worse, or better regrettably. Interestingly, upon review I note that she has not had MRI of the lumbar spine.-I have asked physiatry to see her more globally-We will ask for MRI of L-spine. Related to Chronic bilateral low back pain without sciatica Patient with a long history of neck pain. Had decompressive cervical surgery with little to no change in her pain or function. The bulk of her current neck pain and reported shoulder pain is actually located in trapezius. She previously briefly trialed therapy and found it to worsen her discomfort.-My OT colleague will very kindly try to get her a collar as she believes that will help.-We will ask physiatry if there is anything else that they feel would be helpful Related to Neck pain Some of the upper ab dominal discomfort is consistent with her known gastroparesis (gastroparesis and previous gastric emptying study and food in the stomach on EGD). She is not a good candidate for Reglan. She has significant polypharmacy.-Awaiting GI input regarding gastric pacemaker or other suggestions. Related to Diabetes mellitus with gastroparesis eGFR c/w stage 1 CKD . Very stable renal function-control DM/HTN Related to Stage 1 chronic kidney disease Controlled on Mag fo r non GI causeMiralax Related to Constipation, unspecified constipation type DM/Obesity-Address t hose issues-Episodic screening re: hepatoma Related to Hepatic steatosis Hiatal Hernia and Ga stroparesis. Had EGD in past several years-Double PPI for 2 weeks, then daily 40mg-GI re: gastroparesis-Education on triggers/positioning Related to Gastroesophageal reflux disease, unspecified whether esophagitis present -Ophtho follow up. Nathalie abdi see retinopathy Related to Cataract due to DM Or retina in 2019. I called to see if she had been seen in follow-up. They told me she no showed for her appointment. I will send a letter to the patient asking that she reschedule.-Control DM Related to Proliferative diabetic retinopathy of both eyes without macular edema associated with type 2 diabetes mellitus 4000U/day.-Will foll ow level to make sure we do not over correct Related to Vitamin D deficiency BMI up to 35.7. Has DM, hepatic steatosis. She reports she eats little. Likely has elevated insulin levels-My RD colleague follows-Caution with food type and calories-Would address the gastroparesis before discussion of GLP1, in general may be poor choice Related to Class 2 severe obesity with serious comorbidity and body mass index (BMI) of 35.0 to 35.9 in adult, unspecified obesity type BMI up to 35.7. Has DM, hepatic steatosis. She reports she eats little. Likely has elevated insulin levels-My RD colleague follows-Caution with food type and calories-Would address the gastroparesis before discussion of GLP1, in general may be poor choice Related to Body mass index [BMI] 35.0-35.9, adult Previous gastric emp tying study showed mild gastroparesis. EGD showed hiatal hernia and food in the stomach consistent with gastroparesis. She has a great deal of reflux despite PPI. She has significant polypharmacy. I do not think Reglan is a reasonable option especially as she is now on antipsychotic already.-GI for possible gastric pacemaker or other options Related to Diabetes mellitus with gastroparesis Has bilateral lower extremity relatively symmetric stocking distribution hypoesthesia. A it more difficult to say if she has upper extremity neuropathy. She is on pregabalin 75 mg twice daily although it is my sense that this is more for diffuse pain rather than explicit neuropathy, she may derive secondary benefit from it-Continue pregabalin 75 mg twice daily-Regular foot inspection-We will try to verify that she has seen podiatry. Related to Type 2 diabetes mellitus with diabetic polyneuropathy, with long-term current use of insulin Her sugars have over all improved quite a bit. Hemoglobin A1c was 7.8 at last check. Sugars are still high at times. Using CGM.-No medication changes currently-Continue to follow fingersticks-May have endocrine oyesuw-gg-Tmcdnn V2b-Pxfsbxkkkbebd-Nqavyepw FRANKIE inhibitor-Ideally would see podiatry with regularity, I will try to clarify the status of that Related to Type 2 diabetes mellitus with hyperglycemia, with long-term current use of insulin DM control historica lly poor. Much better in the past year or so with hemoglobin A1c of 7.8 recently. The precise extent of her complications is at times a bit difficult to know. Her estimated GFR had dipped to 75 however on most recent measurement was 98 and in general has been over 90.-For now would continue jardiance 25 mg daily-Lantus 45 units in the morning 50 units in the eveningLisinopril 5 mg for nephro protectionMetformin extended release 1 g dailyHumalog on sliding scale per endoGiven her weight I will discuss with endocrine the possibility of using a GLP-1 for weight loss although I think it is only prudent to do so after we resolve the issue of her upper GI symptoms Related to Type 2 diabetes mellitus with stage 1 chronic kidney disease, with long-term current use of insulin DM control historica lly poor. Much better in the past year or so with hemoglobin A1c of 7.8 recently. The precise extent of her complications is at times a bit difficult to know. 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 Atorva allergy , details not known-Will repeat lipids- Clarify intol/allergy, would consider crestor trial Related to Mixed hyperlipidemia BP very variable (po sition [place])-Lisinopril 5mg-no change Related to Hypertensive chronic kidney disease with stage 1 through stage 4 chronic kidney disease, or unspecified chronic kidney disease Mammo due SeptNeed f or SOCK LINER questionableC scope onsider DEXA, not a high priority right nowOffer Shingrix Related to Encounter for health maintenance examination No current lesions. Has topical steroids and calcipotriene to use if/when needed Related to Psoriasis, unspecified RAYMOND, severe. This is probably contributory to insomnia, pain, mood, headaches. Sleep medicine prescribed CPAP. She has historically expressed profound disinterest in using it.-I have asked my nursing colleague to verify if she has it and if so she is using it. Related to Obstructive sleep apnea hypopnea, severe Stable Advair, stabl Kimmy AlbuterolNo med changes Related to Mild intermittent asthma without status asthmaticus without complication Came to us with a di agnosis of seizures. She was on Dilantin. Review of previous evaluation at [facility] indicated negative video EEG. She was sent back to neurology. She was tapered off Dilantin. She remains on valproic acid albeit for headache prophylaxis seemingly.-No specific action Related to History of pseudoseizure Depressed MOCA score in the past. She relates some degree of memory difficulty. That having been said, she is on multiple medications that could cause this in addition to having significant depression. I would not characterize this as dementia, not clearly progressive however, very difficult to be certain what the trajectory is/will be-Ideally decrease cholinergic load, this has proven difficult-Now on antipsychotics in addition to other medications Related to Cognitive deficits Patient has chronic multifactorial pain. She has some intrinsic shoulder pathology, she has arthritis of her spine. She has pain syndrome with all elements of fibromyalgia. She may well have small fiber neuropathy. She has chronic headaches. 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 C spine decompression did not change pain much. Marginally vblofo-Fctbfycxsc-Npsnqg-Opioids Related to Pain in left arm EMG pending. C spine decompression did not change pain much. Marginally dytwxs-Wdpvdyqzxu-Mcdmaq-Opioids Related to Bilateral arm pain Has seen [facility]. Has pathology and MRIs. She did see rheumatology who did injections with little results. Course of rehab was not particularly helpful from her perspective. There have been thought of giving her a course of oral steroids although I do not know that this ever happened, I let the server developer know of my concern regarding her glycemic control.-No specific changes in this regard-I encouraged her to continue to move to avoid additional debility Related to Pain of both shoulder joints Has seen [facility]. Has pathology and MRIs. She did see rheumatology who did injections with little results. Course of rehab was not particularly helpful from her perspective. There have been thought of giving her a course of oral steroids although I do not know that this ever happened, I let the server developer know of my concern regarding her glycemic control.-No specific changes in this regard-I encouraged her to continue to move to avoid additional debility Related to Pain in left shoulder At the very least sp ine and shoulders. Has seen orthopedics. Also saw rheumatology to exclude any inflammatory arthropathy, they did not find evidence for gcif-Stikfznuj-Elj was receiving rehab but participation was rather spotty and she felt it made her worse Related to Generalized osteoarthrosis of multiple sites Stable dose of oxyco done 10mg Q8hrs. She feels it makes pain tolerable-Needs opioid contract and needs Utox Related to Opioid use, unspecified, uncomplicated Long-standing depres zander, insomnia, chronic pain syndrome, anxiety. She is being followed by psychiatry. They have newly introduced an antipsychotic called with the indication for this is not entirely clear to me. MArginally less negative today-Continue low-dose Risperdal per psychiatry, again indication equivocal-Continue amitriptyline most of her pain, is on 50 mg at bedtimeAppears off Mirtaz now Related to Moderate episode of recurrent major depressive disorder TIFFANIE, was worse, she endorses less now. Psych has put her on as needed hydroxyzine and Risperdal, the latter presumably not for anxiety.-Will defer to Psych-Anticholinergics do ot thrill me but, no great options-As needed hydroxyzine per psych (going to [facility])Elavil is for other indication, 50mg, no change-Depakote 125mg twice daily and Inderal 20mg three times a day seem to be for non pscyh indications-Off mirtaz Related to Generalized anxiety disorder Long standing depruyki zander. There are multiple somatic correlates/associated conditions. She is sleeping poorly, has pain-all are interrelated.-Will trial Mirtazapine for sleep and mood-SW will investigate transition to new psych practice Related to Current moderate episode of major depressive disorder without prior episode Has b/l shoulder damari n. Has pathology on MRIs. Saw [facility] in past. Does not want injections now Related to Pain of both shoulder joints see pain in both shoulders Relat ed to Pain in left shoulder see pain in both arms Related to Pain in left arm Very hard to say if this is all fibromyalgia. Known cervical spine disease, post surgical decompression with no real change in symptoms. Past CTR by her hx.-EMG-Work on mood and sleep-They do not want increase in pregabalin Related to Bilateral arm pain Acute to subacute ri ght upper thoracic pleuritic chest pain. Accompanied by some systemic symptoms such as chills and perhaps arthralgias/myalgias although very difficult to be certain given her baseline pain. She is hemodynamically stable, saturating well, afebrile with oral temperature.Broad differential including viral infection (point of care testing here negative), bacterial infection, spontaneous pneumothorax albeit unlikely, pulmonary embolus-again unlikely. Given the pleuritic nature, duration and associated symptoms I do not believe that acute coronary syndrome is a real concern.-Lab tests drawn by me-Swab is done-Patient will go to [facility] now for chest x-ray, daughter will take her-I have explained to the daughter that in the event of any change in her status, high fevers, shortness of breath, other symptoms she should call 911 and go to the ER Related to Pleuritic chest pain Patient reports wors ening anxiety. She is followed by psychiatric provider at [facility]. Her current psychoactive medications, not all for psychiatric indication, include amitriptyline now 50 mg at bedtime, Depakote 125 mg twice daily, she is on Inderal 20 mg 3 times a day which as best I can tell is for headache prophylaxis, unclear if it would do anything for panic-I would strongly consider adding BuSpar-I will send a letter to Rishabh Rendon Related to Generalized anxiety disorder BP well to excessive l controlled. With regard to CKD, see Dm with CKD Related to Hypertensive chronic kidney disease with stage 1 through stage 4 chronic kidney disease, or unspecified chronic kidney disease Adequately treated, not currently problematic.-Remains on magnesium for non-GI indication-Has MiraLAX for use as needed, she knows she can take it regularly-Recent colonoscopy essentially normal aside from small hemorrhoids Related to Constipation, unspecified constipation type Colonoscopy r 2019, recommendation is for repeat in 5 years given large polyp in 2017 Related to History of colonic polyps Due to metabolic syndrome/obesity-Encourage weight loss-Good glycemic control, ideally decreasing insulin dose-Will need to consider hepatoma screen periodically Related to Hepatic steatosis Please see Dm with gastroparesis Related to Gastroparesis Has known gastropare sis.-Continues on omeprazole 40 mg daily-Did have EGD fairly recently.-Encouraged to pursue a variety of lifestyle modification including avoidance of food before recumbency, avoid known food and beverage triggers. Weight loss likely to help as well-Tumss reasonable Related to Gastroesophageal reflux disease without esophagitis Early bilateral marie racts per ophthalmology note from August. Given her young age this is related to diabetes.-Continue diabetic control-Routine ophthalmology follow-up Related to Cataract due to DM Patient saw retina s pecialist on 09/07/2020. Has mild retinopathy. Annotation makes it very hard to see if it is nonproliferative but appears to be. 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 She is on 4000 units daily. Will repeat levels to verify it has risen Related to Vitamin D deficiency BMI is 33 with multi ple serious comorbidities. She reports she is relatively little. Certainly high insulin levels could be contributory. She is not really able to exercise.-Continue to encourage modest weight loss-My RD colleague is following along-I have no other immediate solutions, certainly moving will help her fibromyalgia/pain syndrome and may be helpful with regard to weight loss Related to Class 1 obesity with serious comorbidity and body mass index (BMI) of 33.0 to 33.9 in adult, unspecified obesity type BMI is 33 with multi ple serious comorbidities. She reports she is relatively little. Certainly high insulin levels could be contributory. She is not really able to exercise.-Continue to encourage modest weight loss-My RD colleague is following along-I have no other immediate solutions, certainly moving will help her fibromyalgia/pain syndrome and may be helpful with regard to weight loss Related to Body mass index [BMI] 33.0-33.9, adult Previous gastric emp tying study consistent with mild gastroparesis. Recent EGD showed hiatal hernia and food in the stomach consistent with diabetic gastroparesis. In general she does not report difficulty with food but rather says she has difficulty with water only, not other things.-We will ask speech language pathology to see, I am skeptical that the difficulty with water is primarily a function of her gastroparesis-Will need to be somewhat cautious with medications-There is no optimal medical treatment for diabetic gastroparesis, if it were to worsen we will consider referral to GI for gastric pacemaker-For now continue omeprazole 40mg,, somewhat reluctantly Related to Diabetes mellitus with gastroparesis Her blood pressure i s relatively low normal. She is not typically symptomatic per se. With regard to true antihypertensives she is on lisinopril 5 mg primarily for renal protection. She is on propranolol 20 mg 3 times a day for non-hypertension indication. She is on a number of other agents that could produce some degree of hypotension (tricyclic, pregabalin). There is no evidence of severe anemia or significant volume depletion. Phenotypically she does not appear to be adrenally insufficient.-For now no shift the medication however may be necessary to cut back on propranololUnclear to me if taking prazosin, not comign from us or her [facility] Related to Hypotension due to drugs Seen by dermatology in the past with diagnosis of diabetic dermatitis. At the moment she does not have open lesions. She does have a fair amount of pruritus and cutaneous hyperesthesia.-Topical agents including menthol, steroids if indicated-Ongoing work on metabolic parameters however her renal function and kidney function are relatively normal- Related to Type 2 diabetes mellitus with diabetic dermatitis, with long-term current use of insulin Please see DM with c hronic kidney disease for management of DM.There is at the very least sensory neuropathy of the lower extremities, difficult to say if there is of the upper extremities as well.-Ongoing efforts at maximal DM control-Continue pregabalin 75 mg twice daily-She is to inspect her feet regularly-She does make a concerted effort to not walk barefoot given past experience with foot infection Related to Type 2 diabetes mellitus with diabetic polyneuropathy, with long-term current use of insulin Historically hemoglo bin A1c has generally been above 10, we were successful in getting it down to 8.3 prior to her surgery. Many of her sugars remain quite high sometimes in the 300s although trend has overall been better.-Repeat A1c Related to Type 2 diabetes mellitus with hyperglycemia, with long-term current use of insulin Most recent estimate d GFR fell slightly and was 79. Previously had been in the 90s. She does have proteinuria historically.-Control diabetes-Blood pressure is well controlled. Remains on lisinopril 5 mg daily, will continue tolerated, given her blood pressure there is no room to push the doseWith regard to diabetes, long and complicated history with concerns of surreptitious insulin use, profound hypoglycemia as well as significant hyperglycemia. Has multiple complications of her diabetes suggesting globally poor control. Her A1c's have been persistently elevated although with intensive efforts were able to get them down to 8.3 for her cervical spine surgery.-Repeat W2a-Uout sulfonylurea which have been added by endocrine has been stopped by endocrine, I have sent it to multiple pharmacies to verify that she is not getting it from either-Continue jardiance, Lantus 45 units a.m., 50 p.m.,, Humalog covergae, metformin 1000 mg ER daily,-Routine ophthalmology-Podiatry when feasible with regard to pandemic Related to Type 2 diabetes mellitus with stage 2 chronic kidney disease, with long-term current use of insulin CKD 2-See Dm with CKD Related to Chronic kidney disease, stage 2 (mild) Lantus and humalog Related to Lo ng term (current) use of insulin No recent lipid pane l in [facility] or here. She remains on Zetia 10 mg. She is not on statin. I am not certain if she was taken off statin due to diffuse musculoskeletal pain and concern that this was side effect or other rationale.-Lipid panel-Same Zetia for now Related to Mixed hyperlipidemia Veru minimal erythem a, somewhat chronic. Will try topical agent. If persistent ENT Related to Other otitis externa, left ear Up to date on mammog aguilar-Saw SOCK LINER in the past 2 years-Had colonoscopy June 2020, due to 2024-Consideration of low-dose CT and DEXA scan in future-Would hold off on Shingrix till after [facility] reviewed Related to Encounter for health maintenance examination Please see pain synd petty above. Patient describes a long history of cutaneous hyperesthesia and allodynia particularly in lower extremities. In the past son hitting her leg is, air conditioning in her legs and water hitting her legs caused her significant pain. More recently she has had pruritus and when she touches her legs/scratches them she has pain. We recently escalated topical treatment with menthol as well as increased her amitriptyline. There seems to have been marginal improvement (done only roughly a week ago).-We will continue to monitor Related to Allodynia Patient was seen by sleep medicine earlier this year. They prescribed CPAP. She has historically not been at all interested. I am not entirely clear she is using it currently, I will have to inquire yet again.-We will encourage in the strongest possible terms but I am not particularly optimistic Related to Obstructive sleep apnea hypopnea, severe Does not currently a ppear to have psoriatic lesions-Topical steroids and calcipotriene when needed Related to Psoriasis, unspecified This is quiescent on maintenance Advair. She rarely needs her rescue inhaler-Continue same Related to Mild intermittent asthma without status asthmaticus without complication Please see commentar y under chronic opioid use. In summary, very complicated amalgam of mood disorder, anxiety, sleep disorder, diffuse musculoskeletal pain syndrome, cephalgia, has suggested that she has several conditions that upon review of medical documentation thankfully do not appear to be accurate (seizure, stroke, [place]). -Strive to treat sleep disordered-Working on mood disorder-On multiple adjuvants as after mentioned under chronic opioid use-I have strive to educate her about chronic pain.-Continue to utilize subspecialty consultation to the degree it is helpful-Watch on escalated dose of Elavil-Again, may need to consider retrial of various antidepressants Related to Other chronic pain Initial screening [place] was in April 2019. I do not currently see the follow-up 1. There is small vessel disease on MRI. That having been said, she is on multiple medications that could cause cognitive dysfunction. Additionally, she has significant sleep apnea. I suspect that her mood disorder may well play a larger factor than anything else.-Treat vascular risk factors to the degree possible-Encouraged use of CPAP-Will follow testing-Use of some of the adjuvants is a double edge sword, certainly the amitriptyline could worsen cognition however may well be necessary to make her quality of life better. Related to Cognitive deficits Some migrainous feat ures. Many features that do not favor algesia. She has seen neurology. Again, there is global overlay of pain syndrome as well as significant sleep apnea.-Continue riboflavin-Continue propranolol although given her blood pressure we may need to revisit this-Try to treat sleep apnea Related to Frequent headaches Patient with a varie ty of somatic pain complaints including diffuse musculoskeletal pain syndrome that meets criterion for fibromyalgia. In addition she has chronic headaches, some GI complaints consistent with IBS.-Please see commentary under opioid use.-Continue her adjuvants-Continue utilizing specialty consultation as possible however, no immediate solution exists to this-Consideration of SNRI can be tried again if tolerated Related to Fibromyalgia There is tendinopath y and possible suggestion of frozen shoulder on MRI as of the shoulders. She has been seen by rheumatology who injected both shoulders in . If she has seen orthopedics.-She will work with OT, I am not clear that there is a overt solution to this.-I do believe that some of her perception of pain is related to her overall pain syndrome Related to Pain of both shoulder joints There is tendinopath y and possible suggestion of frozen shoulder on MRI as of the shoulders. She has been seen by rheumatology who injected both shoulders in July/August. If she has seen orthopedics.-She will work with OT, I am not clear that there is a overt solution to this.-I do believe that some of her perception of pain is related to her overall pain syndrome Related to Pain in left shoulder Degenerative disease of spine. Seemingly soft tissue disease and potentially frozen shoulders bilaterally. Slight elevation of inflammatory markers. I have involved rheumatology to exclude inflammatory arthritis or other similar condition. They have found no evidence of same.-Continue analgesics as under long-term opioid use Related to Generalized osteoarthrosis of multiple sites Remains on opioids a t escalated doses post surgery. I have again and again emphasized to her and her that I do not think there is benefit for long-term opioid and in point of fact there is likely only increased risk. That having been said, they both feel that she has able to sleep and function marginally better with the opioids and without. She is on adjuvants. She has seen a large variety of subspecialists including pain medicine, rheumatology, orthopedics. She is followed by a psychiatric provider. She has seen neurology. She has seen sleep medicine. She has had decompression of the cervical spine. In spite of all this, there are no wonderful or simple solutions.-OT will kindly work with her regarding the shoulders-Eventual return to orthopedics feasible however, it does not appear there is likely surgical disease of either shoulder.-For now she continues on 10 mg 3 times a day of oxycodone and Atrovent as aforementioned principally pregabalin 75 mg twice daily, amitriptyline recently increased to 50 mg at bedtime. 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 She has sleep disorder, chronic pain and depression that are likely all winter related. In addition, her anxiety disorder and depression are likely interrelated. She is currently off primary treatment for depressive symptoms. She is followed by [facility] for medications as well as therapy although says she has not been in contact with the therapist recently.She complains of anxiety symptoms more so than depression at the moment although remains flat/dysphoric.-I have asked social work to help facilitate reconnection with her therapist-I have sent a letter to prescriber at [facility] regarding anxiety and potentially depression Related to Moderate episode of recurrent major depressive disorder Patient with known g astroparesis but details difficulty tolerating water specifically. She indicates that she is able to swallow juices and other such fluids. She is able to tolerate solid food. I am somewhat as a loss to explain this.-I will ask my speech-language pathology colleague to weigh in Related to Dysphagia, unspecified type Patient with a diffu se pain syndrome. She has cutaneous hyperesthesia and historically sunlight, and conditioning and water in the shower because her pain. Currently she has some lower extremity pruritus and when she touches her scratches her legs she has pain. This is predominately involving the lower extremities but involves elsewhere as well. Precisely how this is mediated is not clear.-Trial topical menthol-Increase Elavil to 50 pv-Rrmlzd-ed next week already scheduled appointment Related to Allodynia Patient with bilater al shoulder pain. The patient has been seen by orthopedics in the past with impression of frozen shoulder. MRI shows some muscular abnormalities. In addition to the pathology present the patient has chronic pain syndrome. The patient had cervical pathology that seems to improve somewhat with cervical decompression. It would appear this is done very little for her shoulders which is not surprising.-Trial OT-Depending upon results from OT may need to return to orthopedics Related to Pain of both shoulder joints See pain in both shoulders Relat ed to Pain in left shoulder Patient underwent co mplicated seemingly laparoscopic (anterior approach) annulotomy, discectomy, osteophytectomy, arthrodesis and bilateral multilevel foraminotomy. She had lordotic implants. Hand symptoms seem somewhat better to her. As expected, globally her pain is not dramatically decreased. She has minimal neck stiffness which I suspect this entirely to be expected-Neurosurgical mwtlyd-fi-Xom will continue to monitor the wound, at the moment it looks fine-We shall see if upper extremity symptoms improve and whether she will up to engage in any rehab Related to H/O excision of lamina of cervical vertebra for decompression of spinal cord Patient reports that sugars have been low in the past 24 hours due to poor oral intake which in turn is related to her odynophagia.-I asked that she reduce her Lantus dosing by 10-15 units per a.m. and p.m. dose until she is eating better and do whatever is necessary to avoid hypoglycemia into the 50s. I asked that she call us early and often in the event of difficulty managing sugars with significant hyper or hypoglycemia Related to Diabetic hypoglycemia Patient with postope rative odynophagia. She says at times she is having difficulty getting down solids and/or liquids however is tolerating liquids far better. She demonstrated ability to swallow liquids while I was there. She says some of her pills are problematic. I told her I thought this was likely to be normal in the context of her cervical spine decompression. I do not see anything anatomically, namely pharyngeal process. It is difficult to be definitive.-Trial of viscous lidocaine-I encouraged her to call on-call and/or neurosurgical on-call in the event that she is not able to swallow to exclude any other more seriously more serious etiology but I am skeptical. I told her that I anticipate this will improve but in the event it does not she should reach out TONI Related to Odynophagia Patient with chronic pain syndrome which I believed to be multifactorial and certainly includes fibromyalgia. In the process of evaluation was noted to have cervical spine stenosis. She had significant bilateral hand dysfunction as well as shoulder pain although the shoulder pain and of itself may well be related to primary shoulder pathology rather than cervical pain. In any event, given her severe upper extremity pain and debility she was referred to neurosurgery who felt there might be benefit in decompression. It was made very clear to her that this was unlikely to address her lower back pain and probably not to address her lower extremity pain either. Again, there is diffuse pain syndrome with significant bidirectional psychiatric component-For now continue medications-Opioids were escalated before her surgery to temporize till surgery. Historically she and her family units are very opioid avid and I am not particularly keen to continue this in the long-term and I suspect any taper will be very difficult-Continue multimodal pain treatment with pain management, orthopedics for her shoulders, adjuvants Related to Other chronic pain Patient with multifo shaun chronic pain syndrome, in the process of evaluation she was found to have significant cervical spine stenosis. She was kindly evaluated by neurosurgery and they feel that decompression is appropriate. I was very clear with her that I did not feel this would solve all of her pain issues however, given hand symptoms and other symptoms it is reasonable to proceed. The surgery was delayed due to exceptionally poor glycemic control. This has improved quite dramatically.Given her chronic pain it is a bit difficult to quantify her exercise tolerance however she is able to climb stairs and ambulate reasonable distances. As such, I think it is reasonable to proceed, assuming labs are acceptable.-Patient is appropriate to procedure surgery without further risk stratification-She will remain on her beta-emily which is not being given primarily for cardiac indication-I will defer to Dr. De La Rosa with regard to aspirin hold, I do feel that from a vascular perspective it is entirely acceptable-Would hold lisinopril morning of surgery-Will make additional recommendations with regard to diabetic management preoperatively once date is established.-In the context of severe pain, I have reluctantly agreed to increase the opioid dosing to 10 mg thrice daily of oxycodone Related to Cervical stenosis of spine Hemoglobin A1c has f gabe to 8.3 on her most recent lab testing. She is being, managed with endocrinology at [facility]. I have informed them of her results as well as the plan to proceed with surgery, they are in accord. 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 She is being, managed with endocrinology at [facility]. I have informed them of her results as well as the plan to proceed with surgery, they are in accord. Related to Type 2 diabetes mellitus with hyperglycemia, with long-term current use of insulin -05/19/2020 reporting bleeding per rectum x 3 days, has alternated with constipation and diarrhea- external hemorrhoids noted but no yamila bleeding; not able to obtain sample for guiac - repeat labs, GI referral - has colonoscopy scheduled for 07/02 - GI does not have sooner appts- HOLD aspirin Related to Rectal bleeding Due for mammo/us [place] ySaw SOCK LINER late 2018EGD/Colon Jun 2020Twinrix 32 to be given Related to Encounter for health maintenance examination Not a prominent issu e of late. This is also multifactorial including neuropathy, potentially medication effect although difficult to be definitive,-Monitor, reduce potential medication effect if possible however there are many competing interests Related to Recurrent falls The psoriasis per se is fairly quiescent. There is pruritic eruption to lower legs which could represent psoriasis but will be highly atypical.-Tried topical steroids for the legs-Low threshold to have her return to dermatology. Related to Psoriasis, unspecified Known significant ob structive sleep apnea. She had extensive testing in 2009. She did not like the available interface and has not used positive airway pressure therapy. She has what are highly likely to be consequences of this including cognitive deficits, headaches, chronic pain. Contributions to other health concerns and is also distantly possible.-I will see if sleep medicine will see her however she has no showed twice Related to Obstructive sleep apnea hypopnea, severe She has not had PFTs that I'm aware of. She was a smoker in the past. Her respiratory symptoms are relatively quiescent and therefore has not been primarily to address this. She remains on Advair 50/500 twice daily. She has albuterol inhaler as needed.-May consider PFTs in the future however, again not a priority at the moment especially with pandemic Related to Mild intermittent asthma without status asthmaticus without complication Patient with pain sy ndrome consistent with fibromyalgia. Beyond that she has had chronic low back pain although that seems slightly more quiescent now. Pain currently is focused in bilateral shoulders and neck. She was seen by pain management and received some injections (trigger point injections in January). Pain management is concerned about the possibility of adhesive capsulitis and the patient is referred to orthopedics as well as occupational therapy (the patient went to [facility] physical therapy for initial evaluation and perhaps 1 additional session but never followed through).The pain is multi-dimensional with component of depression, sleep disturbance. These are all likely bidirectionally exacerbating each other.-Pursue diagnostics of cervical spine-No change in her current medication-She remains on very low-dose opioid which is likely not particularly helpful but has been very difficult to taper to off. I have declined to escalate therapy.-For now she continues pregabalin 50 mg twice daily as well as the Elavil 25 mg at bedtime Related to Other chronic pain Last hemoglobin A1c was 10.6. Her sugars are generally not well controlled. Please see diabetes management plan under type 2 diabetes with diabetic chronic kidney disease..Hemoglobin A1c today Related to Type 2 diabetes mellitus with hyperglycemia, with long-term current use of insulin Please see managemen t of diabetes under type 2 diabetes with chronic kidney disease.She has significant neuropathy and lower shown these at the very least. She may very well have diabetic neuropathy in hands as well.-Control diabetes-Meticulous attention to feet/inspection-Strive for appropriate footwear-In general in any painful component of lower extremity neuropathy is relatively minor Related to Type 2 diabetes mellitus with diabetic polyneuropathy, with long-term current use of insulin There is previous re ported history of bilateral carpal tunnel release although today she was far less certain that she had had it done. I can't clearly tell by looking at her wrists. She has had bilateral hand surgery and has had multiple nodules of the upper extremities removed. She does report some paresthesias in her hands and tendency to drop items. This principal could relate to carpal tunnel however could also relate to cervical spine disease or diabetic neuropathy-Given her bilateral shoulder/neck pain I am inclined to start with MRI although I am not terribly concerned about high probability of cervical spine disease.-If MRI of cervical spine is fairly unrevealing would consider EMG Related to History of carpal tunnel release Video EEG in 2009 we 'll strongly suggestive of pseudoseizures. She has an essentially structurally normal brain by recent MRI. EEG was abnormal more recently due to focal intermittent slowing over the temporal regions bilaterally. Anti-for now maintain on current phenytoin extended release 300 mg daily. She also remains on Depakote 125 mg twice daily. It has never been clear if this is for seizure or mood although unlikely to be for seizure.-I have written to the neurology document management consultant to inquire regarding the plan going forward.-Pending their input I am not changing any of her antiepileptic medications Related to Seizure Patient with reflux symptoms. EGD in [address] Dennison showed small hiatal hernia. There is symptomatic. Her symptoms are currently controlled on omeprazole 40 mg twice daily. Previous attempts to step down therapy were relatively unsuccessful. Obviously, this is not optimal.-Patient will have upper endoscopy in June per GI. I will leave her on the current regimen until then however strongly favor de-escalation Related to Hiatal hernia Cognitive screening at time of enrollment program showed a score of 22/30 on Montr a l cognitive assessment. Interactions show lack of carryover. It is somewhat difficult to say what the etiology of this is. Her mental health may will play a major role in this. I'm skeptical current medications impair her. There is a degree of small vessel disease seen on MRI of brain in July 2019 however, it is difficult to say if that is causative.-Strive to minimize vascular risk factors-Monitor B12/TSH-Encouraged her to treat known obstructive sleep apnea which may well be contributory Related to Cognitive deficits Patient with headach es. She has some features of migraine however, others are absent. Again, I think this is intimately linked to her sleep disorder, mood disorder and pain disorder. She has seen [facility] neurology.-We'll try riboflavin-Continue propanolol ppx, assuming it is migranous. May consider alternate with neuro Related to Frequent headaches Patient with depress ion, quite diffuse musculoskeletal pain syndrome, chronic headaches, GI complaints that may be consistent with IBS. She has tried a number of different agents. Some were not tolerated, some were not effective.-Tried to treat sleep apnea, if she can tolerate-Continue amitriptyline 25 mg at bedtime-Continue Lyrica 50 mg twice daily Related to Fibromyalgia Back, lower extremit y joints, potentially shoulder joints.-Analgesia with Tylenol primarily-Of check inflammatory markers more so for the shoulder. C-reactive protein is minimally elevated. Sedimentation rate is normal. Related to Generalized osteoarthrosis of multiple sites Patient with history of opioid use ostensibly for chronic pain. She is now on very low-dose oxycodone. 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 She is currently off of multiple medications including Zosyn and Pristiq. She remains on amitriptyline although that is not primarily for depression symptoms.-Continued follow-up with psychiatry and psychology.-For now we'll defer medications to psychiatry-I strongly suspect that her sleep disorder, chronic pain and depression are all very closely interrelated Related to Moderate episode of recurrent major depressive disorder Patient with history that is consistent with generalized anxiety disorder and possibly panic attack.-We'll continue her seeing psychiatry-She is on amitriptyline although more for pain than 4 psychiatric indication.She had been on prazosin and Pristiq. She is apparently taking neither at this point. Psychiatry is primarily managing her psychoactives-For now will defer to them Related to Generalized anxiety disorder Precise etiology not clear. Could relate to opioids partially. She is on MiraLAX, it is unclear to me how regularly she takes this.Medical the time she has loose stools. I am somewhat uncertain if this is IBS. TSH ok-Continue MiraLAX when needed-We will be having colonoscopy and upper by [facility] GI in June Related to Constipation, unspecified constipation type Hep C antibody posit tracy, no viral load. A bit unclear what this represents, either false positive or resolved.-No specific indication to do anything at the moment is froglike until-Will be seeing GI for procedure in June Related to Positive hepatitis C antibody test Was seen by [facility] GI. 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 I wrote to [facility] GI and they tell me plan is for upper and lower endoscopy in June Related to History of colonic polyps Related to metabolic syndrome/obesity-Strive for weight loss-Glycemic controlHepatoma screening periodically Related to Hepatic steatosis Please see hiatal hernia Related to Gastroesophageal reflux disease, esophagitis presence not specified Please see diabetes treatment plan under DM 2 with chronic kidney disease.Seeing retina specialist. She was referred there in October for follow-up. It is unclear to me if she was seen.-I have asked the office to obtain notes or reschedule the appointment Related to Proliferative diabetic retinopathy of both eyes without macular edema associated with type 2 diabetes mellitus Vitamin D low in pas t. Is currently on 4000 units.-Continue 4000 units based upon most recent vitamin D level of 29. Related to Vitamin D deficiency BMI is 33.85. Related to Body mass index (bmi) 33.0-33.9, adult BMI is 33.85. 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 She currently has several discrete lesions to her legs that are significantly pruritic. Appearance is not typical for diabetic dermatitis however, I don't have a wonderful alternative diagnosis. She does not feel these are bug bites. The distribution is somewhat odd but not atypical for diabetic dermatitis.-Control diabetes-Trial of topical corticosteroids-low threshold for return to Derm Related to Type 2 diabetes mellitus with diabetic dermatitis, with long-term current use of insulin CK D1-estimated GFR greater than 90 with proteinuria..-Continue lisinopril 5 mg, first dose if possible-Controlled blood pressure-Controlled diabetesDM 2-extremely complicated patient with long history of very poor glycemic control interspersed with episodes of profound hypoglycemia to the point that she was worked up for insulinoma as well as surreptitious insulin use. Her A1c's are abysmal, most recent 10.6. They had been trending towards better, endocrine has become involved and made efforts however also cut back medications significantly as she detailed significant hypoglycemia to them although I am not seeing that. Her sugars are currently poorly controlled.-I have asked her to gradually shift the current 60 units of Lantus in the evening to the morning and continue with 20 units of Lantus in the evening. Given her current A1c I have significant doubts that she is consistently taking her insulin although very difficult to know with certainty. She is able to articulate the dosage. She was given a written schedule of how to transition the insulin to a.m. predominant-The Amaryl should be 4 mg daily. The prescription should be going to her pharmacy. I have asked that she use 2 of the 2 mg tablets for the foreseeable future. I have let the endocrinology folks know that the prescription should go to [facility].-I have written to endocrinology and informed them about the above situation and ask for their input and for them to see her.-Podiatry follow-up when services resumed-Ophthalmology needed Related to Type 2 diabetes mellitus with stage 1 chronic kidney disease, with long-term current use of insulin Lantus 60units Am, 20 PM, may ch benigno Related to alf (current) use of insulin See a/p in Dm with CKD problem R elated to Chronic kidney disease, stage 1 We have not been abl e to get fasting lipid panel however, lipid panel from 2019 by endocrinology at [facility] shows elevated LDL as well as triglycerides consistent with mixed hyperlipidemia.-Triglycerides are likely to be improved with glycemic control which heretofore has been elusive.-Remains on Zetia 10 mg-Not currently on a statin, I am a bit perplexed as to why. Unclear to me if she was intolerant. She was on pravastatin 20 mg at some point. It was stopped by for PCP, I'm not entirely sure why. Related to Mixed hyperlipidemia Left posterior maxil tanvi tooth. Appears to have significant other decay or fracture. She has discomfort there. The challenge I see is that appears to anchor the partial. As best I can tell is the only tooth on that side. In the event that it cannot be saved, would need extraction with presumably different appliance.-Dental Related to Closed fracture of tooth, initial encounter Patient with bilater al shoulder pain and limitation range of motion. Pain management feels that this is potentially frozen shoulder. I am not entirely certain. Adhesive capsulitis can be associated with diabetes. She was referred to physical therapy however saw them only once and then stopped going. She clearly is inquiring as to whether increase opioids would be the solution, I told her they are not and there is no plan to escalate. I have previously looked inflammatory markers to exclude polymyalgia rheumatica, I do not believe the inflammatory markers are consistent with PMR. I do wonder if there is any primary cervical spine pathology given the bilateral nature of the pain although given her overall diffuse pain syndrome and is also distinctly possible that there is no primary neck pathology or primary shoulder pathology but rather musculoskeletal pain syndrome.-I have shown her some basic exercises aimed at improving shoulder mobility-We will refer to rehabilitation however, given her inconsistency in participating him not sure this will be helpful-Per the recommendation of pain management to have referred her to orthopedics-I will repeat inflammatory markers and CK Related to Pain of both shoulder joints See DM gastroparesis Related to Gastroparesis Patient with history of constipation. She is tentatively due for colonoscopy in March. I have asked for EGD to be done as well. With regard to her constipation I have asked that she resume the MiraLAX I have sent packets with multiple refills Related to Constipation, unspecified constipation type Again, there remains significant ambiguity as to the possibility of her ever having had a seizure. There is strong suggestion of pseudoseizure in past.-We will defer to neurology with regard to the recent EEG, I do not suspect that this mandates continuation of antiepileptic drug Related to Seizure The precise nature o f these headaches is unclear. It certainly could related to untreated sleep apnea. There are components of muscular pain/muscular headache. There is the possibility that these are migrainous and she is on several medications that could be used as preventive meds.-Missed appointment for sleep medicine, it is my hope that I will be rebooked-Has appointment to see sleep medicine, referred by neurology which I fully agree with although almost certainly needs repeat polysomnogram-Referred by neurology to pain management for suboccipital injection, again I agree wholeheartedly Related to Frequent headaches Patient with long hi story of anxiety and depression. She is being followed by psychiatric provider. He has increased her Pristiq due to symptoms, although I'm uncertain if due to symptoms of depression or anxiety. Unclear to me if the increase in the Pristiq has made her more anxious or fungal related. She is on nocturnal prazosin, efficacy unclear.She clearly expresses interest in having benzodiazepines which she had in the past. Obviously, I agree with my psychiatric colleague that this would be ill advised. She has a multitude of intolerances and purported allergies which makes selecting a drug rather difficult. I do wonder if consideration could be given to buspirone.-I will send this note to the attention of Rendon and solicit his feedback on the issue of the anxiety. Related to Anxiety Rash right foot. Is somewhat nonspecific. Appears to me to be fungal. We will trial topical antifungal powder Related to Rash Subjective sense of relative inability to void for day or 2 which is improved somewhat. She has relatively normal lateral volume by bladder scan, despite not having voided. She does not drink very much related fluid. There is little to suggest UTI. Of note, she was started on oxybutynin for menopausal symptoms by [employer], this could be contributory to her bladder dysfunction; certainly opioids could as well and elavil-Stop oxybutynin Related to Urinary retention Precise etiology of the small lesion to her left lateral leg is unclear. Unclear to me if there was a insect bite. It does not appear to be phlebitis. It does not have characteristics of abscess. It does not appear to be cellulitic although could certainly evolve. Doubt primary skin lesion (has psoriasis).-I suggest that she watch it, let me know significantly worsening-She will be seeing dermatology today, albeit not for this-I suggested that she try icing locally for the pain Related to Skin lesion of left leg . Patient reports hi story of seizures, more so in her younger years. Via EEG several years ago did not demonstrate any epileptic activity in the face of episodes she intended or seizures. Recent MRI was essentially negative, further decreasing the probability of this being a physiologic phenomenon-We will have neurology see the patient to opine however I would favor stopping Dilantin, at the very least Related to Seizure Very difficult to ge t a good sense from her how her asthma is, seems largely quiescent-No change in current plan of care Related to Mild intermittent asthma without status asthmaticus without complication The exact nature of her cognitive deficits is a bit hard to tease out. I suspect that much of it may relate to mood disorder. There is some degree of small vessel disease however I'm not sure that this is contributory.-Treat depression-Secondary causes of largely been excluded-Continue to follow cognition Related to Cognitive disorder Less prominent compl aint currently. Unclear to me if this is related to her obstructive sleep apnea, the function of her depression and anxiety or combination thereof.-Aim to address RAYMOND-No change in analgesics-Had recent MR brain which was reassuring-We will be seeing neurology surrounding the issue of antiepileptics, we shall see if they've anything say about headaches Related to Frequent headaches Clinical diagnosis o f fibromyalgia.-Continue mobilization-Treatment of depression-Is on TCA as well as low dose pregabalin Related to Fibromyalgia OA ultiple joints-En couraged to keep active-No espcific therapy betond analgesia-Wt loss could help some of her LE arthralgia Related to Arthritis Please see anxiety a antwon. Complex mix of depression, probable somatization, chronic pain-Continue current psychiatric care, medications per psychiatry Related to Moderate episode of recurrent major depressive disorder Complex amalgam of a nxiety, depression, chronic pain, sleep disturbance, RAYMOND, strong possibility of factitious disorder with regard to perceived stroke, MN and seizure disorder.-Being followed by psychiatry-Continue current antidepressant/anxiolytic Related to Anxiety This is almost certa inly related to her diabetes, obesity. She seems to have overall intact synthetic function. Recent ultrasound did not show evidence of HCC over the like.-Continue surveillance-Will be seeing GI- Related to Hepatic steatosis Some degree of ambig uity as to whether there is gastroparesis. Appears to have reflux. is on PPI. Appears to have history of hiatal hernia-Seen by GI, they are awaiting records to schedule upper and lower-Continue antisecretory therapy Related to Gastroesophageal reflux disease without esophagitis On Suppement Related to Vitam in D deficiency BMI 33 Related to Body mass index (bmi) 33.0-33.9, adult BMI 33Patient is obe se with significant comorbidities. She is moderately inactive. I am not optimistic about increase in her level of physical activity-Continue to encourage slight weight loss Related to Class 1 obesity due to excess calories with serious comorbidity and body mass index (BMI) of 33.0 to 33.9 in adult Hypertension is at g oal. On FRANKIE inhibitor.-Follow blood pressure Related to Hypertensive chronic kidney disease with stage 1 through stage 4 chronic kidney disease, or unspecified chronic kidney disease Ongoing adjustment t o goal A1c, seeing endo Related to alf (current) use of insulin Patient with very lo ng-standing history of diabetes, poorly controlled, highly brittle with multiple complicating factors including question of excess exogenous insulin use. Question of insulinoma has been raised but patient declined inpatient workup while still at [facility]. Last hemoglobin A1c was 10.4 which is fairly abysmal given her age however improved by full point since enrollmentI suspect that her depression also plays a significant role in poor control.-Incremental increases in insulin-She will be seeing endocrinology next week-Needs to see retina-Meticulous attention to feet by podiatry-Hemoglobin C3z-Apbohlbzq to lipids within the confines of her medication tolerance-Follow microalbumin-I am a bit unclear why not on metformin, Will see what Endo says Related to Type 2 diabetes mellitus with diabetic neuropathy, with long-term current use of insulin Ab +, RNA neg, Uncle ar if she self resolved vs fasle + ABBeing imminized for Hep A/B Related to Positive hepatitis C antibody test Increased lantus to 1 units Rela simon to Type 2 diabetes mellitus with diabetic nephropathy Assessments Type Assessment Date No Information Goals Health Concern Goal Type Priority Status Date Karime is at risk for falls related to dizziness, chronic pain, seizure disorder, uncontrolled Diabetes and history of falls. Karime will not experience any falls or fall related injuries through next review in 6 months. Patient Goal New 5 Karime is reporting an increase in her chronic neck pain. Karime will be able to perform her daily function and sleep without pain complaints. Patient Goal Complete 5 Karime is at risk for functional decline related to chronic pain, Depression, Diabetes, Seizure disorder , history of falls and history of non-compliance with medications . Karime will remain at current level of functioning (independent with adl's and ambulation) and remain living in the community through next review in 6 months. Patient Goal Complete 5 Karime is at risk for functional decline related to chronic pain and depression. Karime will remain living safely in the community with assistance of [facility] and family. Patient Goal Complete 3 Karime is at risk for skin breakdown related to psoriasis, pruritic skin lesions and urinary incontinence. Skin will remain free from breakdown for 6 months. Patient Goal Continued 2 Karime is at risk for functional decline related to chronic pain, s/p anterior cervical decompression, ,c4-5, and c5-6, hx Depression, Diabetes, Seizure disorder , history of falls and history of non-compliance with medications . Karime will report a decrease in pain level and increase B UE AROM Patient Goal Discontinued 0 Karime is at risk for aspiration due to GERD. Karime will safely eat and drink with no aspiration events. Patient Goal Complete 9 Karime is at risk for complications related to uncontrolled diabetes and history of non-compliance with medications and follow up appointments. Karime will not experience any medical complications or hospitalizations, related to diabetes through next review in 6 months Patient Goal Continued 9
[2025-07-14 19:37] VITALS: BP 172/79; PULSE 77; RESP 16; TEMP 36.4; O2SAT 100; BMI 31.7
--- NOTE | 2025-07-14 19:38 | ED.GENADULT ---
HPI - General Adult General Chief complaint: Neck Pain/Injury Stated complaint: pain in neck,pressure in brain, lumps on neck Time Seen by Provider: 07/14/25 22:46 Source: patient, RN notes reviewed and old records reviewed Mode of arrival: ambulatory Limitations: no limitations History of Present Illness ED Provider: Sofie HPI narrative: 64-year-old female past medical history significant for diabetes, hypertension, previous CVA, seizure disorder, hyperlipidemia presents for evaluation of neck pain and headache. Patient reports a worsening headache over last 3 or 4 days pain She describes the pain as radiating up the back of her head and causing a ?pressure. ? She has had previous cervical spine surgery but denies any recent trauma or injury. Denies any fevers, chills, sore throat. She was not anticoagulated She was taking oxycodone with minimal improvement in his symptoms Denies any chest pain, shortness of breath palpitations Her pain is 10/10 pain She denies any change to her vision, lightheadedness nausea vomiting diarrhea. She has a history of headaches Related Data Home Medications ?Medication ?Instructions ?Recorded ?Confirmed albuterol sulfate 90 mcg/actuation 1 puff inhalation Q4H 09/21/22 09/21/22 aerosol inhaler aspirin 81 mg tablet,delayed 1 tab PO DAILY 09/21/22 09/21/22 release buspirone 7.5 mg tablet 2 tab PO BID 09/21/22 09/21/22 calcipotriene 0.005 % topical 1 appl topical DAILY 09/21/22 09/21/22 ointment cholecalciferol (vitamin D3) 25 1 tab PO DAILY 09/21/22 09/21/22 mcg (1,000 unit) tablet (Vitamin D3) citalopram 20 mg tablet 1 tab PO DAILY 09/21/22 09/21/22 divalproex 125 mg tablet,delayed 1 tab PO BID 09/21/22 09/21/22 release empagliflozin 25 mg tablet 1 tab PO DAILY 09/21/22 09/21/22 (Jardiance) fluticasone 500 mcg-salmeterol 50 1 puff inhalation BID 09/21/22 09/21/22 mcg/dose blistr powdr for inhalation (Advair Diskus) insulin glargine 100 unit/mL (3 60 unit subcut BEDTIME 09/21/22 09/21/22 mL) subcutaneous pen (Lantus Solostar U-100 Insulin) insulin lispro 100 unit/mL 0 sliding scale dose subcut QPM 09/21/22 09/21/22 subcutaneous pen (Humalog KwikPen (U-100) Insulin) lisinopril 5 mg tablet 1 tab PO DAILY 09/21/22 09/21/22 magnesium oxide 400 mg (241.3 mg 1 tab PO DAILY 09/21/22 09/21/22 magnesium) tablet melatonin 5 mg tablet 2 tab PO BEDTIME 09/21/22 09/21/22 metformin 500 mg tablet,extended 2 tab PO DAILY 09/21/22 09/21/22 release 24 hr nystatin 100,000 unit/gram topical 1 appl topical BID 09/21/22 09/21/22 powder omeprazole 40 mg capsule,delayed 1 cap PO DAILY 09/21/22 09/21/22 release oxycodone 10 mg tablet 1 tab PO TID PRN Pain 09/21/22 09/21/22 polyethylene glycol 3350 17 gram 34 g PO DAILY 09/21/22 09/21/22 oral powder packet pregabalin 75 mg capsule 1 cap PO BID 09/21/22 09/21/22 riboflavin (vitamin B2) 100 mg 4 tab PO DAILY 09/21/22 09/21/22 tablet (Vitamin B-2) rosuvastatin 10 mg tablet 1 tab PO BEDTIME 09/21/22 09/21/22 white petrolatum-mineral oil 1 appl topical DAILY 09/21/22 09/21/22 topical cream Previous Rx's ?Medication ?Instructions ?Recorded sumatriptan succinate 25 mg tablet 25 mg PO DAILY MRX1 #4 tabs 09/22/22 cyclobenzaprine 10 mg tablet 10 mg PO Q8H #20 tabs 07/28/24 sucralfate 1 gram tablet 1 g PO TID #90 tabs 07/28/24 baclofen 10 mg tablet 10 mg PO TID PRN muscle spasm #10 07/15/25 tabs Allergies Allergy/AdvReac Type Severity Reaction Status Date / Time carisoprodol (From SOMA) Allergy Intermediate HIVES Verified 07/14/25 19:41 sulfamethoxazole (From Allergy Intermediate HIVES Verified 07/14/25 19:41 BACTRIM) trimethoprim (From BACTRIM) Allergy Intermediate HIVES Verified 07/14/25 19:41 Penicillins Allergy Mild HIVES,RASH Verified 07/14/25 19:41 (PENICILLINASE) atorvastatin (Lipitor) Allergy Unknown Swelling Verified 07/14/25 19:41 carbamazepine (Tegretol) Allergy Unknown Swelling Verified 07/14/25 19:41 gabapentin Allergy Unknown Swelling Verified 07/14/25 19:41 penicillin V Allergy Unknown hives, rash Verified 07/14/25 19:41 Sulfa (Sulfonamide Allergy Unknown Swelling Verified 07/14/25 19:41 Antibiotics) topiramate (Topamax) Allergy Unknown Swelling Verified 07/14/25 19:41 Doxycycline Hyclate Allergy Unknown vomiting Uncoded 07/14/25 19:41 Review of Systems Constitutional: Constitutional: Denies body ache(s), Denies chills, Denies fever(s), Denies frequent falls and Reports headache(s) Eyes: Eyes: Denies blurry vision, Denies floaters, Denies irritation and Denies itchy eyes ENT: Denies vertigo, Denies dizziness, Reports headache(s) and Reports neck pain Cardiovascular: Cardiovascular: Denies chest pain and Denies dyspnea on exertion Respiratory: Respiratory: Denies cough and Denies dyspnea on exertion Gastrointestinal: Gastrointestinal: Denies abdominal pain, Denies nausea and Denies vomiting Musculoskeletal: Musculoskeletal: Denies back pain, Denies myalgias, Reports neck pain, Denies numbness, Denies radiating pain into limb, Reports stiffness and Denies tingling Integumentary/Breasts: Skin/Breast: Denies rash Neurologic: Denies vertigo, Denies dizziness, Denies frequent falls, Reports headache(s), Denies numbness and Denies tingling Allergic/Immunologic: Allergic/Immunologic: Denies itchy eyes PMFSH Past Medical History Medical History History of CVA (cerebrovascular accident) Hyperlipidemia Hypertension Type 2 diabetes Surgical History History of hand surgery History of neck surgery History of appendectomy Social History Social History Alcohol intake: never Patient Tobacco Use Status: Never used Tobacco Smoked in Last 30 Days: No Use of substances other than those prescribed or required for medical reasons: No Advance Directives: Yes Advance Directives on File: Yes Advance Directives Date on File: 09/26/22 Do you have a plan to hurt others: No Plan service: No Physical Exam ED Vital Signs: Vital Signs - 24 hr 07/14/25 19:37 07/14/25 22:42 Temperature 97.6 F 97.5 F Pulse Rate 77 76 Respiratory Rate 16 16 Blood Pressure 172/79 H 177/66 H Pulse Oximetry 100 100 Oxygen Delivery Method Room Air Room Air BMI result Body Mass Index 31.7 Const General: healthy appearing, comfortable, no acute distress, alert and awake Nutritional Appearance: well nourished Orientation/consciousness: patient oriented x3 HENMT Head: Yes normocephalic and Yes atraumatic Eyes Eyelids: Yes eyelids normal Conjunctivae: conjunctivae normal Sclerae: sclerae normal Corneas: corneas normal Pupils: Equal, round and reactive pupils present EOM: EOMs intact bilaterally Neck Neck: Yes no meningeal signs, Yes supple, No anterior neck swelling, No positive Brudzinski's sign and No positive Kernig's sign Resp Effort & Inspection: normal respiratory effort, able to speak in complete sentences and not labored Cardio Rate: regular rate Rhythm: regular rhythm GI Inspection: No distended Palpation (GI): Soft to palpation, not firm, nontender, no guarding and not rigid Back/Spine/Pelvis Cervical Spine: No collar present, cervical muscular tenderness and No cervical ROM abnormal Skin General skin exam: elasticity normal Neuro General: patient oriented x3 and no meningeal signs Cranial nerves: Yes Equal, round and reactive pupils present and Yes Bilaterally intact EOM present Cognition (Neuro): normal cognition Extrem Other: Moving all extremities well without any obvious deformities Course Course Course Narrative: This is a Rapid Medical Examination (RME) performed by Emily Murphy PA-C in triage. Full HPI, ROS, assessment and treatment plan per primary provider in the Main ED. Hx: 64 yo F here for eval of head pressure and atraumatic posterior neck pain (R>L) x1 week, worsening. no blunt injury/trauma. taking oxycodone and tylenol without improvement. hx of cervical surgery x2, the last being 2 years ago. no numbness/tingling down extremities. PE/vitals: afebrile. no midline c spine tenderness. significantly limited ROM d/t pain. unable to bring chin to chest. cannot turn left or right. Plan: imaging Medications Administered Discontinued Medications Generic Name Dose Route Start Last Admin Trade Name Víctor PRN Reason Stop Dose Admin Acetaminophen/Butalbital/Caffeine 1 tab 07/15/25 01:06 07/15/25 01:34 Butalb/Acetamin/Caff 50/325/40 Tablet PO 07/15/25 01:07 1 tab ONCE ONE Administration Ketorolac Tromethamine 30 mg 07/15/25 01:06 07/15/25 01:34 Ketorolac Tromethamine 30 Mg/Ml Vial IM 07/15/25 01:07 30 mg ONCE ONE Administration Medical Decision Making Medical Decision Making MDM Narrative: 64-year-old female with a past medical history as above presents for evaluation of neck pain and headache over last 3 days. She was no infectious symptoms, no fevers, chills or respiratory symptoms to suggest an infectious cause her headaches such as encephalitis or meningitis. She was no neuro deficits. No weakness, difficulty speaking, visual changes. Less likely CVA. Her pain is reproducible on exam and less likely vertebral artery dissection or aneurysm. A CT scan of the brain and cervical spine was ordered from triage. I do suspect that her exam is most consistent with muscular spasm and tension headache Differential Diagnosis Differential Diagnoses: The differential diagnosis associated with the presentation includes Intracranial hemorrhage Cervical fracture Spasmodic torticollis Tension headache Migraine headache Cluster headache Radiology Impression Discussion of test interpretation with radiology: I have reviewed the radiologist's reading. Radiologist Impression: Findings: The size and shape of the ventricular system is within normal limits for this patient's age. Minimal to mild areas of low attenuation seen within the deep white matter. Segura-white differentiation is well preserved. No midline shift or mass effect. No intracranial hemorrhage. No calvarial fracture. IMPRESSION: 1. No acute intracranial findings. This document has been electronically signed by: Steven Mike MD on 07/15/2025 01:25:08 Findings: Spinal fusion hardware spanning from C3 through C6. Anterior plate and screw device is seen at C4-5 with anterior interbody fusion device. Anterior interbody fusion device is seen at C4-5 and C5-6. There solid bony ankylosis at C4-5 and C5-6 with partial bony ankylosis at C3-4. There is generalized straightening of the normal cervical lordosis. No fracture or prevertebral soft tissue swelling. Upper airway is patent. No apical pneumothorax or apical infiltrate. IMPRESSION: Spinal fusion hardware as above. No acute fracture. This document has been electronically signed by: Steven Mike MD on 07/15/2025 01:27:40 Discharge Plan Discharge Clinical Impression: Acute tension headache Patient Disposition: Home, Self-Care Instructions: Tension Headache (ED) Additional Instructions: Your CT scans performed in the ER today were reassuring. No significant concerning findings to explain your pain. Your headache is most likely related to muscle spasms in your neck. Use ibuprofen as needed for pain You may use baclofen as needed for muscle spasms. This may make you drowsy, do not drink alcohol or drive after taking Prescriptions: New baclofen 10 mg tablet 10 mg PO TID PRN (Reason: muscle spasm) Qty: 10 0RF No Action polyethylene glycol 3350 17 gram powder in packet 34 g PO DAILY riboflavin (vitamin B2) [Vitamin B-2] 100 mg tablet 4 tab PO DAILY omeprazole 40 mg capsule,delayed release(DR/EC) 1 cap PO DAILY aspirin 81 mg tablet,delayed release (DR/EC) 1 tab PO DAILY citalopram 20 mg tablet 1 tab PO DAILY magnesium oxide 400 mg (241.3 mg magnesium) tablet 1 tab PO DAILY fluticasone propion-salmeterol [Advair Diskus] 500-50 mcg/dose blister with device 1 puff inhalation BID divalproex 125 mg tablet,delayed release (DR/EC) 1 tab PO BID buspirone 7.5 mg tablet 2 tab PO BID lisinopril 5 mg tablet 1 tab PO DAILY albuterol sulfate 90 mcg/actuation HFA aerosol inhaler 1 puff inhalation Q4H metformin 500 mg tablet extended release 24 hr 2 tab PO DAILY insulin lispro [Humalog KwikPen Insulin] 100 unit/mL insulin pen 0 sliding scale dose subcut QPM rosuvastatin 10 mg tablet 1 tab PO BEDTIME pregabalin 75 mg capsule 1 cap PO BID cholecalciferol (vitamin D3) [Vitamin D3] 25 mcg (1,000 unit) tablet 1 tab PO DAILY insulin glargine [Lantus Solostar U-100 Insulin] 100 unit/mL (3 mL) insulin pen 60 unit subcut BEDTIME oxycodone 10 mg tablet 1 tab PO TID PRN (Reason: Pain) melatonin 5 mg tablet 2 tab PO BEDTIME Jardiance 25 mg tablet 1 tab PO DAILY calcipotriene 0.005 % Ointment 1 appl TOPICAL DAILY Rx Instructions: rub in gently and completely white petrolatum-mineral oil Cream 1 appl TOPICAL DAILY Rx Instructions: APPLY TO LEGS nystatin 100,000 unit/gram Powder 1 appl TOPICAL BID sumatriptan succinate 25 mg tablet 25 mg PO DAILY MRX1 Qty: 4 0RF Rx Instructions: may repeat dose after 2 hours if no resolution of migraine sucralfate 1 gram tablet 1 g PO TID Qty: 90 0RF cyclobenzaprine 10 mg tablet 10 mg PO Q8H Qty: 20 0RF Print Language: Kinyarwanda
[2025-07-14 22:42] VITALS: BP 177/66; PULSE 76; RESP 16; TEMP 36.4; O2SAT 100
--- OUTSIDE RECORDS SUMMARY | 2025-07-14 22:53 | XMS_ITS | Clinical Summary ---
Author Organization [facility] Address [address] [place] [address] Care Team Providers Care Molding Associate Name Role Phone Josette Mina DMD Primary Care Provider [phone] Source Comments PLEASE NOTE, if this patient is a minor, it may be UNLAWFUL to discuss sensitive information that is contained in these records (such as FAMILY PLANNING, MENTAL HEALTH or SUBSTANCE ABUSE) with the minor patient's parent or other person without the patient's specific authorization.[facility] Medications No known medications Active Problems No known active problems Social History Tobacco Use Types Packs/Day Years Used Date Smoking Tobacco: Never Assessed Social Connections Answer Date Recorded Connectedness 0 07/12/2024 Financial Resource Strain Answer Date R ecorded Financial Resource Strain 0 2023 Stress Answer Date Recorded Stress 0 07/12/2024 Physical Activity Answer Date Recorded Physical Activity 0 07/12/2024 Food Insecurity Answer Date Recorded Food 0 07/18/2024 Transportation Needs Answer Date Record ed Transportation 0 07/12/2024 Housing Stability Answer Date Recorded Housing 0 07/12/2024 Safety and Environment Answer Date Owen rded Safety 0 07/12/2024 Utilities Answer Date Recorded Utilities 0 07/12/2024 Employment Answer Date Recorded Stress 0 07/12/2024 Comments Unknown Sex and Gender Information Value Date Recorded Sex Assigned at Not on file Legal Sex Female 11:52 AM PDT Gender Identity Not on file Sexual Orientation Not on file Last Filed Vital Signs Vital Sign Reading Time Taken Comments Blood Pressure 120/75 08/06/2024 5:16 PM EDT Pulse 66 08/06/2024 5:16 PM EDT Temperature - - Respiratory Rate - - Oxygen Saturation - - Inhaled Oxygen Concentration - - Weight - - Height - - Body Mass Index - - Plan of Treatment Health Maintenance Due Date Last Done Comments Anxiety Screening 1960 Dental Prophy 1960 Diabetes Screening 1960 HPV Screening 1960 Hepatitis C Screening 1960 Lipid Screening 1960 Pap + HPV 1960 Tobacco Screening 1960 HIV Screening 1975 Imm-DTaP/Tdap/Td (1 - Tdap) 1979 Cervical Cancer Screening 1981 Pap Smear 1981 Breast Cancer Screening (Mammogram) 2000 CT Colonography 2005 Colonoscopy 2005 Colorectal Cancer Screening 2005 FIT/gFOBT 2005 Fecal DNA 2005 Flexible Sigmoidoscopy 2005 Imm-Zoster, Recombinant (1 of 2) 2010 Imm-Pneumococcal 50+ (2 of 2 - PCV) 04/06/201104/06 Alcohol and Drug Screen 10/23/2024 Depression Annual Screen 10/23/2024 [id number] (1 - season) 2025 Imm-Influenza (#1) 2025 07/04/2024, 08/03/2023 Hypertension Screening (#1) 08/06/2025 Dental BW 08/08/2025 08/06/2024 Dental Examination 08/08/2025 08/06/2024 Dental Perio Charting 08/08/2025 08/06/2024 Dental FMX/Pano 08/08/2029 08/06/2024 Cervical Ablation/Cold-Knife Conization Discontinued Cervical Cryotherapy Discontinued Colposcopy Discontinued Endometrial Biopsy Discontinued Excision/Leep Discontinued HPV Genotyping Discontinued Vaginal Pap Discontinued Vulvoscopy Discontinued Procedures Procedure Name Priority Date/Time Associated Diagnosis Comments INTRAORAL - COMP SERIES OF RADIOGRAPHIC IMAGES Routine 08/06/2024 9:40 AM EDT Encounter for dental examination COMP ORAL EVALUATION - NEW/ESTABLISHED PATIENT Routine 08/06/2024 9:40 AM EDT Encounter for dental examination from Last 3 Months or Most Recently Relevant to Health Maintenance Insurance [facility] [employer] COM Care Teams Molding Associate Relationship Specialty Start Date End Date Josette Mina DMD [address] [place] [id number] PCP - General 01/01/21
[2025-07-15] MEDS: Butalb/Acetamin/Caff 50/325/40 TABLET 1 TAB PO (01:34)
[2025-07-15 02:53] VITALS: BP 137/78; PULSE 74; RESP 16; TEMP 37.1; O2SAT 95
[2025-07-15 02:54] VITALS: BP 137/78; PULSE 74; RESP 16; TEMP 37.1; O2SAT 95
== END 2025-07-15 02:54 | disposition home or self-care (01) ==
PROVIDERS: Emergency Provider Emergency Medicine
DX: G44.209 Tension-type headache, unspecified, not intractable (principal); M54.2 Cervicalgia; E11.8 Type 2 diabetes mellitus with unspecified complications; I10 Essential (primary) hypertension
CPT/HCPCS: 70450; 72125; 96372; 99284; J1885

== ENCOUNTER → 2025-07-14 19:40 | Outpatient (BNV) | payer MEDICAID, SELFPAY | PROVIDERS: Emergency Provider Emergency Medicine; Visit Provider Radiology Diagnostic Radiology | DX: M54.2 Cervicalgia (principal); Z98.1 Arthrodesis status; R51.9 Headache, unspecified | CPT/HCPCS: 70450; 72125 ==